=== PATIENT | female | born 1960 | race Caucasian/White ===

== ENCOUNTER 2016-08-04 10:28 | Outpatient (CLI) | payer MEDICARE, BC ==
[2016-08-04] MEDS ORDERED: Iopamidol 408 MG/ML 20 ML SDV ONE (11:59)
[2016-08-04] MEDS ORDERED: Betamethasone Acetate/Betamethasone Sod Phosphate 30 MG/5 ML MDV ONE (11:59)
[2016-08-04 12:32] VITALS: BP 151/85
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
== END 2016-08-04 12:35 | disposition home or self-care (01) ==
LOC: VM.PAIN 10:28
PROVIDERS: ATTEND Nurse Anesthetist, Certified Registered
DX: M53.3 Sacrococcygeal disorders, not elsewhere classified (principal); M79.1 Myalgia
CPT/HCPCS: 62322; J0702

== ENCOUNTER 2018-01-04 11:50 | Inpatient (IN) | payer MEDICARE, BC ==
[2018-01-04] MEDS ORDERED: Sodium Chloride 0.9% 1,000 ML IV ONE (12:00)
[2018-01-04] MEDS ORDERED: Ondansetron 4 MG/2 ML SDV IVPUSH ONE (12:00)
[2018-01-04] MEDS ORDERED: Sodium Chloride 0.9% 10 ML Syringe FLUSH PRN (12:01)
[2018-01-04 12:51] LABS: CHLORIDE,CL 105 mmol/L (98-107); SODIUM,NA 139 mmol/L (136-145)
[2018-01-04] MEDS ORDERED: Magnesium Sulfate/Water 2 GM in Premix Bag 1 BAG IV ONE (14:09)
[2018-01-04] MEDS ORDERED: Thiamine 200 MG/2 ML MDV IV ONE (14:10)
[2018-01-04] MEDS ORDERED: Thiamine 200 MG/2 ML MDV IM ONE (14:10)
--- NOTE | 2018-01-04 14:21 | PCM.HP ---
H&P History of Present Illness - General Date of Service: 01/04/18 Admit Problem/Dx: Admission Diagnosis/Problem Admission Diagnosis/Problem Alcohol dependence Source of Information: Patient History Limitations: Reports: Intoxication - History of Present Illness Initial Comments - Free Text/Narative: Mrs. Shah is a 57 yo female who presented to the ER today due to relapse of alcohol abuse and desire to regain sobriety. She states that over the past 9 days, she has resumed drinking vodka daily. Prior to this, she had relapsed with her alcohol abuse but was limiting this to "a few" beers daily. She only started drinking vodka again 9 days ago per her report. She is not willing to tell me how much she has been drinking but told the ER nurse that she has been drinking a liter of vodka daily. She states this was prompted by the fact that she asked her to move out and he listened to her. She is not unhappy that he left but also states that it is complicated. She is interested in quitting drinking again and would like assistance with this. She has been having intermittent nausea this week whenever she has spaced out her drinks. No abdominal pain, fever, or chills. No changes in her bowels. She denies any other physical symptoms. She has tried to quit on her own in the past but states that she has never gone longer than 3 days at home. She does not believe she has a history of complicated withdrawal or seizures but she cannot be sure. In September 2016, she did get admitted to the [facility] in [place] for detox and subsequent treatment. She has kept in contact with a counselor through the [facility] every month but has not done anything else for sobriety maintenance as in regular AA attendance. History is limited by the fact that the patient is currently intoxicated with a HOLLIE >300. Lower Back Pain Score (Numeric/FACES): 5 - Related Data Allergies/Adverse Reactions: Allergies Allergy/AdvReac Type Severity Reaction Status Date / Time No Known Allergies Allergy Verified 01/04/18 13:23 Home Medications: Home Meds Albuterol [Ventolin HFA] 1 - 2 puff PO Q4H PRN 08/11/13 [History] Cyclobenzaprine [Flexeril] 10 mg PO TID PRN 08/11/13 [History] FA/Lycopene/Lut/MV,Ca,Iron,Min [Centrum] 1 tab PO DAILY 08/11/13 [History] Latanoprost [Xalatan 0.005% Ophth Soln] 1 drop EYEBOTH BEDTIME 08/11/13 [History ] Timolol Maleate [Timoptic 0.5% Ophth Soln] 1 drop EYERT BID 08/11/13 [History] traZODone 50 mg PO BEDTIME 08/11/13 [History] Cephalexin 500 mg PO DAILY 08/04/16 [History] Venlafaxine [Effexor XR] 150 mg PO DAILY 08/04/16 [History] Amitriptyline [Elavil] 25 mg PO BEDTIME 01/04/18 [History] Lisinopril 30 mg PO DAILY 01/04/18 [History] Pantoprazole Sodium 40 mg PO DAILY 01/04/18 [History] Pregabalin [Lyrica] 225 mg PO BID 01/04/18 [History] Triamcinolone Acetonide [Kenalog 0.1% Crm] 1 applic TOP BID PRN 01/04/18 [ History] busPIRone [Buspar] 15 mg PO BID 01/04/18 [History] Past Medical History HEENT History: Reports: Glaucoma, Other (See Below) Other HEENT History: presbyopia. myopia. astigmatism Cardiovascular History: Reports: Hypertension Respiratory History: Reports: COPD, Other (See Below) Other Respiratory History: lung nodules Gastrointestinal History: Reports: Chronic Constipation, Colon Polyp, Hiatal Hernia, Irritable Bowel Syndrome, PUD Other Gastrointestinal History: bleeding ulcer Genitourinary History: Reports: None Musculoskeletal History: Reports: Fibromyalgia, Other (See Below) Other Musculoskeletal History: multiple rib fx fx metatarsal bone R foot with malunion. CWP sciatica left side. injury to Left shoulder. DJD of cervical spine. colles fx L radius Neurological History: Reports: Headaches, Chronic, Neuropathy, Peripheral Psychiatric History: Reports: Addiction, Anxiety, Depression Endocrine/Metabolic History: Reports: Hyperthyroidism, Osteopenia, Other (See Below) Other Endocrine/Metabolic History: thyroid nodule. hyperkalemia Hematologic History: Reports: Other (See Below) Other Hematologic History: hyperkalemia. elevated liver enzymes Oncologic (Cancer) History: Reports: Breast Dermatologic History: Reports: None - Infectious Disease History Infectious Disease History: Reports: Other (See Below) Other Infectious Disease History: MSSA - Past Surgical History HEENT Surgical History: Reports: Adenoidectomy, Tonsillectomy GI Surgical History: Reports: Other (See Below) Other GI Surgeries/Procedures: intestinal resection Female Surgical History: Reports: Section, Tubal Ligation Musculoskeletal Surgical History: Reports: Other (See Below) Other Musculoskeletal Surgeries/Procedures:: open reduction Left distal radius. bunionectomy. cervical fusion. laminectomy Oncologic Surgical History: Reports: Lumpectomy Social & Family History - Family History Psychiatric: Reports: Depression, Other (See Below) (alcohol abuse) Oncologic: Reports: Pancreatic - Tobacco Use Smoking Status *Q: Current Every Day Smoker Years of Tobacco use: 25 Packs/Tins Daily: 1 - Alcohol Use Alcohol Use History: Yes Days Per Week of Alcohol Use: 7 Number of Drinks Per Day: 33 Total Drinks Per Week: 231 - Recreational Drug Use Recreational Drug Use: No - Living Situation & Occupation Living situation: Reports: , Alone ( recently moved out) Occupation: Employed (works making and selling crafts) H&P Review of Systems - Review of Systems: Review Of Systems: See Below General: Reports: No Symptoms HEENT: Reports: No Symptoms Pulmonary: Reports: No Symptoms Cardiovascular: Reports: No Symptoms Gastrointestinal: Reports: Nausea, Vomiting. Denies: Abdominal Pain, Constipation, Diarrhea Genitourinary: Reports: No Symptoms Musculoskeletal: Reports: No Symptoms Skin: Reports: Rash (ongoing but improved from last office visit) Psychiatric: Reports: No Symptoms Neurological: Reports: No Symptoms Exam - Exam Exam: See Below - Vital Signs Vital Signs: Last Vital Signs Temp 35.9 C 01/04/18 12:00 Pulse 100 01/04/18 12:00 Resp 20 01/04/18 12:00 BP 155/86 H 01/04/18 12:00 Pulse Ox 96 01/04/18 12:00 - Exam General: Alert, Cooperative HEENT: Conjunctiva Clear, Mucosa Moist & Malo, Posterior Pharynx Clear, Pupils Equal, Pupils Reactive, TMs Clear Neck: Supple, Trachea Midline. No: Lymphadenopathy, Thyromegaly Lungs: Clear to Auscultation, Normal Respiratory Effort Cardiovascular: Regular Rate, Regular Rhythm, Normal S1, Normal S2 GI/Abdominal Exam: Normal Bowel Sounds, Soft, Non-Tender, No Organomegaly, No Distention, No Mass Extremities: Non-Tender, No Pedal Edema, Normal Capillary Refill Peripheral Pulses: 2+: Radial (L), Radial (R), Posterior Tibial (L), Posterior Tibial (R), Dorsalis Pedis (L), Dorsalis Pedis (R) Skin: Warm, Dry, Intact, Rash (scattered erythematous patches and papules on the arms and legs with overlying scale and excoriations) - Patient Data Lab Results Last 24 hrs: Laboratory Results - last 24 hr 01/04/18 01/04/18 01/04/18 Range/Units 12:15 12:15 12:15 WBC 4.0 (4.0-10.0) x10^3/uL RBC 4.09 (4.00-5.50) x10^6/uL Hgb 12.4 (12.0-16.0) g/dL Hct 36.6 (33.0-47.0) % MCV 89.5 D (78.0-93.0) fL MCH 30.3 (26.0-32.0) pg MCHC 33.9 (32.0-36.0) g/dL RDW Coeff of Nicole 13.9 (10.0-15.0) % Plt Count 193 (130-400) x10^3/uL Neut % (Auto) 25.1 L (50.0-80.0) % Lymph % (Auto) 61.3 H (25.0-50.0) % Cottle % (Auto) 8.8 (2.0-11.0) % Eos % (Auto) 4.0 (0.0-4.0) % Baso % (Auto) 0.8 (0.2-1.2) % PT 11.0 (9.6-11.4) SEC INR 1.1 L (2.0-3.5) Sodium 139 (136-145) mmol/L Potassium 4.3 (3.5-5.1) mmol/L Chloride 105 (98-107) mmol/L Carbon Dioxide 22 (21-32) mmol/L Anion Gap 16.3 (10-20) mmol/L BUN 37 H (7-18) mg/dL Creatinine 1.1 H (0.55-1.02) mg/dL Est Cr Clr Drug Dosing TNP Estimated GFR (MDRD) 51 Glucose 92 (74-106) mg/dL Calcium 8.1 L (8.5-10.1) mg/dL Corrected Calcium 8.34 L (8.5-10.1) mg/dL Phosphorus 2.3 L (2.6-4.7) mg/dL Magnesium 1.6 L (1.8-2.4) mg/dL Total Bilirubin 0.6 (0.2-1.0) mg/dL AST 43 H (15-37) U/L ALT 34 (14-59) U/L Alkaline Phosphatase 98 (46-116) U/L C-Reactive Protein < 0.2 (<=0.9) mg/dL Total Protein 7.3 (6.4-8.2) g/dL Albumin 3.7 (3.4-5.0) g/dL Globulin 3.6 Albumin/Globulin Ratio 1.03 Urine Color (YELLOW) Urine Appearance (CLEAR) Urine pH (5.0-8.0) Ur Specific Collins Urine Protein (NEGATIVE) mg/dL Urine Glucose (UA) (NEGATIVE) mg/dL Urine Ketones (NEGATIVE) mg/dL Urine Occult Blood (NEGATIVE) Urine Nitrite (NEGATIVE) Urine Bilirubin (NEGATIVE) Urine Urobilinogen (0.2) EU/dL Ur Leukocyte Esterase (NEGATIVE) Urine RBC (NOT SEEN) /HPF Urine WBC (NOT SEEN) /HPF Ur Squamous Epith Cells (NEGATIVE) /HPF Urine Bacteria (NEGATIVE) /HPF Urine Mucus (NEGATIVE) /LPF Urine Opiates Screen (NEGATIVE) Ur Buprenorphine Scrn (NEGATIVE) Ur Oxycodone Screen (NEGATIVE) Urine Methadone Screen (NEGATIVE) Ur Barbituates Screen (NEGATIVE) Ur Tricyclics Screen (NEGATIVE) Ur Amphetamines Screen (NEGATIVE) U Methamphetamines Scrn (NEGATIVE) Urine MDMA Screen (NEGATIVE) U Benzodiazepines Scrn (NEGATIVE) Urine Cocaine Screen (NEGATIVE) U Marijuana (THC) Screen (NEGATIVE) Ethyl Alcohol 312 H* (0-3) mg/dL 01/04/18 01/04/18 Range/Units 12:27 12:27 WBC (4.0-10.0) x10^3/uL RBC (4.00-5.50) x10^6/uL Hgb (12.0-16.0) g/dL Hct (33.0-47.0) % MCV (78.0-93.0) fL MCH (26.0-32.0) pg MCHC (32.0-36.0) g/dL RDW Coeff of Nicole (10.0-15.0) % Plt Count (130-400) x10^3/uL Neut % (Auto) (50.0-80.0) % Lymph % (Auto) (25.0-50.0) % Cottle % (Auto) (2.0-11.0) % Eos % (Auto) (0.0-4.0) % Baso % (Auto) (0.2-1.2) % PT (9.6-11.4) SEC INR (2.0-3.5) Sodium (136-145) mmol/L Potassium (3.5-5.1) mmol/L Chloride (98-107) mmol/L Carbon Dioxide (21-32) mmol/L Anion Gap (10-20) mmol/L BUN (7-18) mg/dL Creatinine (0.55-1.02) mg/dL Est Cr Clr Drug Dosing Estimated GFR (MDRD) Glucose (74-106) mg/dL Calcium (8.5-10.1) mg/dL Corrected Calcium (8.5-10.1) mg/dL Phosphorus (2.6-4.7) mg/dL Magnesium (1.8-2.4) mg/dL Total Bilirubin (0.2-1.0) mg/dL AST (15-37) U/L ALT (14-59) U/L Alkaline Phosphatase (46-116) U/L C-Reactive Protein (<=0.9) mg/dL Total Protein (6.4-8.2) g/dL Albumin (3.4-5.0) g/dL Globulin Albumin/Globulin Ratio Urine Color Yellow (YELLOW) Urine Appearance Slightly cloudy H (CLEAR) Urine pH 6.0 (5.0-8.0) Ur Specific Collins 1.020 Urine Protein Trace H (NEGATIVE) mg/dL Urine Glucose (UA) Negative (NEGATIVE) mg/dL Urine Ketones Negative (NEGATIVE) mg/dL Urine Occult Blood Trace-intact H (NEGATIVE) Urine Nitrite Negative (NEGATIVE) Urine Bilirubin Negative (NEGATIVE) Urine Urobilinogen 0.2 (0.2) EU/dL Ur Leukocyte Esterase Negative (NEGATIVE) Urine RBC 0-5 (NOT SEEN) /HPF Urine WBC 0-5 (NOT SEEN) /HPF Ur Squamous Epith Cells Few H (NEGATIVE) /HPF Urine Bacteria Few H (NEGATIVE) /HPF Urine Mucus Rare H (NEGATIVE) /LPF Urine Opiates Screen Negative (NEGATIVE) Ur Buprenorphine Scrn Negative (NEGATIVE) Ur Oxycodone Screen Negative (NEGATIVE) Urine Methadone Screen Negative (NEGATIVE) Ur Barbituates Screen Negative (NEGATIVE) Ur Tricyclics Screen Positive H (NEGATIVE) Ur Amphetamines Screen Negative (NEGATIVE) U Methamphetamines Scrn Negative (NEGATIVE) Urine MDMA Screen Negative (NEGATIVE) U Benzodiazepines Scrn Negative (NEGATIVE) Urine Cocaine Screen Negative (NEGATIVE) U Marijuana (THC) Screen Negative (NEGATIVE) Ethyl Alcohol (0-3) mg/dL Result Diagrams: 01/04/18 12:15 01/04/18 12:15 - Problem List (1) Alcohol intoxication SNOMED Code(s): 15284943 ICD Code: F10.929 - ALCOHOL USE, UNSPECIFIED WITH INTOXICATION, UNSPECIFIED Status: Acute Current Visit: Yes Problem Details: - Patient currently intoxicated with HOLLIE >300. - Has history of severe alcohol use disorder but no known history of complicated withdrawal. - Will need at least 48 hours of monitoring to ensure she is not developing signs of severe withdrawal. - IV fluids overnight. - CIWA score q1 hour until <8 x 4, then q4h, return to q1h if >8 and needs lorazepam. - Lorazepam with dosing per CIWA scores. - Zofran PRN nausea/vomiting. - IV thiamine today followed by daily PO thiamine. - Daily PO folate, MVT. Qualifiers: Complication of substance-induced condition: uncomplicated Qualified Code(s ): F10.920 - Alcohol use, unspecified with intoxication, uncomplicated (2) Alcohol use disorder SNOMED Code(s): 08133694, 04169215 ICD Code: F10.99 - ALCOHOL USE, UNSP WITH UNSPECIFIED ALCOHOL-INDUCED DISORDER Status: Chronic Current Visit: Yes Problem Details: - See above for acute management. - Case management consult to discuss treatment options upon medical stability. (3) Hypomagnesemia SNOMED Code(s): 066265500 ICD Code: E83.42 - HYPOMAGNESEMIA Status: Acute Current Visit: Yes Problem Details: - Will replete with IV today. - Recheck tomorrow and then replete further depending on that result. (4) Peripheral neuropathic pain SNOMED Code(s): 470324455 ICD Code: M79.2 - NEURALGIA AND NEURITIS, UNSPECIFIED Status: Chronic Current Visit: Yes Problem Details: - Continue lyrica. (5) Hypertension SNOMED Code(s): 03596711 ICD Code: I10 - ESSENTIAL (PRIMARY) HYPERTENSION Status: Chronic Current Visit: Yes Problem Details: - Anticipate BP will be above goal, especially in the initial detoxification stages. - Will continue lisinopril. - Plan to add clonidine if BP's severely elevated. Qualifiers: Hypertension type: essential hypertension Qualified Code(s): I10 - Essential (primary) hypertension (6) Depression with anxiety SNOMED Code(s): 50172261, 344144861 ICD Code: F41.8 - OTHER SPECIFIED ANXIETY DISORDERS Status: Chronic Current Visit: Yes Problem Details: - Continue venlafaxine, amitriptyline, trazodone, and buspar. (7) Insomnia SNOMED Code(s): 299315967 ICD Code: G47.00 - INSOMNIA, UNSPECIFIED Status: Chronic Current Visit: Yes Problem Details: - Multifactorial. - Continue trazodone and amitriptyline. Qualifiers: Insomnia type: unspecified Qualified Code(s): G47.00 - Insomnia, unspecified (8) Peptic ulcer disease SNOMED Code(s): 94292363 ICD Code: K27.9 - PEPTIC ULC, SITE UNSP, UNSP AC OR CHR, W/O HEMOR OR PERF Status: Chronic Current Visit: Yes Problem Details: - Continue pantoprazole. (9) Dermatitis SNOMED Code(s): 91553106 ICD Code: L30.9 - DERMATITIS, UNSPECIFIED Status: Chronic Current Visit: Yes Problem Details: - Continue triamcinolone. (10) COPD (chronic obstructive pulmonary disease) SNOMED Code(s): 04162999 ICD Code: J44.9 - CHRONIC OBSTRUCTIVE PULMONARY DISEASE, UNSPECIFIED Status : Chronic Current Visit: Yes Problem Details: - No acute symptoms. - Hold albuterol inhaler. Can do nebs if she develops symptoms. Qualifiers: COPD type: unspecified COPD Qualified Code(s): J44.9 - Chronic obstructive pulmonary disease, unspecified (11) Glaucoma SNOMED Code(s): 06537839 ICD Code: H40.9 - UNSPECIFIED GLAUCOMA Status: Chronic Current Visit: Yes Problem Details: - Continue eye drops. Qualifiers: Glaucoma type: unspecified Laterality: unspecified laterality Qualified Code(s): H40.9 - Unspecified glaucoma (12) Tobacco use disorder SNOMED Code(s): 296422664 ICD Code: F17.200 - NICOTINE DEPENDENCE, UNSPECIFIED, UNCOMPLICATED Status : Chronic Current Visit: Yes Problem Details: - Nicotine patch while hospitalized. Problem List Initiated/Reviewed/Updated: Yes Orders Last 24hrs: Active Orders 24 hr Category Date Time Status Patient Status [ADT] Routine ADT 01/04/18 13:14 Active MISC TEST Stat Lab 01/04/18 12:27 Received UA W/MICROSCOPIC [URIN] Stat Lab 01/04/18 12:27 Ordered URINE DRUG SCREEN,POC [POC] Stat Lab 01/04/18 12:27 Ordered Sodium Chloride 0.9% [Saline Flush] Med 01/04/18 12:01 Active 10 ml FLUSH ASDIRECTED PRN Peripheral IV Insertion Adult [OM.PC] Routine Oth 01/04/18 12:01 Ordered Medication Orders Sodium Chloride (Saline Flush) 10 ml FLUSH ASDIRECTED PRN PRN Reason: Keep Vein Open Assessment/Plan Comment:: 57 yo female with known severe alcohol use disorder who is admitted with acute alcohol intoxication and desire for detoxification and sobriety treatment. See details under problems above. Will do IV fluids, folic acid, MVT, and thiamine. Lorazepam PRN per CIWA scores and zofran PRN for nausea. Patient will be admitted to acute due to anticipated level of monitoring and intervention as well as plan to keep her for at least 48 hours of monitoring. Case management consult for treatment options. Lovenox for VTE prophylaxis. Patient will be made full code - will discuss this with her when she is no longer intoxicated and can make an informed decision to this regard.
[2018-01-04] MEDS: Lactated Ringers 1,000 ML IV SCH (15:10)
[2018-01-04] MEDS ORDERED: Triamcinolone Acetonide 0.1% Crm 15 GM Tube TOP PRN (15:45)
[2018-01-04] MEDS ORDERED: Ondansetron 4 MG/2 ML SDV IVPUSH PRN (15:59)
[2018-01-04] MEDS: Nicotine 21 MG/24 Hr Patch TRDERM SCH (16:17)
[2018-01-04] MEDS ORDERED: PREGABALIN 225 MG PO SCH (20:00)
[2018-01-04] MEDS: Acetaminophen 500 MG Tab PO PRN (20:10)
[2018-01-04] MEDS: Pregabalin 25 MG Cap PO SCH (20:11)
[2018-01-04] MEDS: Timolol Maleate 0.5% Ophth Soln 5 ML Bottle EYERT SCH (20:12)
[2018-01-04] MEDS: Pregabalin 50 MG Cap PO SCH ×2 (20:12→20:29)
[2018-01-04] MEDS: busPIRone 15 MG Tab PO SCH (20:12)
[2018-01-04] MEDS: Amitriptyline 25 MG Tab PO SCH (20:12)
[2018-01-04] MEDS: traZODone 50 MG Tab PO SCH (20:12)
[2018-01-04] MEDS: Latanoprost 0.005% Ophth Soln 2.5 ML Bottle EYEBOTH SCH (20:13)
[2018-01-04] MEDS: LORazepam 1 MG Tab PO PRN (22:05)
[2018-01-05] MEDS: Lactated Ringers 1,000 ML IV SCH (03:52)
[2018-01-05] MEDS: LORazepam 1 MG Tab PO PRN (03:57)
[2018-01-05] MEDS ORDERED: Calcium Carbonate 750 MG Tab.Chew PO ONE (04:01)
[2018-01-05] MEDS ORDERED: Omeprazole 20 MG Cap.CR PO ONE (04:03)
[2018-01-05] MEDS ORDERED: Metoprolol Tartrate 50 MG Tab PO ONE (06:12)
[2018-01-05] MEDS ORDERED: Omeprazole 20 MG Cap.CR PO SCH (07:00)
[2018-01-05] MEDS: Nicotine 21 MG/24 Hr Patch TRDERM SCH (07:34)
[2018-01-05] MEDS: Pregabalin 50 MG Cap PO SCH ×3 (07:34→19:33)
[2018-01-05] MEDS: Cephalexin 500 MG Cap PO SCH (07:34)
[2018-01-05] MEDS: Lisinopril 10 MG Tab PO SCH (07:35)
[2018-01-05] MEDS: Enoxaparin 40 MG/0.4 ML Syringe SUBCUT SCH (07:35)
[2018-01-05] MEDS: Multivitamins with Iron/Calcium/Folic Acid/Minerals Tab PO SCH (07:35)
[2018-01-05] MEDS: Venlafaxine 150 MG Cap.ER PO SCH (07:35)
[2018-01-05] MEDS: Folic Acid 1 MG Tab PO SCH (07:35)
[2018-01-05] MEDS: busPIRone 15 MG Tab PO SCH ×2 (07:35→19:33)
[2018-01-05] MEDS: Pregabalin 25 MG Cap PO SCH ×2 (07:35→19:32)
[2018-01-05] MEDS: Thiamine 100 MG Tab PO SCH (07:35)
[2018-01-05] MEDS: Timolol Maleate 0.5% Ophth Soln 5 ML Bottle EYERT SCH ×2 (07:36→19:34)
[2018-01-05 07:40] LABS: CHLORIDE,CL 103 mmol/L (98-107); SODIUM,NA 139 mmol/L (136-145)
[2018-01-05] MEDS ORDERED: LORazepam 1 MG Tab PO ONE (08:22)
--- NOTE | 2018-01-05 09:09 | PCM.PN ---
- General Info Date of Service: 01/05/18 Subjective Update: Patient is tired this morning as she did not get much sleep overnight. BP has been quite elevated. She did have a headache rated 8/10 but that has improved to 5/10 with tylenol. No weakness, numbness, or tingling. Also had some heartburn that is resolved with Tums. No other chest pain. No shortness of breath or leg swelling. Has had some nausea but zofran has been effective for this. No vomiting or abdominal pain. - Review of Systems General: Reports: No Symptoms HEENT: Reports: No Symptoms Pulmonary: Reports: No Symptoms Cardiovascular: Reports: No Symptoms Gastrointestinal: Reports: Nausea. Denies: Abdominal Pain, Vomiting Genitourinary: Reports: No Symptoms Musculoskeletal: Reports: No Symptoms Skin: Reports: No Symptoms - Patient Data Vitals - Most Recent: Last Vital Signs Temp 36.6 C 01/05/18 06:00 Pulse 94 01/05/18 06:22 Resp 16 01/05/18 06:00 BP 199/104 H 01/05/18 08:05 Pulse Ox 92 L 01/05/18 06:00 Weight - Most Recent: 72.756 kg I&O - Last 24 Hours: Intake & Output 01/04/18 01/05/18 01/05/18 22:59 06:59 14:59 Intake Total 352 2321 120 Output Total 400 Balance -48 2321 120 Lab Results Last 24 Hours: Laboratory Results - last 24 hr 01/04/18 01/04/18 01/04/18 Range/Units 12:15 12:15 12:15 WBC 4.0 (4.0-10.0) x10^3/uL RBC 4.09 (4.00-5.50) x10^6/uL Hgb 12.4 (12.0-16.0) g/dL Hct 36.6 (33.0-47.0) % MCV 89.5 D (78.0-93.0) fL MCH 30.3 (26.0-32.0) pg MCHC 33.9 (32.0-36.0) g/dL RDW Coeff of Nicole 13.9 (10.0-15.0) % Plt Count 193 (130-400) x10^3/uL Neut % (Auto) 25.1 L (50.0-80.0) % Lymph % (Auto) 61.3 H (25.0-50.0) % [place] % (Auto) 8.8 (2.0-11.0) % Eos % (Auto) 4.0 (0.0-4.0) % Baso % (Auto) 0.8 (0.2-1.2) % PT 11.0 (9.6-11.4) SEC INR 1.1 L (2.0-3.5) Sodium 139 (136-145) mmol/L Potassium 4.3 (3.5-5.1) mmol/L Chloride 105 (98-107) mmol/L Carbon Dioxide 22 (21-32) mmol/L Anion Gap 16.3 (10-20) mmol/L BUN 37 H (7-18) mg/dL Creatinine 1.1 H (0.55-1.02) mg/dL Est Cr Clr Drug Dosing TNP Estimated GFR (MDRD) 51 Glucose 92 (74-106) mg/dL Calcium 8.1 L (8.5-10.1) mg/dL Corrected Calcium 8.34 L (8.5-10.1) mg/dL Phosphorus 2.3 L (2.6-4.7) mg/dL Magnesium 1.6 L (1.8-2.4) mg/dL Total Bilirubin 0.6 (0.2-1.0) mg/dL AST 43 H (15-37) U/L ALT 34 (14-59) U/L Alkaline Phosphatase 98 (46-116) U/L C-Reactive Protein < 0.2 (<=0.9) mg/dL Total Protein 7.3 (6.4-8.2) g/dL Albumin 3.7 (3.4-5.0) g/dL Globulin 3.6 Albumin/Globulin Ratio 1.03 Urine Color (YELLOW) Urine Appearance (CLEAR) Urine pH (5.0-8.0) Ur Specific [place] Urine Protein (NEGATIVE) mg/dL Urine Glucose (UA) (NEGATIVE) mg/dL Urine Ketones (NEGATIVE) mg/dL Urine Occult Blood (NEGATIVE) Urine Nitrite (NEGATIVE) Urine Bilirubin (NEGATIVE) Urine Urobilinogen (0.2) EU/dL Ur Leukocyte Esterase (NEGATIVE) Urine RBC (NOT SEEN) /HPF Urine WBC (NOT SEEN) /HPF Ur Squamous Epith Cells (NEGATIVE) /HPF Urine Bacteria (NEGATIVE) /HPF Urine Mucus (NEGATIVE) /LPF Urine Opiates Screen (NEGATIVE) Ur Buprenorphine Scrn (NEGATIVE) Ur Oxycodone Screen (NEGATIVE) Urine Methadone Screen (NEGATIVE) Ur Barbituates Screen (NEGATIVE) Ur Tricyclics Screen (NEGATIVE) Ur Amphetamines Screen (NEGATIVE) U Methamphetamines Scrn (NEGATIVE) Urine MDMA Screen (NEGATIVE) U Benzodiazepines Scrn (NEGATIVE) Urine Cocaine Screen (NEGATIVE) U Marijuana (THC) Screen (NEGATIVE) Ethyl Alcohol 312 H* (0-3) mg/dL 01/04/18 01/04/18 01/05/18 Range/Units 12:27 12:27 07:06 WBC 5.1 (4.0-10.0) x10^3/uL RBC 3.99 L (4.00-5.50) x10^6/uL Hgb 12.2 (12.0-16.0) g/dL Hct 35.4 (33.0-47.0) % MCV 88.7 (78.0-93.0) fL MCH 30.6 (26.0-32.0) pg MCHC 34.5 (32.0-36.0) g/dL RDW Coeff of Nicole 13.7 (10.0-15.0) % Plt Count 167 (130-400) x10^3/uL Neut % (Auto) 48.4 L (50.0-80.0) % Lymph % (Auto) 39.3 (25.0-50.0) % [place] % (Auto) 9.3 (2.0-11.0) % Eos % (Auto) 2.4 (0.0-4.0) % Baso % (Auto) 0.6 (0.2-1.2) % PT (9.6-11.4) SEC INR (2.0-3.5) Sodium (136-145) mmol/L Potassium (3.5-5.1) mmol/L Chloride (98-107) mmol/L Carbon Dioxide (21-32) mmol/L Anion Gap (10-20) mmol/L BUN (7-18) mg/dL Creatinine (0.55-1.02) mg/dL Est Cr Clr Drug Dosing Estimated GFR (MDRD) Glucose (74-106) mg/dL Calcium (8.5-10.1) mg/dL Corrected Calcium (8.5-10.1) mg/dL Phosphorus (2.6-4.7) mg/dL Magnesium (1.8-2.4) mg/dL Total Bilirubin (0.2-1.0) mg/dL AST (15-37) U/L ALT (14-59) U/L Alkaline Phosphatase (46-116) U/L C-Reactive Protein (<=0.9) mg/dL Total Protein (6.4-8.2) g/dL Albumin (3.4-5.0) g/dL Globulin Albumin/Globulin Ratio Urine Color Yellow (YELLOW) Urine Appearance Slightly cloudy H (CLEAR) Urine pH 6.0 (5.0-8.0) Ur Specific [place] 1.020 Urine Protein Trace H (NEGATIVE) mg/dL Urine Glucose (UA) Negative (NEGATIVE) mg/dL Urine Ketones Negative (NEGATIVE) mg/dL Urine Occult Blood Trace-intact H (NEGATIVE) Urine Nitrite Negative (NEGATIVE) Urine Bilirubin Negative (NEGATIVE) Urine Urobilinogen 0.2 (0.2) EU/dL Ur Leukocyte Esterase Negative (NEGATIVE) Urine RBC 0-5 (NOT SEEN) /HPF Urine WBC 0-5 (NOT SEEN) /HPF Ur Squamous Epith Cells Few H (NEGATIVE) /HPF Urine Bacteria Few H (NEGATIVE) /HPF Urine Mucus Rare H (NEGATIVE) /LPF Urine Opiates Screen Negative (NEGATIVE) Ur Buprenorphine Scrn Negative (NEGATIVE) Ur Oxycodone Screen Negative (NEGATIVE) Urine Methadone Screen Negative (NEGATIVE) Ur Barbituates Screen Negative (NEGATIVE) Ur Tricyclics Screen Positive H (NEGATIVE) Ur Amphetamines Screen Negative (NEGATIVE) U Methamphetamines Scrn Negative (NEGATIVE) Urine MDMA Screen Negative (NEGATIVE) U Benzodiazepines Scrn Negative (NEGATIVE) Urine Cocaine Screen Negative (NEGATIVE) U Marijuana (THC) Screen Negative (NEGATIVE) Ethyl Alcohol (0-3) mg/dL 01/05/18 Range/Units 07:06 WBC (4.0-10.0) x10^3/uL RBC (4.00-5.50) x10^6/uL Hgb (12.0-16.0) g/dL Hct (33.0-47.0) % MCV (78.0-93.0) fL MCH (26.0-32.0) pg MCHC (32.0-36.0) g/dL RDW Coeff of Nicole (10.0-15.0) % Plt Count (130-400) x10^3/uL Neut % (Auto) (50.0-80.0) % Lymph % (Auto) (25.0-50.0) % [place] % (Auto) (2.0-11.0) % Eos % (Auto) (0.0-4.0) % Baso % (Auto) (0.2-1.2) % PT (9.6-11.4) SEC INR (2.0-3.5) Sodium 139 (136-145) mmol/L Potassium 4.1 (3.5-5.1) mmol/L Chloride 103 (98-107) mmol/L Carbon Dioxide 26 (21-32) mmol/L Anion Gap 14.1 (10-20) mmol/L BUN 24 H (7-18) mg/dL Creatinine 0.9 (0.55-1.02) mg/dL Est Cr Clr Drug Dosing 65.45 Estimated GFR (MDRD) > 60 Glucose 76 (74-106) mg/dL Calcium 8.5 (8.5-10.1) mg/dL Corrected Calcium 8.90 (8.5-10.1) mg/dL Phosphorus 3.0 (2.6-4.7) mg/dL Magnesium 1.7 L (1.8-2.4) mg/dL Total Bilirubin 1.0 (0.2-1.0) mg/dL AST 71 H (15-37) U/L ALT 36 (14-59) U/L Alkaline Phosphatase 97 (46-116) U/L C-Reactive Protein (<=0.9) mg/dL Total Protein 6.7 (6.4-8.2) g/dL Albumin 3.5 (3.4-5.0) g/dL Globulin 3.2 Albumin/Globulin Ratio 1.09 Urine Color (YELLOW) Urine Appearance (CLEAR) Urine pH (5.0-8.0) Ur Specific [place] Urine Protein (NEGATIVE) mg/dL Urine Glucose (UA) (NEGATIVE) mg/dL Urine Ketones (NEGATIVE) mg/dL Urine Occult Blood (NEGATIVE) Urine Nitrite (NEGATIVE) Urine Bilirubin (NEGATIVE) Urine Urobilinogen (0.2) EU/dL Ur Leukocyte Esterase (NEGATIVE) Urine RBC (NOT SEEN) /HPF Urine WBC (NOT SEEN) /HPF Ur Squamous Epith Cells (NEGATIVE) /HPF Urine Bacteria (NEGATIVE) /HPF Urine Mucus (NEGATIVE) /LPF Urine Opiates Screen (NEGATIVE) Ur Buprenorphine Scrn (NEGATIVE) Ur Oxycodone Screen (NEGATIVE) Urine Methadone Screen (NEGATIVE) Ur Barbituates Screen (NEGATIVE) Ur Tricyclics Screen (NEGATIVE) Ur Amphetamines Screen (NEGATIVE) U Methamphetamines Scrn (NEGATIVE) Urine MDMA Screen (NEGATIVE) U Benzodiazepines Scrn (NEGATIVE) Urine Cocaine Screen (NEGATIVE) U Marijuana (THC) Screen (NEGATIVE) Ethyl Alcohol (0-3) mg/dL Med Orders - Current: Current Medications Acetaminophen (Tylenol Extra Strength) 1,000 mg PO Q6H PRN PRN Reason: Pain Last Admin: 01/04/18 20:10 Dose: 1,000 mg Amitriptyline HCl (Elavil) 25 mg PO BEDTIME [facility] Last Admin: 01/04/18 20:12 Dose: 25 mg Buspirone HCl (Buspar) 15 mg PO BID [facility] Last Admin: 01/05/18 07:35 Dose: 15 mg Cephalexin (Keflex) 500 mg PO DAILY [facility] Last Admin: 01/05/18 07:34 Dose: 500 mg Enoxaparin Sodium (Lovenox) 40 mg SUBCUT DAILY [facility] Last Admin: 01/05/18 07:35 Dose: 40 mg Folic Acid (Folic Acid) 1 mg PO DAILY [facility] Stop: 01/07/18 08:01 Last Admin: 01/05/18 07:35 Dose: 1 mg Latanoprost (Xalatan 0.005% Ophth Soln) 0 ml EYEBOTH BEDTIME [facility] Last Admin: 01/04/18 20:13 Dose: 1 drop Lisinopril (Prinivil) 30 mg PO DAILY [facility] Last Admin: 01/05/18 07:35 Dose: 30 mg Lorazepam (Ativan) 0 mg PO ASDIRECTED PRN; Protocol PRN Reason: Withdrawal Symptoms Last Admin: 01/05/18 03:57 Dose: 1 mg Multivitamins/Minerals (Thera M Plus) 1 tab PO DAILY [facility] Last Admin: 01/05/18 07:35 Dose: 1 tab Nicotine (Habitrol) 21 mg TRDERM DAILY [facility] Last Admin: 01/05/18 07:34 Dose: 21 mg Omeprazole (Omeprazole) 20 mg PO ACBRK [facility] Last Admin: 01/05/18 06:10 Dose: 20 mg Ondansetron HCl (Zofran) 4 mg IVPUSH Q8H PRN PRN Reason: Nausea Last Admin: 01/04/18 21:33 Dose: 4 mg Pregabalin (Lyrica) 50 mg PO BID [facility] Last Admin: 01/05/18 07:34 Dose: 50 mg Pregabalin (Lyrica) 25 mg PO BID [facility] Last Admin: 01/05/18 07:35 Dose: 25 mg Pregabalin (Lyrica) 150 mg PO BID [facility] Last Admin: 01/05/18 07:34 Dose: 150 mg Thiamine HCl (Vitamin B-1) 100 mg PO DAILY [facility] Last Admin: 01/05/18 07:35 Dose: 100 mg Timolol Maleate (Timoptic 0.5% Ophth Soln) 0 ml EYERT BID [facility] Last Admin: 01/05/18 07:36 Dose: Not Given Trazodone HCl (Trazodone) 50 mg PO BEDTIME [facility] Last Admin: 01/04/18 20:12 Dose: 50 mg Triamcinolone Acetonide (Triamcinolone Acetonide 0.1% Crm) 0 gm TOP BID PRN PRN Reason: ITCHING Venlafaxine HCl (Effexor Xr) 150 mg PO DAILY [facility] Last Admin: 01/05/18 07:35 Dose: 150 mg Discontinued Medications Calcium Carbonate/Glycine (Tums Extra Strength) 750 mg PO ONETIME ONE Stop: 01/05/18 04:02 Last Admin: 01/05/18 04:10 Dose: 750 mg Sodium Chloride (Normal Saline) 1,000 mls @ 1,000 mls/hr IV .BOLUS ONE Stop: 01/04/18 12:59 Last Admin: 01/04/18 12:15 Dose: 1,000 mls/hr Lactated Ringer's (Ringers, Lactated) 1,000 mls @ 100 mls/hr IV ASDIRECTED [facility] Last Admin: 01/05/18 03:52 Dose: 100 mls/hr Magnesium Sulfate 2 gm/ Premix 50 mls @ 25 mls/hr IV ONETIME ONE Stop: 01/04/18 16:08 Last Admin: 01/04/18 15:12 Dose: 25 mls/hr Lorazepam (Ativan) 1 mg PO ONETIME ONE Stop: 01/05/18 08:23 Last Admin: 01/05/18 08:35 Dose: 1 mg Metoprolol Tartrate (Lopressor) 50 mg PO ONETIME ONE Stop: 01/05/18 06:13 Last Admin: 01/05/18 06:22 Dose: 50 mg Omeprazole (Omeprazole) 20 mg PO ONETIME ONE Stop: 01/05/18 04:04 Last Admin: 01/05/18 05:22 Dose: Not Given Ondansetron HCl (Zofran) 4 mg IVPUSH ONETIME ONE Stop: 01/04/18 12:01 Last Admin: 01/04/18 12:20 Dose: 4 mg Pregabalin (Lyrica) 150 mg PO BID [facility] Last Admin: 01/04/18 20:33 Dose: Not Given Sodium Chloride (Saline Flush) 10 ml FLUSH ASDIRECTED PRN PRN Reason: Keep Vein Open Thiamine HCl (Vitamin B-1) 100 mg IM ONETIME ONE Stop: 01/04/18 14:11 Last Admin: 01/04/18 15:05 Dose: Not Given Thiamine HCl (Vitamin B-1) 100 mg IV ONETIME ONE Stop: 01/04/18 14:11 Last Admin: 01/04/18 15:11 Dose: 100 mg - Exam General: Alert, Cooperative, No Acute Distress HEENT: Mucous Membr. Moist/[place] Neck: Supple, Trachea Midline, No Thyromegaly. No: Lymphadenopathy Lungs: Clear to Auscultation, Normal Respiratory Effort Cardiovascular: Regular Rate, Regular Rhythm, No Murmurs GI/Abdominal Exam: Normal Bowel Sounds, Soft, Non-Tender, No Organomegaly, No Distention, No Mass Extremities: Non-Tender, No Pedal Edema, Normal Capillary Refill Skin: Warm, Dry, Intact - Problem List & Annotations (1) Alcohol intoxication SNOMED Code(s): 72062065 Code(s): F10.929 - ALCOHOL USE, UNSPECIFIED WITH INTOXICATION, UNSPECIFIED Status: Acute Current Visit: Yes Qualifiers: Complication of substance-induced condition: uncomplicated Qualified Code(s ): F10.920 - Alcohol use, unspecified with intoxication, uncomplicated Annotation/Comment:: - Patient is in early stages of withdrawal. CIWA scores have been <8 since around 4 am. BP has been up fairly significantly though. - Has history of severe alcohol use disorder but no known history of complicated withdrawal. - Will need at least 48 hours of monitoring to ensure she is not developing signs of severe withdrawal. - Appears well hydrated and has been able to drink without any issues; therefore , will d/c IV fluids and have her push PO fluids. - CIWA score q1 hour until <8 x 4, then q4h, return to q1h if >8 and needs lorazepam. - Lorazepam with dosing per CIWA scores. Will do a 1 time dose this morning to see if this will help her blood pressure as well. - Zofran PRN nausea/vomiting. - IV thiamine given yesterday; now daily PO thiamine. - Daily PO folate, MVT. - If BP remains elevated above 180 systolic, will plan to do a dose of clonidine. (2) Alcohol use disorder SNOMED Code(s): 06195747, 64223966 Code(s): F10.99 - ALCOHOL USE, UNSP WITH UNSPECIFIED ALCOHOL-INDUCED DISORDER Status: Chronic Current Visit: Yes Annotation/Comment:: - See above for acute management. - Case management consult to discuss treatment options upon medical stability. (3) Hypomagnesemia SNOMED Code(s): 352557581 Code(s): E83.42 - HYPOMAGNESEMIA Status: Acute Current Visit: Yes Annotation/Comment:: - Slightly improved today. - Will start PO supplement today. - Recheck tomorrow. (4) Peripheral neuropathic pain SNOMED Code(s): 714933647 Code(s): M79.2 - NEURALGIA AND NEURITIS, UNSPECIFIED Status: Chronic Current Visit: Yes Annotation/Comment:: - Continue lyrica. (5) Hypertension SNOMED Code(s): 07794549 Code(s): I10 - ESSENTIAL (PRIMARY) HYPERTENSION Status: Chronic Current Visit: Yes Qualifiers: Hypertension type: essential hypertension Qualified Code(s): I10 - Essential (primary) hypertension Annotation/Comment:: - Anticipate BP will be above goal, especially in the initial detoxification stages. Is severely elevated today. - Will continue lisinopril. - Plan to add clonidine if BP's severely elevated. (6) Depression with anxiety SNOMED Code(s): 75423624, 241565853 Code(s): F41.8 - OTHER SPECIFIED ANXIETY DISORDERS Status: Chronic Current Visit: Yes Annotation/Comment:: - Continue venlafaxine, amitriptyline , trazodone, and buspar. (7) Insomnia SNOMED Code(s): 614063747 Code(s): G47.00 - INSOMNIA, UNSPECIFIED Status: Chronic Current Visit: Yes Qualifiers: Insomnia type: unspecified Qualified Code(s): G47.00 - Insomnia, unspecified Annotation/Comment:: - Multifactorial. - Continue trazodone and amitriptyline. (8) Peptic ulcer disease SNOMED Code(s): 76801005 Code(s): K27.9 - PEPTIC ULC, SITE UNSP, UNSP AC OR CHR, W/O HEMOR OR PERF Status: Chronic Current Visit: Yes Annotation/Comment:: - Continue pantoprazole. (9) Dermatitis SNOMED Code(s): 37325016 Code(s): L30.9 - DERMATITIS, UNSPECIFIED Status: Chronic Current Visit: Yes Annotation/Comment:: - Continue triamcinolone. (10) COPD (chronic obstructive pulmonary disease) SNOMED Code(s): 18680133 Code(s): J44.9 - CHRONIC OBSTRUCTIVE PULMONARY DISEASE, UNSPECIFIED Status : Chronic Current Visit: Yes Qualifiers: COPD type: unspecified COPD Qualified Code(s): J44.9 - Chronic obstructive pulmonary disease, unspecified Annotation/Comment:: - No acute symptoms. - Hold albuterol inhaler. Can do nebs if she develops symptoms. (11) Glaucoma SNOMED Code(s): 42392654 Code(s): H40.9 - UNSPECIFIED GLAUCOMA Status: Chronic Current Visit: Yes Qualifiers: Glaucoma type: unspecified Laterality: unspecified laterality Qualified Code(s): H40.9 - Unspecified glaucoma Annotation/Comment:: - Continue eye drops. (12) Tobacco use disorder SNOMED Code(s): 260625708 Code(s): F17.200 - NICOTINE DEPENDENCE, UNSPECIFIED, UNCOMPLICATED Status: Chronic Current Visit: Yes Annotation/Comment:: - Nicotine patch while hospitalized. - Problem List Review Problem List Initiated/Reviewed/Updated: Yes - My Orders Last 24 Hours: My Active Orders 01/04/18 14:07 Oxygen Therapy [RC] .PRN Up With Assistance [RC] 08,20 VTE/DVT Education [RC] .PRN Vital Signs [RC] 02,06,10,14,18,22 Consult to [employer] [CONS] Routine Resuscitation Status Routine 01/04/18 14:08 Notify Provider Vital Signs [RC] 02,06,10,14,18,22 01/04/18 14:10 CIWAA Assessment [RC] Q1H Notify Provider [RC] 08,20 LORazepam [Ativan] See Protocol PO ASDIRECTED PRN 01/04/18 15:45 Triamcinolone Acetonide [Triamcinolone Acetonide 0.1% Crm] 0 gm TOP BID PRN 01/04/18 15:59 Ondansetron [Zofran] 4 mg IVPUSH Q8H PRN 01/04/18 16:00 Nicotine [Habitrol] 21 mg TRDERM DAILY 01/04/18 20:00 Amitriptyline [Elavil] 25 mg PO BEDTIME Latanoprost [Xalatan 0.005% Ophth Soln] 0 ml EYEBOTH BEDTIME Pregabalin [Lyrica] 25 mg PO BID Pregabalin [Lyrica] 50 mg PO BID Timolol Maleate [Timoptic 0.5% Ophth Soln] 0 ml EYERT BID busPIRone [Buspar] 15 mg PO BID traZODone 50 mg PO BEDTIME 01/04/18 20:30 Pregabalin [Lyrica] 150 mg PO BID 01/04/18 Dinner Regular Diet [DIET] 01/05/18 07:00 Omeprazole 20 mg PO ACBRK 01/05/18 08:00 Cephalexin [Keflex] 500 mg PO DAILY Enoxaparin [Lovenox] 40 mg SUBCUT DAILY Folic Acid 1 mg PO DAILY Lisinopril [Prinivil] 30 mg PO DAILY Multivitamins w-Iron/Ca/FA/Min [Thera M Plus] 1 tab PO DAILY Thiamine [Vitamin B-1] 100 mg PO DAILY Venlafaxine [Effexor XR] 150 mg PO DAILY - Assessment Assessment:: 57 yo female admitted with alcohol intoxication/withdrawal. Doing well today apart from the elevated blood pressure. - Plan Plan:: See details under problems above. D/C IV fluids; do PO fluids only. Continue folic acid, MVT, and thiamine. Lorazepam PRN per CIWA scores and zofran PRN for nausea. Patient will remain on acute until at least tomorrow - likely will require a full 72 hours of monitored withdrawal. Case management consult for treatment options. Lovenox for VTE prophylaxis as long as BP comes down under 180 systolic. Patient will be made full code - will discuss this with her tomorrow when her mentation is improved and she can make an informed decision.
[2018-01-05] MEDS: Magnesium Chloride 64 MG Tab.ER PO SCH ×2 (13:20→19:33)
[2018-01-05] MEDS: Acetaminophen 500 MG Tab PO PRN (18:27)
[2018-01-05] MEDS: traZODone 50 MG Tab PO SCH (19:32)
[2018-01-05] MEDS: Amitriptyline 25 MG Tab PO SCH (19:33)
[2018-01-05] MEDS: Latanoprost 0.005% Ophth Soln 2.5 ML Bottle EYEBOTH SCH (19:34)
[2018-01-05] MEDS: hydrOXYzine HCl 25 MG Tab PO PRN (20:01)
[2018-01-06] MEDS: hydrOXYzine HCl 25 MG Tab PO PRN (06:09)
[2018-01-06] MEDS ORDERED: Omeprazole 20 MG Cap.CR PO SCH (07:00)
--- NOTE | 2018-01-06 07:14 | EDM.PDOC ---
ED HPI GENERAL MEDICAL PROBLEM - General Chief Complaint: Drug or Alcohol Abuse Stated Complaint: ER Time Seen by Provider: 01/04/18 11:55 Source of Information: Reports: Patient History Limitations: Reports: Intoxication - History of Present Illness INITIAL COMMENTS - FREE TEXT/NARRATIVE: Pt. presents to ER requesting detox and treatment. Pt. states that she drinks a liter of vodka a day. She states that she feels poorly and wishes to go through detox and eventually into treatment for alcoholism. She denies any fever or chills. No nausea, vomiting, or diarrhea. Pt. states that she doesn't use any street drugs. Pt. states that she is dealing with a recent separation from her . She states that her lack of sobriety has lead to marital discord an subsequent separation. She states that she has only been drinking heavily for the past 2 weeks. Location: Reports: Generalized Lower Back Pain Score (Numeric/FACES): 6 - Related Data Allergies Allergy/AdvReac Type Severity Reaction Status Date / Time No Known Allergies Allergy Verified 01/04/18 13:23 Home Meds: Home Meds Albuterol [Ventolin HFA] 1 - 2 puff PO Q4H PRN 08/11/13 [History] Cyclobenzaprine [Flexeril] 10 mg PO TID PRN 08/11/13 [History] FA/Lycopene/Lut/MV,Ca,Iron,Min [Centrum] 1 tab PO DAILY 08/11/13 [History] Latanoprost [Xalatan 0.005% Ophth Soln] 1 drop EYEBOTH BEDTIME 08/11/13 [History ] Timolol Maleate [Timoptic 0.5% Ophth Soln] 1 drop EYERT BID 08/11/13 [History] traZODone 50 mg PO BEDTIME 08/11/13 [History] Cephalexin 500 mg PO DAILY 08/04/16 [History] Venlafaxine [Effexor XR] 150 mg PO DAILY 08/04/16 [History] Amitriptyline [Elavil] 25 mg PO BEDTIME 01/04/18 [History] Lisinopril 30 mg PO DAILY 01/04/18 [History] Pantoprazole Sodium 40 mg PO DAILY 01/04/18 [History] Pregabalin [Lyrica] 225 mg PO BID 01/04/18 [History] Triamcinolone Acetonide [Kenalog 0.1% Crm] 1 applic TOP BID PRN 01/04/18 [ History] busPIRone [Buspar] 15 mg PO BID 01/04/18 [History] Past Medical History HEENT History: Reports: Glaucoma, Other (See Below) Other HEENT History: presbyopia. myopia. astigmatism Cardiovascular History: Reports: Hypertension Respiratory History: Reports: COPD, Other (See Below) Other Respiratory History: lung nodules Gastrointestinal History: Reports: Chronic Constipation, Colon Polyp, Hiatal Hernia, Irritable Bowel Syndrome, PUD Other Gastrointestinal History: bleeding ulcer Genitourinary History: Reports: None Musculoskeletal History: Reports: Fibromyalgia, Other (See Below) Other Musculoskeletal History: multiple rib fx fx metatarsal bone R foot with malunion. CWP sciatica left side. injury to Left shoulder. DJD of cervical spine. colles fx L radius Neurological History: Reports: Headaches, Chronic, Neuropathy, Peripheral Psychiatric History: Reports: Addiction, Anxiety, Depression Endocrine/Metabolic History: Reports: Hyperthyroidism, Osteopenia, Other (See Below) Other Endocrine/Metabolic History: thyroid nodule. hyperkalemia Hematologic History: Reports: Other (See Below) Other Hematologic History: hyperkalemia. elevated liver enzymes Oncologic (Cancer) History: Reports: Breast Dermatologic History: Reports: None - Infectious Disease History Infectious Disease History: Reports: Other (See Below) Other Infectious Disease History: MSSA - Past Surgical History HEENT Surgical History: Reports: Adenoidectomy, Tonsillectomy GI Surgical History: Reports: Other (See Below) Other GI Surgeries/Procedures: intestinal resection Female Surgical History: Reports: Section, Tubal Ligation Musculoskeletal Surgical History: Reports: Other (See Below) Other Musculoskeletal Surgeries/Procedures:: open reduction Left distal radius. bunionectomy. cervical fusion. laminectomy Oncologic Surgical History: Reports: Lumpectomy Social & Family History - Family History Family Medical History: Noncontributory Psychiatric: Reports: Depression, Other (See Below) (alcohol abuse) Oncologic: Reports: Pancreatic - Tobacco Use Smoking Status *Q: Current Every Day Smoker Years of Tobacco use: 25 Packs/Tins Daily: 1 - Alcohol Use Days Per Week of Alcohol Use: 7 Number of Drinks Per Day: 33 Total Drinks Per Week: 231 - Recreational Drug Use Recreational Drug Use: No - Living Situation & Occupation Living situation: Reports: , Alone ( recently moved out) Occupation: Employed (works making and selling crafts) ED ROS GENERAL - Review of Systems Review Of Systems: See Below Constitutional: Reports: No Symptoms HEENT: Reports: No Symptoms Respiratory: Reports: No Symptoms Cardiovascular: Reports: No Symptoms Endocrine: Reports: No Symptoms GI/Abdominal: Reports: No Symptoms : Reports: No Symptoms Musculoskeletal: Reports: No Symptoms Skin: Reports: No Symptoms Neurological: Reports: No Symptoms Psychiatric: Reports: Cravings, Hallucinations, Other (Alcoholism). Denies: Depression, Homicidal Ideation, Suicidal Ideation Hematologic/Lymphatic: Reports: No Symptoms Immunologic: Reports: No Symptoms ED EXAM, GENERAL - Physical Exam Exam: See Below Exam Limited By: No Limitations General Appearance: Alert, WD/WN, No Apparent Distress Eye Exam: Bilateral Eye: EOMI, Normal Fundi, Normal Inspection, PERRL Ears: Normal External Exam, Normal Canal, Hearing Grossly Normal, Normal TMs Ear Exam: Bilateral Ear: Auricle Normal, Canal Normal, TM normal Nose: Normal Inspection, Normal Mucosa, No Blood Throat/Mouth: Normal Inspection, Normal Lips, Normal Teeth, Normal Gums, Normal Oropharynx, Normal Voice, No Airway Compromise Head: Atraumatic, Normocephalic Neck: Normal Inspection, Supple, Non-Tender, Full Range of Motion Respiratory/Chest: No Respiratory Distress, Lungs Clear, Normal Breath Sounds, No Accessory Muscle Use, Chest Non-Tender Cardiovascular: Normal Peripheral Pulses, Regular Rate, Rhythm, No Edema, No Gallop, No JVD, No Murmur, No Rub Peripheral Pulses: 2+: Radial (L), Radial (R), Posterior Tibial (L), Posterior Tibial (R), Dorsalis Pedis (L), Dorsalis Pedis (R) GI/Abdominal: Normal Bowel Sounds, Soft, Non-Tender, No Organomegaly, No Distention, No Mass (Female) Exam: Deferred Rectal (Female) Exam: Deferred Back Exam: Normal Inspection, Full Range of Motion, NT Extremities: Non-Tender, No Pedal Edema, Normal Capillary Refill Neurological: Alert, Oriented, CN II-XII Intact, Normal Cognition, Normal Gait, Normal Reflexes, No Motor/Sensory Deficits Psychiatric: Depressed Mood Skin Exam: Warm, Dry, Intact, Normal Color, No Rash Course - Vital Signs Last Recorded V/S: Last Vital Signs Temp 36.1 C 01/06/18 05:55 Pulse 86 01/06/18 05:55 Resp 18 01/06/18 05:55 BP 138/80 01/06/18 05:55 Pulse Ox 94 L 01/06/18 05:55 - Orders/Labs/Meds Orders: Medication Orders Acetaminophen (Tylenol Extra Strength) 1,000 mg PO Q6H PRN PRN Reason: Pain Last Admin: 01/05/18 18:27 Dose: 1,000 mg Admin: 01/04/18 20:10 Dose: 1,000 mg Amitriptyline HCl (Elavil) 25 mg PO BEDTIME [facility] Last Admin: 01/05/18 19:33 Dose: 25 mg Admin: 01/04/18 20:12 Dose: 25 mg Buspirone HCl (Buspar) 15 mg PO BID [facility] Last Admin: 01/05/18 19:33 Dose: 15 mg Admin: 01/05/18 07:35 Dose: 15 mg Admin: 01/04/18 20:12 Dose: 15 mg Cephalexin (Keflex) 500 mg PO DAILY [facility] Last Admin: 01/05/18 07:34 Dose: 500 mg Enoxaparin Sodium (Lovenox) 40 mg SUBCUT DAILY [facility] Last Admin: 01/05/18 07:35 Dose: 40 mg Folic Acid (Folic Acid) 1 mg PO DAILY [facility] Stop: 01/07/18 08:01 Last Admin: 01/05/18 07:35 Dose: 1 mg Hydroxyzine HCl (Atarax) 25 mg PO Q6H PRN PRN Reason: Itching Last Admin: 01/06/18 06:09 Dose: 25 mg Admin: 01/05/18 20:01 Dose: 25 mg Latanoprost (Xalatan 0.005% Ophth Soln) 0 ml EYEBOTH BEDTIME [facility] Last Admin: 01/05/18 19:34 Dose: 1 drop Admin: 01/04/18 20:13 Dose: 1 drop Lisinopril (Prinivil) 30 mg PO DAILY [facility] Last Admin: 01/05/18 07:35 Dose: 30 mg Lorazepam (Ativan) 0 mg PO ASDIRECTED PRN; Protocol PRN Reason: Withdrawal Symptoms Last Admin: 01/05/18 03:57 Dose: 1 mg Admin: 01/04/18 22:05 Dose: 1 mg Magnesium Chloride (Mag-64) 64 mg PO BID [facility] Last Admin: 01/05/18 19:33 Dose: 64 mg Admin: 01/05/18 13:20 Dose: 64 mg Multivitamins/Minerals (Thera M Plus) 1 tab PO DAILY [facility] Last Admin: 01/05/18 07:35 Dose: 1 tab Nicotine (Habitrol) 21 mg TRDERM DAILY [facility] Last Admin: 01/05/18 07:34 Dose: 21 mg Admin: 01/04/18 16:17 Dose: 21 mg Omeprazole (Omeprazole) 20 mg PO ACBREAKFAST [facility] Last Admin: 01/06/18 06:09 Dose: 20 mg Ondansetron HCl (Zofran) 4 mg IVPUSH Q8H PRN PRN Reason: Nausea Last Admin: 01/04/18 21:33 Dose: 4 mg Pregabalin (Lyrica) 25 mg PO BID [facility] Last Admin: 01/05/18 19:32 Dose: 25 mg Admin: 01/05/18 07:35 Dose: 25 mg Admin: 01/04/18 20:11 Dose: 25 mg Pregabalin (Lyrica) 200 mg PO BID [facility] Last Admin: 01/05/18 19:33 Dose: 200 mg Thiamine HCl (Vitamin B-1) 100 mg PO DAILY [facility] Last Admin: 01/05/18 07:35 Dose: 100 mg Timolol Maleate (Timoptic 0.5% Ophth Soln) 0 ml EYERT BID [facility] Last Admin: 01/05/18 19:34 Dose: 1 drop Admin: 01/05/18 07:36 Dose: Not Given Admin: 01/04/18 20:12 Dose: 1 drop Trazodone HCl (Trazodone) 50 mg PO BEDTIME [facility] Last Admin: 01/05/18 19:32 Dose: 50 mg Admin: 01/04/18 20:12 Dose: 50 mg Triamcinolone Acetonide (Triamcinolone Acetonide 0.1% Crm) 0 gm TOP BID PRN PRN Reason: ITCHING Venlafaxine HCl (Effexor Xr) 150 mg PO DAILY [facility] Last Admin: 01/05/18 07:35 Dose: 150 mg Labs: Laboratory Tests 06/05/18 06/05/18 06/05/18 Range/Units 12:15 12:15 12:15 WBC 4.0 (4.0-10.0) x10^3/uL RBC 4.09 (4.00-5.50) x10^6/uL Hgb 12.4 (12.0-16.0) g/dL Hct 36.6 (33.0-47.0) % MCV 89.5 D (78.0-93.0) fL MCH 30.3 (26.0-32.0) pg MCHC 33.9 (32.0-36.0) g/dL RDW Coeff of Nicole 13.9 (10.0-15.0) % Plt Count 193 (130-400) x10^3/uL Neut % (Auto) 25.1 L (50.0-80.0) % Lymph % (Auto) 61.3 H (25.0-50.0) % [place] % (Auto) 8.8 (2.0-11.0) % Eos % (Auto) 4.0 (0.0-4.0) % Baso % (Auto) 0.8 (0.2-1.2) % PT 11.0 (9.6-11.4) SEC INR 1.1 L (2.0-3.5) Sodium 139 (136-145) mmol/L Potassium 4.3 (3.5-5.1) mmol/L Chloride 105 (98-107) mmol/L Carbon Dioxide 22 (21-32) mmol/L Anion Gap 16.3 (10-20) mmol/L BUN 37 H (7-18) mg/dL Creatinine 1.1 H (0.55-1.02) mg/dL Est Cr Clr Drug Dosing TNP Estimated GFR (MDRD) 51 Glucose 92 (74-106) mg/dL Calcium 8.1 L (8.5-10.1) mg/dL Corrected Calcium 8.34 L (8.5-10.1) mg/dL Phosphorus 2.3 L (2.6-4.7) mg/dL Magnesium 1.6 L (1.8-2.4) mg/dL Total Bilirubin 0.6 (0.2-1.0) mg/dL AST 43 H (15-37) U/L ALT 34 (14-59) U/L Alkaline Phosphatase 98 (46-116) U/L C-Reactive Protein < 0.2 (<=0.9) mg/dL Total Protein 7.3 (6.4-8.2) g/dL Albumin 3.7 (3.4-5.0) g/dL Globulin 3.6 Albumin/Globulin Ratio 1.03 Urine Color (YELLOW) Urine Appearance (CLEAR) Urine pH (5.0-8.0) Ur Specific [place] Urine Protein (NEGATIVE) mg/dL Urine Glucose (UA) (NEGATIVE) mg/dL Urine Ketones (NEGATIVE) mg/dL Urine Occult Blood (NEGATIVE) Urine Nitrite (NEGATIVE) Urine Bilirubin (NEGATIVE) Urine Urobilinogen (0.2) EU/dL Ur Leukocyte Esterase (NEGATIVE) Urine RBC (NOT SEEN) /HPF Urine WBC (NOT SEEN) /HPF Ur Squamous Epith Cells (NEGATIVE) /HPF Urine Bacteria (NEGATIVE) /HPF Urine Mucus (NEGATIVE) /LPF Urine Opiates Screen (NEGATIVE) Ur Buprenorphine Scrn (NEGATIVE) Ur Oxycodone Screen (NEGATIVE) Urine Methadone Screen (NEGATIVE) Ur Barbituates Screen (NEGATIVE) Ur Tricyclics Screen (NEGATIVE) Ur Amphetamines Screen (NEGATIVE) U Methamphetamines Scrn (NEGATIVE) Urine MDMA Screen (NEGATIVE) U Benzodiazepines Scrn (NEGATIVE) Urine Cocaine Screen (NEGATIVE) U Marijuana (THC) Screen (NEGATIVE) Ethyl Alcohol 312 H* (0-3) mg/dL 01/04/18 01/04/18 Range/Units 12:27 12:27 WBC (4.0-10.0) x10^3/uL RBC (4.00-5.50) x10^6/uL Hgb (12.0-16.0) g/dL Hct (33.0-47.0) % MCV (78.0-93.0) fL MCH (26.0-32.0) pg MCHC (32.0-36.0) g/dL RDW Coeff of Nicole (10.0-15.0) % Plt Count (130-400) x10^3/uL Neut % (Auto) (50.0-80.0) % Lymph % (Auto) (25.0-50.0) % [place] % (Auto) (2.0-11.0) % Eos % (Auto) (0.0-4.0) % Baso % (Auto) (0.2-1.2) % PT (9.6-11.4) SEC INR (2.0-3.5) Sodium (136-145) mmol/L Potassium (3.5-5.1) mmol/L Chloride (98-107) mmol/L Carbon Dioxide (21-32) mmol/L Anion Gap (10-20) mmol/L BUN (7-18) mg/dL Creatinine (0.55-1.02) mg/dL Est Cr Clr Drug Dosing Estimated GFR (MDRD) Glucose (74-106) mg/dL Calcium (8.5-10.1) mg/dL Corrected Calcium (8.5-10.1) mg/dL Phosphorus (2.6-4.7) mg/dL Magnesium (1.8-2.4) mg/dL Total Bilirubin (0.2-1.0) mg/dL AST (15-37) U/L ALT (14-59) U/L Alkaline Phosphatase (46-116) U/L C-Reactive Protein (<=0.9) mg/dL Total Protein (6.4-8.2) g/dL Albumin (3.4-5.0) g/dL Globulin Albumin/Globulin Ratio Urine Color Yellow (YELLOW) Urine Appearance Slightly cloudy H (CLEAR) Urine pH 6.0 (5.0-8.0) Ur Specific [place] 1.020 Urine Protein Trace H (NEGATIVE) mg/dL Urine Glucose (UA) Negative (NEGATIVE) mg/dL Urine Ketones Negative (NEGATIVE) mg/dL Urine Occult Blood Trace-intact H (NEGATIVE) Urine Nitrite Negative (NEGATIVE) Urine Bilirubin Negative (NEGATIVE) Urine Urobilinogen 0.2 (0.2) EU/dL Ur Leukocyte Esterase Negative (NEGATIVE) Urine RBC 0-5 (NOT SEEN) /HPF Urine WBC 0-5 (NOT SEEN) /HPF Ur Squamous Epith Cells Few H (NEGATIVE) /HPF Urine Bacteria Few H (NEGATIVE) /HPF Urine Mucus Rare H (NEGATIVE) /LPF Urine Opiates Screen Negative (NEGATIVE) Ur Buprenorphine Scrn Negative (NEGATIVE) Ur Oxycodone Screen Negative (NEGATIVE) Urine Methadone Screen Negative (NEGATIVE) Ur Barbituates Screen Negative (NEGATIVE) Ur Tricyclics Screen Positive H (NEGATIVE) Ur Amphetamines Screen Negative (NEGATIVE) U Methamphetamines Scrn Negative (NEGATIVE) Urine MDMA Screen Negative (NEGATIVE) U Benzodiazepines Scrn Negative (NEGATIVE) Urine Cocaine Screen Negative (NEGATIVE) U Marijuana (THC) Screen Negative (NEGATIVE) Ethyl Alcohol (0-3) mg/dL Meds: Medications Generic Name Dose Route Start Last Admin Trade Name Freq PRN Reason Stop Dose Admin Acetaminophen 1,000 mg 01/04/18 19:42 01/05/18 18:27 Tylenol Extra Strength PO 1,000 mg Q6H PRN Administration Pain Amitriptyline HCl 25 mg 01/04/18 20:00 01/05/18 19:33 Elavil PO 25 mg BEDTIME CHUCKIE Administration Buspirone HCl 15 mg 01/04/18 20:00 01/05/18 19:33 Buspar PO 15 mg BID CHUCKIE Administration Cephalexin 500 mg 01/05/18 08:00 01/05/18 07:34 Keflex PO 500 mg DAILY CHUCKIE Administration Enoxaparin Sodium 40 mg 01/05/18 08:00 01/05/18 07:35 Lovenox SUBCUT 40 mg DAILY CHUCKIE Administration Folic Acid 1 mg 01/05/18 08:00 01/05/18 07:35 Folic Acid PO 01/07/18 08:01 1 mg DAILY CHUCKIE Administration Hydroxyzine HCl 25 mg 01/05/18 19:31 01/06/18 06:09 Atarax PO 25 mg Q6H PRN Administration Itching Latanoprost 0 ml 01/04/18 20:00 01/05/18 19:34 Xalatan 0.005% Ophth Soln EYEBOTH 1 drop BEDTIME CHUCKIE Administration Lisinopril 30 mg 01/05/18 08:00 01/05/18 07:35 Prinivil PO 30 mg DAILY CHUCKIE Administration Lorazepam 0 mg 01/04/18 14:10 01/05/18 03:57 Ativan PO 1 mg ASDIRECTED PRN Administration Withdrawal Symptoms Protocol Magnesium Chloride 64 mg 01/05/18 13:00 01/05/18 19:33 Mag-64 PO 64 mg BID CHUCKIE Administration Multivitamins/Minerals 1 tab 01/05/18 08:00 01/05/18 07:35 Thera M Plus PO 1 tab DAILY CHUCKIE Administration Nicotine 21 mg 01/04/18 16:00 01/05/18 07:34 Habitrol TRDERM 21 mg DAILY CHUCKIE Administration Omeprazole 20 mg 01/06/18 07:00 01/06/18 06:09 Omeprazole PO 20 mg ACBREAKFAST CHUCKIE Administration Ondansetron HCl 4 mg 01/04/18 15:59 01/04/18 21:33 Zofran IVPUSH 4 mg Q8H PRN Administration Nausea Pregabalin 25 mg 01/04/18 20:00 01/05/18 19:32 Lyrica PO 25 mg BID CHUCKIE Administration Pregabalin 200 mg 01/05/18 20:00 01/05/18 19:33 Lyrica PO 200 mg BID CHUCKIE Administration Thiamine HCl 100 mg 01/05/18 08:00 01/05/18 07:35 Vitamin B-1 PO 100 mg DAILY CHUCKIE Administration Timolol Maleate 0 ml 01/04/18 20:00 01/05/18 19:34 Timoptic 0.5% Ophth Soln EYERT 1 drop BID CHUCKIE Administration Trazodone HCl 50 mg 01/04/18 20:00 01/05/18 19:32 Trazodone PO 50 mg BEDTIME CHUCKIE Administration Triamcinolone Acetonide 0 gm 01/04/18 15:45 Triamcinolone Acetonide 0.1% Crm TOP BID PRN ITCHING Venlafaxine HCl 150 mg 01/05/18 08:00 01/05/18 07:35 Effexor Xr PO 150 mg DAILY CHUCKIE Administration Discontinued Medications Generic Name Dose Route Start Last Admin Trade Name Freq PRN Reason Stop Dose Admin Calcium Carbonate/Glycine 750 mg 01/05/18 04:01 01/05/18 04:10 Tums Extra Strength PO 01/05/18 04:02 750 mg ONETIME ONE Administration Sodium Chloride 1,000 mls @ 1,000 mls/hr 01/04/18 12:00 01/04/18 12:15 Normal Saline IV 01/04/18 12:59 1,000 mls/hr .BOLUS ONE Administration Lactated Ringer's 1,000 mls @ 100 mls/hr 01/04/18 14:15 01/05/18 03:52 Ringers, Lactated IV 100 mls/hr ASDIRECTED CHUCKIE Administration Magnesium Sulfate 2 gm/ Premix 50 mls @ 25 mls/hr 01/04/18 14:09 01/04/18 15: 12 IV 01/04/18 16:08 25 mls/hr ONETIME ONE Administration Lorazepam 1 mg 01/05/18 08:22 01/05/18 08:35 Ativan PO 01/05/18 08:23 1 mg ONETIME ONE Administration Metoprolol Tartrate 50 mg 01/05/18 06:12 01/05/18 06:22 Lopressor PO 01/05/18 06:13 50 mg ONETIME ONE Administration Omeprazole 20 mg 01/05/18 07:00 01/05/18 06:10 Omeprazole PO 20 mg ACBRK CHUCKIE Administration Omeprazole 20 mg 01/05/18 04:03 01/05/18 05:22 Omeprazole PO 01/05/18 04:04 Not Given ONETIME ONE Ondansetron HCl 4 mg 01/04/18 12:00 01/04/18 12:20 Zofran IVPUSH 01/04/18 12:01 4 mg ONETIME ONE Administration Pregabalin 150 mg 01/04/18 20:00 01/04/18 20:33 Lyrica PO Not Given BID CHUCKIE Pregabalin 50 mg 01/04/18 20:00 01/05/18 07:34 Lyrica PO 50 mg BID CHUCKIE Administration Pregabalin 150 mg 01/04/18 20:30 01/05/18 07:34 Lyrica PO 150 mg BID CHUCKIE Administration Sodium Chloride 10 ml 01/04/18 12:01 Saline Flush FLUSH ASDIRECTED PRN Keep Vein Open Thiamine HCl 100 mg 01/04/18 14:10 01/04/18 15:05 Vitamin B-1 IM 01/04/18 14:11 Not Given ONETIME ONE Thiamine HCl 100 mg 01/04/18 14:10 01/04/18 15:11 Vitamin B-1 IV 01/04/18 14:11 100 mg ONETIME ONE Administration Departure - Departure Time of Disposition: 10:00 Disposition: Admitted As Inpatient 64 Clinical Impression: Alcohol abuse Alcohol intoxication Qualifiers: Complication of substance-induced condition: uncomplicated Qualified Code(s): F10.920 - Alcohol use, unspecified with intoxication, uncomplicated - Discharge Information
[2018-01-06] MEDS: Pregabalin 50 MG Cap PO SCH (08:12)
[2018-01-06] MEDS: Thiamine 100 MG Tab PO SCH (08:13)
[2018-01-06] MEDS: Venlafaxine 150 MG Cap.ER PO SCH (08:13)
[2018-01-06] MEDS: Pregabalin 25 MG Cap PO SCH (08:13)
[2018-01-06] MEDS: busPIRone 15 MG Tab PO SCH (08:14)
[2018-01-06] MEDS: Multivitamins with Iron/Calcium/Folic Acid/Minerals Tab PO SCH (08:14)
[2018-01-06] MEDS: Cephalexin 500 MG Cap PO SCH (08:14)
[2018-01-06] MEDS: Lisinopril 10 MG Tab PO SCH (08:15)
[2018-01-06] MEDS: Folic Acid 1 MG Tab PO SCH (08:16)
[2018-01-06] MEDS: Nicotine 21 MG/24 Hr Patch TRDERM SCH (08:16)
[2018-01-06] MEDS: Magnesium Chloride 64 MG Tab.ER PO SCH (08:18)
[2018-01-06] MEDS: Enoxaparin 40 MG/0.4 ML Syringe SUBCUT SCH (08:18)
[2018-01-06] MEDS: Timolol Maleate 0.5% Ophth Soln 5 ML Bottle EYERT SCH (08:20)
[2018-01-06] MEDS: Acetaminophen 500 MG Tab PO PRN (08:29)
--- NOTE | 2018-01-06 08:40 | PCM.PN ---
- General Info Date of Service: 01/06/18 Subjective Update: 57 yo female hospital day #3 admitted for monitored detoxification after presenting with acute alcohol intoxication. She reports she is feeling very well this morning. Wonders if she can go home but has not met with the social media director yet. She denies any ongoing headache. No nausea or vomiting. Got atarax overnight for itching with good results. No new symptoms. Remains motivated to stay off alcohol and plans to have her daughter come home with her to get rid of all the alcohol in the house. - Review of Systems General: Reports: No Symptoms HEENT: Reports: No Symptoms Pulmonary: Reports: No Symptoms Cardiovascular: Reports: No Symptoms Gastrointestinal: Reports: No Symptoms Genitourinary: Reports: No Symptoms Musculoskeletal: Reports: No Symptoms Skin: Reports: No Symptoms Neurological: Reports: No Symptoms - Patient Data Vitals - Most Recent: Last Vital Signs Temp 36.1 C 01/06/18 05:55 Pulse 86 01/06/18 05:55 Resp 18 01/06/18 05:55 BP 119/84 01/06/18 08:15 Pulse Ox 94 L 01/06/18 05:55 Weight - Most Recent: 72.756 kg I&O - Last 24 Hours: Intake & Output 01/05/18 01/06/18 01/06/18 22:59 06:59 14:59 Intake Total 920 500 Output Total 800 Balance 920 -300 Lab Results Last 24 Hours: Laboratory Results - last 24 hr 01/06/18 01/06/18 Range/Units 06:18 06:18 WBC 5.4 (4.0-10.0) x10^3/uL RBC 4.33 (4.00-5.50) x10^6/uL Hgb 13.2 (12.0-16.0) g/dL Hct 38.7 (33.0-47.0) % MCV 89.4 (78.0-93.0) fL MCH 30.5 (26.0-32.0) pg MCHC 34.1 (32.0-36.0) g/dL RDW Coeff of Nicole 13.7 (10.0-15.0) % Plt Count 165 (130-400) x10^3/uL Neut % (Auto) 37.5 L (50.0-80.0) % Lymph % (Auto) 48.5 (25.0-50.0) % [place] % (Auto) 9.1 (2.0-11.0) % Eos % (Auto) 4.7 H (0.0-4.0) % Baso % (Auto) 0.2 (0.2-1.2) % Sodium 140 (136-145) mmol/L Potassium 3.8 (3.5-5.1) mmol/L Chloride 102 (98-107) mmol/L Carbon Dioxide 28 (21-32) mmol/L Anion Gap 13.8 (10-20) mmol/L BUN 17 (7-18) mg/dL Creatinine 1.0 (0.55-1.02) mg/dL Est Cr Clr Drug Dosing 58.91 mL/min Estimated GFR (MDRD) 57 Glucose 134 H (74-106) mg/dL Calcium 9.4 (8.5-10.1) mg/dL Magnesium 1.6 L (1.8-2.4) mg/dL Med Orders - Current: Current Medications Acetaminophen (Tylenol Extra Strength) 1,000 mg PO Q6H PRN PRN Reason: Pain Last Admin: 01/05/18 18:27 Dose: 1,000 mg Amitriptyline HCl (Elavil) 25 mg PO BEDTIME [facility] Last Admin: 01/05/18 19:33 Dose: 25 mg Buspirone HCl (Buspar) 15 mg PO BID [facility] Last Admin: 01/06/18 08:14 Dose: 15 mg Cephalexin (Keflex) 500 mg PO DAILY [facility] Last Admin: 01/06/18 08:14 Dose: 500 mg Enoxaparin Sodium (Lovenox) 40 mg SUBCUT DAILY [facility] Last Admin: 01/06/18 08:18 Dose: 40 mg Folic Acid (Folic Acid) 1 mg PO DAILY [facility] Stop: 01/07/18 08:01 Last Admin: 01/06/18 08:16 Dose: 1 mg Hydroxyzine HCl (Atarax) 25 mg PO Q6H PRN PRN Reason: Itching Last Admin: 01/06/18 06:09 Dose: 25 mg Latanoprost (Xalatan 0.005% Ophth Soln) 0 ml EYEBOTH BEDTIME [facility] Last Admin: 01/05/18 19:34 Dose: 1 drop Lisinopril (Prinivil) 30 mg PO DAILY [facility] Last Admin: 01/06/18 08:15 Dose: 30 mg Lorazepam (Ativan) 0 mg PO ASDIRECTED PRN; Protocol PRN Reason: Withdrawal Symptoms Last Admin: 01/05/18 03:57 Dose: 1 mg Magnesium Chloride (Mag-64) 64 mg PO BID [facility] Last Admin: 01/06/18 08:18 Dose: 64 mg Multivitamins/Minerals (Thera M Plus) 1 tab PO DAILY [facility] Last Admin: 01/06/18 08:14 Dose: 1 tab Nicotine (Habitrol) 21 mg TRDERM DAILY [facility] Last Admin: 01/06/18 08:16 Dose: 21 mg Omeprazole (Omeprazole) 20 mg PO ACBREAKFAST [facility] Last Admin: 01/06/18 06:09 Dose: 20 mg Ondansetron HCl (Zofran) 4 mg IVPUSH Q8H PRN PRN Reason: Nausea Last Admin: 01/04/18 21:33 Dose: 4 mg Pregabalin (Lyrica) 25 mg PO BID [facility] Last Admin: 01/06/18 08:13 Dose: 25 mg Pregabalin (Lyrica) 200 mg PO BID [facility] Last Admin: 01/06/18 08:12 Dose: 200 mg Thiamine HCl (Vitamin B-1) 100 mg PO DAILY [facility] Last Admin: 01/06/18 08:13 Dose: 100 mg Timolol Maleate (Timoptic 0.5% Ophth Soln) 0 ml EYERT BID [facility] Last Admin: 01/06/18 08:20 Dose: 1 drop Trazodone HCl (Trazodone) 50 mg PO BEDTIME [facility] Last Admin: 01/05/18 19:32 Dose: 50 mg Triamcinolone Acetonide (Triamcinolone Acetonide 0.1% Crm) 0 gm TOP BID PRN PRN Reason: ITCHING Venlafaxine HCl (Effexor Xr) 150 mg PO DAILY [facility] Last Admin: 01/06/18 08:13 Dose: 150 mg Discontinued Medications Calcium Carbonate/Glycine (Tums Extra Strength) 750 mg PO ONETIME ONE Stop: 01/05/18 04:02 Last Admin: 01/05/18 04:10 Dose: 750 mg Sodium Chloride (Normal Saline) 1,000 mls @ 1,000 mls/hr IV .BOLUS ONE Stop: 01/04/18 12:59 Last Admin: 01/04/18 12:15 Dose: 1,000 mls/hr Lactated Ringer's (Ringers, Lactated) 1,000 mls @ 100 mls/hr IV ASDIRECTED [facility] Last Admin: 01/05/18 03:52 Dose: 100 mls/hr Magnesium Sulfate 2 gm/ Premix 50 mls @ 25 mls/hr IV ONETIME ONE Stop: 01/04/18 16:08 Last Admin: 01/04/18 15:12 Dose: 25 mls/hr Lorazepam (Ativan) 1 mg PO ONETIME ONE Stop: 01/05/18 08:23 Last Admin: 01/05/18 08:35 Dose: 1 mg Metoprolol Tartrate (Lopressor) 50 mg PO ONETIME ONE Stop: 01/05/18 06:13 Last Admin: 01/05/18 06:22 Dose: 50 mg Omeprazole (Omeprazole) 20 mg PO ACBRK [facility] Last Admin: 01/05/18 06:10 Dose: 20 mg Omeprazole (Omeprazole) 20 mg PO ONETIME ONE Stop: 01/05/18 04:04 Last Admin: 01/05/18 05:22 Dose: Not Given Ondansetron HCl (Zofran) 4 mg IVPUSH ONETIME ONE Stop: 01/04/18 12:01 Last Admin: 01/04/18 12:20 Dose: 4 mg Pregabalin (Lyrica) 150 mg PO BID [facility] Last Admin: 01/04/18 20:33 Dose: Not Given Pregabalin (Lyrica) 50 mg PO BID [facility] Last Admin: 01/05/18 07:34 Dose: 50 mg Pregabalin (Lyrica) 150 mg PO BID [facility] Last Admin: 01/05/18 07:34 Dose: 150 mg Sodium Chloride (Saline Flush) 10 ml FLUSH ASDIRECTED PRN PRN Reason: Keep Vein Open Thiamine HCl (Vitamin B-1) 100 mg IM ONETIME ONE Stop: 01/04/18 14:11 Last Admin: 01/04/18 15:05 Dose: Not Given Thiamine HCl (Vitamin B-1) 100 mg IV ONETIME ONE Stop: 01/04/18 14:11 Last Admin: 01/04/18 15:11 Dose: 100 mg - Exam General: Alert, Cooperative, No Acute Distress HEENT: Mucous Membr. Moist/[place] Neck: Supple, Trachea Midline, No Thyromegaly. No: Lymphadenopathy Lungs: Clear to Auscultation, Normal Respiratory Effort Cardiovascular: Regular Rate, Regular Rhythm, No Murmurs GI/Abdominal Exam: Normal Bowel Sounds, Soft, Non-Tender, No Organomegaly, No Distention, No Mass Extremities: Normal Inspection, Non-Tender, No Pedal Edema, Normal Capillary Refill Skin: Warm, Dry, Intact - Problem List & Annotations (1) Alcohol intoxication SNOMED Code(s): 32172283 Code(s): F10.929 - ALCOHOL USE, UNSPECIFIED WITH INTOXICATION, UNSPECIFIED Status: Acute Current Visit: Yes Qualifiers: Complication of substance-induced condition: uncomplicated Qualified Code(s ): F10.920 - Alcohol use, unspecified with intoxication, uncomplicated Annotation/Comment:: - Patient is doing much better this am. No lorazepam needed on a PRN basis since 01/05 just before 4 am. - Low risk for decompensation at this point but would keep her through 48 hours at least. - television maintenance worker to meet with her today to discuss treatment plan. Disposition will depend on this discussion. - Continue CIWA q4 hours with PRN lorazepam. - Tolerating PO without any issues. - Zofran PRN nausea/vomiting. - Daily PO folate, MVT, and thiamine. - BP is much better this morning. (2) Alcohol use disorder SNOMED Code(s): 90203884, 31885225 Code(s): F10.99 - ALCOHOL USE, UNSP WITH UNSPECIFIED ALCOHOL-INDUCED DISORDER Status: Chronic Current Visit: Yes Annotation/Comment:: - See above for acute management. - Case management consult to discuss treatment options. (3) Hypomagnesemia SNOMED Code(s): 727580151 Code(s): E83.42 - HYPOMAGNESEMIA Status: Acute Current Visit: Yes Annotation/Comment:: - Stable today. - Will increase PO supplement dose. - Recheck at hospital follow-up appointment. (4) Peripheral neuropathic pain SNOMED Code(s): 372222984 Code(s): M79.2 - NEURALGIA AND NEURITIS, UNSPECIFIED Status: Chronic Current Visit: Yes Annotation/Comment:: - Continue lyrica. (5) Hypertension SNOMED Code(s): 65004691 Code(s): I10 - ESSENTIAL (PRIMARY) HYPERTENSION Status: Chronic Current Visit: Yes Qualifiers: Hypertension type: essential hypertension Qualified Code(s): I10 - Essential (primary) hypertension Annotation/Comment:: - BP much better today. - Will continue lisinopril. (6) Depression with anxiety SNOMED Code(s): 87385085, 682973737 Code(s): F41.8 - OTHER SPECIFIED ANXIETY DISORDERS Status: Chronic Current Visit: Yes Annotation/Comment:: - Continue venlafaxine, amitriptyline , trazodone, and buspar. (7) Insomnia SNOMED Code(s): 984231032 Code(s): G47.00 - INSOMNIA, UNSPECIFIED Status: Chronic Current Visit: Yes Qualifiers: Insomnia type: unspecified Qualified Code(s): G47.00 - Insomnia, unspecified Annotation/Comment:: - Multifactorial. - Continue trazodone and amitriptyline. (8) Peptic ulcer disease SNOMED Code(s): 68426184 Code(s): K27.9 - PEPTIC ULC, SITE UNSP, UNSP AC OR CHR, W/O HEMOR OR PERF Status: Chronic Current Visit: Yes Annotation/Comment:: - Continue pantoprazole. (9) Dermatitis SNOMED Code(s): 12216817 Code(s): L30.9 - DERMATITIS, UNSPECIFIED Status: Chronic Current Visit: Yes Annotation/Comment:: - Continue triamcinolone and hydroxyzine. (10) COPD (chronic obstructive pulmonary disease) SNOMED Code(s): 90984877 Code(s): J44.9 - CHRONIC OBSTRUCTIVE PULMONARY DISEASE, UNSPECIFIED Status : Chronic Current Visit: Yes Qualifiers: COPD type: unspecified COPD Qualified Code(s): J44.9 - Chronic obstructive pulmonary disease, unspecified Annotation/Comment:: - No acute symptoms. - Hold albuterol inhaler. Can do nebs if she develops symptoms. (11) Glaucoma SNOMED Code(s): 01135587 Code(s): H40.9 - UNSPECIFIED GLAUCOMA Status: Chronic Current Visit: Yes Qualifiers: Glaucoma type: unspecified Laterality: unspecified laterality Qualified Code(s): H40.9 - Unspecified glaucoma Annotation/Comment:: - Continue eye drops. (12) Tobacco use disorder SNOMED Code(s): 677864975 Code(s): F17.200 - NICOTINE DEPENDENCE, UNSPECIFIED, UNCOMPLICATED Status: Chronic Current Visit: Yes Annotation/Comment:: - Nicotine patch while hospitalized. - Problem List Review Problem List Initiated/Reviewed/Updated: Yes - My Orders Last 24 Hours: My Active Orders 01/05/18 08:00 Cephalexin [Keflex] 500 mg PO DAILY Enoxaparin [Lovenox] 40 mg SUBCUT DAILY Folic Acid 1 mg PO DAILY Lisinopril [Prinivil] 30 mg PO DAILY Multivitamins w-Iron/Ca/FA/Min [Thera M Plus] 1 tab PO DAILY Thiamine [Vitamin B-1] 100 mg PO DAILY Venlafaxine [Effexor XR] 150 mg PO DAILY 01/05/18 13:00 Magnesium Chloride [Mag-64] 64 mg PO BID 01/05/18 20:00 Pregabalin [Lyrica] 200 mg PO BID 01/06/18 07:00 Omeprazole 20 mg PO ACBREAKFAST - Assessment Assessment:: 57 yo female admitted with alcohol intoxication/withdrawal. Doing much better today. - Plan Plan:: See details under problems above. Continue folic acid, MVT, and thiamine. Lorazepam PRN per CIWA scores and zofran PRN for nausea. Patient will meet with the social media director today. Will plan for dismissal either later today or tomorrow. Lovenox for VTE prophylaxis. Patient is full code.
[2018-01-06 11:33] VITALS: BP 138/70
[2018-01-06] MEDS ORDERED: Magnesium Chloride 64 MG Tab.ER PO ONE (12:00)
--- NOTE | 2018-01-06 12:42 | PCM.DCSUM1 ---
Discharge Summary - Hospital Course Brief History: Mrs. Shah is a 57 yo female who was admitted for monitored alcohol detoxification after she presented to the ER acutely intoxicated and desiring sobriety. - Discharge Data Discharge Date: 01/06/18 Discharge Disposition: Home, Self-Care 01 Condition: Good - Discharge Diagnosis/Problem(s) (1) Alcohol intoxication SNOMED Code(s): 22638505 ICD Code: F10.929 - ALCOHOL USE, UNSPECIFIED WITH INTOXICATION, UNSPECIFIED Status: Acute Current Visit: Yes Problem Details: She was given IV fluids and IV thiamine as well as PO vitamins. CIWA scoring was utilized for monitoring with lorazepam dosing as needed. She required very few doses of lorazepam and has gone for >24 hours now without any CIWA 8 or higher. Her blood pressure was high yesterday but this has come down nicely. Last drink was >48 hours from now and she is felt to be low risk for any decompensation She is feeling well today. She has been able to keep up with PO fluids since yesterday morning and is tolerating a regular diet without issues. Social work did meet with her today and the following plan was established: patient will be discharged today to the care of her daughter, who will drive her to the [facility] in [place] for initial intake assessment. Qualifiers: Complication of substance-induced condition: uncomplicated Qualified Code(s ): F10.920 - Alcohol use, unspecified with intoxication, uncomplicated (2) Alcohol use disorder SNOMED Code(s): 03381168, 45488926 ICD Code: F10.99 - ALCOHOL USE, UNSP WITH UNSPECIFIED ALCOHOL-INDUCED DISORDER Status: Chronic Current Visit: Yes Problem Details: See above. (3) Hypomagnesemia SNOMED Code(s): 646057323 ICD Code: E83.42 - HYPOMAGNESEMIA Status: Acute Current Visit: Yes Problem Details: Magnesium low on admission and stable. She did get IV repletion on day 1 and then has been on PO supplementation. Will continue this same dose and recheck upon her discharge from the [facility]. (4) Peripheral neuropathic pain SNOMED Code(s): 827591590 ICD Code: M79.2 - NEURALGIA AND NEURITIS, UNSPECIFIED Status: Chronic Current Visit: Yes Problem Details: Home medications continued. (5) Hypertension SNOMED Code(s): 29117729 ICD Code: I10 - ESSENTIAL (PRIMARY) HYPERTENSION Status: Chronic Current Visit: Yes Problem Details: BP up in the first 24 hours of hospitalization but then downtrending since then. Is much better today. She got one dose of metoprolol but otherwise her home medications were continued. Qualifiers: Hypertension type: essential hypertension Qualified Code(s): I10 - Essential (primary) hypertension (6) Depression with anxiety SNOMED Code(s): 93678061, 170634797 ICD Code: F41.8 - OTHER SPECIFIED ANXIETY DISORDERS Status: Chronic Current Visit: Yes Problem Details: Home medications continued. (7) Insomnia SNOMED Code(s): 233950358 ICD Code: G47.00 - INSOMNIA, UNSPECIFIED Status: Chronic Current Visit: Yes Problem Details: Home medications continued. Qualifiers: Insomnia type: unspecified Qualified Code(s): G47.00 - Insomnia, unspecified (8) Peptic ulcer disease SNOMED Code(s): 51745161 ICD Code: K27.9 - PEPTIC ULC, SITE UNSP, UNSP AC OR CHR, W/O HEMOR OR PERF Status: Chronic Current Visit: Yes Problem Details: Home medications continued. (9) Dermatitis SNOMED Code(s): 41488095 ICD Code: L30.9 - DERMATITIS, UNSPECIFIED Status: Chronic Current Visit: Yes Problem Details: Home medications continued. (10) COPD (chronic obstructive pulmonary disease) SNOMED Code(s): 22863927 ICD Code: J44.9 - CHRONIC OBSTRUCTIVE PULMONARY DISEASE, UNSPECIFIED Status : Chronic Current Visit: Yes Problem Details: No acute symptoms. Albuterol inhaler held and she did not require any nebulizer treatments. Qualifiers: COPD type: unspecified COPD Qualified Code(s): J44.9 - Chronic obstructive pulmonary disease, unspecified (11) Glaucoma SNOMED Code(s): 02865914 ICD Code: H40.9 - UNSPECIFIED GLAUCOMA Status: Chronic Current Visit: Yes Problem Details: Home medications continued. Qualifiers: Glaucoma type: unspecified Laterality: unspecified laterality Qualified Code(s): H40.9 - Unspecified glaucoma (12) Tobacco use disorder SNOMED Code(s): 142052935 ICD Code: F17.200 - NICOTINE DEPENDENCE, UNSPECIFIED, UNCOMPLICATED Status : Chronic Current Visit: Yes Problem Details: Nicotine patch was provided while hospitalized and will be continued upon dismissal as well. - Patient Summary/Data Operative Procedure(s) Performed: none Complications: none Consults: Consultations 01/04/18 14:07 Consult to [employer] [CONS] Routine Labs Pending at D/C: none Recommended Follow-up Testing/Procedures: none Planned Operative Procedure(s) after DC: none Hospital Course: See details above. Patient had significant symptoms and BP elevation in first 24 hours but then quickly improved. Is doing well today and low risk for decompensation after this point. Will go to [facility] for admission assessment. - Patient Instructions Diet: Usual Diet as Tolerated Activity: As Tolerated Driving: Do Not Drive Showering/Bathing: May Shower - Discharge Plan Prescriptions/Med Rec: Magnesium Chloride [Mag-64] 128 mg PO BID #120 tab.er Home Medications: Home Meds Albuterol [Ventolin HFA] 1 - 2 puff PO Q4H PRN 08/11/13 [History] Cyclobenzaprine [Flexeril] 10 mg PO TID PRN 08/11/13 [History] FA/Lycopene/Lut/MV,Ca,Iron,Min [Centrum] 1 tab PO DAILY 08/11/13 [History] Latanoprost [Xalatan 0.005% Ophth Soln] 1 drop EYEBOTH BEDTIME 08/11/13 [History ] Timolol Maleate [Timoptic 0.5% Ophth Soln] 1 drop EYERT BID 08/11/13 [History] traZODone 50 mg PO BEDTIME 08/11/13 [History] Cephalexin 500 mg PO DAILY 08/04/16 [History] Venlafaxine [Effexor XR] 150 mg PO DAILY 08/04/16 [History] Amitriptyline [Elavil] 25 mg PO BEDTIME 01/04/18 [History] Lisinopril 30 mg PO DAILY 01/04/18 [History] Pantoprazole Sodium 40 mg PO DAILY 01/04/18 [History] Pregabalin [Lyrica] 225 mg PO BID 01/04/18 [History] Triamcinolone Acetonide [Kenalog 0.1% Crm] 1 applic TOP BID PRN 01/04/18 [ History] busPIRone [Buspar] 15 mg PO BID 01/04/18 [History] Magnesium Chloride [Mag-64] 128 mg PO BID #120 tab.er 01/06/18 [Rx] Nicotine [Habitrol] 21 mg TRDERM DAILY patch 01/06/18 [Rx] Forms: ED Department Discharge Referrals: PCP,Unobtain [Primary Care Provider] - - Discharge Summary/Plan Comment DC Time >30 min.: No - General Info Date of Service: 01/06/18 Subjective Update: See today's progress note for further details. Patient met with social work and will go to [facility] today for intake appointment. Her daughter will drive her. - Patient Data Vitals - Most Recent: Last Vital Signs Temp 36.0 C 01/06/18 10:00 Pulse 82 01/06/18 10:00 Resp 20 01/06/18 10:00 BP 138/70 01/06/18 10:00 Pulse Ox 95 01/06/18 10:00 Weight - Most Recent: 72.756 kg I&O - Last 24 hours: Intake & Output 01/05/18 01/06/18 01/06/18 22:59 06:59 14:59 Intake Total 920 500 Output Total 800 Balance 920 -300 Lab Results - Last 24 hrs: Laboratory Results - last 24 hr 01/06/18 01/06/18 Range/Units 06:18 06:18 WBC 5.4 (4.0-10.0) x10^3/uL RBC 4.33 (4.00-5.50) x10^6/uL Hgb 13.2 (12.0-16.0) g/dL Hct 38.7 (33.0-47.0) % MCV 89.4 (78.0-93.0) fL MCH 30.5 (26.0-32.0) pg MCHC 34.1 (32.0-36.0) g/dL RDW Coeff of Nicole 13.7 (10.0-15.0) % Plt Count 165 (130-400) x10^3/uL Neut % (Auto) 37.5 L (50.0-80.0) % Lymph % (Auto) 48.5 (25.0-50.0) % [place] % (Auto) 9.1 (2.0-11.0) % Eos % (Auto) 4.7 H (0.0-4.0) % Baso % (Auto) 0.2 (0.2-1.2) % Sodium 140 (136-145) mmol/L Potassium 3.8 (3.5-5.1) mmol/L Chloride 102 (98-107) mmol/L Carbon Dioxide 28 (21-32) mmol/L Anion Gap 13.8 (10-20) mmol/L BUN 17 (7-18) mg/dL Creatinine 1.0 (0.55-1.02) mg/dL Est Cr Clr Drug Dosing 58.91 mL/min Estimated GFR (MDRD) 57 Glucose 134 H (74-106) mg/dL Calcium 9.4 (8.5-10.1) mg/dL Magnesium 1.6 L (1.8-2.4) mg/dL Med Orders - Current: Current Medications Acetaminophen (Tylenol Extra Strength) 1,000 mg PO Q6H PRN PRN Reason: Pain Last Admin: 01/06/18 08:29 Dose: 1,000 mg Amitriptyline HCl (Elavil) 25 mg PO BEDTIME [facility] Last Admin: 01/05/18 19:33 Dose: 25 mg Buspirone HCl (Buspar) 15 mg PO BID [facility] Last Admin: 01/06/18 08:14 Dose: 15 mg Cephalexin (Keflex) 500 mg PO DAILY [facility] Last Admin: 01/06/18 08:14 Dose: 500 mg Enoxaparin Sodium (Lovenox) 40 mg SUBCUT DAILY [facility] Last Admin: 01/06/18 08:18 Dose: 40 mg Folic Acid (Folic Acid) 1 mg PO DAILY [facility] Stop: 01/07/18 08:01 Last Admin: 01/06/18 08:16 Dose: 1 mg Hydroxyzine HCl (Atarax) 25 mg PO Q6H PRN PRN Reason: Itching Last Admin: 01/06/18 06:09 Dose: 25 mg Latanoprost (Xalatan 0.005% Ophth Soln) 0 ml EYEBOTH BEDTIME [facility] Last Admin: 01/05/18 19:34 Dose: 1 drop Lisinopril (Prinivil) 30 mg PO DAILY [facility] Last Admin: 01/06/18 08:15 Dose: 30 mg Lorazepam (Ativan) 0 mg PO ASDIRECTED PRN; Protocol PRN Reason: Withdrawal Symptoms Last Admin: 01/05/18 03:57 Dose: 1 mg Magnesium Chloride (Mag-64) 128 mg PO BID [facility] Multivitamins/Minerals (Thera M Plus) 1 tab PO DAILY [facility] Last Admin: 01/06/18 08:14 Dose: 1 tab Nicotine (Habitrol) 21 mg TRDERM DAILY [facility] Last Admin: 01/06/18 08:16 Dose: 21 mg Omeprazole (Omeprazole) 20 mg PO ACBREAKFAST [facility] Last Admin: 01/06/18 06:09 Dose: 20 mg Ondansetron HCl (Zofran) 4 mg IVPUSH Q8H PRN PRN Reason: Nausea Last Admin: 01/04/18 21:33 Dose: 4 mg Pregabalin (Lyrica) 25 mg PO BID [facility] Last Admin: 01/06/18 08:13 Dose: 25 mg Pregabalin (Lyrica) 200 mg PO BID [facility] Last Admin: 01/06/18 08:12 Dose: 200 mg Thiamine HCl (Vitamin B-1) 100 mg PO DAILY [facility] Last Admin: 01/06/18 08:13 Dose: 100 mg Timolol Maleate (Timoptic 0.5% Ophth Soln) 0 ml EYERT BID [facility] Last Admin: 01/06/18 08:20 Dose: 1 drop Trazodone HCl (Trazodone) 50 mg PO BEDTIME [facility] Last Admin: 01/05/18 19:32 Dose: 50 mg Triamcinolone Acetonide (Triamcinolone Acetonide 0.1% Crm) 0 gm TOP BID PRN PRN Reason: ITCHING Venlafaxine HCl (Effexor Xr) 150 mg PO DAILY [facility] Last Admin: 01/06/18 08:13 Dose: 150 mg Discontinued Medications Calcium Carbonate/Glycine (Tums Extra Strength) 750 mg PO ONETIME ONE Stop: 01/05/18 04:02 Last Admin: 01/05/18 04:10 Dose: 750 mg Sodium Chloride (Normal Saline) 1,000 mls @ 1,000 mls/hr IV .BOLUS ONE Stop: 01/04/18 12:59 Last Admin: 01/04/18 12:15 Dose: 1,000 mls/hr Lactated Ringer's (Ringers, Lactated) 1,000 mls @ 100 mls/hr IV ASDIRECTED [facility] Last Admin: 01/05/18 03:52 Dose: 100 mls/hr Magnesium Sulfate 2 gm/ Premix 50 mls @ 25 mls/hr IV ONETIME ONE Stop: 01/04/18 16:08 Last Admin: 01/04/18 15:12 Dose: 25 mls/hr Lorazepam (Ativan) 1 mg PO ONETIME ONE Stop: 01/05/18 08:23 Last Admin: 01/05/18 08:35 Dose: 1 mg Magnesium Chloride (Mag-64) 64 mg PO BID [facility] Last Admin: 01/06/18 08:18 Dose: 64 mg Magnesium Chloride (Mag-64) 64 mg PO ONETIME ONE Stop: 01/06/18 12:01 Last Admin: 01/06/18 11:26 Dose: 64 mg Metoprolol Tartrate (Lopressor) 50 mg PO ONETIME ONE Stop: 01/05/18 06:13 Last Admin: 01/05/18 06:22 Dose: 50 mg Omeprazole (Omeprazole) 20 mg PO ACBRK [facility] Last Admin: 01/05/18 06:10 Dose: 20 mg Omeprazole (Omeprazole) 20 mg PO ONETIME ONE Stop: 01/05/18 04:04 Last Admin: 01/05/18 05:22 Dose: Not Given Ondansetron HCl (Zofran) 4 mg IVPUSH ONETIME ONE Stop: 01/04/18 12:01 Last Admin: 01/04/18 12:20 Dose: 4 mg Pregabalin (Lyrica) 150 mg PO BID [facility] Last Admin: 01/04/18 20:33 Dose: Not Given Pregabalin (Lyrica) 50 mg PO BID [facility] Last Admin: 01/05/18 07:34 Dose: 50 mg Pregabalin (Lyrica) 150 mg PO BID [facility] Last Admin: 01/05/18 07:34 Dose: 150 mg Sodium Chloride (Saline Flush) 10 ml FLUSH ASDIRECTED PRN PRN Reason: Keep Vein Open Thiamine HCl (Vitamin B-1) 100 mg IM ONETIME ONE Stop: 01/04/18 14:11 Last Admin: 01/04/18 15:05 Dose: Not Given Thiamine HCl (Vitamin B-1) 100 mg IV ONETIME ONE Stop: 01/04/18 14:11 Last Admin: 01/04/18 15:11 Dose: 100 mg
[2018-01-06] MEDS ORDERED: Magnesium Chloride 64 MG Tab.ER PO SCH (20:00)
== END 2018-01-06 13:45 | disposition home or self-care (01) | DRG 897 ==
LOC: VM.ED 11:50 → VM.MS 13:14
PROVIDERS: ADMIT Family Medicine; ATTEND Family Medicine
DX: F10.229 Alcohol dependence with intoxication, unspecified (principal); Y90.8 Blood alcohol level of 240 mg/100 ml or more; I10 Essential (primary) hypertension; J44.9 Chronic obstructive pulmonary disease, unspecified; H40.9 Unspecified glaucoma; E83.42 Hypomagnesemia; F17.210 Nicotine dependence, cigarettes, uncomplicated; F41.9 Anxiety disorder, unspecified; F32.9 Major depressive disorder, single episode, unspecified; M79.7 Fibromyalgia; G62.9 Polyneuropathy, unspecified; L30.9 Dermatitis, unspecified; R12 Heartburn; E05.90 Thyrotoxicosis, unspecified without thyrotoxic crisis or storm; G47.00 Insomnia, unspecified; K27.9 Peptic ulcer, site unspecified, unspecified as acute or chronic, without hemorrhage or perforation; R11.0 Nausea; M85.80 Other specified disorders of bone density and structure, unspecified site; Z79.899 Other long term (current) drug therapy
CPT/HCPCS: 36415; 80048; 80053; 80305; 80337; 80369; 81001; 83735; 84100; 85025; 85610; 86140; 96361; 96374; 99285; 99285-GF; A9270-GY; G0480; J1650; J2405; J3411; J3475; J7030; J7120

== ENCOUNTER 2018-01-30 17:35 | Observation (INO) | payer MEDICARE, BC ==
[2018-01-30] MEDS ORDERED: Sodium Chloride 0.9% 1,000 ML IV SCH (17:45)
--- NOTE | 2018-01-30 18:54 | EDM.PDOCBH ---
<Ramez Wei M - Last Filed: 01/30/18 18:46> ED HPI GENERAL MEDICAL PROBLEM - General Chief Complaint: Behavioral/Psych Stated Complaint: etoh Time Seen by Provider: 01/30/18 17:40 Source of Information: Reports: Patient, EMS Notes Reviewed History Limitations: Reports: No Limitations - History of Present Illness INITIAL COMMENTS - FREE TEXT/NARRATIVE: Macy has an extensive history of alcohol abuse and was last seen here at the beginning of December for detoxing. She was referred to [facility] in [place]. Released this and upon being released, she began drinking 1 liter daily of vodka. Last drink today was about an hour before she presented here. She called the paramedics and requested to be sent here for detoxing. She has no other complaints at this time. No nausea, vomiting, blood in the urine or stool. No shortness of breath, no chest pain. Extensive medical history including cervical spine surgeries with infection of the hardware. Onset: Gradual - Related Data Allergies Allergy/AdvReac Type Severity Reaction Status Date / Time No Known Allergies Allergy Verified 01/30/18 17:53 Home Meds: Home Meds Albuterol [Ventolin HFA] 1 - 2 puff PO Q4H PRN 08/11/13 [History] Cyclobenzaprine [Flexeril] 5 mg PO TID PRN 08/11/13 [History] FA/Lycopene/Lut/MV,Ca,Iron,Min [Centrum] 1 tab PO DAILY 08/11/13 [History] Latanoprost [Xalatan 0.005% Ophth Soln] 1 drop EYEBOTH BEDTIME 08/11/13 [History ] Timolol Maleate [Timoptic 0.5% Ophth Soln] 1 drop EYERT BID 08/11/13 [History] traZODone 50 mg PO BEDTIME 08/11/13 [History] Cephalexin 500 mg PO DAILY 08/04/16 [History] Venlafaxine [Effexor XR] 150 mg PO DAILY 08/04/16 [History] Amitriptyline [Elavil] 25 mg PO BEDTIME 01/04/18 [History] Lisinopril 30 mg PO DAILY 01/04/18 [History] Pantoprazole Sodium 40 mg PO DAILY 01/04/18 [History] Pregabalin [Lyrica] 225 mg PO BID 01/04/18 [History] Triamcinolone Acetonide [Kenalog 0.1% Crm] 1 applic TOP BID PRN 01/04/18 [ History] busPIRone [Buspar] 15 mg PO BID 01/04/18 [History] Magnesium Chloride [Mag-64] 128 mg PO BID #120 tab.er 01/06/18 [Rx] Nicotine [Habitrol] 21 mg TRDERM DAILY patch 01/06/18 [Rx] Past Medical History HEENT History: Reports: Glaucoma, Other (See Below) Other HEENT History: presbyopia. myopia. astigmatism Cardiovascular History: Reports: Hypertension Respiratory History: Reports: COPD, Other (See Below) Other Respiratory History: lung nodules Gastrointestinal History: Reports: Chronic Constipation, Colon Polyp, Hiatal Hernia, Irritable Bowel Syndrome, PUD Other Gastrointestinal History: bleeding ulcer Genitourinary History: Reports: None Musculoskeletal History: Reports: Fibromyalgia, Other (See Below) Other Musculoskeletal History: multiple rib fx fx metatarsal bone R foot with malunion. CWP sciatica left side. injury to Left shoulder. DJD of cervical spine. colles fx L radius Neurological History: Reports: Headaches, Chronic, Neuropathy, Peripheral Psychiatric History: Reports: Addiction, Anxiety, Depression Endocrine/Metabolic History: Reports: Hyperthyroidism, Osteopenia, Other (See Below) Other Endocrine/Metabolic History: thyroid nodule. hyperkalemia Hematologic History: Reports: Other (See Below) Other Hematologic History: hyperkalemia. elevated liver enzymes Oncologic (Cancer) History: Reports: Breast Dermatologic History: Reports: None - Infectious Disease History Infectious Disease History: Reports: Other (See Below) Other Infectious Disease History: MSSA - Past Surgical History HEENT Surgical History: Reports: Adenoidectomy, Tonsillectomy GI Surgical History: Reports: Other (See Below) Other GI Surgeries/Procedures: intestinal resection Female Surgical History: Reports: Section, Tubal Ligation Musculoskeletal Surgical History: Reports: Other (See Below) Other Musculoskeletal Surgeries/Procedures:: open reduction Left distal radius. bunionectomy. cervical fusion. laminectomy Oncologic Surgical History: Reports: Lumpectomy Social & Family History - Family History Family Medical History: Noncontributory Psychiatric: Reports: Depression, Other (See Below) Oncologic: Reports: Pancreatic - Tobacco Use Smoking Status *Q: Current Every Day Smoker Years of Tobacco use: 20 Packs/Tins Daily: 1 - Recreational Drug Use Recreational Drug Use: No - Living Situation & Occupation Living situation: Reports: , Alone ( recently moved out) Occupation: Employed (works making and selling crafts) ED ROS GENERAL - Review of Systems Review Of Systems: See Below Constitutional: Reports: No Symptoms HEENT: Reports: No Symptoms Respiratory: Reports: No Symptoms Cardiovascular: Reports: No Symptoms Endocrine: Reports: No Symptoms GI/Abdominal: Reports: No Symptoms : Reports: No Symptoms Musculoskeletal: Reports: No Symptoms Skin: Reports: No Symptoms Neurological: Reports: No Symptoms Psychiatric: Reports: Anxiety, Depression, Other (requesting detox) Hematologic/Lymphatic: Reports: No Symptoms Immunologic: Reports: No Symptoms ED EXAM, BEHAVIORAL HEALTH - Physical Exam Exam: See Below Exam Limited By: Intoxication General Appearance: Alert, WD/WN, No Apparent Distress Eye Exam: Bilateral Eye: EOMI, Normal Inspection, PERRL Ears: Normal TMs Nose: Normal Inspection, Normal Mucosa, No Blood Throat/Mouth: Normal Inspection, Normal Lips, Normal Teeth, Normal Gums, Normal Oropharynx, Normal Voice, No Airway Compromise Head: Atraumatic, Normocephalic Neck: Normal Inspection, Supple, Non-Tender, Full Range of Motion Respiratory/Chest: No Respiratory Distress, Lungs Clear, Normal Breath Sounds, No Accessory Muscle Use, Chest Non-Tender Cardiovascular: Normal Peripheral Pulses, Regular Rate, Rhythm, No Edema, No Gallop, No JVD, No Murmur, No Rub GI/Abdominal: Normal Bowel Sounds, Soft, Non-Tender, No Organomegaly, No Distention, No Abnormal Bruit, No Mass Back Exam: Normal Inspection, Full Range of Motion, NT Extremities: Normal Inspection, Normal Range of Motion, Non-Tender, Normal Capillary Refill, No Pedal Edema Neurological: Alert, Normal Mood/Affect, CN II-XII Intact, Normal Cognition, Normal Gait, Normal Reflexes, No Motor/Sensory Deficits, Oriented x 3 Psychiatric: Alert, Normal Affect COURSE, BEHAVIORAL HEALTH COMP - Course Vital Signs: Last Vital Signs Temp 36.1 C 01/30/18 19:54 Pulse 90 01/30/18 19:54 Resp 19 01/30/18 19:54 BP 152/80 H 01/30/18 19:54 Pulse Ox 92 L 01/30/18 19:54 Orders, Labs, Meds: Active Orders 24 hr Category Date Time Status EKG Documentation Completion [RC] ROUTINE Care 01/30/18 17:44 Active MISC TEST Stat Lab 01/30/18 18:33 Received UA W/MICROSCOPIC [URIN] Stat Lab 01/30/18 18:33 Ordered URINE DRUG SCREEN,POC [POC] Routine Lab 01/30/18 18:33 Ordered Sodium Chloride 0.9% [Normal Saline] 1,000 ml Med 01/30/18 17:45 Active IV ASDIRECTED Medication Orders Acetaminophen (Tylenol) 650 mg PO Q6H PRN PRN Reason: Pain Folic Acid (Folic Acid) 1 mg PO DAILY [facility] Stop: 02/01/18 08:01 Last Admin: 01/30/18 20:12 Dose: 1 mg Sodium Chloride (Normal Saline) 1,000 mls @ 999 mls/hr IV ASDIRECTED CHUCKIE Last Admin: 01/30/18 18:02 Dose: 999 mls/hr Sodium Chloride (Normal Saline) 1,000 mls @ 125 mls/hr IV .BOLUS ONE Stop: 01/31/18 03:44 Last Admin: 01/30/18 20:11 Dose: 125 mls/hr Lorazepam (Ativan) 1 mg PO Q4H PRN; Protocol PRN Reason: Withdrawal Symptoms Multivitamins/Minerals (Thera M Plus) 1 tab PO DAILY [facility] Last Admin: 01/30/18 20:10 Dose: 1 tab Nicotine (Habitrol) 21 mg TRDERM DAILY [facility] Last Admin: 01/30/18 20:13 Dose: 21 mg Pantoprazole Sodium (Protonix) 40 mg PO ACBRK [facility] Last Admin: 01/30/18 20:10 Dose: 40 mg Thiamine HCl (Vitamin B-1) 100 mg PO DAILY [facility] Last Admin: 01/30/18 20:10 Dose: 100 mg Laboratory Tests 01/30/18 01/30/18 01/30/18 Range/Units 18:10 18:10 18:10 WBC 7.4 (4.0-10.0) x10^3/uL RBC 4.23 (4.00-5.50) x10^6/uL Hgb 12.8 (12.0-16.0) g/dL Hct 37.1 (33.0-47.0) % MCV 87.7 (78.0-93.0) fL MCH 30.3 (26.0-32.0) pg MCHC 34.5 (32.0-36.0) g/dL RDW Coeff of Nicole 13.5 (10.0-15.0) % Plt Count 277 D (130-400) x10^3/uL Neut % (Auto) 36.6 L (50.0-80.0) % Lymph % (Auto) 55.2 H (25.0-50.0) % [place] % (Auto) 6.0 (2.0-11.0) % Eos % (Auto) 1.8 (0.0-4.0) % Baso % (Auto) 0.4 (0.2-1.2) % PT (9.6-11.4) SEC INR (2.0-3.5) Sodium 126 L* D (136-145) mmol/L Potassium 3.9 (3.5-5.1) mmol/L Chloride 95 L (98-107) mmol/L Carbon Dioxide 22 (21-32) mmol/L Anion Gap 12.9 (10-20) mmol/L BUN 14 (7-18) mg/dL Creatinine 1.0 (0.55-1.02) mg/dL Est Cr Clr Drug Dosing 58.91 mL/min Estimated GFR (MDRD) 57 Glucose 94 (74-106) mg/dL Lactic Acid 2.3 H* (0.4-2.0) mmol/L Calcium 8.7 (8.5-10.1) mg/dL Corrected Calcium 8.94 (8.5-10.1) mg/dL Phosphorus (2.6-4.7) mg/dL Magnesium (1.8-2.4) mg/dL Total Bilirubin 0.2 (0.2-1.0) mg/dL AST 29 (15-37) U/L ALT 29 (14-59) U/L Alkaline Phosphatase 105 (46-116) U/L Creatine Kinase 51 (26-192) U/L Troponin I < 0.017 (<=0.056) ng/mL C-Reactive Protein < 0.2 (<=0.9) mg/dL Total Protein 7.4 (6.4-8.2) g/dL Albumin 3.7 (3.4-5.0) g/dL Globulin 3.7 Albumin/Globulin Ratio 1.00 Urine Color (YELLOW) Urine Appearance (CLEAR) Urine pH (5.0-8.0) Ur Specific [place] Urine Protein (NEGATIVE) mg/dL Urine Glucose (UA) (NEGATIVE) mg/dL Urine Ketones (NEGATIVE) mg/dL Urine Occult Blood (NEGATIVE) Urine Nitrite (NEGATIVE) Urine Bilirubin (NEGATIVE) Urine Urobilinogen (0.2) EU/dL Ur Leukocyte Esterase (NEGATIVE) Urine RBC (NOT SEEN) /HPF Urine WBC (NOT SEEN) /HPF Ur Squamous Epith Cells (NEGATIVE) /HPF Urine Bacteria (NEGATIVE) /HPF Urine Mucus (NEGATIVE) /LPF Urine Opiates Screen (NEGATIVE) Ur Buprenorphine Scrn (NEGATIVE) Ur Oxycodone Screen (NEGATIVE) Urine Methadone Screen (NEGATIVE) Ur Barbituates Screen (NEGATIVE) Ur Tricyclics Screen (NEGATIVE) Ur Amphetamines Screen (NEGATIVE) U Methamphetamines Scrn (NEGATIVE) Urine MDMA Screen (NEGATIVE) U Benzodiazepines Scrn (NEGATIVE) Urine Cocaine Screen (NEGATIVE) U Marijuana (THC) Screen (NEGATIVE) Ethyl Alcohol 318 H* (0-3) mg/dL 01/30/18 01/30/18 01/30/18 Range/Units 18:10 18:10 18:33 WBC (4.0-10.0) x10^3/uL RBC (4.00-5.50) x10^6/uL Hgb (12.0-16.0) g/dL Hct (33.0-47.0) % MCV (78.0-93.0) fL MCH (26.0-32.0) pg MCHC (32.0-36.0) g/dL RDW Coeff of Nicole (10.0-15.0) % Plt Count (130-400) x10^3/uL Neut % (Auto) (50.0-80.0) % Lymph % (Auto) (25.0-50.0) % [place] % (Auto) (2.0-11.0) % Eos % (Auto) (0.0-4.0) % Baso % (Auto) (0.2-1.2) % PT 9.3 L (9.6-11.4) SEC INR 0.9 L (2.0-3.5) Sodium (136-145) mmol/L Potassium (3.5-5.1) mmol/L Chloride (98-107) mmol/L Carbon Dioxide (21-32) mmol/L Anion Gap (10-20) mmol/L BUN (7-18) mg/dL Creatinine (0.55-1.02) mg/dL Est Cr Clr Drug Dosing mL/min Estimated GFR (MDRD) Glucose (74-106) mg/dL Lactic Acid (0.4-2.0) mmol/L Calcium (8.5-10.1) mg/dL Corrected Calcium (8.5-10.1) mg/dL Phosphorus 3.0 (2.6-4.7) mg/dL Magnesium 1.7 L (1.8-2.4) mg/dL Total Bilirubin (0.2-1.0) mg/dL AST (15-37) U/L ALT (14-59) U/L Alkaline Phosphatase (46-116) U/L Creatine Kinase (26-192) U/L Troponin I (<=0.056) ng/mL C-Reactive Protein (<=0.9) mg/dL Total Protein (6.4-8.2) g/dL Albumin (3.4-5.0) g/dL Globulin Albumin/Globulin Ratio Urine Color Dark yellow H (YELLOW) Urine Appearance Slightly cloudy H (CLEAR) Urine pH 6.0 (5.0-8.0) Ur Specific [place] 1.010 Urine Protein 30 H (NEGATIVE) mg/dL Urine Glucose (UA) Negative (NEGATIVE) mg/dL Urine Ketones Negative (NEGATIVE) mg/dL Urine Occult Blood Negative (NEGATIVE) Urine Nitrite Negative (NEGATIVE) Urine Bilirubin Negative (NEGATIVE) Urine Urobilinogen 0.2 (0.2) EU/dL Ur Leukocyte Esterase Trace H (NEGATIVE) Urine RBC 0-5 (NOT SEEN) /HPF Urine WBC 0-5 (NOT SEEN) /HPF Ur Squamous Epith Cells Moderate H (NEGATIVE) /HPF Urine Bacteria Few H (NEGATIVE) /HPF Urine Mucus Few H (NEGATIVE) /LPF Urine Opiates Screen (NEGATIVE) Ur Buprenorphine Scrn (NEGATIVE) Ur Oxycodone Screen (NEGATIVE) Urine Methadone Screen (NEGATIVE) Ur Barbituates Screen (NEGATIVE) Ur Tricyclics Screen (NEGATIVE) Ur Amphetamines Screen (NEGATIVE) U Methamphetamines Scrn (NEGATIVE) Urine MDMA Screen (NEGATIVE) U Benzodiazepines Scrn (NEGATIVE) Urine Cocaine Screen (NEGATIVE) U Marijuana (THC) Screen (NEGATIVE) Ethyl Alcohol (0-3) mg/dL 01/30/18 Range/Units 18:33 WBC (4.0-10.0) x10^3/uL RBC (4.00-5.50) x10^6/uL Hgb (12.0-16.0) g/dL Hct (33.0-47.0) % MCV (78.0-93.0) fL MCH (26.0-32.0) pg MCHC (32.0-36.0) g/dL RDW Coeff of Nicole (10.0-15.0) % Plt Count (130-400) x10^3/uL Neut % (Auto) (50.0-80.0) % Lymph % (Auto) (25.0-50.0) % [place] % (Auto) (2.0-11.0) % Eos % (Auto) (0.0-4.0) % Baso % (Auto) (0.2-1.2) % PT (9.6-11.4) SEC INR (2.0-3.5) Sodium (136-145) mmol/L Potassium (3.5-5.1) mmol/L Chloride (98-107) mmol/L Carbon Dioxide (21-32) mmol/L Anion Gap (10-20) mmol/L BUN (7-18) mg/dL Creatinine (0.55-1.02) mg/dL Est Cr Clr Drug Dosing mL/min Estimated GFR (MDRD) Glucose (74-106) mg/dL Lactic Acid (0.4-2.0) mmol/L Calcium (8.5-10.1) mg/dL Corrected Calcium (8.5-10.1) mg/dL Phosphorus (2.6-4.7) mg/dL Magnesium (1.8-2.4) mg/dL Total Bilirubin (0.2-1.0) mg/dL AST (15-37) U/L ALT (14-59) U/L Alkaline Phosphatase (46-116) U/L Creatine Kinase (26-192) U/L Troponin I (<=0.056) ng/mL C-Reactive Protein (<=0.9) mg/dL Total Protein (6.4-8.2) g/dL Albumin (3.4-5.0) g/dL Globulin Albumin/Globulin Ratio Urine Color (YELLOW) Urine Appearance (CLEAR) Urine pH (5.0-8.0) Ur Specific [place] Urine Protein (NEGATIVE) mg/dL Urine Glucose (UA) (NEGATIVE) mg/dL Urine Ketones (NEGATIVE) mg/dL Urine Occult Blood (NEGATIVE) Urine Nitrite (NEGATIVE) Urine Bilirubin (NEGATIVE) Urine Urobilinogen (0.2) EU/dL Ur Leukocyte Esterase (NEGATIVE) Urine RBC (NOT SEEN) /HPF Urine WBC (NOT SEEN) /HPF Ur Squamous Epith Cells (NEGATIVE) /HPF Urine Bacteria (NEGATIVE) /HPF Urine Mucus (NEGATIVE) /LPF Urine Opiates Screen Negative (NEGATIVE) Ur Buprenorphine Scrn Negative (NEGATIVE) Ur Oxycodone Screen Negative (NEGATIVE) Urine Methadone Screen Negative (NEGATIVE) Ur Barbituates Screen Negative (NEGATIVE) Ur Tricyclics Screen Positive H (NEGATIVE) Ur Amphetamines Screen Negative (NEGATIVE) U Methamphetamines Scrn Negative (NEGATIVE) Urine MDMA Screen Negative (NEGATIVE) U Benzodiazepines Scrn Negative (NEGATIVE) Urine Cocaine Screen Negative (NEGATIVE) U Marijuana (THC) Screen Negative (NEGATIVE) Ethyl Alcohol (0-3) mg/dL Medications Generic Name Dose Route Start Last Admin Trade Name Freq PRN Reason Stop Dose Admin Acetaminophen 650 mg 01/30/18 20:39 Tylenol PO Q6H PRN Pain Folic Acid 1 mg 01/30/18 20:00 01/30/18 20:12 Folic Acid PO 02/01/18 08:01 1 mg DAILY CHUCKIE Administration Sodium Chloride 1,000 mls @ 999 mls/hr 01/30/18 17:45 01/30/18 18:02 Normal Saline IV 999 mls/hr ASDIRECTED CHUCKIE Administration Sodium Chloride 1,000 mls @ 125 mls/hr 01/30/18 19:45 01/30/18 20:11 Normal Saline IV 01/31/18 03:44 125 mls/hr .BOLUS ONE Administration Lorazepam 1 mg 01/30/18 19:51 Ativan PO Q4H PRN Withdrawal Symptoms Protocol Multivitamins/Minerals 1 tab 01/30/18 20:00 01/30/18 20:10 Thera M Plus PO 1 tab DAILY CHUCKIE Administration Nicotine 21 mg 01/30/18 20:00 01/30/18 20:13 Habitrol TRDERM 21 mg DAILY CHUCKIE Administration Pantoprazole Sodium 40 mg 01/30/18 20:00 01/30/18 20:10 Protonix PO 40 mg ACBRK CHUCKIE Administration Thiamine HCl 100 mg 01/30/18 20:00 01/30/18 20:10 Vitamin B-1 PO 100 mg DAILY CHUCKIE Administration Departure - Departure Disposition: Refer to Observation Clinical Impression: Hyponatremia - Discharge Information <Sorin Solis - Last Filed: 01/30/18 21:44> COURSE, BEHAVIORAL HEALTH COMP - Course Re-Assessment/Re-Exam Date: 01/30/18 (Pt. was found to be hyponatremic. Decision was made to admit the pt. observation and treat her hyponatremia and monitor for alcohol withdrawl symptoms. ) Departure - Departure Time of Disposition: 19:50 - Assessment/Plan Plan: Pt. will be admitted observation. CIWAA monitoring every hour. Will start thiamine, folate and B12. Normal saline at 125ml/hr. Nicotine transdermal patch. She is a code level 1.
[2018-01-30 19:00] LABS: CHLORIDE,CL 95 mmol/L (98-107)
[2018-01-30 19:01] LABS: ANION GAP 12.9 mmol/L (10-20); SODIUM,NA 126 mmol/L (136-145)
[2018-01-30] MEDS ORDERED: Sodium Chloride 0.9% 1,000 ML IV ONE (19:45)
[2018-01-30] MEDS ORDERED: LORazepam 1 MG Tab PO PRN (19:51)
[2018-01-30] MEDS: Pantoprazole 40 MG Tab.CR PO SCH (20:10)
[2018-01-30] MEDS: Thiamine 100 MG Tab PO SCH (20:10)
[2018-01-30] MEDS: Multivitamins with Iron/Calcium/Folic Acid/Minerals Tab PO SCH (20:10)
[2018-01-30] MEDS: Folic Acid 1 MG Tab PO SCH (20:12)
[2018-01-30] MEDS: Nicotine 21 MG/24 Hr Patch TRDERM SCH (20:13)
[2018-01-30] MEDS: Acetaminophen 325 MG Tab PO PRN (22:10)
[2018-01-31] MEDS: Acetaminophen 325 MG Tab PO PRN (04:24)
[2018-01-31] MEDS: Pantoprazole 40 MG Tab.CR PO SCH (06:44)
[2018-01-31] MEDS ORDERED: Enoxaparin 40 MG/0.4 ML Syringe SUBCUT SCH (08:00)
[2018-01-31 08:01] LABS: ANION GAP 15.1 mmol/L (10-20)
[2018-01-31] MEDS: Multivitamins with Iron/Calcium/Folic Acid/Minerals Tab PO SCH (08:17)
[2018-01-31] MEDS: Folic Acid 1 MG Tab PO SCH (08:18)
[2018-01-31] MEDS: Thiamine 100 MG Tab PO SCH (08:18)
[2018-01-31] MEDS: Nicotine 21 MG/24 Hr Patch TRDERM SCH (08:23)
[2018-01-31 10:48] VITALS: BP 185/92
--- NOTE | 2018-01-31 11:28 | PCM.DCSUM1 ---
Discharge Summary - Hospital Course Free Text/Narrative:: Pt. was admitted with acute alcohol intoxication and hyponatremia. Pt. states that her family called 911 and pt. was brought to the ER. Pt. was treated for hyponatremia overnight with IV normal saline. She has shown no signs of agitation. She is requesting to go to the [facility] in [place]. After talking to the [facility], they informed me that the pt. would first need to go to the [facility] to ensure there was no issues with detox. Pt. was informed of this and refused, stating that she was reconsidering any placement. She was alert to time date and place and was medically stable, so she was subsequently discharged. Diagnosis: Stroke: No - Discharge Data Discharge Date: 01/31/18 Discharge Disposition: Home, Self-Care 01 Condition: Good - Discharge Diagnosis/Problem(s) (1) Hyponatremia SNOMED Code(s): 25614938 ICD Code: E87.1 - HYPO-OSMOLALITY AND HYPONATREMIA Status: Acute Current Visit: Yes (2) Alcohol abuse SNOMED Code(s): 15156295 ICD Code: F10.10 - ALCOHOL ABUSE, UNCOMPLICATED Status: Acute Current Visit: No (3) Alcohol intoxication SNOMED Code(s): 52939222 ICD Code: F10.929 - ALCOHOL USE, UNSPECIFIED WITH INTOXICATION, UNSPECIFIED Status: Acute Current Visit: No Problem Details: She was given IV fluids and IV thiamine as well as PO vitamins. CIWA scoring was utilized for monitoring with lorazepam dosing as needed. She required very few doses of lorazepam and has gone for >24 hours now without any CIWA 8 or higher. Her blood pressure was high yesterday but this has come down nicely. Last drink was >48 hours from now and she is felt to be low risk for any decompensation She is feeling well today. She has been able to keep up with PO fluids since yesterday morning and is tolerating a regular diet without issues. Social work did meet with her today and the following plan was established: patient will be discharged today to the care of her daughter, who will drive her to the [facility] in [place] for initial intake assessment. Qualifiers: Complication of substance-induced condition: uncomplicated Qualified Code(s ): F10.920 - Alcohol use, unspecified with intoxication, uncomplicated - Discharge Plan Home Medications: Home Meds Albuterol [Ventolin HFA] 1 - 2 puff PO Q4H PRN 08/11/13 [History] Cyclobenzaprine [Flexeril] 5 mg PO TID PRN 08/11/13 [History] FA/Lycopene/Lut/MV,Ca,Iron,Min [Centrum] 1 tab PO DAILY 08/11/13 [History] Latanoprost [Xalatan 0.005% Ophth Soln] 1 drop EYEBOTH BEDTIME 08/11/13 [History ] Timolol Maleate [Timoptic 0.5% Ophth Soln] 1 drop EYERT BID 08/11/13 [History] traZODone 50 mg PO BEDTIME 08/11/13 [History] Cephalexin 500 mg PO DAILY 08/04/16 [History] Venlafaxine [Effexor XR] 150 mg PO DAILY 08/04/16 [History] Amitriptyline [Elavil] 25 mg PO BEDTIME 01/04/18 [History] Lisinopril 30 mg PO DAILY 01/04/18 [History] Pantoprazole Sodium 40 mg PO DAILY 01/04/18 [History] Pregabalin [Lyrica] 225 mg PO BID 01/04/18 [History] Triamcinolone Acetonide [Kenalog 0.1% Crm] 1 applic TOP BID PRN 01/04/18 [ History] busPIRone [Buspar] 15 mg PO BID 01/04/18 [History] Magnesium Chloride [Mag-64] 128 mg PO BID #120 tab.er 01/06/18 [Rx] Nicotine [Habitrol] 21 mg TRDERM DAILY patch 01/06/18 [Rx] Forms: ED Department Discharge Referrals: PCP,Unknown [Primary Care Provider] - - General Info Date of Service: 01/31/18 Functional Status: Reports: Pain Controlled - Review of Systems General: Reports: No Symptoms HEENT: Reports: No Symptoms Pulmonary: Reports: No Symptoms Cardiovascular: Reports: No Symptoms Gastrointestinal: Reports: No Symptoms Genitourinary: Reports: No Symptoms Musculoskeletal: Reports: No Symptoms Skin: Reports: No Symptoms Neurological: Reports: Headache Psychiatric: Reports: No Symptoms - Patient Data Vitals - Most Recent: Last Vital Signs Temp 36.4 C 01/31/18 10:00 Pulse 99 01/31/18 10:00 Resp 18 07/02/18 10:00 BP 185/92 H 01/31/18 10:00 Pulse Ox 96 01/31/18 10:00 Weight - Most Recent: 72.303 kg I&O - Last 24 hours: Intake & Output 01/30/18 01/31/18 01/31/18 22:59 06:59 14:59 Intake Total 1000 1400 Output Total 400 1050 1550 Balance 600 350 -1550 Lab Results - Last 24 hrs: Laboratory Results - last 24 hr 01/30/18 01/30/18 01/30/18 Range/Units 18:10 18:10 18:10 WBC 7.4 (4.0-10.0) x10^3/uL RBC 4.23 (4.00-5.50) x10^6/uL Hgb 12.8 (12.0-16.0) g/dL Hct 37.1 (33.0-47.0) % MCV 87.7 (78.0-93.0) fL MCH 30.3 (26.0-32.0) pg MCHC 34.5 (32.0-36.0) g/dL RDW Coeff of Nicole 13.5 (10.0-15.0) % Plt Count 277 D (130-400) x10^3/uL Neut % (Auto) 36.6 L (50.0-80.0) % Lymph % (Auto) 55.2 H (25.0-50.0) % [place] % (Auto) 6.0 (2.0-11.0) % Eos % (Auto) 1.8 (0.0-4.0) % Baso % (Auto) 0.4 (0.2-1.2) % PT (9.6-11.4) SEC INR (2.0-3.5) Sodium 126 L* D (136-145) mmol/L Potassium 3.9 (3.5-5.1) mmol/L Chloride 95 L (98-107) mmol/L Carbon Dioxide 22 (21-32) mmol/L Anion Gap 12.9 (10-20) mmol/L BUN 14 (7-18) mg/dL Creatinine 1.0 (0.55-1.02) mg/dL Est Cr Clr Drug Dosing 58.91 mL/min Estimated GFR (MDRD) 57 Glucose 94 (74-106) mg/dL Lactic Acid 2.3 H* (0.4-2.0) mmol/L Calcium 8.7 (8.5-10.1) mg/dL Corrected Calcium 8.94 (8.5-10.1) mg/dL Phosphorus (2.6-4.7) mg/dL Magnesium (1.8-2.4) mg/dL Total Bilirubin 0.2 (0.2-1.0) mg/dL AST 29 (15-37) U/L ALT 29 (14-59) U/L Alkaline Phosphatase 105 (46-116) U/L Creatine Kinase 51 (26-192) U/L Troponin I < 0.017 (<=0.056) ng/mL C-Reactive Protein < 0.2 (<=0.9) mg/dL Total Protein 7.4 (6.4-8.2) g/dL Albumin 3.7 (3.4-5.0) g/dL Globulin 3.7 Albumin/Globulin Ratio 1.00 Urine Color (YELLOW) Urine Appearance (CLEAR) Urine pH (5.0-8.0) Ur Specific [place] Urine Protein (NEGATIVE) mg/dL Urine Glucose (UA) (NEGATIVE) mg/dL Urine Ketones (NEGATIVE) mg/dL Urine Occult Blood (NEGATIVE) Urine Nitrite (NEGATIVE) Urine Bilirubin (NEGATIVE) Urine Urobilinogen (0.2) EU/dL Ur Leukocyte Esterase (NEGATIVE) Urine RBC (NOT SEEN) /HPF Urine WBC (NOT SEEN) /HPF Ur Squamous Epith Cells (NEGATIVE) /HPF Urine Bacteria (NEGATIVE) /HPF Urine Mucus (NEGATIVE) /LPF Urine Opiates Screen (NEGATIVE) Ur Buprenorphine Scrn (NEGATIVE) Ur Oxycodone Screen (NEGATIVE) Urine Methadone Screen (NEGATIVE) Ur Barbituates Screen (NEGATIVE) Ur Tricyclics Screen (NEGATIVE) Ur Amphetamines Screen (NEGATIVE) U Methamphetamines Scrn (NEGATIVE) Urine MDMA Screen (NEGATIVE) U Benzodiazepines Scrn (NEGATIVE) Urine Cocaine Screen (NEGATIVE) U Marijuana (THC) Screen (NEGATIVE) Ethyl Alcohol 318 H* (0-3) mg/dL 01/30/18 01/30/18 01/30/18 Range/Units 18:10 18:10 18:33 WBC (4.0-10.0) x10^3/uL RBC (4.00-5.50) x10^6/uL Hgb (12.0-16.0) g/dL Hct (33.0-47.0) % MCV (78.0-93.0) fL MCH (26.0-32.0) pg MCHC (32.0-36.0) g/dL RDW Coeff of Nicole (10.0-15.0) % Plt Count (130-400) x10^3/uL Neut % (Auto) (50.0-80.0) % Lymph % (Auto) (25.0-50.0) % [place] % (Auto) (2.0-11.0) % Eos % (Auto) (0.0-4.0) % Baso % (Auto) (0.2-1.2) % PT 9.3 L (9.6-11.4) SEC INR 0.9 L (2.0-3.5) Sodium (136-145) mmol/L Potassium (3.5-5.1) mmol/L Chloride (98-107) mmol/L Carbon Dioxide (21-32) mmol/L Anion Gap (10-20) mmol/L BUN (7-18) mg/dL Creatinine (0.55-1.02) mg/dL Est Cr Clr Drug Dosing mL/min Estimated GFR (MDRD) Glucose (74-106) mg/dL Lactic Acid (0.4-2.0) mmol/L Calcium (8.5-10.1) mg/dL Corrected Calcium (8.5-10.1) mg/dL Phosphorus 3.0 (2.6-4.7) mg/dL Magnesium 1.7 L (1.8-2.4) mg/dL Total Bilirubin (0.2-1.0) mg/dL AST (15-37) U/L ALT (14-59) U/L Alkaline Phosphatase (46-116) U/L Creatine Kinase (26-192) U/L Troponin I (<=0.056) ng/mL C-Reactive Protein (<=0.9) mg/dL Total Protein (6.4-8.2) g/dL Albumin (3.4-5.0) g/dL Globulin Albumin/Globulin Ratio Urine Color Dark yellow H (YELLOW) Urine Appearance Slightly cloudy H (CLEAR) Urine pH 6.0 (5.0-8.0) Ur Specific [place] 1.010 Urine Protein 30 H (NEGATIVE) mg/dL Urine Glucose (UA) Negative (NEGATIVE) mg/dL Urine Ketones Negative (NEGATIVE) mg/dL Urine Occult Blood Negative (NEGATIVE) Urine Nitrite Negative (NEGATIVE) Urine Bilirubin Negative (NEGATIVE) Urine Urobilinogen 0.2 (0.2) EU/dL Ur Leukocyte Esterase Trace H (NEGATIVE) Urine RBC 0-5 (NOT SEEN) /HPF Urine WBC 0-5 (NOT SEEN) /HPF Ur Squamous Epith Cells Moderate H (NEGATIVE) /HPF Urine Bacteria Few H (NEGATIVE) /HPF Urine Mucus Few H (NEGATIVE) /LPF Urine Opiates Screen (NEGATIVE) Ur Buprenorphine Scrn (NEGATIVE) Ur Oxycodone Screen (NEGATIVE) Urine Methadone Screen (NEGATIVE) Ur Barbituates Screen (NEGATIVE) Ur Tricyclics Screen (NEGATIVE) Ur Amphetamines Screen (NEGATIVE) U Methamphetamines Scrn (NEGATIVE) Urine MDMA Screen (NEGATIVE) U Benzodiazepines Scrn (NEGATIVE) Urine Cocaine Screen (NEGATIVE) U Marijuana (THC) Screen (NEGATIVE) Ethyl Alcohol (0-3) mg/dL 01/30/18 01/31/18 01/31/18 Range/Units 18:33 07:05 07:05 WBC (4.0-10.0) x10^3/uL RBC (4.00-5.50) x10^6/uL Hgb (12.0-16.0) g/dL Hct (33.0-47.0) % MCV (78.0-93.0) fL MCH (26.0-32.0) pg MCHC (32.0-36.0) g/dL RDW Coeff of Nicole (10.0-15.0) % Plt Count (130-400) x10^3/uL Neut % (Auto) (50.0-80.0) % Lymph % (Auto) (25.0-50.0) % [place] % (Auto) (2.0-11.0) % Eos % (Auto) (0.0-4.0) % Baso % (Auto) (0.2-1.2) % PT (9.6-11.4) SEC INR (2.0-3.5) Sodium 139 D (136-145) mmol/L Potassium 4.1 (3.5-5.1) mmol/L Chloride 105 (98-107) mmol/L Carbon Dioxide 23 (21-32) mmol/L Anion Gap 15.1 (10-20) mmol/L BUN 14 (7-18) mg/dL Creatinine 1.0 (0.55-1.02) mg/dL Est Cr Clr Drug Dosing 58.91 mL/min Estimated GFR (MDRD) 57 Glucose 83 (74-106) mg/dL Lactic Acid 1.9 (0.4-2.0) mmol/L Calcium 9.3 (8.5-10.1) mg/dL Corrected Calcium (8.5-10.1) mg/dL Phosphorus (2.6-4.7) mg/dL Magnesium (1.8-2.4) mg/dL Total Bilirubin (0.2-1.0) mg/dL AST (15-37) U/L ALT (14-59) U/L Alkaline Phosphatase (46-116) U/L Creatine Kinase (26-192) U/L Troponin I (<=0.056) ng/mL C-Reactive Protein (<=0.9) mg/dL Total Protein (6.4-8.2) g/dL Albumin (3.4-5.0) g/dL Globulin Albumin/Globulin Ratio Urine Color (YELLOW) Urine Appearance (CLEAR) Urine pH (5.0-8.0) Ur Specific [place] Urine Protein (NEGATIVE) mg/dL Urine Glucose (UA) (NEGATIVE) mg/dL Urine Ketones (NEGATIVE) mg/dL Urine Occult Blood (NEGATIVE) Urine Nitrite (NEGATIVE) Urine Bilirubin (NEGATIVE) Urine Urobilinogen (0.2) EU/dL Ur Leukocyte Esterase (NEGATIVE) Urine RBC (NOT SEEN) /HPF Urine WBC (NOT SEEN) /HPF Ur Squamous Epith Cells (NEGATIVE) /HPF Urine Bacteria (NEGATIVE) /HPF Urine Mucus (NEGATIVE) /LPF Urine Opiates Screen Negative (NEGATIVE) Ur Buprenorphine Scrn Negative (NEGATIVE) Ur Oxycodone Screen Negative (NEGATIVE) Urine Methadone Screen Negative (NEGATIVE) Ur Barbituates Screen Negative (NEGATIVE) Ur Tricyclics Screen Positive H (NEGATIVE) Ur Amphetamines Screen Negative (NEGATIVE) U Methamphetamines Scrn Negative (NEGATIVE) Urine MDMA Screen Negative (NEGATIVE) U Benzodiazepines Scrn Negative (NEGATIVE) Urine Cocaine Screen Negative (NEGATIVE) U Marijuana (THC) Screen Negative (NEGATIVE) Ethyl Alcohol (0-3) mg/dL Med Orders - Current: Current Medications Acetaminophen (Tylenol) 650 mg PO Q6H PRN PRN Reason: Pain Last Admin: 01/31/18 04:24 Dose: 650 mg Enoxaparin Sodium (Lovenox) 40 mg SUBCUT DAILY [facility] Last Admin: 01/31/18 08:18 Dose: 40 mg Folic Acid (Folic Acid) 1 mg PO DAILY [facility] Stop: 02/01/18 08:01 Last Admin: 01/31/18 08:18 Dose: 1 mg Sodium Chloride (Normal Saline) 1,000 mls @ 999 mls/hr IV ASDIRECTED [facility] Last Admin: 01/30/18 18:02 Dose: 999 mls/hr Lorazepam (Ativan) 1 mg PO Q4H PRN; Protocol PRN Reason: Withdrawal Symptoms Last Admin: 01/31/18 08:34 Dose: 1 mg Multivitamins/Minerals (Thera M Plus) 1 tab PO DAILY [facility] Last Admin: 01/31/18 08:17 Dose: 1 tab Nicotine (Habitrol) 21 mg TRDERM DAILY [facility] Last Admin: 01/31/18 08:23 Dose: 21 mg Pantoprazole Sodium (Protonix) 40 mg PO ACBREAKFAST [facility] Thiamine HCl (Vitamin B-1) 100 mg PO DAILY [facility] Last Admin: 01/31/18 08:18 Dose: 100 mg Discontinued Medications Sodium Chloride (Normal Saline) 1,000 mls @ 125 mls/hr IV .BOLUS ONE Stop: 01/31/18 03:44 Last Admin: 01/30/18 20:11 Dose: 125 mls/hr Pantoprazole Sodium (Protonix) 40 mg PO ACBRK [facility] Last Admin: 01/31/18 06:44 Dose: 40 mg - Exam General: Reports: Alert, Oriented HEENT: Reports: Pupils Equal, Pupils Reactive, EOMI, Mucous Membr. Moist/[place] Neck: Reports: Supple Lungs: Reports: Clear to Auscultation, Normal Respiratory Effort Cardiovascular: Reports: Regular Rate, Regular Rhythm GI/Abdominal Exam: Normal Bowel Sounds, Soft, Non-Tender, No Organomegaly, No Distention, No Abnormal Bruit, No Mass, Pelvis Stable (Female) Exam: Deferred Rectal (Female) Exam: Deferred Back Exam: Reports: Normal Inspection, Full Range of Motion Extremities: Normal Inspection, Normal Range of Motion, Non-Tender, No Pedal Edema, Normal Capillary Refill Skin: Reports: Warm, Dry, Intact Wound/Incisions: Reports: Healing Well Neurological: Reports: No New Focal Deficit Psy/Mental Status: Reports: Alert, Normal Affect, Normal Mood
[2018-02-01] MEDS ORDERED: Pantoprazole 40 MG Tab.CR PO SCH (07:00)
== END 2018-01-31 11:30 | disposition home or self-care (01) ==
LOC: VM.ED 17:35 → VM.MS 19:27
PROVIDERS: ADMIT Physician Assistant; ATTEND Physician Assistant
DX: F10.120 Alcohol abuse with intoxication, uncomplicated (principal); E87.1 Hypo-osmolality and hyponatremia; I10 Essential (primary) hypertension; J44.9 Chronic obstructive pulmonary disease, unspecified; F17.200 Nicotine dependence, unspecified, uncomplicated; E05.90 Thyrotoxicosis, unspecified without thyrotoxic crisis or storm; F41.9 Anxiety disorder, unspecified; F32.9 Major depressive disorder, single episode, unspecified; Z79.899 Other long term (current) drug therapy
CPT/HCPCS: 36415; 80048; 80053; 80305; 80337; 80369; 81001; 82550; 83605; 83735; 84100; 84484; 85025; 85610; 86140; 93005; 96360; 99285; A9270; G0480; J1650; J7030

== ENCOUNTER 2018-04-21 16:25 | Emergency (ER) | payer MEDICARE, BC ==
[2018-04-21] MEDS ORDERED: Sodium Chloride 0.9% 1,000 ML IV ONE (16:40)
[2018-04-21] MEDS ORDERED: Folic Acid 50 MG/10 ML Bulk Vial IV ONE (16:42)
[2018-04-21] MEDS ORDERED: Thiamine 200 MG/2 ML MDV IV ONE (16:42)
[2018-04-21] MEDS ORDERED: Folic Acid 1 MG Tab ONE (17:07)
[2018-04-21] MEDS ORDERED: Morphine 2 MG/ML Syringe ONE (17:07)
[2018-04-21] MEDS ORDERED: GI Cocktail Oral Solution 30 ML ONE (17:08)
[2018-04-21] MEDS ORDERED: Thiamine 100 MG Tab ONE (17:08)
[2018-04-21] MEDS ORDERED: Ondansetron 4 MG/2 ML SDV ONE (17:35)
--- NOTE | 2018-04-21 17:41 | EDM.PDOC ---
ED HPI GENERAL MEDICAL PROBLEM - General Chief Complaint: Cardiovascular Problem Stated Complaint: chest pain and pressure Time Seen by Provider: 04/21/18 16:32 Source of Information: Reports: Patient History Limitations: Reports: Intoxication - History of Present Illness INITIAL COMMENTS - FREE TEXT/NARRATIVE: Patient comes in today with complaints of chest pressure. Denies radiation and does endorse worsening pain on movement. She initially denies abdominal pain but during my examination she did have abdominal tenderness on palpation. History of ulcers. She denies headache, nausea or vomiting, diarrhea. She does state that she feels like she is retaining urine when she voids, but denies blood in her urine or frequency/burning. She has been drinking today and does drink on a daily basis. She Onset: Today Duration: Heavy Location: Reports: Chest Quality: Reports: Pressure Severity: Moderate Worsens with: Reports: Movement Associated Symptoms: Reports: Chest Pain - Related Data Allergies Allergy/AdvReac Type Severity Reaction Status Date / Time No Known Allergies Allergy Verified 01/30/18 17:53 Home Meds: Home Meds Albuterol [Ventolin HFA] 1 - 2 puff PO Q4H PRN 08/11/13 [History] Cyclobenzaprine [Flexeril] 5 mg PO TID PRN 08/11/13 [History] FA/Lycopene/Lut/MV,Ca,Iron,Min [Centrum] 1 tab PO DAILY 08/11/13 [History] Latanoprost [Xalatan 0.005% Ophth Soln] 1 drop EYEBOTH BEDTIME 08/11/13 [History ] Timolol Maleate [Timoptic 0.5% Ophth Soln] 1 drop EYERT BID 08/11/13 [History] traZODone 50 mg PO BEDTIME 08/11/13 [History] Venlafaxine [Effexor XR] 150 mg PO DAILY 08/04/16 [History] cephALEXin [Cephalexin] 500 mg PO DAILY 08/04/16 [History] Amitriptyline [Elavil] 25 mg PO BEDTIME 01/04/18 [History] Lisinopril 30 mg PO DAILY 01/04/18 [History] Pantoprazole Sodium 40 mg PO DAILY 01/04/18 [History] Pregabalin [Lyrica] 225 mg PO BID 01/04/18 [History] Triamcinolone Acetonide [Kenalog 0.1% Crm] 1 applic TOP BID PRN 01/04/18 [ History] busPIRone [Buspar] 15 mg PO BID 01/04/18 [History] Magnesium Chloride [Mag-64] 128 mg PO BID #120 tab.er 01/06/18 [Rx] Nicotine [Habitrol] 21 mg TRDERM DAILY patch 01/06/18 [Rx] Past Medical History HEENT History: Reports: Glaucoma, Other (See Below) Other HEENT History: presbyopia. myopia. astigmatism Cardiovascular History: Reports: Hypertension Respiratory History: Reports: COPD, Other (See Below) Other Respiratory History: lung nodules Gastrointestinal History: Reports: Chronic Constipation, Colon Polyp, Hiatal Hernia, Irritable Bowel Syndrome, PUD Other Gastrointestinal History: bleeding ulcer Genitourinary History: Reports: None Musculoskeletal History: Reports: Fibromyalgia, Other (See Below) Other Musculoskeletal History: multiple rib fx fx metatarsal bone R foot with malunion. CWP sciatica left side. injury to Left shoulder. DJD of cervical spine. colles fx L radius Neurological History: Reports: Headaches, Chronic, Neuropathy, Peripheral Psychiatric History: Reports: Addiction, Anxiety, Depression Endocrine/Metabolic History: Reports: Hyperthyroidism, Osteopenia, Other (See Below) Other Endocrine/Metabolic History: thyroid nodule. hyperkalemia Hematologic History: Reports: Other (See Below) Other Hematologic History: hyperkalemia. elevated liver enzymes Oncologic (Cancer) History: Reports: Breast Dermatologic History: Reports: None - Infectious Disease History Infectious Disease History: Reports: Other (See Below) Other Infectious Disease History: MSSA - Past Surgical History HEENT Surgical History: Reports: Adenoidectomy, Tonsillectomy GI Surgical History: Reports: Other (See Below) Other GI Surgeries/Procedures: intestinal resection Female Surgical History: Reports: Section, Tubal Ligation Musculoskeletal Surgical History: Reports: Other (See Below) Other Musculoskeletal Surgeries/Procedures:: open reduction Left distal radius. bunionectomy. cervical fusion. laminectomy Oncologic Surgical History: Reports: Lumpectomy Social & Family History - Family History Family Medical History: Noncontributory Psychiatric: Reports: Depression, Other (See Below) Oncologic: Reports: Pancreatic - Caffeine Use Caffeine Use: Reports: Coffee - Living Situation & Occupation Living situation: Reports: , Alone ( recently moved out) Occupation: Employed (works making and selling crafts) ED ROS GENERAL - Review of Systems Review Of Systems: See Below Constitutional: Reports: No Symptoms HEENT: Reports: No Symptoms Respiratory: Reports: No Symptoms Cardiovascular: Reports: Chest Pain Endocrine: Reports: No Symptoms GI/Abdominal: Reports: No Symptoms : Reports: Urinary Retention Musculoskeletal: Reports: No Symptoms Skin: Reports: No Symptoms Neurological: Reports: No Symptoms Psychiatric: Reports: No Symptoms Hematologic/Lymphatic: Reports: No Symptoms Immunologic: Reports: No Symptoms ED EXAM, GENERAL - Physical Exam Exam: See Below Exam Limited By: Intoxication General Appearance: Alert, WD/WN, Mild Distress Eye Exam: Bilateral Eye: EOMI, Normal Inspection, PERRL Ears: Normal TMs Nose: Normal Inspection, Normal Mucosa, No Blood Throat/Mouth: Normal Inspection, Normal Lips, Normal Teeth, Normal Gums, Normal Oropharynx, Normal Voice, No Airway Compromise Head: Atraumatic, Normocephalic Neck: Normal Inspection, Supple, Non-Tender, Full Range of Motion Respiratory/Chest: No Respiratory Distress, Lungs Clear, Normal Breath Sounds, No Accessory Muscle Use, Chest Non-Tender Cardiovascular: Normal Peripheral Pulses, No Edema, No Murmur, No Rub, Tachycardia Peripheral Pulses: 2+: Radial (L), Radial (R), Posterior Tibial (L), Posterior Tibial (R), Dorsalis Pedis (L), Dorsalis Pedis (R) GI/Abdominal: Normal Bowel Sounds, Soft, No Distention, Tender Extremities: Normal Inspection, Normal Range of Motion, Non-Tender, Normal Capillary Refill, No Pedal Edema Neurological: Alert, Oriented, CN II-XII Intact, Normal Cognition, Normal Gait, Normal Reflexes, No Motor/Sensory Deficits Psychiatric: Anxious Skin Exam: Warm, Dry, Intact, Normal Color, No Rash Lymphatic: No Adenopathy Course - Orders/Labs/Meds Orders: Active Orders 24 hr Category Date Time Status EKG Documentation Completion [RC] STAT Care 04/21/18 16:38 Active Chest 1V Frontal [CR] Stat Exams 04/21/18 16:38 Taken CULTURE BLOOD [BC] Stat Lab 04/21/18 16:50 Results CULTURE BLOOD [BC] Stat Lab 04/21/18 17:03 Results DRUG SCREEN, URINE [URCHEM] Stat Lab 04/21/18 16:38 Ordered LACTIC ACID [CHEM] Stat Lab 04/21/18 16:38 Ordered UA W/MICROSCOPIC [URIN] Stat Lab 04/21/18 16:38 Ordered Blood Culture x2 Reflex Set [OM.PC] Stat Oth 04/21/18 16:38 Ordered Labs: Laboratory Tests 04/21/18 04/21/18 04/21/18 Range/Units 16:50 16:50 16:50 WBC 8.0 (4.0-10.0) x10^3/uL RBC 4.79 (4.00-5.50) x10^6/uL Hgb 14.4 D (12.0-16.0) g/dL Hct 41.5 (33.0-47.0) % MCV 86.6 (78.0-93.0) fL MCH 30.1 (26.0-32.0) pg MCHC 34.7 (32.0-36.0) g/dL RDW Coeff of Nicole 13.9 (10.0-15.0) % Plt Count 261 (130-400) x10^3/uL Neut % (Auto) 79.3 (50.0-80.0) % Lymph % (Auto) 15.8 L (25.0-50.0) % Lucas % (Auto) 4.4 (2.0-11.0) % Eos % (Auto) 0.1 (0.0-4.0) % Baso % (Auto) 0.4 (0.2-1.2) % D-Dimer, Quantitative 1.18 H (<=0.58) mg/LFEU Sodium 135 L (136-145) mmol/L Potassium 3.9 (3.5-5.1) mmol/L Chloride 97 L (98-107) mmol/L Carbon Dioxide 15 L (21-32) mmol/L Anion Gap 26.9 H (10-20) mmol/L BUN 25 H (7-18) mg/dL Creatinine 1.2 H (0.55-1.02) mg/dL Est Cr Clr Drug Dosing TNP Estimated GFR (MDRD) 46 Glucose 65 L (74-106) mg/dL Calcium 9.7 (8.5-10.1) mg/dL Corrected Calcium 9.70 (8.5-10.1) mg/dL Phosphorus 5.7 H (2.6-4.7) mg/dL Magnesium 1.6 L (1.8-2.4) mg/dL Total Bilirubin 0.3 (0.2-1.0) mg/dL AST 54 H (15-37) U/L ALT 40 (14-59) U/L Alkaline Phosphatase 142 H (46-116) U/L Creatine Kinase 78 (26-192) U/L Troponin I < 0.017 (<=0.056) ng/mL NT-Pro-B Natriuret Pep 274 H (<=125) pg/mL Total Protein 8.4 H (6.4-8.2) g/dL Albumin 4.0 (3.4-5.0) g/dL Globulin 4.4 Albumin/Globulin Ratio 0.91 Triglycerides (0-149) mg/dL Amylase 31 (25-115) U/L Lipase (73-393) U/L TSH, Ultra Sensitive 0.185 L (0.358-3.74) uIU/mL Ethyl Alcohol 236 H (0-3) mg/dL 04/21/18 Range/Units 16:50 WBC (4.0-10.0) x10^3/uL RBC (4.00-5.50) x10^6/uL Hgb (12.0-16.0) g/dL Hct (33.0-47.0) % MCV (78.0-93.0) fL MCH (26.0-32.0) pg MCHC (32.0-36.0) g/dL RDW Coeff of Nicole (10.0-15.0) % Plt Count (130-400) x10^3/uL Neut % (Auto) (50.0-80.0) % Lymph % (Auto) (25.0-50.0) % Lucas % (Auto) (2.0-11.0) % Eos % (Auto) (0.0-4.0) % Baso % (Auto) (0.2-1.2) % D-Dimer, Quantitative (<=0.58) mg/LFEU Sodium (136-145) mmol/L Potassium (3.5-5.1) mmol/L Chloride (98-107) mmol/L Carbon Dioxide (21-32) mmol/L Anion Gap (10-20) mmol/L BUN (7-18) mg/dL Creatinine (0.55-1.02) mg/dL Est Cr Clr Drug Dosing Estimated GFR (MDRD) Glucose (74-106) mg/dL Calcium (8.5-10.1) mg/dL Corrected Calcium (8.5-10.1) mg/dL Phosphorus (2.6-4.7) mg/dL Magnesium (1.8-2.4) mg/dL Total Bilirubin (0.2-1.0) mg/dL AST (15-37) U/L ALT (14-59) U/L Alkaline Phosphatase (46-116) U/L Creatine Kinase (26-192) U/L Troponin I (<=0.056) ng/mL NT-Pro-B Natriuret Pep (<=125) pg/mL Total Protein (6.4-8.2) g/dL Albumin (3.4-5.0) g/dL Globulin Albumin/Globulin Ratio Triglycerides 232 H (0-149) mg/dL Amylase (25-115) U/L Lipase 93 (73-393) U/L TSH, Ultra Sensitive (0.358-3.74) uIU/mL Ethyl Alcohol (0-3) mg/dL Meds: Medications Discontinued Medications Generic Name Dose Route Start Last Admin Trade Name Ortega PRN Reason Stop Dose Admin Al Hydroxide/Mg Hydroxide Confirm 04/21/18 17:08 Gi Cocktail Administered 04/21/18 17:09 Dose 30 ml .ROUTE .STK-MED ONE Folic Acid 1 mg 04/21/18 16:42 Folic Acid IV 04/21/18 16:43 ONETIME ONE Folic Acid Confirm 04/21/18 17:07 Folic Acid Administered 04/21/18 17:08 Dose 1 mg .ROUTE .STK-MED ONE Sodium Chloride 1,000 mls @ 999 mls/hr 04/21/18 16:40 Normal Saline IV 04/21/18 17:40 ONETIME ONE Lorazepam Confirm 04/21/18 17:45 Ativan Administered 04/21/18 17:46 Dose 2 mg .ROUTE .STK-MED ONE Morphine Sulfate Confirm 04/21/18 17:07 Morphine Administered 04/21/18 17:08 Dose 2 mg .ROUTE .STK-MED ONE Ondansetron HCl Confirm 04/21/18 17:35 Zofran Administered 04/21/18 17:36 Dose 4 mg .ROUTE .STK-MED ONE Thiamine HCl 100 mg 04/21/18 16:42 Vitamin B-1 IV 04/21/18 16:43 ONETIME ONE Thiamine HCl Confirm 04/21/18 17:08 Vitamin B-1 Administered 04/21/18 17:09 Dose 100 mg .ROUTE .STK-MED ONE Departure - Departure Time of Disposition: 19:40 Disposition: Home, Self-Care 01 Condition: Good Clinical Impression: Abdominal pain, Anxiety Instructions: Panic Attack, [id number], Alcoholic Liver Disease, Finding Treatment for Addiction, What You Need to Know About Alcohol Abuse and Dependence, Adult Forms: ED Department Discharge Additional Instructions: Please return to the emergency room if you experience any further or worsening chest pain or shortness of breath. Your CT results were negative for any acute blood clot in the lungs, gall bladder or appendix inflammation or pancreatitis. Your magnesium is low and that is why you were given oral magnesium today. You need to stop drinking alcohol. Your liver enzymes are elevated and this can indicate liver damage from group home alcohol abuse. Please call the ER if you have any additional questions or concerns. - Problem List & Annotations (1) Abdominal pain SNOMED Code(s): 85589981 Code(s): R10.9 - UNSPECIFIED ABDOMINAL PAIN Status: Acute Priority: Medium Current Visit: Yes Qualifiers: Abdominal location: upper abdomen, unspecified Qualified Code(s): R10.10 - Upper abdominal pain, unspecified (2) Anxiety SNOMED Code(s): 25126140 Code(s): F41.9 - ANXIETY DISORDER, UNSPECIFIED Status: Acute Priority: Medium Current Visit: Yes - Problem List Review Problem List Initiated/Reviewed/Updated: Yes - My Orders Last 24 Hours: My Active Orders 04/21/18 16:38 EKG Documentation Completion [RC] STAT Chest 1V Frontal [CR] Stat DRUG SCREEN, URINE [URCHEM] Stat LACTIC ACID [CHEM] Stat UA W/MICROSCOPIC [URIN] Stat Blood Culture x2 Reflex Set [OM.PC] Stat 04/21/18 16:50 CULTURE BLOOD [BC] Stat 04/21/18 17:03 CULTURE BLOOD [BC] Stat - Assessment/Plan Last 24 Hours: My Active Orders 04/21/18 16:38 EKG Documentation Completion [RC] STAT Chest 1V Frontal [CR] Stat DRUG SCREEN, URINE [URCHEM] Stat LACTIC ACID [CHEM] Stat UA W/MICROSCOPIC [URIN] Stat Blood Culture x2 Reflex Set [OM.PC] Stat 04/21/18 16:50 CULTURE BLOOD [BC] Stat 04/21/18 17:03 CULTURE BLOOD [BC] Stat Assessment:: alcohol intoxication abdominal pain anxiety attack Plan: Please return to the emergency room if you experience any further or worsening chest pain or shortness of breath. Your CT results were negative for any acute blood clot in the lungs, gall bladder or appendix inflammation or pancreatitis. Your magnesium is low and that is why you were given oral magnesium today. You need to stop drinking alcohol. Your liver enzymes are elevated and this can indicate liver damage from group home alcohol abuse. Please call the ER if you have any additional questions or concerns.
[2018-04-21] MEDS ORDERED: LORazepam 2 MG/ML SDV ONE (17:45)
[2018-04-21 17:46] LABS: CHLORIDE,CL 97 mmol/L (98-107); SODIUM,NA 135 mmol/L (136-145)
[2018-04-21 17:47] LABS: ANION GAP 26.9 mmol/L (10-20)
[2018-04-21] MEDS ORDERED: cefTRIAXone 1 GM Vial ONE (17:53)
[2018-04-21] MEDS ORDERED: cefTRIAXone 1 GM Vial IVPUSH ONE (17:55)
[2018-04-21] MEDS ORDERED: Iopamidol 612 MG/ML 100 ML Bottle IVPUSH ONE ×2 (18:23→18:45)
[2018-04-21] MEDS ORDERED: Magnesium Chloride 64 MG Tab.ER PO ONE (19:40)
== END 2018-04-21 19:50 | disposition home or self-care (01) ==
LOC: VM.ED 16:25
DX: F41.9 Anxiety disorder, unspecified (principal); R10.9 Unspecified abdominal pain; I10 Essential (primary) hypertension; J44.9 Chronic obstructive pulmonary disease, unspecified; Z79.899 Other long term (current) drug therapy
CPT/HCPCS: 36415; 71045; 71275; 74177; 80053; 80305; 80337; 80369; 81001; 82150; 82550; 83605; 83690; 83735; 83880; 84100; 84443; 84478; 84484; 85025; 85379; 87040; 93005; 96361; 96374; 96375; 99285; G0480; Q9967

== ENCOUNTER 2018-04-22 11:06 | Inpatient (IN) | payer MEDICARE, BC ==
--- NOTE | 2018-04-22 11:49 | EDM.PDOCBH ---
ED HPI GENERAL MEDICAL PROBLEM - General Chief Complaint: Drug or Alcohol Abuse Stated Complaint: DETOX Time Seen by Provider: 04/22/18 11:10 Source of Information: Reports: Patient, Family, RN, RN Notes Reviewed History Limitations: Reports: No Limitations - History of Present Illness INITIAL COMMENTS - FREE TEXT/NARRATIVE: Patient is brought to the ED at [facility] by her family for acute on chronic alcohol intoxication. The patient's states the patient has a long-standing history of alcohol abuse. She has been in treatment facilities many times in the past. He states she started drinking Vodka since last Wednesday. The family is requesting the patient be detoxed and then sent to an inpatient treatment facility. Duration: Chronic - Related Data Allergies Allergy/AdvReac Type Severity Reaction Status Date / Time No Known Allergies Allergy Verified 01/30/18 17:53 Home Meds: Home Meds Albuterol [Ventolin HFA] 1 - 2 puff PO Q4H PRN 08/11/13 [History] Cyclobenzaprine [Flexeril] 5 mg PO TID PRN 08/11/13 [History] FA/Lycopene/Lut/MV,Ca,Iron,Min [Centrum] 1 tab PO DAILY 08/11/13 [History] Latanoprost [Xalatan 0.005% Ophth Soln] 1 drop EYEBOTH BEDTIME 08/11/13 [History ] Timolol Maleate [Timoptic 0.5% Ophth Soln] 1 drop EYERT BID 08/11/13 [History] traZODone 75 mg PO BEDTIME 08/11/13 [History] Venlafaxine [Effexor XR] 150 mg PO DAILY 08/04/16 [History] cephALEXin [Cephalexin] 500 mg PO DAILY 08/04/16 [History] Amitriptyline [Elavil] 25 mg PO BEDTIME 01/04/18 [History] Lisinopril 30 mg PO DAILY 01/04/18 [History] Pantoprazole Sodium 40 mg PO DAILY 01/04/18 [History] Pregabalin [Lyrica] 225 mg PO BID 01/04/18 [History] Triamcinolone Acetonide [Kenalog 0.1% Crm] 1 applic TOP BID PRN 01/04/18 [ History] busPIRone [Buspar] 15 mg PO TID 01/04/18 [History] Magnesium Chloride [Mag-64] 128 mg PO BID #120 tab.er 01/06/18 [Rx] Nicotine [Habitrol] 21 mg TRDERM DAILY patch 01/06/18 [Rx] amLODIPine Besylate [Amlodipine Besylate] 10 mg PO DAILY 04/22/18 [History] Past Medical History HEENT History: Reports: Glaucoma, Other (See Below) Other HEENT History: presbyopia. myopia. astigmatism Cardiovascular History: Reports: Hypertension Respiratory History: Reports: COPD, Other (See Below) Other Respiratory History: lung nodules Gastrointestinal History: Reports: Chronic Constipation, Colon Polyp, Hiatal Hernia, Irritable Bowel Syndrome, PUD Other Gastrointestinal History: bleeding ulcer Genitourinary History: Reports: None Musculoskeletal History: Reports: Fibromyalgia, Other (See Below) Other Musculoskeletal History: multiple rib fx fx metatarsal bone R foot with malunion. CWP sciatica left side. injury to Left shoulder. DJD of cervical spine. colles fx L radius Neurological History: Reports: Headaches, Chronic, Neuropathy, Peripheral Psychiatric History: Reports: Addiction, Anxiety, Depression Endocrine/Metabolic History: Reports: Hyperthyroidism, Osteopenia, Other (See Below) Other Endocrine/Metabolic History: thyroid nodule. hyperkalemia Hematologic History: Reports: Other (See Below) Other Hematologic History: hyperkalemia. elevated liver enzymes Oncologic (Cancer) History: Reports: Breast Dermatologic History: Reports: None - Infectious Disease History Infectious Disease History: Reports: Other (See Below) Other Infectious Disease History: MSSA - Past Surgical History HEENT Surgical History: Reports: Adenoidectomy, Tonsillectomy GI Surgical History: Reports: Other (See Below) Other GI Surgeries/Procedures: intestinal resection Female Surgical History: Reports: Section, Tubal Ligation Musculoskeletal Surgical History: Reports: Other (See Below) Other Musculoskeletal Surgeries/Procedures:: open reduction Left distal radius. bunionectomy. cervical fusion. laminectomy Oncologic Surgical History: Reports: Lumpectomy Social & Family History - Family History Family Medical History: Noncontributory Psychiatric: Reports: Depression, Other (See Below) Oncologic: Reports: Pancreatic - Tobacco Use Smoking Status *Q: Current Status Unknown - Caffeine Use Caffeine Use: Reports: Coffee - Alcohol Use Days Per Week of Alcohol Use: 7 Number of Drinks Per Day: 10 Total Drinks Per Week: 70 Date of Last Drink: 04/21/18 - Recreational Drug Use Recreational Drug Use: No - Living Situation & Occupation Living situation: Reports: , Alone ( recently moved out) Occupation: Employed (works making and selling crafts) ED ROS GENERAL - Review of Systems Review Of Systems: See Below Constitutional: Denies: Fever, Chills Respiratory: Reports: Cough. Denies: Shortness of Breath Cardiovascular: Denies: Chest Pain, Palpitations GI/Abdominal: Reports: Nausea. Denies: Abdominal Pain, Vomiting Skin: Reports: No Symptoms Neurological: Reports: No Symptoms (obtained from family) ED EXAM, BEHAVIORAL HEALTH - Physical Exam Exam: See Below Exam Limited By: Intoxication General Appearance: Alert Eye Exam: Bilateral Eye: Normal Inspection, PERRL Respiratory/Chest: No Respiratory Distress, Lungs Clear, Decreased Breath Sounds Cardiovascular: Normal Peripheral Pulses, Tachycardia GI/Abdominal: Normal Bowel Sounds, Soft, Non-Tender Neurological: Alert, Disoriented to Time Psychiatric: Poor Eye Contact Skin Exam: Warm, Dry, Intact, Normal color COURSE, BEHAVIORAL HEALTH COMP - Course Vital Signs: Last Vital Signs Temp 36.6 C 04/22/18 11:15 Pulse 112 H 04/22/18 11:15 Resp 18 04/22/18 11:15 BP 147/75 H 04/22/18 11:15 Pulse Ox 97 04/22/18 11:15 Orders, Labs, Meds: Active Orders 24 hr Category Date Time Status Admission Status [Patient Status] [ADT] Routine ADT 04/22/18 13:51 Ordered MISC TEST Stat Lab 04/22/18 11:19 Received Laboratory Tests 04/22/18 04/22/18 04/22/18 Range/Units 11:19 11:19 11:35 WBC 6.8 (4.0-10.0) x10^3/uL RBC 4.94 (4.00-5.50) x10^6/uL Hgb 14.8 (12.0-16.0) g/dL Hct 42.7 (33.0-47.0) % MCV 86.4 (78.0-93.0) fL MCH 30.0 (26.0-32.0) pg MCHC 34.7 (32.0-36.0) g/dL RDW Coeff of Nicole 13.8 (10.0-15.0) % Plt Count 265 (130-400) x10^3/uL Neut % (Auto) 72.6 (50.0-80.0) % Lymph % (Auto) 23.9 L (25.0-50.0) % [place] % (Auto) 3.1 (2.0-11.0) % Eos % (Auto) 0.1 (0.0-4.0) % Baso % (Auto) 0.3 (0.2-1.2) % Sodium (136-145) mmol/L Potassium (3.5-5.1) mmol/L Chloride (98-107) mmol/L Carbon Dioxide (21-32) mmol/L Anion Gap (10-20) mmol/L BUN (7-18) mg/dL Creatinine (0.55-1.02) mg/dL Est Cr Clr Drug Dosing Estimated GFR (MDRD) Glucose (74-106) mg/dL Calcium (8.5-10.1) mg/dL Corrected Calcium (8.5-10.1) mg/dL Phosphorus (2.6-4.7) mg/dL Magnesium (1.8-2.4) mg/dL Total Bilirubin (0.2-1.0) mg/dL AST (15-37) U/L ALT (14-59) U/L Alkaline Phosphatase (46-116) U/L Total Protein (6.4-8.2) g/dL Albumin (3.4-5.0) g/dL Globulin Albumin/Globulin Ratio Urine Color Yellow (YELLOW) Urine Appearance Slightly cloudy H (CLEAR) Urine pH 5.5 (5.0-8.0) Ur Specific [place] 1.020 Urine Protein >=300 H (NEGATIVE) mg/dL Urine Glucose (UA) Negative (NEGATIVE) mg/dL Urine Ketones 40 H (NEGATIVE) mg/dL Urine Occult Blood Moderate H (NEGATIVE) Urine Nitrite Negative (NEGATIVE) Urine Bilirubin Negative (NEGATIVE) Urine Urobilinogen 0.2 (0.2) EU/dL Ur Leukocyte Esterase Negative (NEGATIVE) Urine RBC 5-10 H (NOT SEEN) /HPF Urine WBC 0-5 (NOT SEEN) /HPF Ur Squamous Epith Cells Moderate H (NEGATIVE) /HPF Urine Bacteria Few H (NEGATIVE) /HPF Urine Mucus Rare H (NEGATIVE) /LPF Urine Opiates Screen Negative (NEGATIVE) Ur Buprenorphine Scrn Negative (NEGATIVE) Ur Oxycodone Screen Negative (NEGATIVE) Urine Methadone Screen Negative (NEGATIVE) Ur Barbiturates Screen Negative (NEGATIVE) Ur Tricyclics Screen Positive H (NEGATIVE) Ur Amphetamine Screen Negative (NEGATIVE) U Methamphetamines Scrn Negative (NEGATIVE) Urine MDMA Screen Negative (NEGATIVE) U Benzodiazepines Scrn Negative (NEGATIVE) U Cocaine Metab Screen Negative (NEGATIVE) U Marijuana (THC) Screen Negative (NEGATIVE) Ethyl Alcohol (0-3) mg/dL 04/22/18 Range/Units 11:35 WBC (4.0-10.0) x10^3/uL RBC (4.00-5.50) x10^6/uL Hgb (12.0-16.0) g/dL Hct (33.0-47.0) % MCV (78.0-93.0) fL MCH (26.0-32.0) pg MCHC (32.0-36.0) g/dL RDW Coeff of Nicole (10.0-15.0) % Plt Count (130-400) x10^3/uL Neut % (Auto) (50.0-80.0) % Lymph % (Auto) (25.0-50.0) % [place] % (Auto) (2.0-11.0) % Eos % (Auto) (0.0-4.0) % Baso % (Auto) (0.2-1.2) % Sodium 136 (136-145) mmol/L Potassium 3.9 (3.5-5.1) mmol/L Chloride 97 L (98-107) mmol/L Carbon Dioxide 16 L (21-32) mmol/L Anion Gap 26.9 H (10-20) mmol/L BUN 23 H (7-18) mg/dL Creatinine 1.1 H (0.55-1.02) mg/dL Est Cr Clr Drug Dosing TNP Estimated GFR (MDRD) 51 Glucose 62 L (74-106) mg/dL Calcium 10.1 (8.5-10.1) mg/dL Corrected Calcium 10.02 (8.5-10.1) mg/dL Phosphorus 3.7 (2.6-4.7) mg/dL Magnesium 1.7 L (1.8-2.4) mg/dL Total Bilirubin 0.4 (0.2-1.0) mg/dL AST 54 H (15-37) U/L ALT 42 (14-59) U/L Alkaline Phosphatase 149 H (46-116) U/L Total Protein 8.9 H (6.4-8.2) g/dL Albumin 4.1 (3.4-5.0) g/dL Globulin 4.8 Albumin/Globulin Ratio 0.85 Urine Color (YELLOW) Urine Appearance (CLEAR) Urine pH (5.0-8.0) Ur Specific [place] Urine Protein (NEGATIVE) mg/dL Urine Glucose (UA) (NEGATIVE) mg/dL Urine Ketones (NEGATIVE) mg/dL Urine Occult Blood (NEGATIVE) Urine Nitrite (NEGATIVE) Urine Bilirubin (NEGATIVE) Urine Urobilinogen (0.2) EU/dL Ur Leukocyte Esterase (NEGATIVE) Urine RBC (NOT SEEN) /HPF Urine WBC (NOT SEEN) /HPF Ur Squamous Epith Cells (NEGATIVE) /HPF Urine Bacteria (NEGATIVE) /HPF Urine Mucus (NEGATIVE) /LPF Urine Opiates Screen (NEGATIVE) Ur Buprenorphine Scrn (NEGATIVE) Ur Oxycodone Screen (NEGATIVE) Urine Methadone Screen (NEGATIVE) Ur Barbiturates Screen (NEGATIVE) Ur Tricyclics Screen (NEGATIVE) Ur Amphetamine Screen (NEGATIVE) U Methamphetamines Scrn (NEGATIVE) Urine MDMA Screen (NEGATIVE) U Benzodiazepines Scrn (NEGATIVE) U Cocaine Metab Screen (NEGATIVE) U Marijuana (THC) Screen (NEGATIVE) Ethyl Alcohol 202 H (0-3) mg/dL Medical Clearance: 04/22/18 13:49 No Discharge vs Psych Eval/Treatment:: 04/22/18 13:49 Patient will be admitted for detox over , then CRU Wednesday; family and patient agree Departure - Departure Time of Disposition: 13:53 Disposition: Admitted As Inpatient 64 Condition: Fair Clinical Impression: Alcohol intoxication Qualifiers: Complication of substance-induced condition: uncomplicated Qualified Code(s): F10.920 - Alcohol use, unspecified with intoxication, uncomplicated - Discharge Information *PRESCRIPTION DRUG MONITORING PROGRAM REVIEWED*: Not Applicable *COPY OF PRESCRIPTION DRUG MONITORING REPORT IN PATIENT NEYDA: Not Applicable ED Communication - ED Communication Date/Time Date: 04/22/18 Time Called: 13:07 - Discussed Case With (1) Discussed Case With (1): Admitting Provider Person/s Notified (1): Dileep Cronin - Conversation Summary Admitting Provider Agreed to Patient's Admission: Yes Patient Aware of Amendments fo Care Plan: Yes - Problem List Review Problem List Initiated/Reviewed/Updated: Yes - My Orders Last 24 Hours: My Active Orders 04/22/18 11:19 MISC TEST Stat 04/22/18 13:51 Admission Status [Patient Status] [ADT] Routine - Assessment/Plan Last 24 Hours: My Active Orders 04/22/18 11:19 MISC TEST Stat 04/22/18 13:51 Admission Status [Patient Status] [ADT] Routine Assessment:: Acute alcohol intoxication Plan: Case discussed with Dr. Cronin. Patient will be admitted acute for detox. Patient will be transferred to CRU unit Wednesday in [place] for further CD treatment. Plan of care thoroughly discussed with patient and family. All are in agreement.
[2018-04-22 12:01] LABS: CHLORIDE,CL 97 mmol/L (98-107); SODIUM,NA 136 mmol/L (136-145)
[2018-04-22 12:02] LABS: ANION GAP 26.9 mmol/L (10-20)
[2018-04-22] MEDS ORDERED: cloNIDine 0.1 MG Tab PO PRN (14:18)
[2018-04-22] MEDS ORDERED: Haloperidol Lactate 5 MG/ML SDV IVPUSH PRN (14:18)
[2018-04-22] MEDS ORDERED: Ondansetron 4 MG/2 ML SDV IVPUSH PRN (14:18)
[2018-04-22] MEDS ORDERED: Triamcinolone Acetonide 0.1% Crm 15 GM Tube TOP PRN (14:26)
[2018-04-22] MEDS ORDERED: Take Home: Albuterol 6.7 GM Inhaler, 1 Inhaler Pack INH PRN (14:26)
[2018-04-22] MEDS ORDERED: Sodium Chloride 0.9% 1,000 ML IV SCH (14:30)
[2018-04-22] MEDS ORDERED: Pantoprazole 40 MG Vial IV SCH (14:30)
[2018-04-22] MEDS ORDERED: Albuterol 0.083% 2.5 MG/3 ML Neb Soln NEB PRN (14:40)
[2018-04-22] MEDS: LORazepam 2 MG/ML SDV IV PRN ×2 (14:52→19:29)
[2018-04-22] MEDS: Pantoprazole 40 MG Vial IV SCH (14:52)
[2018-04-22] MEDS: Nicotine 21 MG/24 Hr Patch TRDERM SCH (14:52)
[2018-04-22] MEDS: Multivitamins with Iron/Calcium/Folic Acid/Minerals Tab PO SCH (14:53)
[2018-04-22] MEDS: Thiamine 100 MG Tab PO SCH (14:53)
[2018-04-22] MEDS: Folic Acid 1 MG Tab PO SCH (14:53)
[2018-04-22] MEDS: Sodium Chloride 0.9% 1,000 ML IV SCH ×2 (15:57→23:13)
[2018-04-22] MEDS: Latanoprost 0.005% Ophth Soln 2.5 ML Bottle EYEBOTH SCH (19:29)
[2018-04-22] MEDS: Timolol Maleate 0.5% Ophth Soln 5 ML Bottle EYERT SCH (19:29)
[2018-04-22] MEDS: Amitriptyline 25 MG Tab PO SCH (19:39)
[2018-04-22] MEDS: traZODone 50 MG Tab PO SCH (19:39)
--- NOTE | 2018-04-22 22:33 | PCM.HP ---
H&P History of Present Illness - General Date of Service: 04/22/18 Admit Problem/Dx: Admission Diagnosis/Problem Admission Diagnosis/Problem Alcohol intoxication - History of Present Illness Initial Comments - Free Text/Narative: HPI: She is intoxicated again, drinking every day and family requests hospitalization for detox, keeping her on hold and they have arranged for admission on 04/25 to the [facility] again. She had a similar admission in 01/17 for chronic intoxication and went through detox and then [facility] then also. Her alcohol Hx goes back to about , admitted to this to her oncologist in , when she was noted to have elevated liver enzymes, that she had been drinking heavily for 5 years, this was just when she was finishing Rx for breast cancer. She appears not to have been admitted for intoxication or Rx until about , but has had many since that time, probably has some cognitive dysfunction secondary to alcohol abuse also. Her level this time is 202 mg per DL, even though she is behaving fairly normally, indicating a fair amount of tolerance due to chronic abuse. Medical History: -Hx of hypercalcemia -Hx hyperthyroidism and thyroid nodule, no longer on thyroid replacement -Hx hypertension -Hx peptic ulcer disease -Hx COPD secondary to her smoking -Hx chronic anxiety disorder -Hx glaucoma Surgical History: -Tonsillectomy -Cervical laminectomy 10/13 -Partial intestinal resection 06/13 -R lumpectomy for breast cancer 12/13 -Colonoscopy 12/15 -Bunionectomy 11/12 -Hammer toe surgery/ Family History: -Father of pancreatic cancer -Mother of alcohol abuse -Has a sister and 4 brothers living Social History: Family requests keeping her on hold until her [facility] admission 04/25, see HPI. She lives at home with her and helps her son doing home repair, she says. Systems Review: -Constitutional: Says she was OK between 01/17 and now -Eyes: Is on drops for glaucoma -ENT: Teeth and hearing are OK -Cardiac: Says she has had some heart trouble recently but I dont see anything about it in her chart -Pulmonary: COPD, still smoking 1 ppd -GI: Her ALT was normal in 02/16, no complaints of problems now, is up-to-date on colonoscopy -Endocrine: Has Hx of hyperthyroidism and thyroid nodule, last TSH was 12/16, still mildly low -Heme: Denies any problems -Derm: She has a hematoma now from a failed IV start this afternoon but otherwise OK -: Denies problems, no longer Oncology F/U for her breast cancer -Musculoskeletal: Has Hx of sacroiliac injections for sciatica in 04/15, HX of fibromyalgia, see Surgical History for neck problems -Neuro: Does have DX of peripheral neuropathy, says one of her toes is still numb -Psych: For anxiety and depression she is on BuSpar, trazodone, Effexor, Elavil -Allergies: No seasonal allergies Physical Exam: -Gen.: She is sleepy, having received one dose of Ativan for mild agitation, now quite calm, wakes up and answers questions with slow, mildly slurred speech -Eyes: Pupils equal -ENT: TMs appear normal, hearing seems normal, teeth in good condition -Neck: No thyroid enlargement or nodules felt -Pulmonary: Lung sounds clear and of fairly normal intensity -Cardiac: Tachycardia of 120, heart sounds normal and regular -Breasts: Not examined -Abdomen: Soft, no distention or tenderness, bowel sounds present -Pelvic and rectal: Not done -Extremities: No ankle edema, hips and knees extend fully, good posterior tibial pulse bilateral, joints appear normal -Neuro: Obtunded and mildly slurred speech but does answer questions appropriately; facial muscles symmetric, moves all extremities normally -Psych: Affect normal Impression: -Acute alcohol intoxication, needs observation during withdrawal; so far has only needed 1 dose of Ativan and is not agitated or tremulousness but does have mild tachycardia -Chronic alcohol abuse disorder, recurrent in spite of treatment and rehab many times -Cognitive dysfunction secondary to chronic alcohol abuse -Hx hyperthyroidism and thyroid nodule -Hx R breast carcinoma Plan: -Slow IV infusion -Ativan p.r.n. agitation and Haldol -On hold here until T/F to Rx at [facility] on 04/25/18 - Related Data Allergies/Adverse Reactions: Allergies Allergy/AdvReac Type Severity Reaction Status Date / Time No Known Allergies Allergy Verified 01/30/18 17:53 Home Medications: Home Meds Albuterol [Ventolin HFA] 1 - 2 puff PO Q4H PRN 08/11/13 [History] FA/Lycopene/Lut/MV,Ca,Iron,Min [Centrum] 1 tab PO DAILY 08/11/13 [History] Latanoprost [Xalatan 0.005% Ophth Soln] 1 drop EYEBOTH BEDTIME 08/11/13 [History ] Timolol Maleate [Timoptic 0.5% Ophth Soln] 1 drop EYERT BID 08/11/13 [History] traZODone 75 mg PO BEDTIME 08/11/13 [History] Venlafaxine [Effexor XR] 150 mg PO DAILY 08/04/16 [History] cephALEXin [Cephalexin] 500 mg PO DAILY 08/04/16 [History] Amitriptyline [Elavil] 25 mg PO BEDTIME 01/04/18 [History] Lisinopril 30 mg PO DAILY 01/04/18 [History] Pantoprazole Sodium 40 mg PO DAILY 01/04/18 [History] Pregabalin [Lyrica] 225 mg PO BID 01/04/18 [History] Triamcinolone Acetonide [Kenalog 0.1% Crm] 1 applic TOP BID PRN 01/04/18 [ History] busPIRone [Buspar] 15 mg PO TID 01/04/18 [History] Acetaminophen [Tylenol Extra Strength] 1,000 mg PO BID 04/22/18 [History] amLODIPine Besylate [Amlodipine Besylate] 10 mg PO DAILY 04/22/18 [History] Past Medical History HEENT History: Reports: Glaucoma, Other (See Below) Other HEENT History: presbyopia. myopia. astigmatism Cardiovascular History: Reports: Hypertension Respiratory History: Reports: COPD, Other (See Below) Other Respiratory History: lung nodules Gastrointestinal History: Reports: Chronic Constipation, Colon Polyp, Hiatal Hernia, Irritable Bowel Syndrome, PUD Other Gastrointestinal History: bleeding ulcer Genitourinary History: Reports: None Musculoskeletal History: Reports: Fibromyalgia, Other (See Below) Other Musculoskeletal History: multiple rib fx fx metatarsal bone R foot with malunion. CWP sciatica left side. injury to Left shoulder. DJD of cervical spine. colles fx L radius Neurological History: Reports: Headaches, Chronic, Neuropathy, Peripheral Psychiatric History: Reports: Addiction, Anxiety, Depression Endocrine/Metabolic History: Reports: Hyperthyroidism, Osteopenia, Other (See Below) Other Endocrine/Metabolic History: thyroid nodule. hyperkalemia Hematologic History: Reports: Other (See Below) Other Hematologic History: hyperkalemia. elevated liver enzymes Oncologic (Cancer) History: Reports: Breast Dermatologic History: Reports: None - Infectious Disease History Infectious Disease History: Reports: Other (See Below) Other Infectious Disease History: MSSA - Past Surgical History HEENT Surgical History: Reports: Adenoidectomy, Tonsillectomy GI Surgical History: Reports: Other (See Below) Other GI Surgeries/Procedures: intestinal resection Female Surgical History: Reports: Section, Tubal Ligation Musculoskeletal Surgical History: Reports: Other (See Below) Other Musculoskeletal Surgeries/Procedures:: open reduction Left distal radius. bunionectomy. cervical fusion. laminectomy Oncologic Surgical History: Reports: Lumpectomy Social & Family History - Family History Family Medical History: Noncontributory Psychiatric: Reports: Depression, Other (See Below) Oncologic: Reports: Pancreatic - Tobacco Use Smoking Status *Q: Current Every Day Smoker Years of Tobacco use: 20 Packs/Tins Daily: 1 - Caffeine Use Caffeine Use: Reports: Coffee - Alcohol Use Days Per Week of Alcohol Use: 7 Number of Drinks Per Day: 3 Total Drinks Per Week: 21 Date of Last Drink: 04/21/18 - Recreational Drug Use Recreational Drug Use: No - Living Situation & Occupation Living situation: Reports: , Alone ( recently moved out) Occupation: Employed (works making and selling crafts) H&P Review of Systems - Review of Systems: Review Of Systems: See Below Exam - Exam Exam: See Below - Vital Signs Vital Signs: Last Vital Signs Temp 36.3 C 04/22/18 17:04 Pulse 85 04/22/18 17:04 Resp 16 04/22/18 17:04 BP 139/69 04/22/18 17:04 Pulse Ox 95 04/22/18 17:04 Weight: 68.039 kg - Patient Data Lab Results Last 24 hrs: Laboratory Results - last 24 hr 04/22/18 04/22/18 04/22/18 Range/Units 11:19 11:19 11:35 WBC 6.8 (4.0-10.0) x10^3/uL RBC 4.94 (4.00-5.50) x10^6/uL Hgb 14.8 (12.0-16.0) g/dL Hct 42.7 (33.0-47.0) % MCV 86.4 (78.0-93.0) fL MCH 30.0 (26.0-32.0) pg MCHC 34.7 (32.0-36.0) g/dL RDW Coeff of Nicole 13.8 (10.0-15.0) % Plt Count 265 (130-400) x10^3/uL Neut % (Auto) 72.6 (50.0-80.0) % Lymph % (Auto) 23.9 L (25.0-50.0) % [place] % (Auto) 3.1 (2.0-11.0) % Eos % (Auto) 0.1 (0.0-4.0) % Baso % (Auto) 0.3 (0.2-1.2) % Sodium (136-145) mmol/L Potassium (3.5-5.1) mmol/L Chloride (98-107) mmol/L Carbon Dioxide (21-32) mmol/L Anion Gap (10-20) mmol/L BUN (7-18) mg/dL Creatinine (0.55-1.02) mg/dL Est Cr Clr Drug Dosing Estimated GFR (MDRD) Glucose (74-106) mg/dL Calcium (8.5-10.1) mg/dL Corrected Calcium (8.5-10.1) mg/dL Phosphorus (2.6-4.7) mg/dL Magnesium (1.8-2.4) mg/dL Total Bilirubin (0.2-1.0) mg/dL AST (15-37) U/L ALT (14-59) U/L Alkaline Phosphatase (46-116) U/L Total Protein (6.4-8.2) g/dL Albumin (3.4-5.0) g/dL Globulin Albumin/Globulin Ratio Urine Color Yellow (YELLOW) Urine Appearance Slightly cloudy H (CLEAR) Urine pH 5.5 (5.0-8.0) Ur Specific [place] 1.020 Urine Protein >=300 H (NEGATIVE) mg/dL Urine Glucose (UA) Negative (NEGATIVE) mg/dL Urine Ketones 40 H (NEGATIVE) mg/dL Urine Occult Blood Moderate H (NEGATIVE) Urine Nitrite Negative (NEGATIVE) Urine Bilirubin Negative (NEGATIVE) Urine Urobilinogen 0.2 (0.2) EU/dL Ur Leukocyte Esterase Negative (NEGATIVE) Urine RBC 5-10 H (NOT SEEN) /HPF Urine WBC 0-5 (NOT SEEN) /HPF Ur Squamous Epith Cells Moderate H (NEGATIVE) /HPF Urine Bacteria Few H (NEGATIVE) /HPF Urine Mucus Rare H (NEGATIVE) /LPF Urine Opiates Screen Negative (NEGATIVE) Ur Buprenorphine Scrn Negative (NEGATIVE) Ur Oxycodone Screen Negative (NEGATIVE) Urine Methadone Screen Negative (NEGATIVE) Ur Barbiturates Screen Negative (NEGATIVE) Ur Tricyclics Screen Positive H (NEGATIVE) Ur Amphetamine Screen Negative (NEGATIVE) U Methamphetamines Scrn Negative (NEGATIVE) Urine MDMA Screen Negative (NEGATIVE) U Benzodiazepines Scrn Negative (NEGATIVE) U Cocaine Metab Screen Negative (NEGATIVE) U Marijuana (THC) Screen Negative (NEGATIVE) Ethyl Alcohol (0-3) mg/dL 04/22/18 Range/Units 11:35 WBC (4.0-10.0) x10^3/uL RBC (4.00-5.50) x10^6/uL Hgb (12.0-16.0) g/dL Hct (33.0-47.0) % MCV (78.0-93.0) fL MCH (26.0-32.0) pg MCHC (32.0-36.0) g/dL RDW Coeff of Nicole (10.0-15.0) % Plt Count (130-400) x10^3/uL Neut % (Auto) (50.0-80.0) % Lymph % (Auto) (25.0-50.0) % [place] % (Auto) (2.0-11.0) % Eos % (Auto) (0.0-4.0) % Baso % (Auto) (0.2-1.2) % Sodium 136 (136-145) mmol/L Potassium 3.9 (3.5-5.1) mmol/L Chloride 97 L (98-107) mmol/L Carbon Dioxide 16 L (21-32) mmol/L Anion Gap 26.9 H (10-20) mmol/L BUN 23 H (7-18) mg/dL Creatinine 1.1 H (0.55-1.02) mg/dL Est Cr Clr Drug Dosing TNP Estimated GFR (MDRD) 51 Glucose 62 L (74-106) mg/dL Calcium 10.1 (8.5-10.1) mg/dL Corrected Calcium 10.02 (8.5-10.1) mg/dL Phosphorus 3.7 (2.6-4.7) mg/dL Magnesium 1.7 L (1.8-2.4) mg/dL Total Bilirubin 0.4 (0.2-1.0) mg/dL AST 54 H (15-37) U/L ALT 42 (14-59) U/L Alkaline Phosphatase 149 H (46-116) U/L Total Protein 8.9 H (6.4-8.2) g/dL Albumin 4.1 (3.4-5.0) g/dL Globulin 4.8 Albumin/Globulin Ratio 0.85 Urine Color (YELLOW) Urine Appearance (CLEAR) Urine pH (5.0-8.0) Ur Specific [place] Urine Protein (NEGATIVE) mg/dL Urine Glucose (UA) (NEGATIVE) mg/dL Urine Ketones (NEGATIVE) mg/dL Urine Occult Blood (NEGATIVE) Urine Nitrite (NEGATIVE) Urine Bilirubin (NEGATIVE) Urine Urobilinogen (0.2) EU/dL Ur Leukocyte Esterase (NEGATIVE) Urine RBC (NOT SEEN) /HPF Urine WBC (NOT SEEN) /HPF Ur Squamous Epith Cells (NEGATIVE) /HPF Urine Bacteria (NEGATIVE) /HPF Urine Mucus (NEGATIVE) /LPF Urine Opiates Screen (NEGATIVE) Ur Buprenorphine Scrn (NEGATIVE) Ur Oxycodone Screen (NEGATIVE) Urine Methadone Screen (NEGATIVE) Ur Barbiturates Screen (NEGATIVE) Ur Tricyclics Screen (NEGATIVE) Ur Amphetamine Screen (NEGATIVE) U Methamphetamines Scrn (NEGATIVE) Urine MDMA Screen (NEGATIVE) U Benzodiazepines Scrn (NEGATIVE) U Cocaine Metab Screen (NEGATIVE) U Marijuana (THC) Screen (NEGATIVE) Ethyl Alcohol 202 H (0-3) mg/dL Result Diagrams: 04/22/18 11:35 04/22/18 11:35 Problem List Initiated/Reviewed/Updated: Yes Orders Last 24hrs: Active Orders 24 hr Category Date Time Status Patient Status [ADT] Routine ADT 04/22/18 14:23 Active Patient Status [ADT] Routine ADT 04/22/18 20:36 Ordered CIWAA Assessment [RC] Q1H Care 04/22/18 16:32 Active Height and Weight [RC] .PRN Care 04/22/18 14:23 Active Intake and Output [RC] 06,18 Care 04/22/18 14:24 Active May Shower [RC] ASDIRECTED Care 04/22/18 14:23 Active Notify Provider [RC] PRN Care 04/22/18 14:18 Active Oxygen Therapy [RC] .PRN Care 04/22/18 14:23 Active Oxygen Therapy [RC] PRN Care 04/22/18 20:36 Ordered RT Aerosol Therapy [RC] .PRN Care 04/22/18 14:40 Active Up ad Araceli [RC] ASDIRECTED Care 04/22/18 14:23 Active VTE/DVT Education [RC] .PRN Care 04/22/18 14:23 Active VTE/DVT Education [RC] PER UNIT ROUTINE Care 04/22/18 20:36 Ordered Vital Signs [RC] 06,10,14,18,22,02 Care 04/22/18 14:23 Active Vital Signs [RC] Q4H Care 04/22/18 20:36 Ordered Consult to Case Management/Frame Cleaner [CONS] Cons 04/22/18 14:23 Active Routine Regular Diet [DIET] Diet 04/22/18 Breakfast Active MISC TEST Stat Lab 04/22/18 11:19 Received Acetaminophen [Tylenol] Med 04/22/18 14:23 Active 650 mg PO Q4H PRN Albuterol [Proventil Neb Soln] Med 04/22/18 14:40 Active 2.5 mg NEB Q4H PRN Amitriptyline [Elavil] Med 04/22/18 20:00 Active 25 mg PO BEDTIME Folic Acid Med 04/22/18 14:30 Active 1 mg PO DAILY Haloperidol Lactate [Haldol] Med 04/22/18 14:18 Active 5 mg IVPUSH Q4H PRN LORazepam [Ativan] Med 04/22/18 14:18 Active See Protocol IV ASDIRECTED PRN Latanoprost [Xalatan 0.005% Ophth Soln] Med 04/22/18 20:00 Active 0 ml EYEBOTH BEDTIME Lisinopril [Prinivil] Med 04/23/18 08:00 Active 30 mg PO DAILY Multivitamins w-Iron/Ca/FA/Min [Thera M Plus] Med 04/22/18 14:30 Active 1 tab PO DAILY Nicotine [Habitrol] Med 04/22/18 14:30 Active 21 mg TRDERM DAILY@1200 Ondansetron [Zofran] Med 04/22/18 14:18 Active 4 mg IVPUSH Q4H PRN Pantoprazole [ProTONIX IV] Med 04/22/18 14:45 Active 40 mg IV DAILY@0700 Sodium Chloride 0.9% [Normal Saline] 1,000 ml Med 04/22/18 14:30 Active IV .BOLUS Sodium Chloride 0.9% [Normal Saline] 1,000 ml Med 04/22/18 14:30 Active IV ASDIRECTED Sodium Chloride 0.9% [Saline Flush] Med 04/22/18 14:18 Active 10 ml FLUSH ASDIRECTED PRN Thiamine [Vitamin B-1] Med 04/22/18 14:30 Active 100 mg PO DAILY Timolol Maleate [Timoptic 0.5% Ophth Soln] Med 04/22/18 20:00 Active 0 ml EYERT BID Triamcinolone Acetonide [Triamcinolone Acetonide 0.1% Med 04/22/18 14:26 Active Crm] 0 gm TOP BID PRN Venlafaxine [Effexor XR] Med 04/23/18 08:00 Active 150 mg PO DAILY amLODIPine [Norvasc] Med 04/23/18 08:00 Active 10 mg PO DAILY cloNIDine [Catapres] Med 04/22/18 14:18 Active 0.1 mg PO Q4H PRN traZODone Med 04/22/18 20:00 Active 75 mg PO BEDTIME Antiembolic Hose [OM.PC] Per Unit Routine Oth 04/22/18 14:24 Ordered Peripheral IV Insertion Adult [OM.PC] Stat Oth 04/22/18 14:18 Ordered Seizure Precautions [OM.PC] Routine Oth 04/22/18 14:18 Ordered Resuscitation Status Routine Resus Stat 04/22/18 14:23 Ordered Medication Orders Acetaminophen (Tylenol) 650 mg PO Q4H PRN PRN Reason: Pain (Mild 1-3)/fever Albuterol (Proventil Neb Soln) 2.5 mg NEB Q4H PRN PRN Reason: Wheezing Last Admin: 04/22/18 15:35 Dose: 2.5 mg Amitriptyline HCl (Elavil) 25 mg PO BEDTIME CHUCKIE Last Admin: 04/22/18 19:39 Dose: 25 mg Amlodipine Besylate (Norvasc) 10 mg PO DAILY CHUCKIE Clonidine HCl (Catapres) 0.1 mg PO Q4H PRN PRN Reason: Agitation Folic Acid (Folic Acid) 1 mg PO DAILY [facility] Stop: 04/24/18 08:01 Last Admin: 04/22/18 14:53 Dose: 1 mg Haloperidol Lactate (Haldol) 5 mg IVPUSH Q4H PRN PRN Reason: Agitation Last Admin: 04/22/18 19:29 Dose: 5 mg Sodium Chloride (Normal Saline) 1,000 mls @ 999 mls/hr IV .BOLUS [facility] Last Admin: 04/22/18 14:55 Dose: 999 mls/hr Sodium Chloride (Normal Saline) 1,000 mls @ 150 mls/hr IV ASDIRECTED [facility] Last Admin: 04/22/18 15:57 Dose: 150 mls/hr Latanoprost (Xalatan 0.005% Ophth Soln) 0 ml EYEBOTH BEDTIME [facility] Last Admin: 04/22/18 19:29 Dose: 1 drop Lisinopril (Prinivil) 30 mg PO DAILY [facility] Lorazepam (Ativan) 0 mg IV ASDIRECTED PRN; Protocol PRN Reason: Withdrawal Symptoms Last Admin: 04/22/18 19:29 Dose: 2 mg Admin: 04/22/18 14:52 Dose: 2 mg Multivitamins/Minerals (Thera M Plus) 1 tab PO DAILY [facility] Last Admin: 04/22/18 14:53 Dose: 1 tab Nicotine (Habitrol) 21 mg TRDERM DAILY@1200 [facility] Last Admin: 04/22/18 14:52 Dose: 21 mg Ondansetron HCl (Zofran) 4 mg IVPUSH Q4H PRN PRN Reason: Nausea Pantoprazole Sodium (Protonix Iv) 40 mg IV DAILY@0700 [facility] Last Admin: 04/22/18 14:52 Dose: 40 mg Sodium Chloride (Saline Flush) 10 ml FLUSH ASDIRECTED PRN PRN Reason: Keep Vein Open Thiamine HCl (Vitamin B-1) 100 mg PO DAILY [facility] Last Admin: 04/22/18 14:53 Dose: 100 mg Timolol Maleate (Timoptic 0.5% Ophth Soln) 0 ml EYERT BID [facility] Last Admin: 04/22/18 19:29 Dose: 1 drop Trazodone HCl (Trazodone) 75 mg PO BEDTIME [facility] Last Admin: 04/22/18 19:39 Dose: 75 mg Triamcinolone Acetonide (Triamcinolone Acetonide 0.1% Crm) 0 gm TOP BID PRN PRN Reason: Itching Venlafaxine HCl (Effexor Xr) 150 mg PO DAILY [facility]UCKIE
[2018-04-23] MEDS: Sodium Chloride 0.9% 1,000 ML IV SCH ×2 (04:23→18:19)
[2018-04-23] MEDS: Acetaminophen 325 MG Tab PO PRN ×4 (04:26→18:28)
[2018-04-23] MEDS: Pantoprazole 40 MG Vial IV SCH (06:26)
[2018-04-23] MEDS: Sodium Chloride 0.9% 10 ML Syringe FLUSH PRN (06:26)
[2018-04-23] MEDS: Multivitamins with Iron/Calcium/Folic Acid/Minerals Tab PO SCH (07:59)
[2018-04-23] MEDS: Venlafaxine 150 MG Cap.ER PO SCH (07:59)
[2018-04-23] MEDS: amLODIPine 10 MG Tab PO SCH (07:59)
[2018-04-23] MEDS: Lisinopril 10 MG Tab PO SCH (07:59)
[2018-04-23] MEDS: Thiamine 100 MG Tab PO SCH (07:59)
[2018-04-23] MEDS: Folic Acid 1 MG Tab PO SCH (08:00)
--- NOTE | 2018-04-23 10:22 | PCM.PN ---
- General Info Date of Service: 04/23/18 Admission Dx/Problem (Free Text): History: Note that she was able to walk and talk fairly well yesterday on admit with a alcohol level of 202, got one dose of Ativan at 1930 and did quite well. Today her CIWAA is only 3, with headache being her only problem. She has received a dose of Tylenol and says it is not really a problem now. She was up to the bathroom already and back in bed, seems content to relax in bed. Exam: -Lying flat without dyspnea, no respiratory distress -No tremor or agitation, cooperative with exam -Heart regular, 90s/min now compared with 120 yesterday when I examined her Impression: Chronic alcohol abuse, exacerbation and getting detoxification with sedation as needed, doing well Plan: As planned on admission, anticipate D/C to [facility] on 04/25 - Patient Data Vitals - Most Recent: Last Vital Signs Temp 36.5 C 04/23/18 05:43 Pulse 102 H 04/23/18 05:43 Resp 18 04/23/18 05:43 BP 167/85 H 04/23/18 05:43 Pulse Ox 94 L 04/23/18 05:43 Weight - Most Recent: 68.039 kg I&O - Last 24 Hours: Intake & Output 04/22/18 04/23/18 04/23/18 22:59 06:59 14:59 Intake Total 1989 1140 Output Total 600 1900 600 Balance 1390 -760 -600 Lab Results Last 24 Hours: Laboratory Results - last 24 hr 04/22/18 04/22/18 04/22/18 Range/Units 11:19 11:19 11:35 WBC 6.8 (4.0-10.0) x10^3/uL RBC 4.94 (4.00-5.50) x10^6/uL Hgb 14.8 (12.0-16.0) g/dL Hct 42.7 (33.0-47.0) % MCV 86.4 (78.0-93.0) fL MCH 30.0 (26.0-32.0) pg MCHC 34.7 (32.0-36.0) g/dL RDW Coeff of Nicole 13.8 (10.0-15.0) % Plt Count 265 (130-400) x10^3/uL Neut % (Auto) 72.6 (50.0-80.0) % Lymph % (Auto) 23.9 L (25.0-50.0) % [place] % (Auto) 3.1 (2.0-11.0) % Eos % (Auto) 0.1 (0.0-4.0) % Baso % (Auto) 0.3 (0.2-1.2) % Sodium (136-145) mmol/L Potassium (3.5-5.1) mmol/L Chloride (98-107) mmol/L Carbon Dioxide (21-32) mmol/L Anion Gap (10-20) mmol/L BUN (7-18) mg/dL Creatinine (0.55-1.02) mg/dL Est Cr Clr Drug Dosing Estimated GFR (MDRD) Glucose (74-106) mg/dL Calcium (8.5-10.1) mg/dL Corrected Calcium (8.5-10.1) mg/dL Phosphorus (2.6-4.7) mg/dL Magnesium (1.8-2.4) mg/dL Total Bilirubin (0.2-1.0) mg/dL AST (15-37) U/L ALT (14-59) U/L Alkaline Phosphatase (46-116) U/L Total Protein (6.4-8.2) g/dL Albumin (3.4-5.0) g/dL Globulin Albumin/Globulin Ratio Urine Color Yellow (YELLOW) Urine Appearance Slightly cloudy H (CLEAR) Urine pH 5.5 (5.0-8.0) Ur Specific [place] 1.020 Urine Protein >=300 H (NEGATIVE) mg/dL Urine Glucose (UA) Negative (NEGATIVE) mg/dL Urine Ketones 40 H (NEGATIVE) mg/dL Urine Occult Blood Moderate H (NEGATIVE) Urine Nitrite Negative (NEGATIVE) Urine Bilirubin Negative (NEGATIVE) Urine Urobilinogen 0.2 (0.2) EU/dL Ur Leukocyte Esterase Negative (NEGATIVE) Urine RBC 5-10 H (NOT SEEN) /HPF Urine WBC 0-5 (NOT SEEN) /HPF Ur Squamous Epith Cells Moderate H (NEGATIVE) /HPF Urine Bacteria Few H (NEGATIVE) /HPF Urine Mucus Rare H (NEGATIVE) /LPF Urine Opiates Screen Negative (NEGATIVE) Ur Buprenorphine Scrn Negative (NEGATIVE) Ur Oxycodone Screen Negative (NEGATIVE) Urine Methadone Screen Negative (NEGATIVE) Ur Barbiturates Screen Negative (NEGATIVE) Ur Tricyclics Screen Positive H (NEGATIVE) Ur Amphetamine Screen Negative (NEGATIVE) U Methamphetamines Scrn Negative (NEGATIVE) Urine MDMA Screen Negative (NEGATIVE) U Benzodiazepines Scrn Negative (NEGATIVE) U Cocaine Metab Screen Negative (NEGATIVE) U Marijuana (THC) Screen Negative (NEGATIVE) Ethyl Alcohol (0-3) mg/dL 04/22/18 Range/Units 11:35 WBC (4.0-10.0) x10^3/uL RBC (4.00-5.50) x10^6/uL Hgb (12.0-16.0) g/dL Hct (33.0-47.0) % MCV (78.0-93.0) fL MCH (26.0-32.0) pg MCHC (32.0-36.0) g/dL RDW Coeff of Nicole (10.0-15.0) % Plt Count (130-400) x10^3/uL Neut % (Auto) (50.0-80.0) % Lymph % (Auto) (25.0-50.0) % [place] % (Auto) (2.0-11.0) % Eos % (Auto) (0.0-4.0) % Baso % (Auto) (0.2-1.2) % Sodium 136 (136-145) mmol/L Potassium 3.9 (3.5-5.1) mmol/L Chloride 97 L (98-107) mmol/L Carbon Dioxide 16 L (21-32) mmol/L Anion Gap 26.9 H (10-20) mmol/L BUN 23 H (7-18) mg/dL Creatinine 1.1 H (0.55-1.02) mg/dL Est Cr Clr Drug Dosing TNP Estimated GFR (MDRD) 51 Glucose 62 L (74-106) mg/dL Calcium 10.1 (8.5-10.1) mg/dL Corrected Calcium 10.02 (8.5-10.1) mg/dL Phosphorus 3.7 (2.6-4.7) mg/dL Magnesium 1.7 L (1.8-2.4) mg/dL Total Bilirubin 0.4 (0.2-1.0) mg/dL AST 54 H (15-37) U/L ALT 42 (14-59) U/L Alkaline Phosphatase 149 H (46-116) U/L Total Protein 8.9 H (6.4-8.2) g/dL Albumin 4.1 (3.4-5.0) g/dL Globulin 4.8 Albumin/Globulin Ratio 0.85 Urine Color (YELLOW) Urine Appearance (CLEAR) Urine pH (5.0-8.0) Ur Specific [place] Urine Protein (NEGATIVE) mg/dL Urine Glucose (UA) (NEGATIVE) mg/dL Urine Ketones (NEGATIVE) mg/dL Urine Occult Blood (NEGATIVE) Urine Nitrite (NEGATIVE) Urine Bilirubin (NEGATIVE) Urine Urobilinogen (0.2) EU/dL Ur Leukocyte Esterase (NEGATIVE) Urine RBC (NOT SEEN) /HPF Urine WBC (NOT SEEN) /HPF Ur Squamous Epith Cells (NEGATIVE) /HPF Urine Bacteria (NEGATIVE) /HPF Urine Mucus (NEGATIVE) /LPF Urine Opiates Screen (NEGATIVE) Ur Buprenorphine Scrn (NEGATIVE) Ur Oxycodone Screen (NEGATIVE) Urine Methadone Screen (NEGATIVE) Ur Barbiturates Screen (NEGATIVE) Ur Tricyclics Screen (NEGATIVE) Ur Amphetamine Screen (NEGATIVE) U Methamphetamines Scrn (NEGATIVE) Urine MDMA Screen (NEGATIVE) U Benzodiazepines Scrn (NEGATIVE) U Cocaine Metab Screen (NEGATIVE) U Marijuana (THC) Screen (NEGATIVE) Ethyl Alcohol 202 H (0-3) mg/dL Med Orders - Current: Current Medications Acetaminophen (Tylenol) 650 mg PO Q4H PRN PRN Reason: Pain (Mild 1-3)/fever Last Admin: 04/23/18 08:26 Dose: 650 mg Albuterol (Proventil Neb Soln) 2.5 mg NEB Q4H PRN PRN Reason: Wheezing Last Admin: 04/22/18 15:35 Dose: 2.5 mg Amitriptyline HCl (Elavil) 25 mg PO BEDTIME [facility] Last Admin: 04/22/18 19:39 Dose: 25 mg Amlodipine Besylate (Norvasc) 10 mg PO DAILY [facility] Last Admin: 04/23/18 07:59 Dose: 10 mg Clonidine HCl (Catapres) 0.1 mg PO Q4H PRN PRN Reason: Agitation Folic Acid (Folic Acid) 1 mg PO DAILY [facility] Stop: 04/24/18 08:01 Last Admin: 04/23/18 08:00 Dose: 1 mg Haloperidol Lactate (Haldol) 5 mg IVPUSH Q4H PRN PRN Reason: Agitation Last Admin: 04/22/18 19:29 Dose: 5 mg Sodium Chloride (Normal Saline) 1,000 mls @ 999 mls/hr IV .BOLUS [facility] Last Admin: 04/22/18 14:55 Dose: 999 mls/hr Sodium Chloride (Normal Saline) 1,000 mls @ 150 mls/hr IV ASDIRECTED [facility] Last Admin: 04/23/18 04:23 Dose: 150 mls/hr Latanoprost (Xalatan 0.005% Ophth Soln) 0 ml EYEBOTH BEDTIME [facility] Last Admin: 04/22/18 19:29 Dose: 1 drop Lisinopril (Prinivil) 30 mg PO DAILY [facility] Last Admin: 04/23/18 07:59 Dose: 30 mg Lorazepam (Ativan) 0 mg IV ASDIRECTED PRN; Protocol PRN Reason: Withdrawal Symptoms Last Admin: 04/22/18 19:29 Dose: 2 mg Multivitamins/Minerals (Thera M Plus) 1 tab PO DAILY [facility] Last Admin: 04/23/18 07:59 Dose: 1 tab Nicotine (Habitrol) 21 mg TRDERM DAILY@1200 [facility] Last Admin: 04/22/18 14:52 Dose: 21 mg Ondansetron HCl (Zofran) 4 mg IVPUSH Q4H PRN PRN Reason: Nausea Pantoprazole Sodium (Protonix Iv) 40 mg IV DAILY@0700 [facility] Last Admin: 04/23/18 06:26 Dose: 40 mg Sodium Chloride (Saline Flush) 10 ml FLUSH ASDIRECTED PRN PRN Reason: Keep Vein Open Last Admin: 04/23/18 06:26 Dose: 10 ml Thiamine HCl (Vitamin B-1) 100 mg PO DAILY [facility] Last Admin: 04/23/18 07:59 Dose: 100 mg Timolol Maleate (Timoptic 0.5% Ophth Soln) 0 ml EYERT BID [facility] Last Admin: 04/22/18 19:29 Dose: 1 drop Trazodone HCl (Trazodone) 75 mg PO BEDTIME [facility] Last Admin: 04/22/18 19:39 Dose: 75 mg Triamcinolone Acetonide (Triamcinolone Acetonide 0.1% Crm) 0 gm TOP BID PRN PRN Reason: Itching Venlafaxine HCl (Effexor Xr) 150 mg PO DAILY [facility] Last Admin: 04/23/18 07:59 Dose: 150 mg Discontinued Medications Pantoprazole Sodium (Protonix Iv) 40 mg IV DAILY@1200 [facility] Last Admin: 04/22/18 14:55 Dose: Not Given - Problem List Review Problem List Initiated/Reviewed/Updated: Yes - My Orders Last 24 Hours: My Active Orders 04/22/18 20:36 Patient Status [ADT] Routine Oxygen Therapy [RC] PRN VTE/DVT Education [RC] PER UNIT ROUTINE Vital Signs [RC] 06,10,14,18,22,02
[2018-04-23] MEDS: Timolol Maleate 0.5% Ophth Soln 5 ML Bottle EYERT SCH ×2 (10:52→19:39)
[2018-04-23] MEDS: Nicotine 21 MG/24 Hr Patch TRDERM SCH (12:33)
[2018-04-23] MEDS: traZODone 50 MG Tab PO SCH (19:38)
[2018-04-23] MEDS: Amitriptyline 25 MG Tab PO SCH (19:38)
[2018-04-23] MEDS: Latanoprost 0.005% Ophth Soln 2.5 ML Bottle EYEBOTH SCH (19:39)
[2018-04-24] MEDS: Sodium Chloride 0.9% 1,000 ML IV SCH (00:16)
[2018-04-24] MEDS: Pantoprazole 40 MG Vial IV SCH (06:17)
[2018-04-24] MEDS: Sodium Chloride 0.9% 10 ML Syringe FLUSH PRN (06:18)
[2018-04-24] MEDS: Acetaminophen 325 MG Tab PO PRN ×3 (06:38→20:07)
[2018-04-24] MEDS: Multivitamins with Iron/Calcium/Folic Acid/Minerals Tab PO SCH (08:17)
[2018-04-24] MEDS: Thiamine 100 MG Tab PO SCH (08:17)
[2018-04-24] MEDS: Venlafaxine 150 MG Cap.ER PO SCH (08:17)
[2018-04-24] MEDS: Folic Acid 1 MG Tab PO SCH (08:18)
[2018-04-24] MEDS: amLODIPine 10 MG Tab PO SCH (08:18)
[2018-04-24] MEDS: Timolol Maleate 0.5% Ophth Soln 5 ML Bottle EYERT SCH ×2 (08:18→20:06)
[2018-04-24] MEDS: Lisinopril 10 MG Tab PO SCH (08:18)
[2018-04-24] MEDS ORDERED: Sodium Chloride 0.9% 10 ML Syringe FLUSH PRN (09:04)
--- NOTE | 2018-04-24 09:21 | PCM.PN ---
- General Info Date of Service: 04/24/18 Admission Dx/Problem (Free Text): History: She has done very well, has not required any Ativan after the first dose. Lab has not been repeated because it was normal on admit. Blood pressure has been mildly elevated, will need to be watched over the next days to weeks. She says after her stay in [facility] in 01/17 she remained dry for 3 months, starting to drink again just in the few days before this admission. Before the admission to [facility] in 01/17 she had from her , doesnt know if he will come back, but says she doesnt blame him because it is from her behavior. Says she gets the most help staying dry from the AA meetings, she [place] very [place] their meeting place. Has a couple brothers that have been dry for decades she says. She is willing to go to [facility] but has concerns about the finances, and she is also scheduled for a ventral hernia repair in early May. Exam: -No respiratory distress -Affect remains rather dull as always but she does answer questions appropriately -Heart regular, rate 110, she has just come back from the shower -No tremor Impression: -Recent exacerbation of chronic alcohol abuse, after 3 months of sobriety -Mildly elevated BP, mild headache yesterday but no other symptoms of withdrawal -Should be able to continue with her scheduled hernia repair Plan: -Will be ready for D/C to the [facility] tomorrow -Watch BP - Patient Data Vitals - Most Recent: Last Vital Signs Temp 36.4 C 04/24/18 05:43 Pulse 95 04/24/18 05:43 Resp 18 04/24/18 05:43 BP 154/83 H 04/24/18 05:43 Pulse Ox 95 04/24/18 05:43 Weight - Most Recent: 68.039 kg I&O - Last 24 Hours: Intake & Output 04/23/18 04/24/18 04/24/18 22:59 06:59 14:59 Intake Total 2188 1989 Output Total 1700 1400 Balance 488 590 Med Orders - Current: Current Medications Acetaminophen (Tylenol) 650 mg PO Q4H PRN PRN Reason: Pain (Mild 1-3)/fever Last Admin: 04/24/18 06:38 Dose: 650 mg Albuterol (Proventil Neb Soln) 2.5 mg NEB Q4H PRN PRN Reason: Wheezing Last Admin: 04/22/18 15:35 Dose: 2.5 mg Amitriptyline HCl (Elavil) 25 mg PO BEDTIME [facility] Last Admin: 04/23/18 19:38 Dose: 25 mg Amlodipine Besylate (Norvasc) 10 mg PO DAILY [facility] Last Admin: 04/24/18 08:18 Dose: 10 mg Clonidine HCl (Catapres) 0.1 mg PO Q4H PRN PRN Reason: Agitation Haloperidol Lactate (Haldol) 5 mg IVPUSH Q4H PRN PRN Reason: Agitation Last Admin: 04/22/18 19:29 Dose: 5 mg Sodium Chloride (Normal Saline) 1,000 mls @ 999 mls/hr IV .BOLUS [facility] Last Admin: 04/22/18 14:55 Dose: 999 mls/hr Sodium Chloride (Normal Saline) 1,000 mls @ 150 mls/hr IV ASDIRECTED [facility] Last Admin: 04/24/18 00:16 Dose: 150 mls/hr Latanoprost (Xalatan 0.005% Ophth Soln) 0 ml EYEBOTH BEDTIME [facility] Last Admin: 04/23/18 19:39 Dose: 1 drop Lisinopril (Prinivil) 30 mg PO DAILY [facility] Last Admin: 04/24/18 08:18 Dose: 30 mg Lorazepam (Ativan) 0 mg IV ASDIRECTED PRN; Protocol PRN Reason: Withdrawal Symptoms Last Admin: 04/22/18 19:29 Dose: 2 mg Multivitamins/Minerals (Thera M Plus) 1 tab PO DAILY [facility] Last Admin: 04/24/18 08:17 Dose: 1 tab Nicotine (Habitrol) 21 mg TRDERM DAILY@1200 [facility] Last Admin: 04/23/18 12:33 Dose: 21 mg Ondansetron HCl (Zofran) 4 mg IVPUSH Q4H PRN PRN Reason: Nausea Pantoprazole Sodium (Protonix Iv) 40 mg IV DAILY@0700 [facility] Last Admin: 04/24/18 06:17 Dose: 40 mg Sodium Chloride (Saline Flush) 10 ml FLUSH ASDIRECTED PRN PRN Reason: Keep Vein Open Thiamine HCl (Vitamin B-1) 100 mg PO DAILY [facility] Last Admin: 04/24/18 08:17 Dose: 100 mg Timolol Maleate (Timoptic 0.5% Ophth Soln) 0 ml EYERT BID [facility] Last Admin: 04/24/18 08:18 Dose: 1 drop Trazodone HCl (Trazodone) 75 mg PO BEDTIME [facility] Last Admin: 04/23/18 19:38 Dose: 75 mg Triamcinolone Acetonide (Triamcinolone Acetonide 0.1% Crm) 0 gm TOP BID PRN PRN Reason: Itching Venlafaxine HCl (Effexor Xr) 150 mg PO DAILY [facility] Last Admin: 04/24/18 08:17 Dose: 150 mg Discontinued Medications Folic Acid (Folic Acid) 1 mg PO DAILY [facility] Stop: 04/24/18 08:01 Last Admin: 04/24/18 08:18 Dose: 1 mg Pantoprazole Sodium (Protonix Iv) 40 mg IV DAILY@1200 [facility] Last Admin: 04/22/18 14:55 Dose: Not Given Sodium Chloride (Saline Flush) 10 ml FLUSH ASDIRECTED PRN PRN Reason: Keep Vein Open Last Admin: 04/24/18 06:18 Dose: 10 ml - Problem List Review Problem List Initiated/Reviewed/Updated: Yes - My Orders Last 24 Hours: My Active Orders 04/23/18 16:51 CIWAA Assessment [RC] 06,10,14,18,22,02 04/24/18 09:04 Sodium Chloride 0.9% [Saline Flush] 10 ml FLUSH ASDIRECTED PRN Saline Lock Insert [OM.PC] Routine
[2018-04-24] MEDS: Nicotine 21 MG/24 Hr Patch TRDERM SCH (11:25)
[2018-04-24] MEDS: Latanoprost 0.005% Ophth Soln 2.5 ML Bottle EYEBOTH SCH (20:05)
[2018-04-24] MEDS: Amitriptyline 25 MG Tab PO SCH (20:07)
[2018-04-24] MEDS: traZODone 50 MG Tab PO SCH (20:07)
[2018-04-25] MEDS: Pantoprazole 40 MG Vial IV SCH (06:24)
[2018-04-25] MEDS: Multivitamins with Iron/Calcium/Folic Acid/Minerals Tab PO SCH (08:34)
[2018-04-25] MEDS: Timolol Maleate 0.5% Ophth Soln 5 ML Bottle EYERT SCH (08:34)
[2018-04-25] MEDS: amLODIPine 10 MG Tab PO SCH (08:34)
[2018-04-25] MEDS: Venlafaxine 150 MG Cap.ER PO SCH (08:34)
[2018-04-25] MEDS: Thiamine 100 MG Tab PO SCH (08:34)
[2018-04-25] MEDS: Lisinopril 10 MG Tab PO SCH (08:34)
--- NOTE | 2018-04-25 09:09 | PCM.DCSUM1 ---
Discharge Summary - Hospital Course Brief History: Mrs. Shah is a 57 yo female who was admitted for monitored alcohol detoxification after a relapse of alcohol abuse starting a few weeks prior. - Discharge Data Discharge Date: 04/25/18 Discharge Disposition: DC/Tfer to [facility]pt Rehab Fac [facility] Condition: Good - Discharge Diagnosis/Problem(s) (1) Alcohol intoxication SNOMED Code(s): 92854009 ICD Code: F10.929 - ALCOHOL USE, UNSPECIFIED WITH INTOXICATION, UNSPECIFIED Status: Acute Current Visit: Yes Qualifiers: Complication of substance-induced condition: uncomplicated Qualified Code(s ): F10.920 - Alcohol use, unspecified with intoxication, uncomplicated (2) Alcohol abuse SNOMED Code(s): 06880677 ICD Code: F10.10 - ALCOHOL ABUSE, UNCOMPLICATED Status: Chronic Current Visit: No (3) Depression with anxiety SNOMED Code(s): 86552653, 313547069 ICD Code: F41.8 - OTHER SPECIFIED ANXIETY DISORDERS Status: Chronic Current Visit: No (4) Hypertension SNOMED Code(s): 20656627 ICD Code: I10 - ESSENTIAL (PRIMARY) HYPERTENSION Status: Chronic Current Visit: No Qualifiers: Hypertension type: essential hypertension Qualified Code(s): I10 - Essential (primary) hypertension - Patient Summary/Data Operative Procedure(s) Performed: none Complications: none Consults: Consultations 04/22/18 14:23 Consult to Case Management/Heavy Mobile Equipment Repairer [CONS] Routine Labs Pending at D/C: none Recommended Follow-up Testing/Procedures: none Planned Operative Procedure(s) after DC: none Hospital Course: Patient was admitted to acute status and given IV fluids. She was monitored closely and only required 1 dose of lorazepam immediately after admission. She had some nausea and irritability but otherwise her detoxification has been uncomplicated. She has had some borderline higher blood pressures that have not required any additional treatment. Her home medications have been continued. She was placed on a hold from the ER but at this point is agreeable to seek treatment. If she remains agreeable, a family member could certainly transport her to the [facility]. Otherwise, will reassess. Social work to help coordinate disposition today. - Patient Instructions Diet: Usual Diet as Tolerated Activity: As Tolerated - Discharge Plan *PRESCRIPTION DRUG MONITORING PROGRAM REVIEWED*: Not Applicable *COPY OF PRESCRIPTION DRUG MONITORING REPORT IN PATIENT NEYDA: Not Applicable Home Medications: Home Meds Albuterol [Ventolin HFA] 1 - 2 puff PO Q4H PRN 08/11/13 [History] FA/Lycopene/Lut/MV,Ca,Iron,Min [Centrum] 1 tab PO DAILY 08/11/13 [History] Latanoprost [Xalatan 0.005% Ophth Soln] 1 drop EYEBOTH BEDTIME 08/11/13 [History ] Timolol Maleate [Timoptic 0.5% Ophth Soln] 1 drop EYERT BID 08/11/13 [History] traZODone 75 mg PO BEDTIME 08/11/13 [History] Venlafaxine [Effexor XR] 150 mg PO DAILY 08/04/16 [History] cephALEXin [Cephalexin] 500 mg PO DAILY 08/04/16 [History] Amitriptyline [Elavil] 25 mg PO BEDTIME 01/04/18 [History] Lisinopril 30 mg PO DAILY 01/04/18 [History] Pantoprazole Sodium 40 mg PO DAILY 01/04/18 [History] Pregabalin [Lyrica] 225 mg PO BID 01/04/18 [History] busPIRone [Buspar] 15 mg PO TID 01/04/18 [History] Acetaminophen [Tylenol Extra Strength] 1,000 mg PO BID 04/22/18 [History] amLODIPine Besylate [Amlodipine Besylate] 10 mg PO DAILY 04/22/18 [History] Nicotine [Habitrol] 21 mg TRDERM DAILY@1200 patch 04/25/18 [Rx] - Discharge Summary/Plan Comment DC Time >30 min.: No - General Info Date of Service: 04/25/18 Subjective Update: Patient is feeling well this morning apart from not having slept well since admission. She is frustrated about the plan to go to [facility], mainly related to upcoming surgery in May and for cost reasons. She has had some mild nausea when she lays down but otherwise denies any physical symptoms. - Review of Systems General: Reports: No Symptoms HEENT: Reports: No Symptoms Pulmonary: Reports: No Symptoms Cardiovascular: Reports: No Symptoms Gastrointestinal: Reports: No Symptoms Genitourinary: Reports: No Symptoms Musculoskeletal: Reports: No Symptoms Skin: Reports: No Symptoms Neurological: Reports: No Symptoms - Patient Data Vitals - Most Recent: Last Vital Signs Temp 36.7 C 04/25/18 06:00 Pulse 97 04/25/18 06:00 Resp 18 04/25/18 06:00 BP 154/86 H 04/25/18 06:00 Pulse Ox 96 04/25/18 06:00 Weight - Most Recent: 68.039 kg I&O - Last 24 hours: Intake & Output 04/24/18 04/25/18 04/25/18 22:59 06:59 14:59 Intake Total 1650 1000 0 Output Total 600 Balance 1050 1000 0 Med Orders - Current: Current Medications Acetaminophen (Tylenol) 650 mg PO Q4H PRN PRN Reason: Pain (Mild 1-3)/fever Last Admin: 04/24/18 20:07 Dose: 650 mg Albuterol (Proventil Neb Soln) 2.5 mg NEB Q4H PRN PRN Reason: Wheezing Last Admin: 04/22/18 15:35 Dose: 2.5 mg Amitriptyline HCl (Elavil) 25 mg PO BEDTIME [facility] Last Admin: 04/24/18 20:07 Dose: 25 mg Amlodipine Besylate (Norvasc) 10 mg PO DAILY [facility] Last Admin: 04/25/18 08:34 Dose: 10 mg Clonidine HCl (Catapres) 0.1 mg PO Q4H PRN PRN Reason: Agitation Haloperidol Lactate (Haldol) 5 mg IVPUSH Q4H PRN PRN Reason: Agitation Last Admin: 04/22/18 19:29 Dose: 5 mg Sodium Chloride (Normal Saline) 1,000 mls @ 999 mls/hr IV .BOLUS [facility] Last Admin: 04/22/18 14:55 Dose: 999 mls/hr Sodium Chloride (Normal Saline) 1,000 mls @ 150 mls/hr IV ASDIRECTED [facility] Last Admin: 04/24/18 00:16 Dose: 150 mls/hr Latanoprost (Xalatan 0.005% Ophth Soln) 0 ml EYEBOTH BEDTIME [facility] Last Admin: 04/24/18 20:05 Dose: 1 drop Lisinopril (Prinivil) 30 mg PO DAILY [facility] Last Admin: 04/25/18 08:34 Dose: 30 mg Lorazepam (Ativan) 0 mg IV ASDIRECTED PRN; Protocol PRN Reason: Withdrawal Symptoms Last Admin: 04/22/18 19:29 Dose: 2 mg Multivitamins/Minerals (Thera M Plus) 1 tab PO DAILY [facility] Last Admin: 04/25/18 08:34 Dose: 1 tab Nicotine (Habitrol) 21 mg TRDERM DAILY@1200 [facility] Last Admin: 04/24/18 11:25 Dose: 21 mg Ondansetron HCl (Zofran) 4 mg IVPUSH Q4H PRN PRN Reason: Nausea Pantoprazole Sodium (Protonix Iv) 40 mg IV DAILY@0700 [facility] Last Admin: 04/25/18 06:24 Dose: Not Given Sodium Chloride (Saline Flush) 10 ml FLUSH ASDIRECTED PRN PRN Reason: Keep Vein Open Thiamine HCl (Vitamin B-1) 100 mg PO DAILY [facility] Last Admin: 04/25/18 08:34 Dose: 100 mg Timolol Maleate (Timoptic 0.5% Ophth Soln) 0 ml EYERT BID [facility] Last Admin: 04/25/18 08:34 Dose: 1 drop Trazodone HCl (Trazodone) 75 mg PO BEDTIME [facility] Last Admin: 04/24/18 20:07 Dose: 75 mg Triamcinolone Acetonide (Triamcinolone Acetonide 0.1% Crm) 0 gm TOP BID PRN PRN Reason: Itching Venlafaxine HCl (Effexor Xr) 150 mg PO DAILY [facility] Last Admin: 04/25/18 08:34 Dose: 150 mg Discontinued Medications Folic Acid (Folic Acid) 1 mg PO DAILY [facility] Stop: 04/24/18 08:01 Last Admin: 04/24/18 08:18 Dose: 1 mg Pantoprazole Sodium (Protonix Iv) 40 mg IV DAILY@1200 [facility] Last Admin: 04/22/18 14:55 Dose: Not Given Sodium Chloride (Saline Flush) 10 ml FLUSH ASDIRECTED PRN PRN Reason: Keep Vein Open Last Admin: 04/24/18 06:18 Dose: 10 ml - Exam General: Reports: Alert, Cooperative, No Acute Distress HEENT: Reports: Mucous Membr. Moist/[place]ck: Reports: Supple, Trachea Midline, No Thyromegaly. Denies: Lymphadenopathy Lungs: Reports: Clear to Auscultation, Normal Respiratory Effort Cardiovascular: Reports: Regular Rate, Regular Rhythm, No Murmurs GI/Abdominal Exam: Normal Bowel Sounds, Soft, Non-Tender, No Organomegaly, No Distention, No Mass Extremities: Non-Tender, No Pedal Edema, Normal Capillary Refill Skin: Reports: Warm, Dry, Intact
[2018-04-25 10:46] VITALS: BP 129/88
[2018-04-25] MEDS: Nicotine 21 MG/24 Hr Patch TRDERM SCH (11:49)
== END 2018-04-25 12:00 | DRG 897 ==
LOC: VM.ED 11:06 → VM.MS 13:51
PROVIDERS: ADMIT Family Medicine; ATTEND Family Medicine
DX: F10.129 Alcohol abuse with intoxication, unspecified (principal); Y90.7 Blood alcohol level of 200-239 mg/100 ml; I10 Essential (primary) hypertension; K27.9 Peptic ulcer, site unspecified, unspecified as acute or chronic, without hemorrhage or perforation; K59.09 Other constipation; J44.9 Chronic obstructive pulmonary disease, unspecified; K44.9 Diaphragmatic hernia without obstruction or gangrene; F17.210 Nicotine dependence, cigarettes, uncomplicated; H40.9 Unspecified glaucoma; E87.5 Hyperkalemia; F41.9 Anxiety disorder, unspecified; M79.7 Fibromyalgia; F32.9 Major depressive disorder, single episode, unspecified; G62.9 Polyneuropathy, unspecified; K43.9 Ventral hernia without obstruction or gangrene; Z79.899 Other long term (current) drug therapy; Z81.1 Family history of alcohol abuse and dependence; Z85.3 Personal history of malignant neoplasm of breast
CPT/HCPCS: 36415; 80053; 80305-QW; 80337; 80369; 81001; 83735; 84100; 85025; 94640; 99284; A9270-GY; C9113; G0480; J1630; J2060; J7030; J7050; J7613-GY

== ENCOUNTER 2018-09-17 10:24 | Emergency (ER) | payer MEDICARE, BC ==
[2018-09-17 10:35] VITALS: BP 132/72
--- NOTE | 2018-09-17 10:38 | EDM.PDOC ---
ED HPI GENERAL MEDICAL PROBLEM - General Chief Complaint: Eye Problems Stated Complaint: OBJECT IN EYE Time Seen by Provider: 09/17/18 10:25 Source of Information: Reports: Patient, RN, RN Notes Reviewed History Limitations: Reports: No Limitations - History of Present Illness INITIAL COMMENTS - FREE TEXT/NARRATIVE: Patient presents the emergency room at [facility] complaining of a possible foreign body in the left eye. The patient states she awoke this morning with the sensation of something in her eye. The patient denies any injury or trauma. The patient states she has not been around anything that may have flown in her eye. The patient states that the sensation is in the upper left eye around the 12 o'clock position. The patient denies any visual field disturbances. No vision changes. The patient denies any blurry vision. No previous eye problems. The patient does not wear glasses or contacts. Otherwise no other concerns. Onset: Today, Sudden Onset Date: 09/17/18 Left Eye Pain Score (Numeric/FACES): 8 - Related Data Allergies Allergy/AdvReac Type Severity Reaction Status Date / Time No Known Allergies Allergy Verified 09/17/18 10:34 Home Meds: Home Meds Albuterol [Ventolin HFA] 1 - 2 puff PO Q4H PRN 08/11/13 [History] Latanoprost [Xalatan 0.005% Ophth Soln] 1 drop EYEBOTH BEDTIME 08/11/13 [History ] Timolol Maleate [Timoptic 0.5% Ophth Soln] 1 drop EYERT BID 08/11/13 [History] traZODone 75 mg PO BEDTIME 08/11/13 [History] Venlafaxine [Effexor XR] 150 mg PO DAILY 08/04/16 [History] cephALEXin [Cephalexin] 500 mg PO DAILY 08/04/16 [History] Amitriptyline [Elavil] 25 mg PO BEDTIME 01/04/18 [History] Lisinopril 30 mg PO DAILY 01/04/18 [History] Pantoprazole Sodium 40 mg PO DAILY 01/04/18 [History] Pregabalin [Lyrica] 225 mg PO BID 01/04/18 [History] busPIRone [Buspar] 15 mg PO TID 01/04/18 [History] Acetaminophen [Tylenol Extra Strength] 1,000 mg PO BID 04/22/18 [History] amLODIPine Besylate [Amlodipine Besylate] 10 mg PO DAILY 04/22/18 [History] Tobramycin/Dexamethasone [Tobradex Eye Drops] 3 drop OP TID 7 Days #1 bottle [Rx] Past Medical History HEENT History: Reports: Glaucoma, Other (See Below) Other HEENT History: presbyopia. myopia. astigmatism Cardiovascular History: Reports: Hypertension Respiratory History: Reports: COPD, Other (See Below) Other Respiratory History: lung nodules Gastrointestinal History: Reports: Chronic Constipation, Colon Polyp, Hiatal Hernia, Irritable Bowel Syndrome, PUD Other Gastrointestinal History: bleeding ulcer Genitourinary History: Reports: None Musculoskeletal History: Reports: Fibromyalgia, Other (See Below) Other Musculoskeletal History: multiple rib fx fx metatarsal bone R foot with malunion. CWP sciatica left side. injury to Left shoulder. DJD of cervical spine. colles fx L radius Neurological History: Reports: Headaches, Chronic, Neuropathy, Peripheral Psychiatric History: Reports: Addiction, Anxiety, Depression Endocrine/Metabolic History: Reports: Hyperthyroidism, Osteopenia, Other (See Below) Other Endocrine/Metabolic History: thyroid nodule. hyperkalemia Hematologic History: Reports: Other (See Below) Other Hematologic History: hyperkalemia. elevated liver enzymes Oncologic (Cancer) History: Reports: Breast Dermatologic History: Reports: None - Infectious Disease History Infectious Disease History: Reports: Other (See Below) Other Infectious Disease History: MSSA - Past Surgical History HEENT Surgical History: Reports: Adenoidectomy, Tonsillectomy GI Surgical History: Reports: Other (See Below) Other GI Surgeries/Procedures: intestinal resection Female Surgical History: Reports: Section, Tubal Ligation Musculoskeletal Surgical History: Reports: Other (See Below) Other Musculoskeletal Surgeries/Procedures:: open reduction Left distal radius. bunionectomy. cervical fusion. laminectomy Oncologic Surgical History: Reports: Lumpectomy Social & Family History - Family History Family Medical History: Noncontributory Psychiatric: Reports: Depression, Other (See Below) Oncologic: Reports: Pancreatic - Caffeine Use Caffeine Use: Reports: Coffee - Living Situation & Occupation Living situation: Reports: , Alone ( recently moved out) Occupation: Employed (works making and selling crafts) ED ROS GENERAL - Review of Systems Review Of Systems: See Below Constitutional: Denies: Fever, Chills HEENT: Reports: Eye Pain Respiratory: Denies: Shortness of Breath, Cough Cardiovascular: Denies: Chest Pain, Palpitations Skin: Reports: No Symptoms Neurological: Reports: No Symptoms ED EXAM GENERAL W FULL EYE - Physical Exam Exam: See Below Exam Limited By: No Limitations General Appearance: Alert, No Apparent Distress Eye Exam: Left Eye: Corneal Abrasion, Bilateral Eye: EOMI, Normal Inspection, PERRL Eyelids: Right: Normal Appearance, Left: Erythema Conjunctiva & Sclera: Bilateral: Normal Appearance Cornea Exam: Right: Normal Appearance, Left: Corneal Abrasion Extraocular Movements: Bilateral: Intact Pupils: Normal Accommodation Pupillary Size: Bilateral: 4 mm Pupillary Reaction: Bilateral: Brisk Respiratory/Chest: No Respiratory Distress, Lungs Clear, Normal Breath Sounds Cardiovascular: Normal Peripheral Pulses, Regular Rate, Rhythm Neurological: Alert, Oriented Skin Exam: Warm, Dry, Intact, Normal Color ED EYE w/ Add Procedure - Eye Procedure Alcaine Drops Administered: Yes Progress: Tetracaine and fluorscein eye drops instilled. No foreign body, corneal abrasion noted. Patient tolerated well, no complications. Course - Vital Signs Last Recorded V/S: Last Vital Signs Temp 37.1 C 09/17/18 10:32 Pulse 90 09/17/18 10:32 Resp 16 09/17/18 10:32 BP 132/72 09/17/18 10:32 Pulse Ox 95 09/17/18 10:32 - Orders/Labs/Meds Meds: Medications Discontinued Medications Generic Name Dose Route Start Last Admin Trade Name Freq PRN Reason Stop Dose Admin Fluorescein Sodium 1 mg 09/17/18 10:53 Ful-Sol EYELF 09/17/18 10:54 ONETIME ONE Tetracaine HCl 1 ml 09/17/18 10:48 Tetracaine 0.5% Steri-Unit Shameka EYELF 09/17/18 10:49 ONETIME ONE Departure - Departure Time of Disposition: 11:05 Disposition: Home, Self-Care 01 Condition: Good Clinical Impression: Corneal abrasion Qualifiers: Encounter type: initial encounter Laterality: left Qualified Code(s): S05.02XA - Injury of conjunctiva and corneal abrasion without foreign body, left eye, initial encounter - Discharge Information *PRESCRIPTION DRUG MONITORING PROGRAM REVIEWED*: Not Applicable *COPY OF PRESCRIPTION DRUG MONITORING REPORT IN PATIENT NEYDA: Not Applicable Prescriptions: Tobramycin/Dexamethasone [Tobradex Eye Drops] 3 drop OP TID 7 Days #1 bottle Instructions: Corneal Abrasion Forms: ED Department Discharge Additional Instructions: 1. Stay well hydrated and rest 2. 3 drops 3 times a day for 7 days 3. Avoid touching or irritating the left eye 4. See an eye professional as your symptoms warrant - Problem List Review Problem List Initiated/Reviewed/Updated: Yes - Assessment/Plan Assessment:: Corneal Abrasion Plan: Through eye assessment discussed with patient. No foreign body found, however the patient has a corneal abrasion around the 4-6 o'clock position. Will start patient on Tobradex eye drops. Patient to f/u with eye professional or PCP as symptoms warrant.
[2018-09-17] MEDS ORDERED: Tetracaine HCl/PF 0.5% 4 ML Bottle EYELF ONE (10:48)
[2018-09-17] MEDS ORDERED: Fluorescein 1 MG Ophth Strip EYELF ONE (10:53)
== END 2018-09-17 11:15 | disposition home or self-care (01) ==
LOC: VM.ED 10:24
DX: S05.02XA Injury of conjunctiva and corneal abrasion without foreign body, left eye, initial encounter (principal); I10 Essential (primary) hypertension; J44.9 Chronic obstructive pulmonary disease, unspecified; F41.9 Anxiety disorder, unspecified; F32.9 Major depressive disorder, single episode, unspecified; F17.210 Nicotine dependence, cigarettes, uncomplicated; E03.9 Hypothyroidism, unspecified; E05.90 Thyrotoxicosis, unspecified without thyrotoxic crisis or storm; Z79.899 Other long term (current) drug therapy; X58.XXXA Exposure to other specified factors, initial encounter
CPT/HCPCS: 99283

== ENCOUNTER 2020-07-05 16:12 | Emergency (ER) | payer MEDICARE, BC ==
[2020-07-05] MEDS ORDERED: Sodium Chloride 0.9% 10 ML Syringe FLUSH PRN (16:29)
[2020-07-05 16:51] LABS: BARBITURATE SCREEN,URINE NEGATIVE (NEGATIVE); BENZODIAZEPINES SCREEN,URINE NEGATIVE (NEGATIVE); EDDP,URINE SCREEN NEGATIVE (NEGATIVE); METHAMPHETAMINE SCREEN, URINE NEGATIVE (NEGATIVE); TCA SCREEN,URINE POSITIVE (NEGATIVE)
[2020-07-05 16:52] LABS: THC SCREEN,URINE 50 NG/ML NEGATIVE (NEGATIVE)
--- NOTE | 2020-07-05 16:54 | EDM.PDOC ---
ED HPI GENERAL MEDICAL PROBLEM - General Stated Complaint: ER Time Seen by Provider: 07/05/20 16:25 Source of Information: Reports: Patient History Limitations: Reports: No Limitations - History of Present Illness INITIAL COMMENTS - FREE TEXT/NARRATIVE: Patient comes emergency department today from home with the police department and ambulance with concerns of falls and alcoholism. This patient is well-known to this facility as well as the nursing staff for chronic alcoholism. According to the patient she has been binge drinking over the past week or so. Every day. About 6 beers with 2-3 shots of vodka. In the past 2 to 3 days she has had 2-3 syncopal episodes that her family is witnessed. The patient relates that she has been drinking and that is why she falls. She has no weakness dizziness lightheadedness for these episodes when she passes out and falls. She is unsure if she lost her consciousness. She denies any head neck or back pain. She denies any visual acuity changes. She denies any paresthesias of upper or lower extremities. She has not any interested in any alcohol treatment at this time. She denies any nausea vomiting. No diarrhea. No fever no chills. No cough or congestion. No shortness of breath or chest pain. No Covid exposure no Covid symptoms. - Related Data Allergies Allergy/AdvReac Type Severity Reaction Status Date / Time No Known Allergies Allergy Verified 09/17/18 10:34 Home Meds: Home Meds Albuterol [Ventolin HFA] 1 - 2 puff PO Q4H PRN 08/11/13 [History] Latanoprost [Xalatan 0.005% Ophth Soln] 1 drop EYEBOTH BEDTIME 08/11/13 [History] timoloL maleate [Timoptic 0.5% Ophth Soln] 1 drop EYERT BID 08/11/13 [History] traZODone 75 mg PO BEDTIME 08/11/13 [History] Venlafaxine [Effexor XR] 150 mg PO DAILY 08/04/16 [History] Amitriptyline [Elavil] 25 mg PO BEDTIME 01/04/18 [History] Lisinopril 30 mg PO DAILY 01/04/18 [History] Pantoprazole Sodium 40 mg PO DAILY 01/04/18 [History] Pregabalin [Lyrica] 225 mg PO BID 01/04/18 [History] busPIRone [Buspar] 15 mg PO TID 01/04/18 [History] Acetaminophen [Tylenol Extra Strength] 1,000 mg PO BID 04/22/18 [History] amLODIPine Besylate [Amlodipine Besylate] 10 mg PO DAILY 04/22/18 [History] Tobramycin/Dexamethasone [Tobradex Eye Drops] 3 drop OP TID 7 Days #1 bottle 09/17/18 [Rx] Past Medical History HEENT History: Reports: Glaucoma, Other (See Below) Other HEENT History: presbyopia. myopia. astigmatism Cardiovascular History: Reports: Hypertension Respiratory History: Reports: COPD, Other (See Below) Other Respiratory History: lung nodules Gastrointestinal History: Reports: Chronic Constipation, Colon Polyp, Hiatal Hernia, Irritable Bowel Syndrome, PUD Other Gastrointestinal History: bleeding ulcer Genitourinary History: Reports: None Musculoskeletal History: Reports: Fibromyalgia, Other (See Below) Other Musculoskeletal History: multiple rib fx fx metatarsal bone R foot with malunion. CWP sciatica left side. injury to Left shoulder. DJD of cervical spine. colles fx L radius Neurological History: Reports: Headaches, Chronic, Neuropathy, Peripheral Psychiatric History: Reports: Addiction, Anxiety, Depression Endocrine/Metabolic History: Reports: Hyperthyroidism, Osteopenia, Other (See Below) Other Endocrine/Metabolic History: thyroid nodule. hyperkalemia Hematologic History: Reports: Other (See Below) Other Hematologic History: hyperkalemia. elevated liver enzymes Oncologic (Cancer) History: Reports: Breast Dermatologic History: Reports: None - Infectious Disease History Infectious Disease History: Reports: Other (See Below) Other Infectious Disease History: MSSA - Past Surgical History HEENT Surgical History: Reports: Adenoidectomy, Tonsillectomy GI Surgical History: Reports: Other (See Below) Other GI Surgeries/Procedures: intestinal resection Female Surgical History: Reports: Section, Tubal Ligation Musculoskeletal Surgical History: Reports: Other (See Below) Other Musculoskeletal Surgeries/Procedures:: open reduction Left distal radius. bunionectomy. cervical fusion. laminectomy Oncologic Surgical History: Reports: Lumpectomy Social & Family History - Family History Family Medical History: No Pertinent Family History Psychiatric: Reports: Depression, Other (See Below) Oncologic: Reports: Pancreatic - Caffeine Use Caffeine Use: Reports: Coffee - Living Situation & Occupation Living situation: Reports: , Alone ( recently moved out) Occupation: Employed (works making and selling crafts) ED ROS GENERAL - Review of Systems Review Of Systems: Comprehensive ROS is negative, except as noted in HPI. - Physical Exam Exam: See Below Text/Narrative:: This is a very pleasant somewhat pale and ill-appearing female. Exam Limited By: No Limitations General Appearance: Alert, WD/WN, No Apparent Distress Eye Exam: Bilateral Eye: EOMI, PERRL Ears: Normal External Exam, Normal TMs Nose: Normal Inspection, Normal Mucosa Throat/Mouth: Normal Inspection, Normal Teeth, Normal Gums, Normal Oropharynx, Normal Voice, No Airway Compromise. No: Normal Lips (There is an abrasion on the left lower lip.) Head Exam: Atraumatic, Normocephalic Neck: Normal Inspection, Supple, Non-Tender, Full Range of Motion. No: Tender Lateral, Tender Midline Respiratory/Chest: No Respiratory Distress, Lungs Clear, Normal Breath Sounds, No Accessory Muscle Use, Chest Non-Tender Cardiovascular: Normal Peripheral Pulses, Regular Rate, Rhythm GI/Abdominal: Normal Bowel Sounds, Soft, Non-Tender, Hepatomegaly, Other (I also wonder if she does not have a fluid wave consistent with ascites to her abdomen). No: Mass, Splenomegaly (Female) Exam: Deferred Rectal (Female) Exam: Deferred Neuro Exam (Abbreviated): Alert, Oriented, Normal Cognition, Normal Gait, No Motor/Sensory Deficits Back Exam: Normal Inspection, Full Range of Motion Extremities: Normal Inspection, Normal Range of Motion, No Pedal Edema, Normal Capillary Refill Psychiatric: Normal Affect, Normal Mood Skin Exam: Warm, Dry, Intact, No Rash, Pallor #1 Interpretation EKG Date: 07/05/20 Time: 17:28 Rhythm: NSR Rate (Beats/Min): 88 [place]: Normal P-Wave: Present QRS: Normal ST-T: Normal QT: Normal Course - Vital Signs Last Recorded V/S: Last Vital Signs Temp 97.2 F 07/05/20 16:20 Pulse 101 H 07/05/20 16:20 Resp 16 07/05/20 16:20 BP 139/84 07/05/20 16:20 Pulse Ox 99 07/05/20 16:20 - Orders/Labs/Meds Orders: Active Orders 24 hr Category Date Time Status CULTURE URINE [RM] Stat Lab 07/05/20 16:30 Received Peripheral IV Insertion Adult [OM.PC] Stat Oth 07/05/20 16:29 Ordered Labs: Laboratory Tests 07/05/20 07/05/20 07/05/20 Range/Units 16:30 16:30 16:40 WBC 6.8 (4.0-10.0) x10^3/uL RBC 4.14 (4.00-5.50) x10^6/uL Hgb 12.3 D (12.0-16.0) g/dL Hct 35.0 (33.0-47.0) % MCV 84.5 (78.0-93.0) fL MCH 29.7 (26.0-32.0) pg MCHC 35.1 (32.0-36.0) g/dL RDW Coeff of Nicole 13.2 (10.0-15.0) % Plt Count 204 (130-400) x10^3/uL Neut % (Auto) 41.5 L (50.0-80.0) % Lymph % (Auto) 46.6 (25.0-50.0) % Mora % (Auto) 7.3 (2.0-11.0) % Eos % (Auto) 3.7 (0.0-4.0) % Baso % (Auto) 0.9 (0.2-1.2) % Sodium (136-145) mmol/L Potassium (3.5-5.1) mmol/L Chloride (98-107) mmol/L Carbon Dioxide (21-32) mmol/L Anion Gap (10-20) mmol/L BUN (7-18) mg/dL Creatinine (0.55-1.02) mg/dL Est Cr Clr Drug Dosing Estimated GFR (MDRD) Glucose (74-106) mg/dL Lactic Acid (0.4-2.0) mmol/L Calcium (8.5-10.1) mg/dL Corrected Calcium (8.5-10.1) mg/dL Magnesium (1.8-2.4) mg/dL Total Bilirubin (0.2-1.0) mg/dL AST (15-37) U/L ALT (14-59) U/L Alkaline Phosphatase (46-116) U/L Troponin I (<=0.056) ng/mL Total Protein (6.4-8.2) g/dL Albumin (3.4-5.0) g/dL Globulin Albumin/Globulin Ratio Lipase (73-393) U/L Urine Color Yellow (YELLOW) Urine Appearance Clear (CLEAR) Urine pH 6.0 (5.0-8.0) Ur Specific [place] 1.010 Urine Protein 30 H (NEGATIVE) mg/dL Urine Glucose (UA) Negative (NEGATIVE) mg/dL Urine Ketones Negative (NEGATIVE) mg/dL Urine Occult Blood Trace-intact H (NEGATIVE) Urine Nitrite Negative (NEGATIVE) Urine Bilirubin Negative (NEGATIVE) Urine Urobilinogen 0.2 (0.2) EU/dL Ur Leukocyte Esterase Small H (NEGATIVE) Urine RBC 0-5 (NOT SEEN) /HPF Urine WBC 5-10 H (NOT SEEN) /HPF Ur Squamous Epith Cells Few H (NEGATIVE) /HPF Urine Bacteria Few H (NEGATIVE) /HPF Urine Opiates Screen Negative (NEGATIVE) Ur Buprenorphine Scrn Negative (NEGATIVE) Ur Oxycodone Screen Negative (NEGATIVE) Ur EDDP (Meth Metab) Negative (NEGATIVE) Urine Methadone Screen Negative (NEGATIVE) Ur Barbiturates Screen Negative (NEGATIVE) Ur Tricyclics Screen Positive H (NEGATIVE) Ur Phencyclidine Scrn Negative (NEGATIVE) Ur Amphetamine Screen Negative (NEGATIVE) U Methamphetamines Scrn Negative (NEGATIVE) Urine MDMA Screen Negative (NEGATIVE) U Benzodiazepines Scrn Negative (NEGATIVE) U Cocaine Metab Screen Negative (NEGATIVE) U Marijuana (THC) Screen Negative (NEGATIVE) Ethyl Alcohol (0-3) mg/dL 07/05/20 07/05/20 Range/Units 16:40 16:40 WBC (4.0-10.0) x10^3/uL RBC (4.00-5.50) x10^6/uL Hgb (12.0-16.0) g/dL Hct (33.0-47.0) % MCV (78.0-93.0) fL MCH (26.0-32.0) pg MCHC (32.0-36.0) g/dL RDW Coeff of Nicole (10.0-15.0) % Plt Count (130-400) x10^3/uL Neut % (Auto) (50.0-80.0) % Lymph % (Auto) (25.0-50.0) % Mora % (Auto) (2.0-11.0) % Eos % (Auto) (0.0-4.0) % Baso % (Auto) (0.2-1.2) % Sodium 133 L (136-145) mmol/L Potassium 4.4 (3.5-5.1) mmol/L Chloride 98 (98-107) mmol/L Carbon Dioxide 24 (21-32) mmol/L Anion Gap 15.4 (10-20) mmol/L BUN 24 H (7-18) mg/dL Creatinine 1.1 H (0.55-1.02) mg/dL Est Cr Clr Drug Dosing TNP Estimated GFR (MDRD) 50 Glucose 101 (74-106) mg/dL Lactic Acid 1.0 (0.4-2.0) mmol/L Calcium 8.4 L D (8.5-10.1) mg/dL Corrected Calcium 8.80 (8.5-10.1) mg/dL Magnesium 1.7 L (1.8-2.4) mg/dL Total Bilirubin 0.3 (0.2-1.0) mg/dL AST 27 (15-37) U/L ALT 20 (14-59) U/L Alkaline Phosphatase 165 H (46-116) U/L Troponin I < 0.017 (<=0.056) ng/mL Total Protein 6.9 (6.4-8.2) g/dL Albumin 3.5 (3.4-5.0) g/dL Globulin 3.4 Albumin/Globulin Ratio 1.03 Lipase 114 (73-393) U/L Urine Color (YELLOW) Urine Appearance (CLEAR) Urine pH (5.0-8.0) Ur Specific [place] Urine Protein (NEGATIVE) mg/dL Urine Glucose (UA) (NEGATIVE) mg/dL Urine Ketones (NEGATIVE) mg/dL Urine Occult Blood (NEGATIVE) Urine Nitrite (NEGATIVE) Urine Bilirubin (NEGATIVE) Urine Urobilinogen (0.2) EU/dL Ur Leukocyte Esterase (NEGATIVE) Urine RBC (NOT SEEN) /HPF Urine WBC (NOT SEEN) /HPF Ur Squamous Epith Cells (NEGATIVE) /HPF Urine Bacteria (NEGATIVE) /HPF Urine Opiates Screen (NEGATIVE) Ur Buprenorphine Scrn (NEGATIVE) Ur Oxycodone Screen (NEGATIVE) Ur EDDP (Meth Metab) (NEGATIVE) Urine Methadone Screen (NEGATIVE) Ur Barbiturates Screen (NEGATIVE) Ur Tricyclics Screen (NEGATIVE) Ur Phencyclidine Scrn (NEGATIVE) Ur Amphetamine Screen (NEGATIVE) U Methamphetamines Scrn (NEGATIVE) Urine MDMA Screen (NEGATIVE) U Benzodiazepines Scrn (NEGATIVE) U Cocaine Metab Screen (NEGATIVE) U Marijuana (THC) Screen (NEGATIVE) Ethyl Alcohol 186 H (0-3) mg/dL Meds: Medications Discontinued Medications Generic Name Dose Route Start Last Admin Trade Name [place] PRN Reason Stop Dose Admin Multivitamins/Minerals 1 tab/ 0 tab 07/05/20 17:36 07/05/20 17:45 Thiamine HCl 100 mg/ Folic PO 07/05/20 17:37 1 each Acid 1 mg/ Magnesium Oxide 400 ONETIME ONE Administration mg Lactated Ringer's 1,000 mls @ 999 mls/hr 07/05/20 17:36 07/05/20 17:41 Ringers, Lactated IV 07/05/20 18:36 999 mls/hr ONETIME ONE Administration Sodium Chloride 10 ml 07/05/20 16:29 Saline Flush FLUSH ASDIRECTED PRN Keep Vein Open - Radiology Interpretation Free Text/Narrative:: CT of the head per radiology no acute intracranial findings. - Re-Assessments/Exams Free Text/Narrative Re-Assessment/Exam: 07/05/20 The patient really does not want to be here and she was made to come here by her family because they have concerns about her drinking. The patient is uninterested in alcohol treatment or assistance. There is no confusion hallucination or delusion or any signs of withdrawal at this time. The patient was given IV of LR 1 L wide open. Oral banana pack. Her laboratory evaluation is rather unremarkable. She has a mild elevation of her creatinine 1.1. Her alcohol is in the mid 100s which she does admit to drinking alcohol today. She is not homicidal she is not suicidal. There is no confusion. Her CT of her head is unremarkable and normal. She is uninterested in alcohol treatment or assistance or detox today. She feels much better after the hydration of fluids. She really needs to make sure that she is drinking plenty of fluids and get some assistance for alcohol abuse if she is ever interested in it. She states that she is more of a binge drinker and she drinks maybe a couple of days a week but she is been pretty heavy the last week. She is on interested in any help with detox. She does not want any assistance with her alcoholism. She would like to go home I do not feel any concerns at this time or any causes for her syncope and she feels that her falls were just because of her intoxication we will discharge her home at this time. She is comfortable with this plan and her questions are answered. Departure - Departure Time of Disposition: 18:21 Disposition: Home, Self-Care 01 Clinical Impression: Alcohol use disorder Acute alcohol intoxication Qualifiers: Complication of substance-induced condition: uncomplicated Qualified Code(s): F10.920 - Alcohol use, unspecified with intoxication, uncomplicated - Discharge Information Instructions: Binge-Drinking Information, Adult Referrals: Dinah Cuellar MD [Primary Care Provider] - Forms: ED Department Discharge Additional Instructions: Make sure and eat regular small meals. Drink plenty of fluids especially gatorade and or powerade regularly with your alcohol usage. OTC daily Multivitamin folic acid and thiamine to help replenish your body of vital nutrients that are lost with drinking. See human service leigh when you are ready for assistance with your alcohol usage. [phone] Return to the ED if new or worsening symptoms. Follow up with PCP in the next week if any concerns. Sepsis Event Note (ED) - Focused Exam Vital Signs: Vital Signs Temp Pulse Resp BP Pulse Ox 07/05/20 16:20 97.2 F 101 H 16 139/84 99 - My Orders Last 24 Hours: My Active Orders 07/05/20 16:29 Peripheral IV Insertion Adult [OM.PC] Stat 07/05/20 16:30 CULTURE URINE [RM] Stat - Assessment/Plan Last 24 Hours: My Active Orders 07/05/20 16:29 Peripheral IV Insertion Adult [OM.PC] Stat 07/05/20 16:30 CULTURE URINE [RM] Stat
[2020-07-05 17:20] LABS: CHLORIDE,CL 98 mmol/L (98-107); SODIUM,NA 133 mmol/L (136-145)
[2020-07-05 17:21] LABS: ANION GAP 15.4 mmol/L (10-20)
--- NOTE | 2020-07-05 17:27 | CT ---
[id number] CT/CT Head WO IV EXAM: CT Head WO IV CLINICAL DATA: MULTIPLE FALLS, SYNCOPE. COMPARISON STUDY: None FINDINGS: No intracranial hemorrhage, extra-axial fluid collection, mass, or acute ischemia. No hydrocephalus. Calvarium intact. Paranasal sinuses and mastoid air cells are clear. IMPRESSION: No acute intracranial findings. Sahil Carey MD 07/05/20 [id number] Thank you for allowing us to participate in the care of your patient.
[2020-07-05] MEDS ORDERED: Multivitamins w-Iron/Ca/FA/Min 1 TAB, Thiamine 100 MG, Folic Acid 1 MG, Magnesium Oxide... PO ONE ×3 (17:36)
[2020-07-05] MEDS ORDERED: Lactated Ringers 1,000 ML IV ONE (17:36)
[2020-07-05 19:14] VITALS: BP 139/84; PULSE 101
== END 2020-07-05 18:35 | disposition home or self-care (01) ==
LOC: VM.ED 16:12
DX: F10.120 Alcohol abuse with intoxication, uncomplicated (principal); Y90.6 Blood alcohol level of 120-199 mg/100 ml; J44.9 Chronic obstructive pulmonary disease, unspecified; I10 Essential (primary) hypertension; G62.9 Polyneuropathy, unspecified; F41.9 Anxiety disorder, unspecified; F32.9 Major depressive disorder, single episode, unspecified; Z79.899 Other long term (current) drug therapy
CPT/HCPCS: 36415; 70450; 80053; 80305; 80307; 81001; 83605; 83690; 83735; 84484; 85025; 87086; 87088; 87186; 93005; 99284; A9270; J7120; 93010

== ENCOUNTER 2021-04-29 16:05 | Emergency (ER) | payer MEDICARE, BC ==
--- NOTE | 2021-04-29 16:33 | EDM.PDOC ---
ED HPI GENERAL MEDICAL PROBLEM - General Chief Complaint: Laceration Stated Complaint: LACERATION Time Seen by Provider: 04/29/21 16:10 Source of Information: Reports: Patient History Limitations: Reports: No Limitations - History of Present Illness INITIAL COMMENTS - FREE TEXT/NARRATIVE: Patient comes in the emergency department with complaint of a laceration to her hand. Patient states that she was trying to open a green hickey can and ended up slipping while trying to use a spoon and ended up cutting Her finger open on the edge of the lid. Patient states she was able to control the bleeding prior to arrival with manual pressure. Patient states that she denies any concerns with CMS or range of motion. She states that she is able to move all extremities without difficulty. Patient has not had any other injuries to that finger. Patient states she has good feeling and has no numbness or tingling. Onset: Sudden Location: Reports: Upper Extremity, Left Quality: Reports: Throbbing Severity: Moderate Improves with: Reports: Rest Worsens with: Reports: Movement Context: Reports: Other Associated Symptoms: Reports: No Other Symptoms - Related Data Allergies Allergy/AdvReac Type Severity Reaction Status Date / Time No Known Allergies Allergy Verified 09/17/18 10:34 Home Meds: Home Meds Albuterol [Ventolin HFA] 1 - 2 puff PO Q4H PRN 08/11/13 [History] Latanoprost [Xalatan 0.005% Ophth Soln] 1 drop EYEBOTH BEDTIME 08/11/13 [History] timoloL maleate [Timoptic 0.5% Ophth Soln] 1 drop EYERT BID 08/11/13 [History] traZODone 100 mg PO BEDTIME 08/11/13 [History] Venlafaxine [Effexor XR] 150 mg PO DAILY 08/04/16 [History] Amitriptyline [Elavil] 25 mg PO BID 01/04/18 [History] Pantoprazole Sodium 40 mg PO DAILY 01/04/18 [History] busPIRone [Buspar] 20 mg PO TID 01/04/18 [History] Acetaminophen [Tylenol Extra Strength] 1,000 mg PO BID 04/22/18 [History] Ibuprofen [Motrin] 800 mg PO Q4H PRN 11/25/20 [History] Venlafaxine HCl [Venlafaxine ER] 37.5 mg PO DAILY 11/25/20 [History] amLODIPine [Norvasc] 5 mg PO DAILY 11/25/20 [History] lisinopriL [Lisinopril] 1 tab PO BID 11/25/20 [History] Past Medical History HEENT History: Reports: Glaucoma, Other (See Below) Other HEENT History: presbyopia. myopia. astigmatism. perferated viscus Cardiovascular History: Reports: Hypertension, [place] Respiratory History: Reports: COPD, Other (See Below) Other Respiratory History: lung nodules. HX pertussis 2004 Gastrointestinal History: Reports: Chronic Constipation, Colon Polyp, Hiatal Hernia, Irritable Bowel Syndrome, Pancreatitis, PUD Other Gastrointestinal History: bleeding ulcer. Chronic alcoholic gastritis. HX acute pancreatitis Genitourinary History: Reports: None, Other (See Below) Other Genitourinary History: Urine hesitancy BUFFET MANAGER History: Reports: Other (See Below) Other BUFFET MANAGER History: Early onset menopause Musculoskeletal History: Reports: Fibromyalgia, Neck Pain, Chronic, Osteoporosis, Other (See Below) Other Musculoskeletal History: multiple rib fx fx metatarsal bone R foot with malunion. CWP sciatica left side. injury to Left shoulder. DJD of cervical spine. colles fx L radius Neurological History: Reports: Headaches, Chronic, Neuropathy, Peripheral Psychiatric History: Reports: Addiction, Anxiety, Depression Other Psychiatric History: ETOH withdrawal syndrome with complications Endocrine/Metabolic History: Reports: Hyperthyroidism, Osteopenia, Vitamin D De ficiency, Other (See Below) Other Endocrine/Metabolic History: thyroid nodule. hyperkalemia. hypercalcemia Hematologic History: Reports: Other (See Below) Other Hematologic History: hyperkalemia. elevated liver enzymes Oncologic (Cancer) History: Reports: Breast Dermatologic History: Reports: Other (See Below) Other Dermatologic History: Surgical wound infection: hardware neck infection. MSSA - Infectious Disease History Infectious Disease History: Reports: Other (See Below) Other Infectious Disease History: MSSA - Past Surgical History HEENT Surgical History: Reports: Adenoidectomy, Tonsillectomy GI Surgical History: Reports: Colonoscopy, Hernia, Abdominal, Hernia Repair/Other, Polypectomy, Other (See Below) Other GI Surgeries/Procedures: intestinal resection. perforated colon with colonoscopy Female Surgical History: Reports: Section, Mastectomy, Tubal Ligation Neurological Surgical History: Reports: C-Spine Musculoskeletal Surgical History: Reports: Carpal Tunnel, Other (See Below) Other Musculoskeletal Surgeries/Procedures:: open reduction Left distal radius. bunionectomy. cervical fusion. laminectomy. Left shoulder pain Oncologic Surgical History: Reports: Lumpectomy Other Oncologic Surgeries/Procedures: Radiation for breast CA Social & Family History - Family History Family Medical History: No Pertinent Family History Psychiatric: Reports: Depression, Other (See Below) Oncologic: Reports: Pancreatic - Caffeine Use Caffeine Use: Reports: Coffee - Living Situation & Occupation Living situation: Reports: , Alone ( recently moved out) Occupation: Employed (works making and selling crafts) ED ROS GENERAL - Review of Systems Review Of Systems: Comprehensive ROS is negative, except as noted in HPI. Constitutional: Reports: No Symptoms HEENT: Reports: No Symptoms Respiratory: Reports: No Symptoms Cardiovascular: Reports: No Symptoms Endocrine: Reports: No Symptoms GI/Abdominal: Reports: No Symptoms : Reports: No Symptoms Musculoskeletal: Reports: No Symptoms Skin: Reports: No Symptoms Neurological: Reports: No Symptoms Psychiatric: Reports: No Symptoms Hematologic/Lymphatic: Reports: No Symptoms Immunologic: Reports: No Symptoms ED EXAM, GENERAL - Physical Exam Exam: See Below Exam Limited By: No Limitations General Appearance: Alert, WD/WN, No Apparent Distress Eye Exam: Bilateral Eye: PERRL Head: Atraumatic, Normocephalic Neck: Normal Inspection, Supple, Non-Tender, Full Range of Motion Respiratory/Chest: No Respiratory Distress, Lungs Clear, Normal Breath Sounds, No Accessory Muscle Use, Chest Non-Tender Cardiovascular: Normal Peripheral Pulses, Regular Rate, Rhythm, No Edema, No Rub Extremities: Normal Inspection, Normal Range of Motion, Non-Tender, Normal Capillary Refill Neurological: Alert, Oriented, CN II-XII Intact, Normal Cognition, Normal Gait Psychiatric: Normal Affect, Normal Mood Skin Exam: Warm, Dry, Intact, Normal Color ED GENERAL MEDICAL PROCEDURES - Laceration/Wound Repair Left Digit - 2nd (Index) Lac/wound length in cm: 1.5 Appearance: Linear Distal NVT: Neuro & Vascular Intact Anesthetic Type: Local Local Anesthesia - Lidocaine (Xylocaine): 1% Plain Local Anesthetic Volume: 5cc Skin Prep: Chlorhexidine (Hibiciens) Exploration/Debridement/Repair: Wound Explored, Explored to Base Closed with: Sutures Suture Size: 4-0 # of Sutures: 7 Course - Orders/Labs/Meds Orders: Active Orders 24 hr Category Date Time Status Vaccine to be Administered/Admin Charge [RC] ASDIRECTED Care 04/29/21 16:36 Active Meds: Medications Discontinued Medications Generic Name Dose Route Start Last Admin Trade Name Ortega PRN Reason Stop Dose Admin Diphtheria/Tetanus/Acell Pertussis 0.5 ml 04/29/21 16:36 Diphtheria,Pertussis(Acell),Tetanus Vaccine 0.5 Ml Syringe IM 04/29/21 16:37 .ONCE ONE Lidocaine HCl 5 ml 04/29/21 16:13 Lidocaine 1% 5 Ml Sdv INJECT 04/29/21 16:14 ONETIME ONE Departure - Departure Time of Disposition: 16:50 Disposition: Home, Self-Care 01 Condition: Good Clinical Impression: Laceration - Discharge Information *PRESCRIPTION DRUG MONITORING PROGRAM REVIEWED*: Not Applicable *COPY OF PRESCRIPTION DRUG MONITORING REPORT IN PATIENT NEYDA: Not Applicable Instructions: Laceration Care, Adult Referrals: Dinah Cuellar MD [Primary Care Provider] - Forms: ED Department Discharge Additional Instructions: 1. Rest 2. Keep the area clean and dry 3. Can use tylenol and ibuprofen as needed for pain and discomfort 4. Diet as tolerated 5. Activity as tolerated 6. Elevated the injured area above the level of the heart to decrease swelling and discomfort if applicable 7. Can use ice 3-4 times a day at 20-minute intervals to help with any swelling and discomfort 8. Follow-up with your primary care provider symptoms continue or to progress 9. Discharge information has been provided regarding your injury and wound care has been provided 10. Avoid an public pools or hot tubes until wound is healed. 11. Follow up in the Clinic in 10 days for removal of sutures - My Orders Last 24 Hours: My Active Orders 04/29/21 16:36 Vaccine to be Administered/Admin Charge [RC] ASDIRECTED - Assessment/Plan Last 24 Hours: My Active Orders 04/29/21 16:36 Vaccine to be Administered/Admin Charge [RC] ASDIRECTED Assessment:: laceration Plan: 1. Wound cleansing completed 2. Laceration repair completed 3. Tdap vaccine history completed 4. Education regarding wound care, dressing changes, OTC medications, activity, diet, follow up care and when to seek care if warranted provided 5. Patient is to return to the clinic in 10 days to have sutures site evaluated and removed 6. Patient was encouraged to call or return if any questions or concerns arise.
[2021-04-29] MEDS ORDERED: Diphtheria,Pertussis(Acell),Tetanus Vaccine 0.5 ML Syringe IM ONE (16:36)
[2021-04-29 18:25] VITALS: BP 146/83; PULSE 104
== END 2021-04-29 16:53 | disposition home or self-care (01) ==
LOC: VM.ED 16:05
DX: S61.211A Laceration without foreign body of left index finger without damage to nail, initial encounter (principal); I10 Essential (primary) hypertension; I25.2 Old myocardial infarction; J44.9 Chronic obstructive pulmonary disease, unspecified; Z23 Encounter for immunization; Z79.899 Other long term (current) drug therapy; W26.8XXA Contact with other sharp object(s), not elsewhere classified, initial encounter
CPT/HCPCS: 12001; 90471; 99282; 99283

== ENCOUNTER 2021-05-13 12:56 | Observation (INO) | payer MEDICARE, BC ==
[2021-05-13] MEDS ORDERED: Sodium Chloride 0.9% 10 ML Syringe FLUSH PRN (14:11)
--- NOTE | 2021-05-13 14:48 | EDM.PDOC ---
ED HPI GENERAL MEDICAL PROBLEM - General Chief Complaint: Drug or Alcohol Abuse Time Seen by Provider: 05/13/21 14:00 Source of Information: Reports: Patient History Limitations: Reports: No Limitations - History of Present Illness INITIAL COMMENTS - FREE TEXT/NARRATIVE: Pt. presents to ER with social media assistant from [facility], requesting detox. Pt. has a longstanding history of ETOH abuse. She states that she has had a headache for a couple of days and consumed a bottle of vodka due to the pain. She states that that headache is gone. She denies falling or striking her head. No complaints of neck pain. Pt. only complaint is of general weakness, fatigue, and discomfort to her L forearm. Pt. sustained some skin tears to her R forearm. She is unable to relate specifically what caused this injury. Pt. denies any chest pain, shortness of breath, nausea, vomiting, bloody or tarry stools, hematemesis. She is accompanied to the ER by social media assistant from [facility]. She states that they have made contact with the [facility] regarding placement, but she needs to undergo detox first. Onset: Today Onset Date: 05/13/21 Location: Reports: Generalized - Related Data Allergies Allergy/AdvReac Type Severity Reaction Status Date / Time No Known Allergies Allergy Verified 05/13/21 15:03 Home Meds: Home Meds Albuterol [Ventolin HFA] 1 - 2 puff PO Q4H PRN 08/11/13 [History] Latanoprost [Xalatan 0.005% Ophth Soln] 1 drop EYEBOTH BEDTIME 08/11/13 [History] timoloL maleate [Timoptic 0.5% Ophth Soln] 1 drop EYERT BID 08/11/13 [History] traZODone 100 mg PO BEDTIME 08/11/13 [History] Venlafaxine [Effexor XR] 150 mg PO DAILY 08/04/16 [History] Amitriptyline [Elavil] 25 mg PO BID 01/04/18 [History] Pantoprazole Sodium 40 mg PO DAILY 01/04/18 [History] Acetaminophen [Tylenol Extra Strength] 1,000 mg PO BID 04/22/18 [History] Ibuprofen [Motrin] 800 mg PO Q4H PRN 11/25/20 [History] Venlafaxine HCl [Venlafaxine ER] 37.5 mg PO DAILY 11/25/20 [History] amLODIPine [Norvasc] 5 mg PO DAILY 11/25/20 [History] lisinopriL [Lisinopril] 20 mg PO BID 11/25/20 [History] Cyclobenzaprine [Flexeril] 20 mg PO BEDTIME 05/13/21 [History] Diphenhyd/Lidocaine/MagAl/Damaris [First-Mouthwash BLM Susp] 15 ml PO Q6H PRN 05/13/21 [History] Pregabalin [Lyrica] 225 mg PO BID 05/13/21 [History] busPIRone [Buspar] 20 mg PO TID 05/13/21 [History] Past Medical History HEENT History: Reports: Glaucoma, Other (See Below) Other HEENT History: presbyopia. myopia. astigmatism. perferated viscus Cardiovascular History: Reports: Hypertension, [place] Respiratory History: Reports: COPD, Other (See Below) Other Respiratory History: lung nodules. HX pertussis 2004 Gastrointestinal History: Reports: Chronic Constipation, Colon Polyp, Hiatal Hernia, Irritable Bowel Syndrome, Pancreatitis, PUD Other Gastrointestinal History: bleeding ulcer. Chronic alcoholic gastritis. HX acute pancreatitis Genitourinary History: Reports: None, Other (See Below) Other Genitourinary History: Urine hesitancy TEST TECH History: Reports: Other (See Below) Other TEST TECH History: Early onset menopause Musculoskeletal History: Reports: Fibromyalgia, Neck Pain, Chronic, Osteopo rosis, Other (See Below) Other Musculoskeletal History: multiple rib fx fx metatarsal bone R foot with malunion. CWP s ciatica left side. injury to Left shoulder. DJD of cervical spine. colles fx L radius Neurological History: Reports: Headaches, Chronic, Neuropathy, Peripheral Psychiatric History: Reports: Addiction, Anxiety, Depression Other Psychiatric History: ETOH withdrawal syndrome with complications Endocrine/Metabolic History: Reports: Hyperthyroidism, Osteopenia, Vitamin D Deficiency, Other (See Below) Other Endocrine/Metabolic History: thyroid nodule. hyperkalemia. hypercalcemia Hematologic History: Reports: Other (See Below) Other Hematologic History: hyperkalemia. elevated liver enzymes Oncologic (Cancer) History: Reports: Breast Dermatologic History: Reports: Other (See Below) Other Dermatologic History: Surgical wound infection: hardware neck infection. MSSA - Infectious Disease History Infectious Disease History: Reports: Other (See Below) Other Infectious Disease History: MSSA - Past Surgical History HEENT Surgical History: Reports: Adenoidectomy, Tonsillectomy GI Surgical History: Reports: Colonoscopy, Hernia, Abdominal, Hernia Repair/Other, Polypectomy, Other (See Below) Other GI Surgeries/Procedures: intestinal resection. perforated colon with colonoscopy Female Surgical History: Reports: Section, Mastectomy, Tubal Ligation Neurological Surgical History: Reports: C-Spine Musculoskeletal Surgical History: Reports: Carpal Tunnel, Other (See Below) Other Musculoskeletal Surgeries/Procedures:: open reduction Left distal radius. bunionectomy. cervical fusion. laminectomy. Left shoulder pain Oncologic Surgical History: Reports: Lumpectomy Other Oncologic Surgeries/Procedures: Radiation for breast CA Social & Family History - Family History Family Medical History: No Pertinent Family History Psychiatric: Reports: Depression, Other (See Below) Oncologic: Reports: Pancreatic - Caffeine Use Caffeine Use: Reports: Coffee - Living Situation & Occupation Living situation: Reports: , Alone ( recently moved out) Occupation: Employed (works making and selling crafts) ED ROS GENERAL - Review of Systems Review Of Systems: See Below Constitutional: Reports: Fatigue. Denies: Fever, Chills HEENT: Reports: No Symptoms Respiratory: Reports: No Symptoms Cardiovascular: Reports: No Symptoms Endocrine: Reports: No Symptoms GI/Abdominal: Reports: No Symptoms : Reports: No Symptoms Musculoskeletal: Reports: No Symptoms Skin: Reports: No Symptoms Neurological: Reports: No Symptoms Psychiatric: Reports: No Symptoms Hematologic/Lymphatic: Reports: No Symptoms Immunologic: Reports: No Symptoms ED EXAM, GENERAL - Physical Exam Exam: See Below Exam Limited By: No Limitations General Appearance: Alert, WD/WN, No Apparent Distress Eye Exam: Bilateral Eye: EOMI, PERRL Throat/Mouth: Normal Inspection, Normal Lips, Normal Teeth, Normal Gums, Normal Oropharynx, Normal Voice, No Airway Compromise Head: Atraumatic, Normocephalic Neck: Normal Inspection, Supple, Non-Tender, Full Range of Motion Respiratory/Chest: No Respiratory Distress, Lungs Clear, Normal Breath Sounds, No Accessory Muscle Use, Chest Non-Tender Cardiovascular: Normal Peripheral Pulses, Regular Rate, Rhythm, No Edema, No JVD, No Murmur Course - Vital Signs Last Recorded V/S: Last Vital Signs Temp 36.5 C 05/13/21 16:48 Pulse 78 10/12/21 16:48 Resp 16 05/13/21 16:48 BP 107/67 05/13/21 16:48 Pulse Ox 96 05/13/21 16:48 - Orders/Labs/Meds Orders: Active Orders 24 hr Category Date Time Status DRUG SCREEN, URINE [URCHEM] Stat Lab 05/13/21 14:12 Ordered UA RFX TIM AND CULT IF INDIC [URIN] Stat Lab 05/13/21 14:12 Ordered Sodium Chloride 0.9% [Saline Flush] Med 05/13/21 14:11 Active 10 ml FLUSH ASDIRECTED PRN Peripheral IV Insertion Adult [OM.PC] Routine Oth 05/13/21 14:12 Ordered Medication Orders Clonidine HCl (Clonidine 0.1 Mg Tab) 0.1 mg PO Q4H PRN PRN Reason: Agitation Folic Acid (Folic Acid 1 Mg Tab) 1 mg PO DAILY CHUCKIE Stop: 05/15/21 08:01 Sodium Chloride (Normal Saline) 1,000 mls @ 150 mls/hr IV ASDIRECTED CHUCKIE Last Admin: 05/13/21 16:02 Dose: 150 mls/hr Documented by: ANN-MARIE Lorazepam (Lorazepam 1 Mg Tab) 0 mg PO ASDIRECTED PRN; Protocol PRN Reason: Withdrawal Symptoms Multivitamins/Minerals (Multivitamins With Iron/Calcium/Folic Acid/Minerals Tab) 1 tab PO DAILY [facility] Nicotine (Nicotine 14 Mg/24 Hr Patch) 14 mg TRDERM DAILY [facility] Pantoprazole Sodium (Pantoprazole 40 Mg Tab.Cr) 40 mg PO DAILY [facility] Sodium Chloride (Sodium Chloride 0.9% 10 Ml Syringe) 10 ml FLUSH ASDIRECTED PRN PRN Reason: Keep Vein Open Thiamine HCl (Thiamine 100 Mg Tab) 100 mg PO DAILY [facility] Labs: Laboratory Tests 05/13/21 05/13/21 05/13/21 Range/Units 14:20 14:38 14:38 WBC 5.0 (4.0-10.0) x10^3/uL RBC 3.48 L (4.00-5.50) x10^6/uL Hgb 10.2 L (12.0-16.0) g/dL Hct 31.8 L (33.0-47.0) % MCV 91.4 (78.0-93.0) fL MCH 29.3 (26.0-32.0) pg MCHC 32.1 (32.0-36.0) g/dL RDW Coeff of Nicole 16.5 H (10.0-15.0) % Plt Count 257 (130-400) x10^3/uL Immature Gran % (Auto) 0.40 (0.00-0.43) % Neut % (Auto) 44.5 L (50.0-80.0) % Lymph % (Auto) 41.6 (25.0-50.0) % Gentry % (Auto) 11.1 H (2.0-11.0) % Eos % (Auto) 1.6 (0.0-4.0) % Baso % (Auto) 0.8 (0.2-1.2) % Neut # (Auto) 2.2 (1.8-7.7) x10^3/uL Lymph # (Auto) 2.1 (1.0-4.8) x10^3/uL Gentry # (Auto) 0.6 (0.0-0.8) x10^3/uL Eos # (Auto) 0.1 (0.0-0.5) x10^3/uL Baso # (Auto) 0.0 (0.0-0.2) x10^3/uL Immature Gran # (Auto) 0.02 (0.00-0.07) x10^3/uL PT 10.4 (9.9-12.5) SEC INR 0.9 L (2.0-3.5) APTT (25.6-32.8) SEC Sodium (136-145) mmol/L Potassium (3.5-5.1) mmol/L Chloride (98-107) mmol/L Carbon Dioxide (21-32) mmol/L Anion Gap (5-15) mmol/L BUN (7-18) mg/dL Creatinine (0.55-1.02) mg/dL Est Cr Clr Drug Dosing mL/min Estimated GFR (MDRD) Glucose (70-99) mg/dL Calcium (8.5-10.1) mg/dL Corrected Calcium (8.5-10.1) mg/dL Phosphorus (2.6-4.7) mg/dL Magnesium (1.8-2.4) mg/dL Total Bilirubin (0.2-1.0) mg/dL AST (15-37) U/L ALT (14-59) U/L Alkaline Phosphatase (46-116) U/L Ammonia (19-54) ug/dL C-Reactive Protein (<=0.9) mg/dL Total Protein (6.4-8.2) g/dL Albumin (3.4-5.0) g/dL Globulin Albumin/Globulin Ratio TSH, Ultra Sensitive (0.358-3.74) uIU/mL Acetaminophen (10-30) ug/ml Ethyl Alcohol (0-3) mg/dL SARS-CoV-2 RNA (WALTER) Negative (NEGATIVE) 05/13/21 05/13/21 05/13/21 Range/Units 14:38 14:38 14:38 WBC (4.0-10.0) x10^3/uL RBC (4.00-5.50) x10^6/uL Hgb (12.0-16.0) g/dL Hct (33.0-47.0) % MCV (78.0-93.0) fL MCH (26.0-32.0) pg MCHC (32.0-36.0) g/dL RDW Coeff of Nicole (10.0-15.0) % Plt Count (130-400) x10^3/uL Immature Gran % (Auto) (0.00-0.43) % Neut % (Auto) (50.0-80.0) % Lymph % (Auto) (25.0-50.0) % Gentry % (Auto) (2.0-11.0) % Eos % (Auto) (0.0-4.0) % Baso % (Auto) (0.2-1.2) % Neut # (Auto) (1.8-7.7) x10^3/uL Lymph # (Auto) (1.0-4.8) x10^3/uL Gentry # (Auto) (0.0-0.8) x10^3/uL Eos # (Auto) (0.0-0.5) x10^3/uL Baso # (Auto) (0.0-0.2) x10^3/uL Immature Gran # (Auto) (0.00-0.07) x10^3/uL PT (9.9-12.5) SEC INR (2.0-3.5) APTT 24.3 L (25.6-32.8) SEC Sodium 140 (136-145) mmol/L Potassium 5.4 H (3.5-5.1) mmol/L Chloride 107 (98-107) mmol/L Carbon Dioxide 20 L (21-32) mmol/L Anion Gap 18.4 H (5-15) mmol/L BUN 22 H (7-18) mg/dL Creatinine 1.9 H (0.55-1.02) mg/dL Est Cr Clr Drug Dosing 28.74 mL/min Estimated GFR (MDRD) 27 Glucose 88 (70-99) mg/dL Calcium 9.1 (8.5-10.1) mg/dL Corrected Calcium 9.3 (8.5-10.1) mg/dL Phosphorus 4.2 (2.6-4.7) mg/dL Magnesium 1.4 L (1.8-2.4) mg/dL Total Bilirubin 0.2 (0.2-1.0) mg/dL AST 30 (15-37) U/L ALT 25 (14-59) U/L Alkaline Phosphatase 108 (46-116) U/L Ammonia 31 (19-54) ug/dL C-Reactive Protein < 0.2 (<=0.9) mg/dL Total Protein 7.0 (6.4-8.2) g/dL Albumin 3.8 (3.4-5.0) g/dL Globulin 3.2 Albumin/Globulin Ratio 1.19 TSH, Ultra Sensitive 0.087 L (0.358-3.74) uIU/mL Acetaminophen 46 H (10-30) ug/ml Ethyl Alcohol 23 H (0-3) mg/dL SARS-CoV-2 RNA (WALTER) (NEGATIVE) Meds: Medications Generic Name Dose Route Start Last Admin Trade Name Freq PRN Reason Stop Dose Admin Clonidine HCl 0.1 mg 05/13/21 16:58 Clonidine 0.1 Mg Tab PO Q4H PRN Agitation Folic Acid 1 mg 05/13/21 17:00 Folic Acid 1 Mg Tab PO 05/15/21 08:01 DAILY CHUCKIE Sodium Chloride 1,000 mls @ 150 mls/hr 05/13/21 16:00 05/13/21 16:02 Normal Saline IV 150 mls/hr ASDIRECTED CHUCKIE Administration Lorazepam 0 mg 05/13/21 16:58 Lorazepam 1 Mg Tab PO ASDIRECTED PRN Withdrawal Symptoms Protocol Multivitamins/Minerals 1 tab 05/13/21 17:00 Multivitamins With Iron/Calcium/Folic Acid/Minerals Tab PO DAILY CHUCKIE Nicotine 14 mg 05/13/21 17:15 Nicotine 14 Mg/24 Hr Patch TRDERM DAILY CHUCKIE Pantoprazole Sodium 40 mg 05/13/21 17:00 Pantoprazole 40 Mg Tab.Cr PO DAILY CHUCKIE Sodium Chloride 10 ml 05/13/21 14:11 Sodium Chloride 0.9% 10 Ml Syringe FLUSH ASDIRECTED PRN Keep Vein Open Thiamine HCl 100 mg 05/13/21 17:00 Thiamine 100 Mg Tab PO DAILY CHUCKIE Discontinued Medications Generic Name Dose Route Start Last Admin Trade Name Freq PRN Reason Stop Dose Admin Magnesium Oxide 400 mg 05/13/21 16:58 Magnesium Oxide 400 Mg Tab PO 05/13/21 16:59 ONETIME ONE Departure - Departure Time of Disposition: 16:15 Disposition: Refer to Observation Clinical Impression: Alcohol withdrawal syndrome - Discharge Information Sepsis Event Note (ED) - Focused Exam Vital Signs: Vital Signs Temp Pulse Resp BP Pulse Ox 05/13/21 14:43 36.8 C 94 16 92/49 L 95 - Problem List Review Problem List Initiated/Reviewed/Updated: Yes - My Orders Last 24 Hours: My Active Orders 05/13/21 14:11 Sodium Chloride 0.9% [Saline Flush] 10 ml FLUSH ASDIRECTED PRN 05/13/21 14:12 DRUG SCREEN, URINE [URCHEM] Stat UA RFX TIM AND CULT IF INDIC [URIN] Stat Peripheral IV Insertion Adult [OM.PC] Routine - Assessment/Plan Last 24 Hours: My Active Orders 05/13/21 14:11 Sodium Chloride 0.9% [Saline Flush] 10 ml FLUSH ASDIRECTED PRN 05/13/21 14:12 DRUG SCREEN, URINE [URCHEM] Stat UA RFX TIM AND CULT IF INDIC [URIN] Stat Peripheral IV Insertion Adult [OM.PC] Routine Plan: Pt. will be admitted observation. She is a code 1. Will institute CIWAA/detox orders. Lorazepam as needed for agitation. Continue home medications. Start B12, folate, thiamine and magnesium supplementation. Pt. is moderately dehydrated. Will start pt. on NS at 125ml/hr. Anticipate transfer to [facility] once there is no evidence of active agitation from detox.
[2021-05-13 15:13] LABS: ACETAMINOPHEN 46 ug/ml (10-30); CHLORIDE,CL 107 mmol/L (98-107); SODIUM,NA 140 mmol/L (136-145)
[2021-05-13 15:16] LABS: ANION GAP 18.4 mmol/L (5-15)
[2021-05-13] MEDS: Sodium Chloride 0.9% 1,000 ML IV SCH ×2 (16:02→19:01)
[2021-05-13] MEDS ORDERED: LORazepam 1 MG Tab PO PRN (16:58)
[2021-05-13] MEDS ORDERED: Magnesium Oxide 400 MG Tab PO ONE (16:58)
[2021-05-13] MEDS ORDERED: cloNIDine 0.1 MG Tab PO PRN (16:58)
[2021-05-13] MEDS: Folic Acid 1 MG Tab PO SCH (17:23)
[2021-05-13] MEDS: Nicotine 14 MG/24 Hr Patch TRDERM SCH (17:23)
[2021-05-13] MEDS: Pantoprazole 40 MG Tab.CR PO SCH (17:23)
[2021-05-13] MEDS: Multivitamins with Iron/Calcium/Folic Acid/Minerals Tab PO SCH (17:23)
[2021-05-13] MEDS: Thiamine 100 MG Tab PO SCH (17:23)
[2021-05-13] MEDS: Lisinopril 20 MG Tab PO SCH (20:21)
[2021-05-13] MEDS: busPIRone 5 MG Tab PO SCH (20:21)
[2021-05-13] MEDS: traZODone 50 MG Tab PO SCH (20:26)
[2021-05-13] MEDS: Amitriptyline 25 MG Tab PO SCH (20:26)
[2021-05-13] MEDS: Acetaminophen 500 MG Tab PO SCH (20:27)
[2021-05-13 20:53] LABS: BARBITURATE SCREEN,URINE NEGATIVE (NEGATIVE); BENZODIAZEPINES SCREEN,URINE NEGATIVE (NEGATIVE); METHAMPHETAMINE SCREEN, URINE NEGATIVE (NEGATIVE); THC SCREEN,URINE 50 NG/ML NEGATIVE (NEGATIVE)
[2021-05-13 20:54] LABS: BUPRENORPHINE SCREEN,URINE NEGATIVE (NEGATIVE)
[2021-05-14] MEDS: Sodium Chloride 0.9% 1,000 ML IV SCH ×2 (03:30→11:54)
[2021-05-14] MEDS: Pregabalin 50 MG Cap PO SCH ×2 (08:34→19:47)
[2021-05-14] MEDS: Acetaminophen 500 MG Tab PO SCH ×2 (08:36→19:52)
[2021-05-14] MEDS: Venlafaxine 37.5 MG Cap.ER PO SCH (08:36)
[2021-05-14] MEDS: Amitriptyline 25 MG Tab PO SCH ×2 (08:37→19:48)
[2021-05-14] MEDS: Thiamine 100 MG Tab PO SCH (08:37)
[2021-05-14] MEDS: Folic Acid 1 MG Tab PO SCH (08:37)
[2021-05-14] MEDS: Venlafaxine 150 MG Cap.ER PO SCH (08:37)
[2021-05-14] MEDS: amLODIPine 5 MG Tab PO SCH (08:37)
[2021-05-14] MEDS: Multivitamins with Iron/Calcium/Folic Acid/Minerals Tab PO SCH (08:37)
[2021-05-14] MEDS: Pregabalin 25 MG Cap PO SCH ×2 (08:37→19:47)
[2021-05-14] MEDS: Lisinopril 20 MG Tab PO SCH ×2 (08:38→19:47)
[2021-05-14] MEDS: busPIRone 5 MG Tab PO SCH ×3 (08:38→19:48)
[2021-05-14] MEDS: Pantoprazole 40 MG Tab.CR PO SCH (08:38)
[2021-05-14] MEDS: Timolol Maleate 0.5% Ophth Soln 5 ML Bottle EYERT SCH ×2 (08:43→19:50)
[2021-05-14] MEDS ORDERED: cefTRIAXone 2 GM Vial IVPUSH ONE (10:37)
[2021-05-14] MEDS: Nicotine 14 MG/24 Hr Patch TRDERM SCH (11:28)
--- NOTE | 2021-05-14 14:12 | PCM.PN ---
- General Info Date of Service: 05/14/21 Admission Dx/Problem (Free Text): Pt. is feeling better today. She was hydrated overnight. She was also found to have a UTI and was given rocephin 2 gm IV for this. She has been up ambulating. CIWAA score have been quite low, typically in the 3-4 range. Pt. is interested in inpatient alcohol treatment. She states that her drinking is having a negative affect on he life. She states that that last time she was in treatment was in approx. 2018. She states that she had problems with staff and was "kicked out" of the program. Pt. states that she is more of a binge drinker. She states that she doesn't get "the shakes" when she doesn't drink, but she states that it does help with anxiety, and she uses alcohol to modify her mood. Functional Status: Reports: Pain Controlled - Review of Systems General: Reports: No Symptoms HEENT: Reports: No Symptoms Pulmonary: Reports: No Symptoms Cardiovascular: Reports: No Symptoms Gastrointestinal: Reports: No Symptoms Genitourinary: Reports: No Symptoms Musculoskeletal: Reports: No Symptoms Skin: Reports: No Symptoms Neurological: Reports: No Symptoms Psychiatric: Reports: No Symptoms - Patient Data Vitals - Most Recent: Last Vital Signs Temp 37.1 C 05/14/21 09:54 Pulse 90 05/14/21 09:54 Resp 16 05/14/21 09:54 BP 128/58 L 05/14/21 09:54 Pulse Ox 95 05/14/21 09:54 Weight - Most Recent: 64.183 kg I&O - Last 24 Hours: Intake & Output 05/13/21 05/14/21 05/14/21 22:59 06:59 14:59 Intake Total 603 2020 120 Output Total 800 Balance 603 1220 120 Lab Results Last 24 Hours: Laboratory Results - last 24 hr 05/13/21 05/13/21 05/13/21 Range/Units 14:20 14:38 14:38 WBC 5.0 (4.0-10.0) x10^3/uL RBC 3.48 L (4.00-5.50) x10^6/uL Hgb 10.2 L (12.0-16.0) g/dL Hct 31.8 L (33.0-47.0) % MCV 91.4 (78.0-93.0) fL MCH 29.3 (26.0-32.0) pg MCHC 32.1 (32.0-36.0) g/dL RDW Coeff of Nicole 16.5 H (10.0-15.0) % Plt Count 257 (130-400) x10^3/uL Immature Gran % (Auto) 0.40 (0.00-0.43) % Neut % (Auto) 44.5 L (50.0-80.0) % Lymph % (Auto) 41.6 (25.0-50.0) % [place] % (Auto) 11.1 H (2.0-11.0) % Eos % (Auto) 1.6 (0.0-4.0) % Baso % (Auto) 0.8 (0.2-1.2) % Neut # (Auto) 2.2 (1.8-7.7) x10^3/uL Lymph # (Auto) 2.1 (1.0-4.8) x10^3/uL [place] # (Auto) 0.6 (0.0-0.8) x10^3/uL Eos # (Auto) 0.1 (0.0-0.5) x10^3/uL Baso # (Auto) 0.0 (0.0-0.2) x10^3/uL Immature Gran # (Auto) 0.02 (0.00-0.07) x10^3/uL PT 10.4 (9.9-12.5) SEC INR 0.9 L (2.0-3.5) APTT (25.6-32.8) SEC Sodium (136-145) mmol/L Potassium (3.5-5.1) mmol/L Chloride (98-107) mmol/L Carbon Dioxide (21-32) mmol/L Anion Gap (5-15) mmol/L BUN (7-18) mg/dL Creatinine (0.55-1.02) mg/dL Est Cr Clr Drug Dosing mL/min Estimated GFR (MDRD) Glucose (70-99) mg/dL Calcium (8.5-10.1) mg/dL Corrected Calcium (8.5-10.1) mg/dL Phosphorus (2.6-4.7) mg/dL Magnesium (1.8-2.4) mg/dL Total Bilirubin (0.2-1.0) mg/dL AST (15-37) U/L ALT (14-59) U/L Alkaline Phosphatase (46-116) U/L Ammonia (19-54) ug/dL C-Reactive Protein (<=0.9) mg/dL Total Protein (6.4-8.2) g/dL Albumin (3.4-5.0) g/dL Globulin Albumin/Globulin Ratio TSH, Ultra Sensitive (0.358-3.74) uIU/mL Urine Color (YELLOW) Urine Appearance (CLEAR) Urine pH (5.0-8.0) Ur Specific [place] Urine Protein (NEGATIVE) mg/dL Urine Glucose (UA) (NEGATIVE) mg/dL Urine Ketones (NEGATIVE) mg/dL Urine Occult Blood (NEGATIVE) Urine Nitrite (NEGATIVE) Urine Bilirubin (NEGATIVE) Urine Urobilinogen (0.2) EU/dL Ur Leukocyte Esterase (NEGATIVE) U Hyaline Cast (Auto) Urine RBC (NOT SEEN) /HPF Urine WBC (NOT SEEN) /HPF Ur Squamous Epith Cells (NOT SEEN) /HPF Urine Bacteria (NOT SEEN) /HPF Granular Casts (Auto) Urine Mucus (NOT SEEN) /LPF Urine Opiates Screen (NEGATIVE) Ur Buprenorphine Scrn (NEGATIVE) Ur Oxycodone Screen (NEGATIVE) Urine Methadone Screen (NEGATIVE) Acetaminophen (10-30) ug/ml Ur Barbiturates Screen (NEGATIVE) Ur Phencyclidine Scrn (NEGATIVE) Ur Amphetamine Screen (NEGATIVE) U Methamphetamines Scrn (NEGATIVE) Urine MDMA Screen (NEGATIVE) U Benzodiazepines Scrn (NEGATIVE) U Cocaine Metab Screen (NEGATIVE) U Marijuana (THC) Screen (NEGATIVE) Ethyl Alcohol (0-3) mg/dL SARS-CoV-2 RNA (WALTER) Negative (NEGATIVE) 05/13/21 05/13/21 05/13/21 Range/Units 14:38 14:38 14:38 WBC (4.0-10.0) x10^3/uL RBC (4.00-5.50) x10^6/uL Hgb (12.0-16.0) g/dL Hct (33.0-47.0) % MCV (78.0-93.0) fL MCH (26.0-32.0) pg MCHC (32.0-36.0) g/dL RDW Coeff of Nicole (10.0-15.0) % Plt Count (130-400) x10^3/uL Immature Gran % (Auto) (0.00-0.43) % Neut % (Auto) (50.0-80.0) % Lymph % (Auto) (25.0-50.0) % [place] % (Auto) (2.0-11.0) % Eos % (Auto) (0.0-4.0) % Baso % (Auto) (0.2-1.2) % Neut # (Auto) (1.8-7.7) x10^3/uL Lymph # (Auto) (1.0-4.8) x10^3/uL [place] # (Auto) (0.0-0.8) x10^3/uL Eos # (Auto) (0.0-0.5) x10^3/uL Baso # (Auto) (0.0-0.2) x10^3/uL Immature Gran # (Auto) (0.00-0.07) x10^3/uL PT (9.9-12.5) SEC INR (2.0-3.5) APTT 24.3 L (25.6-32.8) SEC Sodium 140 (136-145) mmol/L Potassium 5.4 H (3.5-5.1) mmol/L Chloride 107 (98-107) mmol/L Carbon Dioxide 20 L (21-32) mmol/L Anion Gap 18.4 H (5-15) mmol/L BUN 22 H (7-18) mg/dL Creatinine 1.9 H (0.55-1.02) mg/dL Est Cr Clr Drug Dosing 28.74 mL/min Estimated GFR (MDRD) 27 Glucose 88 (70-99) mg/dL Calcium 9.1 (8.5-10.1) mg/dL Corrected Calcium 9.3 (8.5-10.1) mg/dL Phosphorus 4.2 (2.6-4.7) mg/dL Magnesium 1.4 L (1.8-2.4) mg/dL Total Bilirubin 0.2 (0.2-1.0) mg/dL AST 30 (15-37) U/L ALT 25 (14-59) U/L Alkaline Phosphatase 108 (46-116) U/L Ammonia 31 (19-54) ug/dL C-Reactive Protein < 0.2 (<=0.9) mg/dL Total Protein 7.0 (6.4-8.2) g/dL Albumin 3.8 (3.4-5.0) g/dL Globulin 3.2 Albumin/Globulin Ratio 1.19 TSH, Ultra Sensitive 0.087 L (0.358-3.74) uIU/mL Urine Color (YELLOW) Urine Appearance (CLEAR) Urine pH (5.0-8.0) Ur Specific [place] Urine Protein (NEGATIVE) mg/dL Urine Glucose (UA) (NEGATIVE) mg/dL Urine Ketones (NEGATIVE) mg/dL Urine Occult Blood (NEGATIVE) Urine Nitrite (NEGATIVE) Urine Bilirubin (NEGATIVE) Urine Urobilinogen (0.2) EU/dL Ur Leukocyte Esterase (NEGATIVE) U Hyaline Cast (Auto) Urine RBC (NOT SEEN) /HPF Urine WBC (NOT SEEN) /HPF Ur Squamous Epith Cells (NOT SEEN) /HPF Urine Bacteria (NOT SEEN) /HPF Granular Casts (Auto) Urine Mucus (NOT SEEN) /LPF Urine Opiates Screen (NEGATIVE) Ur Buprenorphine Scrn (NEGATIVE) Ur Oxycodone Screen (NEGATIVE) Urine Methadone Screen (NEGATIVE) Acetaminophen 46 H (10-30) ug/ml Ur Barbiturates Screen (NEGATIVE) Ur Phencyclidine Scrn (NEGATIVE) Ur Amphetamine Screen (NEGATIVE) U Methamphetamines Scrn (NEGATIVE) Urine MDMA Screen (NEGATIVE) U Benzodiazepines Scrn (NEGATIVE) U Cocaine Metab Screen (NEGATIVE) U Marijuana (THC) Screen (NEGATIVE) Ethyl Alcohol 23 H (0-3) mg/dL SARS-CoV-2 RNA (WALTER) (NEGATIVE) 05/13/21 05/13/21 Range/Units 20:30 20:30 WBC (4.0-10.0) x10^3/uL RBC (4.00-5.50) x10^6/uL Hgb (12.0-16.0) g/dL Hct (33.0-47.0) % MCV (78.0-93.0) fL MCH (26.0-32.0) pg MCHC (32.0-36.0) g/dL RDW Coeff of Nicole (10.0-15.0) % Plt Count (130-400) x10^3/uL Immature Gran % (Auto) (0.00-0.43) % Neut % (Auto) (50.0-80.0) % Lymph % (Auto) (25.0-50.0) % [place] % (Auto) (2.0-11.0) % Eos % (Auto) (0.0-4.0) % Baso % (Auto) (0.2-1.2) % Neut # (Auto) (1.8-7.7) x10^3/uL Lymph # (Auto) (1.0-4.8) x10^3/uL [place] # (Auto) (0.0-0.8) x10^3/uL Eos # (Auto) (0.0-0.5) x10^3/uL Baso # (Auto) (0.0-0.2) x10^3/uL Immature Gran # (Auto) (0.00-0.07) x10^3/uL PT (9.9-12.5) SEC INR (2.0-3.5) APTT (25.6-32.8) SEC Sodium (136-145) mmol/L Potassium (3.5-5.1) mmol/L Chloride (98-107) mmol/L Carbon Dioxide (21-32) mmol/L Anion Gap (5-15) mmol/L BUN (7-18) mg/dL Creatinine (0.55-1.02) mg/dL Est Cr Clr Drug Dosing mL/min Estimated GFR (MDRD) Glucose (70-99) mg/dL Calcium (8.5-10.1) mg/dL Corrected Calcium (8.5-10.1) mg/dL Phosphorus (2.6-4.7) mg/dL Magnesium (1.8-2.4) mg/dL Total Bilirubin (0.2-1.0) mg/dL AST (15-37) U/L ALT (14-59) U/L Alkaline Phosphatase (46-116) U/L Ammonia (19-54) ug/dL C-Reactive Protein (<=0.9) mg/dL Total Protein (6.4-8.2) g/dL Albumin (3.4-5.0) g/dL Globulin Albumin/Globulin Ratio TSH, Ultra Sensitive (0.358-3.74) uIU/mL Urine Color Yellow (YELLOW) Urine Appearance Slightly cloudy H (CLEAR) Urine pH 5.5 (5.0-8.0) Ur Specific [place] 1.020 Urine Protein 30 H (NEGATIVE) mg/dL Urine Glucose (UA) Negative (NEGATIVE) mg/dL Urine Ketones Negative (NEGATIVE) mg/dL Urine Occult Blood Negative (NEGATIVE) Urine Nitrite Positive H (NEGATIVE) Urine Bilirubin Negative (NEGATIVE) Urine Urobilinogen 0.2 (0.2) EU/dL Ur Leukocyte Esterase Small H (NEGATIVE) U Hyaline Cast (Auto) Rare Urine RBC Not seen (NOT SEEN) /HPF Urine WBC 5-10 H (NOT SEEN) /HPF Ur Squamous Epith Cells Many H (NOT SEEN) /HPF Urine Bacteria Many H (NOT SEEN) /HPF Granular Casts (Auto) Rare Urine Mucus Few H (NOT SEEN) /LPF Urine Opiates Screen Negative (NEGATIVE) Ur Buprenorphine Scrn Negative (NEGATIVE) Ur Oxycodone Screen Negative (NEGATIVE) Urine Methadone Screen Negative (NEGATIVE) Acetaminophen (10-30) ug/ml Ur Barbiturates Screen Negative (NEGATIVE) Ur Phencyclidine Scrn Negative (NEGATIVE) Ur Amphetamine Screen Negative (NEGATIVE) U Methamphetamines Scrn Negative (NEGATIVE) Urine MDMA Screen Negative (NEGATIVE) U Benzodiazepines Scrn Negative (NEGATIVE) U Cocaine Metab Screen Negative (NEGATIVE) U Marijuana (THC) Screen Negative (NEGATIVE) Ethyl Alcohol (0-3) mg/dL SARS-CoV-2 RNA ([facility]TER) (NEGATIVE) Med Orders - Current: Current Medications Acetaminophen (Acetaminophen 500 Mg Tab) 1,000 mg PO BID [facility] Last Admin: 05/14/21 08:36 Dose: 1,000 mg Documented by: Amitriptyline HCl (Amitriptyline 25 Mg Tab) 25 mg PO BID [facility] Last Admin: 05/14/21 08:37 Dose: 25 mg Documented by: Amlodipine Besylate (Amlodipine 5 Mg Tab) 5 mg PO DAILY [facility] Last Admin: 05/14/21 08:37 Dose: 5 mg Documented by: Buspirone HCl (Buspirone 5 Mg Tab) 20 mg PO TID [facility] Last Admin: 05/14/21 11:45 Dose: 20 mg Documented by: Clonidine HCl (Clonidine 0.1 Mg Tab) 0.1 mg PO Q4H PRN PRN Reason: Agitation Folic Acid (Folic Acid 1 Mg Tab) 1 mg PO DAILY [facility] Stop: 05/15/21 08:01 Last Admin: 05/14/21 08:37 Dose: 1 mg Documented by: Sodium Chloride (Normal Saline) 1,000 mls @ 150 mls/hr IV ASDIRECTED [facility] Last Admin: 05/14/21 11:54 Dose: 150 mls/hr Documented by: Latanoprost (Latanoprost 0.005% Ophth Soln 2.5 Ml Bottle) 0 ml EYEBOTH BEDTIME [facility] Lisinopril (Lisinopril 20 Mg Tab) 20 mg PO BID [facility] Last Admin: 05/14/21 08:38 Dose: 20 mg Documented by: Lorazepam (Lorazepam 1 Mg Tab) 0 mg PO ASDIRECTED PRN; Protocol PRN Reason: Withdrawal Symptoms Multivitamins/Minerals (Multivitamins With Iron/Calcium/Folic Acid/Minerals Tab) 1 tab PO DAILY [facility] Last Admin: 05/14/21 08:37 Dose: 1 tab Documented by: Nicotine (Nicotine 14 Mg/24 Hr Patch) 14 mg TRDERM DAILY [facility] Last Admin: 05/14/21 11:28 Dose: Not Given Documented by: Pantoprazole Sodium (Pantoprazole 40 Mg Tab.Cr) 40 mg PO DAILY [facility] Last Admin: 05/14/21 08:38 Dose: 40 mg Documented by: Pregabalin (Pregabalin 50 Mg Cap) 200 mg PO BID [facility] Last Admin: 05/14/21 08:34 Dose: 200 mg Documented by: Pregabalin (Pregabalin 25 Mg Cap) 25 mg PO BID [facility] Last Admin: 05/14/21 08:37 Dose: 25 mg Documented by: Sodium Chloride (Sodium Chloride 0.9% 10 Ml Syringe) 10 ml FLUSH ASDIRECTED PRN PRN Reason: Keep Vein Open Thiamine HCl (Thiamine 100 Mg Tab) 100 mg PO DAILY [facility] Last Admin: 05/14/21 08:37 Dose: 100 mg Documented by: Timolol Maleate (Timolol Maleate 0.5% Ophth Soln 5 Ml Bottle) 0 ml EYERT BID [facility] Last Admin: 05/14/21 08:43 Dose: 1 drop Documented by: Trazodone HCl (Trazodone 50 Mg Tab) 100 mg PO BEDTIME [facility] Last Admin: 05/13/21 20:26 Dose: 100 mg Documented by: Venlafaxine HCl (Venlafaxine 150 Mg Cap.Er) 150 mg PO DAILY [facility] Last Admin: 05/14/21 08:37 Dose: 150 mg Documented by: Venlafaxine HCl (Venlafaxine 37.5 Mg Cap.Er) 37.5 mg PO DAILY [facility] Last Admin: 05/14/21 08:36 Dose: 37.5 mg Documented by: Discontinued Medications Ceftriaxone Sodium (Ceftriaxone 2 Gm Vial) 2 gm IVPUSH STAT ONE Stop: 05/14/21 10:38 Last Admin: 05/14/21 11:44 Dose: 2 gm Documented by: Magnesium Oxide (Magnesium Oxide 400 Mg Tab) 400 mg PO ONETIME ONE Stop: 05/13/21 16:59 Last Admin: 05/13/21 17:23 Dose: 400 mg Documented by: - Exam General: Alert, Oriented Lungs: Clear to Auscultation, Normal Respiratory Effort Cardiovascular: Regular Rate, Regular Rhythm GI/Abdominal Exam: Normal Bowel Sounds, Soft, Non-Tender, No Organomegaly, No Distention, No Mass (Female) Exam: Deferred Back Exam: Normal Inspection Extremities: Normal Inspection, Normal Range of Motion, Non-Tender, No Pedal Edema, Normal Capillary Refill Skin: Warm, Dry, Intact Neurological: No New Focal Deficit Psy/Mental Status: Alert, Normal Affect, Normal Mood - Patient Data Lab Results Last 24 hrs: Laboratory Results - last 24 hr 05/13/21 05/13/21 05/13/21 Range/Units 14:20 14:38 14:38 WBC 5.0 (4.0-10.0) x10^3/uL RBC 3.48 L (4.00-5.50) x10^6/uL Hgb 10.2 L (12.0-16.0) g/dL Hct 31.8 L (33.0-47.0) % MCV 91.4 (78.0-93.0) fL MCH 29.3 (26.0-32.0) pg MCHC 32.1 (32.0-36.0) g/dL RDW Coeff of Nicole 16.5 H (10.0-15.0) % Plt Count 257 (130-400) x10^3/uL Immature Gran % (Auto) 0.40 (0.00-0.43) % Neut % (Auto) 44.5 L (50.0-80.0) % Lymph % (Auto) 41.6 (25.0-50.0) % [place] % (Auto) 11.1 H (2.0-11.0) % Eos % (Auto) 1.6 (0.0-4.0) % Baso % (Auto) 0.8 (0.2-1.2) % Neut # (Auto) 2.2 (1.8-7.7) x10^3/uL Lymph # (Auto) 2.1 (1.0-4.8) x10^3/uL [place] # (Auto) 0.6 (0.0-0.8) x10^3/uL Eos # (Auto) 0.1 (0.0-0.5) x10^3/uL Baso # (Auto) 0.0 (0.0-0.2) x10^3/uL Immature Gran # (Auto) 0.02 (0.00-0.07) x10^3/uL PT 10.4 (9.9-12.5) SEC INR 0.9 L (2.0-3.5) APTT (25.6-32.8) SEC Sodium (136-145) mmol/L Potassium (3.5-5.1) mmol/L Chloride (98-107) mmol/L Carbon Dioxide (21-32) mmol/L Anion Gap (5-15) mmol/L BUN (7-18) mg/dL Creatinine (0.55-1.02) mg/dL Est Cr Clr Drug Dosing mL/min Estimated GFR (MDRD) Glucose (70-99) mg/dL Calcium (8.5-10.1) mg/dL Corrected Calcium (8.5-10.1) mg/dL Phosphorus (2.6-4.7) mg/dL Magnesium (1.8-2.4) mg/dL Total Bilirubin (0.2-1.0) mg/dL AST (15-37) U/L ALT (14-59) U/L Alkaline Phosphatase (46-116) U/L Ammonia (19-54) ug/dL C-Reactive Protein (<=0.9) mg/dL Total Protein (6.4-8.2) g/dL Albumin (3.4-5.0) g/dL Globulin Albumin/Globulin Ratio TSH, Ultra Sensitive (0.358-3.74) uIU/mL Urine Color (YELLOW) Urine Appearance (CLEAR) Urine pH (5.0-8.0) Ur Specific [place] Urine Protein (NEGATIVE) mg/dL Urine Glucose (UA) (NEGATIVE) mg/dL Urine Ketones (NEGATIVE) mg/dL Urine Occult Blood (NEGATIVE) Urine Nitrite (NEGATIVE) Urine Bilirubin (NEGATIVE) Urine Urobilinogen (0.2) EU/dL Ur Leukocyte Esterase (NEGATIVE) U Hyaline Cast (Auto) Urine RBC (NOT SEEN) /HPF Urine WBC (NOT SEEN) /HPF Ur Squamous Epith Cells (NOT SEEN) /HPF Urine Bacteria (NOT SEEN) /HPF Granular Casts (Auto) Urine Mucus (NOT SEEN) /LPF Urine Opiates Screen (NEGATIVE) Ur Buprenorphine Scrn (NEGATIVE) Ur Oxycodone Screen (NEGATIVE) Urine Methadone Screen (NEGATIVE) Acetaminophen (10-30) ug/ml Ur Barbiturates Screen (NEGATIVE) Ur Phencyclidine Scrn (NEGATIVE) Ur Amphetamine Screen (NEGATIVE) U Methamphetamines Scrn (NEGATIVE) Urine MDMA Screen (NEGATIVE) U Benzodiazepines Scrn (NEGATIVE) U Cocaine Metab Screen (NEGATIVE) U Marijuana (THC) Screen (NEGATIVE) Ethyl Alcohol (0-3) mg/dL SARS-CoV-2 RNA ([facility]) Negative (NEGATIVE) 05/13/21 05/13/21 05/13/21 Range/Units 14:38 14:38 14:38 WBC (4.0-10.0) x10^3/uL RBC (4.00-5.50) x10^6/uL Hgb (12.0-16.0) g/dL Hct (33.0-47.0) % MCV (78.0-93.0) fL MCH (26.0-32.0) pg MCHC (32.0-36.0) g/dL RDW Coeff of Nicole (10.0-15.0) % Plt Count (130-400) x10^3/uL Immature Gran % (Auto) (0.00-0.43) % Neut % (Auto) (50.0-80.0) % Lymph % (Auto) (25.0-50.0) % [place] % (Auto) (2.0-11.0) % Eos % (Auto) (0.0-4.0) % Baso % (Auto) (0.2-1.2) % Neut # (Auto) (1.8-7.7) x10^3/uL Lymph # (Auto) (1.0-4.8) x10^3/uL [place] # (Auto) (0.0-0.8) x10^3/uL Eos # (Auto) (0.0-0.5) x10^3/uL Baso # (Auto) (0.0-0.2) x10^3/uL Immature Gran # (Auto) (0.00-0.07) x10^3/uL PT (9.9-12.5) SEC INR (2.0-3.5) APTT 24.3 L (25.6-32.8) SEC Sodium 140 (136-145) mmol/L Potassium 5.4 H (3.5-5.1) mmol/L Chloride 107 (98-107) mmol/L Carbon Dioxide 20 L (21-32) mmol/L Anion Gap 18.4 H (5-15) mmol/L BUN 22 H (7-18) mg/dL Creatinine 1.9 H (0.55-1.02) mg/dL Est Cr Clr Drug Dosing 28.74 mL/min Estimated GFR (MDRD) 27 Glucose 88 (70-99) mg/dL Calcium 9.1 (8.5-10.1) mg/dL Corrected Calcium 9.3 (8.5-10.1) mg/dL Phosphorus 4.2 (2.6-4.7) mg/dL Magnesium 1.4 L (1.8-2.4) mg/dL Total Bilirubin 0.2 (0.2-1.0) mg/dL AST 30 (15-37) U/L ALT 25 (14-59) U/L Alkaline Phosphatase 108 (46-116) U/L Ammonia 31 (19-54) ug/dL C-Reactive Protein < 0.2 (<=0.9) mg/dL Total Protein 7.0 (6.4-8.2) g/dL Albumin 3.8 (3.4-5.0) g/dL Globulin 3.2 Albumin/Globulin Ratio 1.19 TSH, Ultra Sensitive 0.087 L (0.358-3.74) uIU/mL Urine Color (YELLOW) Urine Appearance (CLEAR) Urine pH (5.0-8.0) Ur Specific [place] Urine Protein (NEGATIVE) mg/dL Urine Glucose (UA) (NEGATIVE) mg/dL Urine Ketones (NEGATIVE) mg/dL Urine Occult Blood (NEGATIVE) Urine Nitrite (NEGATIVE) Urine Bilirubin (NEGATIVE) Urine Urobilinogen (0.2) EU/dL Ur Leukocyte Esterase (NEGATIVE) U Hyaline Cast (Auto) Urine RBC (NOT SEEN) /HPF Urine WBC (NOT SEEN) /HPF Ur Squamous Epith Cells (NOT SEEN) /HPF Urine Bacteria (NOT SEEN) /HPF Granular Casts (Auto) Urine Mucus (NOT SEEN) /LPF Urine Opiates Screen (NEGATIVE) Ur Buprenorphine Scrn (NEGATIVE) Ur Oxycodone Screen (NEGATIVE) Urine Methadone Screen (NEGATIVE) Acetaminophen 46 H (10-30) ug/ml Ur Barbiturates Screen (NEGATIVE) Ur Phencyclidine Scrn (NEGATIVE) Ur Amphetamine Screen (NEGATIVE) U Methamphetamines Scrn (NEGATIVE) Urine MDMA Screen (NEGATIVE) U Benzodiazepines Scrn (NEGATIVE) U Cocaine Metab Screen (NEGATIVE) U Marijuana (THC) Screen (NEGATIVE) Ethyl Alcohol 23 H (0-3) mg/dL SARS-CoV-2 RNA ([facility]TER) (NEGATIVE) 05/13/21 05/13/21 Range/Units 20:30 20:30 WBC (4.0-10.0) x10^3/uL RBC (4.00-5.50) x10^6/uL Hgb (12.0-16.0) g/dL Hct (33.0-47.0) % MCV (78.0-93.0) fL MCH (26.0-32.0) pg MCHC (32.0-36.0) g/dL RDW Coeff of Nicole (10.0-15.0) % Plt Count (130-400) x10^3/uL Immature Gran % (Auto) (0.00-0.43) % Neut % (Auto) (50.0-80.0) % Lymph % (Auto) (25.0-50.0) % [place] % (Auto) (2.0-11.0) % Eos % (Auto) (0.0-4.0) % Baso % (Auto) (0.2-1.2) % Neut # (Auto) (1.8-7.7) x10^3/uL Lymph # (Auto) (1.0-4.8) x10^3/uL [place] # (Auto) (0.0-0.8) x10^3/uL Eos # (Auto) (0.0-0.5) x10^3/uL Baso # (Auto) (0.0-0.2) x10^3/uL Immature Gran # (Auto) (0.00-0.07) x10^3/uL PT (9.9-12.5) SEC INR (2.0-3.5) APTT (25.6-32.8) SEC Sodium (136-145) mmol/L Potassium (3.5-5.1) mmol/L Chloride (98-107) mmol/L Carbon Dioxide (21-32) mmol/L Anion Gap (5-15) mmol/L BUN (7-18) mg/dL Creatinine (0.55-1.02) mg/dL Est Cr Clr Drug Dosing mL/min Estimated GFR (MDRD) Glucose (70-99) mg/dL Calcium (8.5-10.1) mg/dL Corrected Calcium (8.5-10.1) mg/dL Phosphorus (2.6-4.7) mg/dL Magnesium (1.8-2.4) mg/dL Total Bilirubin (0.2-1.0) mg/dL AST (15-37) U/L ALT (14-59) U/L Alkaline Phosphatase (46-116) U/L Ammonia (19-54) ug/dL C-Reactive Protein (<=0.9) mg/dL Total Protein (6.4-8.2) g/dL Albumin (3.4-5.0) g/dL Globulin Albumin/Globulin Ratio TSH, Ultra Sensitive (0.358-3.74) uIU/mL Urine Color Yellow (YELLOW) Urine Appearance Slightly cloudy H (CLEAR) Urine pH 5.5 (5.0-8.0) Ur Specific [place] 1.020 Urine Protein 30 H (NEGATIVE) mg/dL Urine Glucose (UA) Negative (NEGATIVE) mg/dL Urine Ketones Negative (NEGATIVE) mg/dL Urine Occult Blood Negative (NEGATIVE) Urine Nitrite Positive H (NEGATIVE) Urine Bilirubin Negative (NEGATIVE) Urine Urobilinogen 0.2 (0.2) EU/dL Ur Leukocyte Esterase Small H (NEGATIVE) U Hyaline Cast (Auto) Rare Urine RBC Not seen (NOT SEEN) /HPF Urine WBC 5-10 H (NOT SEEN) /HPF Ur Squamous Epith Cells Many H (NOT SEEN) /HPF Urine Bacteria Many H (NOT SEEN) /HPF Granular Casts (Auto) Rare Urine Mucus Few H (NOT SEEN) /LPF Urine Opiates Screen Negative (NEGATIVE) Ur Buprenorphine Scrn Negative (NEGATIVE) Ur Oxycodone Screen Negative (NEGATIVE) Urine Methadone Screen Negative (NEGATIVE) Acetaminophen (10-30) ug/ml Ur Barbiturates Screen Negative (NEGATIVE) Ur Phencyclidine Scrn Negative (NEGATIVE) Ur Amphetamine Screen Negative (NEGATIVE) U Methamphetamines Scrn Negative (NEGATIVE) Urine MDMA Screen Negative (NEGATIVE) U Benzodiazepines Scrn Negative (NEGATIVE) U Cocaine Metab Screen Negative (NEGATIVE) U Marijuana (THC) Screen Negative (NEGATIVE) Ethyl Alcohol (0-3) mg/dL SARS-CoV-2 RNA (WALTER) (NEGATIVE) Result Diagrams: 05/13/21 14:38 05/13/21 14:38 Sepsis Event Note - Evaluation Sepsis Screening Result: No Definite Risk - Focused Exam Vital Signs: Vital Signs Temp Pulse Resp BP BP Pulse Ox 05/14/21 09:54 37.1 C 90 16 128/58 L 95 05/14/21 08:38 126/72 05/14/21 08:37 126/72 05/14/21 06:15 37.2 C 98 16 119/54 L 93 L - Problem List Review Problem List Initiated/Reviewed/Updated: Yes - My Orders Last 24 Hours: My Active Orders 05/13/21 14:11 Sodium Chloride 0.9% [Saline Flush] 10 ml FLUSH ASDIRECTED PRN 05/13/21 14:12 Peripheral IV Insertion Adult [OM.PC] Routine 05/13/21 15:42 Patient Status [ADT] Routine 05/13/21 16:00 Sodium Chloride 0.9% [Normal Saline] 1,000 ml IV ASDIRECTED 05/13/21 16:55 Code Status [Resuscitation Status] Routine 05/13/21 16:56 Intake and Output [RC] ,18 Up With Assistance [RC] , VTE/DVT Education [RC] PER UNIT ROUTINE Vital Signs [RC] 06,,,18,,02 05/13/21 16:58 LORazepam [Ativan] See Protocol PO ASDIRECTED PRN cloNIDine [Catapres] 0.1 mg PO Q4H PRN 05/13/21 17:00 CIWAA Assessment [RC] Q1H Notify Provider [RC] ,,,,, Folic Acid 1 mg PO DAILY Multivitamins w-Iron/Ca/FA/Min [Thera M Plus] 1 tab PO DAILY Pantoprazole [ProTONIX] 40 mg PO DAILY Thiamine [Vitamin B-1] 100 mg PO DAILY 05/13/21 17:15 Nicotine [Habitrol] 14 mg TRDERM DAILY 05/13/21 Dinner Regular Diet [DIET] 05/13/21 20:00 Acetaminophen [Tylenol Extra Strength] 1,000 mg PO BID Amitriptyline [Elavil] 25 mg PO BID busPIRone [Buspar] 20 mg PO TID lisinopriL [Prinivil] 20 mg PO BID traZODone 100 mg PO BEDTIME 05/13/21 20:30 CULTURE URINE [RM] Stat 05/14/21 08:00 Pregabalin [Lyrica] 200 mg PO BID Pregabalin [Lyrica] 25 mg PO BID Venlafaxine [Effexor XR] 150 mg PO DAILY Venlafaxine [Effexor XR] 37.5 mg PO DAILY amLODIPine [Norvasc] 5 mg PO DAILY timoloL maleate [Timoptic 0.5% Ophth Soln] 0 ml EYERT BID 05/14/21 10:37 Dietary Supplements [RC] BIDMEALS 05/14/21 20:00 Latanoprost [Xalatan 0.005% Ophth Soln] 0 ml EYEBOTH BEDTIME - Plan Plan:: Pt. director of casework (Trisha and Alisha) are working on placement for inpatient treatment at this time. Pt. will be kept in the hospital until tomorrow (she is currently in observation). Will DC fluids, and will start pt. on oral bactrim DS twice daily for UTI. Anticipate discharge tomorrow, pending acceptance to inpatient alcohol treatment facility.
[2021-05-14] MEDS: traZODone 50 MG Tab PO SCH (19:49)
[2021-05-14] MEDS ORDERED: Latanoprost 0.005% Ophth Soln 2.5 ML Bottle EYEBOTH SCH (20:00)
[2021-05-15] MEDS: Lisinopril 20 MG Tab PO SCH (07:50)
[2021-05-15] MEDS: Pregabalin 25 MG Cap PO SCH (07:50)
[2021-05-15] MEDS: Folic Acid 1 MG Tab PO SCH (07:51)
[2021-05-15] MEDS: Venlafaxine 150 MG Cap.ER PO SCH (07:51)
[2021-05-15] MEDS: amLODIPine 5 MG Tab PO SCH (07:51)
[2021-05-15] MEDS: Amitriptyline 25 MG Tab PO SCH (07:51)
[2021-05-15] MEDS: Thiamine 100 MG Tab PO SCH (07:52)
[2021-05-15] MEDS: Pregabalin 50 MG Cap PO SCH (07:52)
[2021-05-15] MEDS: busPIRone 5 MG Tab PO SCH (07:52)
[2021-05-15] MEDS: Pantoprazole 40 MG Tab.CR PO SCH (07:52)
[2021-05-15] MEDS: Venlafaxine 37.5 MG Cap.ER PO SCH (07:52)
[2021-05-15] MEDS: Multivitamins with Iron/Calcium/Folic Acid/Minerals Tab PO SCH (07:52)
[2021-05-15] MEDS: Nicotine 14 MG/24 Hr Patch TRDERM SCH (07:54)
[2021-05-15] MEDS: Timolol Maleate 0.5% Ophth Soln 5 ML Bottle EYERT SCH (07:54)
[2021-05-15] MEDS ORDERED: cefTRIAXone 1 GM Vial IVPUSH SCH (08:00)
[2021-05-15] MEDS: Acetaminophen 500 MG Tab PO SCH (08:01)
[2021-05-15 10:43] VITALS: BP 140/62; PULSE 80
== END 2021-05-15 11:12 | disposition home or self-care (01) ==
LOC: VM.ED 12:56 → VM.MS 15:42
PROVIDERS: ADMIT Physician Assistant; ATTEND Physician Assistant
DX: R53.1 Weakness (principal); R51.9 Headache, unspecified; F10.10 Alcohol abuse, uncomplicated; I10 Essential (primary) hypertension; I25.2 Old myocardial infarction; J44.9 Chronic obstructive pulmonary disease, unspecified; M81.0 Age-related osteoporosis without current pathological fracture; E55.9 Vitamin D deficiency, unspecified; G62.9 Polyneuropathy, unspecified; N39.0 Urinary tract infection, site not specified; Z20.822 Contact with and (suspected) exposure to COVID-19; Z79.899 Other long term (current) drug therapy; Z98.890 Other specified postprocedural states
CPT/HCPCS: 36415; 80053; 80143; 80305-QW; 80307; 81001; 82140; 83735; 84100; 84443; 85025; 85610; 85730; 86140; 87086; 87088; 87186; 96374; 96376; 99285; A9270-GY; G0378; J0696; J7030; U0002

== ENCOUNTER 2021-10-23 10:00 | Emergency (ER) | payer MEDICARE, BC ==
[2021-10-23] MEDS ORDERED: Sodium Chloride 0.9% 10 ML Syringe FLUSH PRN (10:19)
[2021-10-23] MEDS ORDERED: Ondansetron 4 MG/2 ML SDV IVPUSH ONE (10:21)
[2021-10-23] MEDS ORDERED: Lactated Ringers 1,000 ML IV ONE (10:21)
[2021-10-23 11:16] LABS: CHLORIDE,CL 95 mmol/L (98-107); SODIUM,NA 135 mmol/L (136-145)
[2021-10-23 11:20] LABS: ANION GAP 17.7 mmol/L (5-15)
[2021-10-23] MEDS ORDERED: Aspirin 81 MG Tab.Chew PO ONE (11:32)
[2021-10-23 11:38] LABS: CORONAVIRUS COVID-19 NAA NEGATIVE (NEGATIVE); RESPIRATORY SYNCYTIAL VIR NAA NEGATIVE (NEGATIVE)
[2021-10-23] MEDS ORDERED: Potassium Chloride Riders 20 MEQ in Premix Bag 1 BAG IV ONE (11:38)
[2021-10-23] MEDS ORDERED: Nitroglycerin 0.4 MG Tab.SL SL ONE (13:14)
[2021-10-23] MEDS ORDERED: Enoxaparin 60 MG/0.6 ML Syringe SUBCUT ONE (13:21)
[2021-10-23] MEDS ORDERED: Nitroglycerin 2% Oint 1 GM UD Packet TOP ONE (13:24)
[2021-10-23 13:53] VITALS: BP 154/87; PULSE 112
[2021-10-23 13:55] LABS: BARBITURATE SCREEN,URINE NEGATIVE (NEGATIVE); BENZODIAZEPINES SCREEN,URINE NEGATIVE (NEGATIVE); BUPRENORPHINE SCREEN,URINE NEGATIVE (NEGATIVE); METHAMPHETAMINE SCREEN, URINE NEGATIVE (NEGATIVE); THC SCREEN,URINE 50 NG/ML NEGATIVE (NEGATIVE)
== END 2021-10-23 14:38 | disposition short-term general hospital (02) ==
LOC: VM.ED 10:00 → UNDOADMIN 12:38 → VM.MS 12:38 → VM.ED 14:38
DX: I21.4 Non-ST elevation (NSTEMI) myocardial infarction (principal); I10 Essential (primary) hypertension; I25.2 Old myocardial infarction; Z72.0 Tobacco use; Z20.822 Contact with and (suspected) exposure to COVID-19
CPT/HCPCS: 0241U; 36415; 71045; 73630; 80053; 80305; 80307; 83605; 83735; 84100; 84484; 85025; 85610; 85730; 86140; 87040; 93005; 96365; 96366; 96375; 99285; A9270; J1650; J2405; J3480; J3490; J7120; 93010; 99284

== ENCOUNTER 2022-01-29 16:53 | Emergency (ER) | payer OTHER, MEDICARE, BC, MEDICAID ==
[2022-01-29 17:33] LABS: CHLORIDE,CL 100 mmol/L (98-107); SODIUM,NA 135 mmol/L (136-145)
[2022-01-29 17:34] LABS: ANION GAP 15.7 mmol/L (5-15); ESTIMATED GFR 46 mL/min (>=60)
[2022-01-29 18:50] LABS: BARBITURATE SCREEN,URINE NEGATIVE (NEGATIVE); BENZODIAZEPINES SCREEN,URINE NEGATIVE (NEGATIVE); BUPRENORPHINE SCREEN,URINE NEGATIVE (NEGATIVE); METHAMPHETAMINE SCREEN, URINE NEGATIVE (NEGATIVE); THC SCREEN,URINE 50 NG/ML NEGATIVE (NEGATIVE)
[2022-01-29] MEDS ORDERED: HYDROmorphone 0.5 MG/0.5 ML Syringe IVPUSH ONE (19:05)
== END 2022-01-29 19:40 | disposition short-term general hospital (02) ==
LOC: VM.ED 16:53
DX: S06.5X0A Traumatic subdural hemorrhage without loss of consciousness, initial encounter (principal); S00.81XA Abrasion of other part of head, initial encounter; I25.2 Old myocardial infarction; I10 Essential (primary) hypertension; E03.9 Hypothyroidism, unspecified; V89.2XXA Person injured in unspecified motor-vehicle accident, traffic, initial encounter; Y92.410 Unspecified street and highway as the place of occurrence of the external cause
CPT/HCPCS: 36415; 70450; 71045; 72125; 72170; 80053; 80305-QW; 80307; 81001; 85025; 85610; 86140; 87086; 93005; 93010; 96374; 99284; 99284-25; J1170

== ENCOUNTER 2022-02-25 12:30 | Observation (INO) | payer OTHER, MEDICARE, BC, MEDICAID ==
[2022-02-25] MEDS ORDERED: Sodium Chloride 0.9% 10 ML Syringe FLUSH PRN (12:51)
[2022-02-25] MEDS ORDERED: levETIRAcetam in NaCl (iso-os) 1,000 MG in Premix Bag 1 BAG IV ONE ×2 (12:54)
[2022-02-25 13:40] LABS: CHLORIDE,CL 93 mmol/L (98-107)
[2022-02-25 13:41] LABS: ESTIMATED GFR 29 mL/min (>=60); SODIUM,NA 129 mmol/L (136-145)
[2022-02-25] MEDS ORDERED: Sodium Chloride 0.9% 1,000 ML IV SCH (13:45)
[2022-02-25] MEDS ORDERED: NS with KCl 40mEq 1,000 ML IV SCH (13:45)
[2022-02-25] MEDS ORDERED: Magnesium Hydroxide 400 MG/5 ML Susp 30 ML Cup PO PRN (15:37)
[2022-02-25] MEDS ORDERED: Albuterol HFA 18 Gm Inhaler INH PRN (16:48)
[2022-02-25 17:04] LABS: BARBITURATE SCREEN,URINE NEGATIVE (NEGATIVE); BENZODIAZEPINES SCREEN,URINE NEGATIVE (NEGATIVE); BUPRENORPHINE SCREEN,URINE NEGATIVE (NEGATIVE); METHAMPHETAMINE SCREEN, URINE NEGATIVE (NEGATIVE); THC SCREEN,URINE 50 NG/ML NEGATIVE (NEGATIVE)
[2022-02-25] MEDS: Sodium Chloride 0.9% 1,000 ML IV SCH (18:56)
[2022-02-25] MEDS: Polyethylene Glycol 3350 Powder 17 GM Packet PO SCH (18:58)
[2022-02-25] MEDS: Amitriptyline 25 MG Tab PO SCH (20:35)
[2022-02-25] MEDS: busPIRone 15 MG Tab PO SCH (20:36)
[2022-02-25] MEDS: busPIRone 5 MG Tab PO SCH (20:36)
[2022-02-25] MEDS: Lisinopril 20 MG Tab PO SCH (20:39)
[2022-02-25] MEDS: levETIRAcetam Soln 500 MG/5 ML Cup PO SCH (20:39)
[2022-02-25] MEDS: Acetaminophen 500 MG Tab PO SCH (20:39)
[2022-02-25] MEDS ORDERED: Cyclobenzaprine 10 MG Tab PO SCH (21:00)
[2022-02-25] MEDS ORDERED: traZODone 50 MG Tab PO SCH (21:00)
[2022-02-26] MEDS: Sodium Chloride 0.9% 1,000 ML IV SCH (02:35)
[2022-02-26] MEDS ORDERED: Pantoprazole 40 MG Tab.CR PO SCH (07:00)
[2022-02-26 07:43] LABS: ANION GAP 14.2 mmol/L (5-15)
[2022-02-26] MEDS: Acetaminophen 500 MG Tab PO SCH (08:40)
[2022-02-26] MEDS: busPIRone 5 MG Tab PO SCH ×2 (08:45→12:39)
[2022-02-26] MEDS: busPIRone 15 MG Tab PO SCH ×2 (08:45→12:39)
[2022-02-26] MEDS: levETIRAcetam Soln 500 MG/5 ML Cup PO SCH (08:45)
[2022-02-26] MEDS: Lisinopril 20 MG Tab PO SCH (08:46)
[2022-02-26] MEDS: Amitriptyline 25 MG Tab PO SCH (08:46)
[2022-02-26] MEDS: Polyethylene Glycol 3350 Powder 17 GM Packet PO SCH (08:47)
[2022-02-26] MEDS ORDERED: Venlafaxine 150 MG Cap.ER PO SCH (09:00)
[2022-02-26] MEDS ORDERED: Naltrexone 50 MG Tab PO SCH (09:00)
[2022-02-26] MEDS ORDERED: Venlafaxine 37.5 MG Cap.ER PO SCH (09:00)
[2022-02-26] MEDS ORDERED: amLODIPine 5 MG Tab PO SCH (09:00)
[2022-02-26] MEDS ORDERED: Pregabalin 50 MG Cap PO SCH (12:30)
[2022-02-26] MEDS ORDERED: Bisacodyl 10 MG Supp RECTAL ONE (14:30)
[2022-02-26 14:39] VITALS: BP 94/53; PULSE 92
[2022-02-26] MEDS ORDERED: levETIRAcetam 500 MG Tab PO SCH (21:00)
[2022-02-27] MEDS ORDERED: Pantoprazole 40 MG Tab.CR PO SCH (07:00)
== END 2022-02-26 16:00 | disposition home or self-care (01) ==
LOC: VM.ED 12:30 → SUPCPDRO 12:30 → VM.MS 15:02 → UNDODISOB 02-26 16:00
PROVIDERS: ADMIT Family Medicine; ATTEND Family Medicine
DX: R56.9 Unspecified convulsions (principal); E87.1 Hypo-osmolality and hyponatremia; I10 Essential (primary) hypertension; I25.2 Old myocardial infarction; J44.9 Chronic obstructive pulmonary disease, unspecified; M81.0 Age-related osteoporosis without current pathological fracture; F41.9 Anxiety disorder, unspecified; F17.210 Nicotine dependence, cigarettes, uncomplicated; F32.A Depression, unspecified; E55.9 Vitamin D deficiency, unspecified; Z98.890 Other specified postprocedural states; Z79.899 Other long term (current) drug therapy
CPT/HCPCS: 36415; 51798; 70450; 80053; 80305-QW; 80307; 81001; 82533; 83735; 83930; 84443; 84484; 85025; 85610; 85730; 93005; 93010; 96361; 96374; 97165-GO; 99284; 99285-25; A9270-GY; J1953; J3480; J7030

== ENCOUNTER 2022-04-02 11:41 | Emergency (ER) | payer MEDICARE, BC, MEDICAID ==
[2022-04-02 12:11] VITALS: PULSE 110
[2022-04-02] MEDS ORDERED: Sodium Chloride 0.9% 10 ML Syringe FLUSH PRN (12:19)
[2022-04-02] MEDS ORDERED: Labetalol 20 MG/4 ML Syringe IVPUSH ONE (12:21)
[2022-04-02] MEDS ORDERED: Sodium Chloride 0.9% 1,000 ML IV SCH (12:30)
[2022-04-02 13:13] LABS: CHLORIDE,CL 93 mmol/L (98-107); SODIUM,NA 131 mmol/L (136-145)
[2022-04-02 13:15] LABS: ANION GAP 20.9 mmol/L (5-15); ESTIMATED GFR 56 mL/min (>=60)
[2022-04-02 15:22] LABS: BARBITURATE SCREEN,URINE NEGATIVE (NEGATIVE); BENZODIAZEPINES SCREEN,URINE NEGATIVE (NEGATIVE); BUPRENORPHINE SCREEN,URINE NEGATIVE (NEGATIVE); METHAMPHETAMINE SCREEN, URINE NEGATIVE (NEGATIVE); THC SCREEN,URINE 50 NG/ML NEGATIVE (NEGATIVE)
[2022-04-02 19:56] VITALS: BP 170/89
== END 2022-04-02 15:27 | disposition home or self-care (01) ==
LOC: VM.ED 11:41
DX: S09.90XA Unspecified injury of head, initial encounter (principal); J44.9 Chronic obstructive pulmonary disease, unspecified; I10 Essential (primary) hypertension; Z79.899 Other long term (current) drug therapy; Z20.822 Contact with and (suspected) exposure to COVID-19
CPT/HCPCS: 36415; 70450; 72125; 80053; 80305-QW; 80307; 81001; 83735; 85025; 87086; 87088; 87186; 96361; 96374; 99284; 99284-25; J3490; J7030; U0002

== ENCOUNTER 2022-06-24 12:15 | Emergency (ER) | payer MEDICARE, BC, MEDICAID ==
[2022-06-24 12:28] VITALS: PULSE 102
[2022-06-24] MEDS ORDERED: cloNIDine 0.1 MG Tab PO ONE (12:37)
[2022-06-24 13:18] LABS: ANION GAP 14.4 mmol/L (5-15); CHLORIDE,CL 104 mmol/L (98-107); ESTIMATED GFR 97 mL/min (>=60); SODIUM,NA 141 mmol/L (136-145)
[2022-06-24 14:19] VITALS: BP 165/98
== END 2022-06-24 13:57 | disposition home or self-care (01) ==
LOC: VM.ED 12:15
DX: I10 Essential (primary) hypertension (principal); J44.9 Chronic obstructive pulmonary disease, unspecified; Z79.899 Other long term (current) drug therapy; Z72.0 Tobacco use
CPT/HCPCS: 36415; 80053; 83735; 83880; 84100; 84484; 85025; 93005; 99283; A9270

== ENCOUNTER 2023-07-12 15:32 | Emergency (ER) | payer MEDICARE, MEDICAID ==
[2023-07-12 15:48] VITALS: BP 189/93; PULSE 69
[2023-07-12 15:59] LABS: APPEARANCE,URINE SLIGHTLY CLOUDY (CLEAR); BILIRUBIN,URINE NEGATIVE (NEGATIVE); COLOR,URINE YELLOW (YELLOW); GLUCOSE,URINE NEGATIVE (NEGATIVE); KETONES,URINE NEGATIVE (NEGATIVE); LEUKOCYTE ESTERASE,URINE MODERATE (NEGATIVE); NITRITE,URINE POSITIVE (NEGATIVE); OCCULT BLOOD,URINE TRACE-LYSED (NEGATIVE); PH,URINE 6.5 (5.0-8.0); PROTEIN,URINE 30 mg/dL (NEGATIVE); UROBILINOGEN,URINE 0.2 EU/dL (0.2)
[2023-07-12 16:06] LABS: SQUAMOUS EPITHELIAL CELLS,UR FEW /HPF (NOT SEEN)
[2023-07-12 16:07] LABS: BACTERIA,URINE MODERATE /HPF (NOT SEEN); MUCUS,URINE OCCASIONAL /LPF (NOT SEEN); WBC,URINE 40-50 /HPF (NOT SEEN)
== END 2023-07-12 16:26 | disposition home or self-care (01) ==
LOC: VM.ED 15:32
DX: N39.0 Urinary tract infection, site not specified (principal); I10 Essential (primary) hypertension; I25.2 Old myocardial infarction; J44.9 Chronic obstructive pulmonary disease, unspecified; E83.51 Hypocalcemia; E03.9 Hypothyroidism, unspecified; E87.5 Hyperkalemia; F17.210 Nicotine dependence, cigarettes, uncomplicated
CPT/HCPCS: 81001; 87086; 87088; 87186; 99283; 99284

== ENCOUNTER 2024-02-24 08:34 | Inpatient (IN) | payer MEDICARE, MEDICAID ==
[2024-02-24 09:15] LABS: BASOPHILS PERCENT AUTO 0.2 % (0.2-1.2); EOSINOPHILS PERCENT AUTO 0.1 % (0.0-4.0); HEMATOCRIT 39.1 % (33.0-47.0); IMMATURE GRAN ABSOLUTE AUTO 0.03 x10^3/uL (0.00-0.07); LYMPHOCYTES ABSOLUTE AUTO 0.8 x10^3/uL (1.0-4.8); LYMPHOCYTES PERCENT AUTO 6.8 % (25.0-50.0); MEAN CORPUSCULAR HEMOGLOBIN 33.8 pg (26.0-32.0); MEAN CORPUSCULAR HGB CONC 33.2 g/dL (32.0-36.0); MEAN CORPUSCULAR VOLUME 101.6 fL (78.0-93.0); MONOCYTES ABSOLUTE AUTO 1.1 x10^3/uL (0.0-0.8); MONOCYTES PERCENT AUTO 9.8 % (2.0-11.0); NEUTROPHILS ABSOLUTE AUTO 9.1 x10^3/uL (1.8-7.7); NEUTROPHILS PERCENT AUTO 82.8 % (50.0-80.0); PLATELET COUNT,PLT 132 x10^3/uL (130-400); RED BLOOD CELL COUNT 3.85 x10^6/uL (4.00-5.50)
[2024-02-24] MEDS ORDERED: Naloxone 0.4 MG/ML SDV IVPUSH PRN (09:25)
[2024-02-24 09:32] LABS: A/G RATIO 0.87; ALANINE AMINOTRANSFERASE,ALT 32 U/L (14-59); ALBUMIN 3.3 g/dL (3.4-5.0); ALKALINE PHOSPHATASE 113 U/L (46-116); ANION GAP 17.3 mmol/L (5-15); ASPARTATE AMNIOTRANSFERASE,AST 66 U/L (15-37); BLOOD UREA NITROGEN,BUN 14 mg/dL (7-18); CALCIUM 9.6 mg/dL (8.5-10.1); CARBON DIOXIDE,CO2 27 mmol/L (21-32); CHLORIDE,CL 99 mmol/L (98-107); CREATININE 0.8 mg/dL (0.55-1.02); ESTIMATED GFR 82 mL/min (>=60); ETHANOL BLOOD MEDICAL < 3 mg/dL (0-3); GLUCOSE RANDOM 115 mg/dL (70-99); POTASSIUM,K 3.3 mmol/L (3.5-5.1); PROTEIN TOTAL,TP 7.1 g/dL (6.4-8.2); SODIUM,NA 140 mmol/L (136-145)
[2024-02-24 09:35] LABS: LACTIC ACID 1.1 mmol/L (0.4-2.0)
[2024-02-24] MEDS: Sodium Chloride 0.9% 1,000 ML IV ONE (09:39)
[2024-02-24] MEDS: Ondansetron 4 MG/2 ML SDV IVPUSH ONE (09:44)
[2024-02-24] MEDS: fentaNYL 50 MCG/ML SDV IVPUSH ONE (09:44)
[2024-02-24 09:52] LABS: APPEARANCE,URINE CLOUDY (CLEAR); BILIRUBIN,URINE SMALL (NEGATIVE); COLOR,URINE DARK YELLOW (YELLOW); GLUCOSE,URINE NEGATIVE (NEGATIVE); KETONES,URINE 15 mg/dL (NEGATIVE); LEUKOCYTE ESTERASE,URINE TRACE (NEGATIVE); NITRITE,URINE POSITIVE (NEGATIVE); OCCULT BLOOD,URINE TRACE-INTACT (NEGATIVE); PROTEIN,URINE 100 mg/dL (NEGATIVE)
[2024-02-24 09:58] LABS: BACTERIA,URINE MANY /HPF (NOT SEEN); MUCUS,URINE FEW /LPF (NOT SEEN); SQUAMOUS EPITHELIAL CELLS,UR OCCASIONAL /HPF (NOT SEEN)
[2024-02-24] MEDS: cefTRIAXone 1 GM Vial IVPUSH ONE (10:10)
[2024-02-24] MEDS: Sodium Chloride 0.9% 10 ML Syringe FLUSH PRN (10:11)
[2024-02-24] MEDS ORDERED: Ondansetron 4 MG Tab.DIS PO PRN (11:33)
[2024-02-24] MEDS: Sodium Chloride 0.9% 1,000 ML IV SCH (13:17)
[2024-02-24] MEDS: Potassium Chloride Riders 20 MEQ in Premix Bag 1 BAG IV SCH (14:08)
[2024-02-24] MEDS: oxyCODONE 5 MG Tab PO PRN (14:20)
[2024-02-24] MEDS: Brimonidine 0.2% Ophth Soln 5 ML Bottle EYEBOTH SCH (20:40)
[2024-02-24] MEDS: Latanoprost 0.005% Ophth Soln 2.5 ML Bottle EYEBOTH SCH (20:40)
[2024-02-24] MEDS: Pregabalin 50 MG Cap PO SCH (20:42)
[2024-02-24] MEDS: traZODone 50 MG Tab PO SCH (20:42)
[2024-02-24] MEDS: Cyclobenzaprine 10 MG Tab PO SCH (20:43)
[2024-02-24] MEDS: Pregabalin 25 MG Cap PO SCH (20:43)
[2024-02-24] MEDS: Amitriptyline 25 MG Tab PO SCH (20:43)
[2024-02-24] MEDS: levETIRAcetam 500 MG Tab PO SCH (20:43)
[2024-02-24] MEDS: busPIRone 5 MG Tab PO SCH (20:43)
[2024-02-24] MEDS: Docusate Sodium 100 MG Cap PO SCH (20:47)
[2024-02-24] MEDS ORDERED: PREGABALIN 225 MG PO SCH (21:00)
[2024-02-25] MEDS: Ipratropium 0.02% 0.5 MG/2.5 ML Neb Soln NEB SCH (06:27)
[2024-02-25 06:45] LABS: BASOPHILS PERCENT AUTO 0.2 % (0.2-1.2); EOSINOPHILS ABSOLUTE AUTO 0.1 x10^3/uL (0.0-0.5); EOSINOPHILS PERCENT AUTO 0.9 % (0.0-4.0); HEMATOCRIT 34.4 % (33.0-47.0); HEMOGLOBIN 11.5 g/dL (12.0-16.0); IMMATURE GRAN ABSOLUTE AUTO 0.03 x10^3/uL (0.00-0.07); LYMPHOCYTES ABSOLUTE AUTO 1.2 x10^3/uL (1.0-4.8); LYMPHOCYTES PERCENT AUTO 14.6 % (25.0-50.0); MEAN CORPUSCULAR HGB CONC 33.4 g/dL (32.0-36.0); MEAN CORPUSCULAR VOLUME 101.8 fL (78.0-93.0); MONOCYTES ABSOLUTE AUTO 0.7 x10^3/uL (0.0-0.8); MONOCYTES PERCENT AUTO 8.4 % (2.0-11.0); NEUTROPHILS ABSOLUTE AUTO 6.2 x10^3/uL (1.8-7.7); NEUTROPHILS PERCENT AUTO 75.5 % (50.0-80.0); PLATELET COUNT,PLT 125 x10^3/uL (130-400); RED BLOOD CELL COUNT 3.38 x10^6/uL (4.00-5.50); WHITE BLOOD CELL COUNT,WBC 8.1 x10^3/uL (4.0-10.0)
[2024-02-25 07:08] LABS: A/G RATIO 0.65; ALBUMIN 2.2 g/dL (3.4-5.0); CALCIUM 7.7 mg/dL (8.5-10.1); CREATININE 0.6 mg/dL (0.55-1.02); EST CRCL DRUG DOSING (CG) 94.3 mL/min; POTASSIUM,K 3.4 mmol/L (3.5-5.1); PROTEIN TOTAL,TP 5.6 g/dL (6.4-8.2)
[2024-02-25 07:09] LABS: ANION GAP 16.4 mmol/L (5-15)
[2024-02-25] MEDS: Polyethylene Glycol 3350 Powder 17 GM Packet PO SCH (10:00)
[2024-02-25] MEDS: Venlafaxine 150 MG Cap.ER PO SCH (10:00)
[2024-02-25] MEDS: Metoprolol Succinate 50 MG Tab.ER PO SCH (10:00)
[2024-02-25] MEDS: Venlafaxine 37.5 MG Cap.ER PO SCH (10:00)
[2024-02-25] MEDS: Naltrexone 50 MG Tab PO SCH (10:00)
[2024-02-25] MEDS: Pantoprazole 40 MG Tab.CR PO SCH (10:00)
[2024-02-25] MEDS: cefTRIAXone 1 GM Vial IVPUSH SCH (10:00)
[2024-02-25] MEDS ORDERED: Flumazenil 0.1 MG/ML 5 ML MDV IVPUSH PRN (12:30)
[2024-02-25] MEDS ORDERED: LORazepam 1 MG Tab PO PRN (12:56)
[2024-02-25] MEDS: BUSPIRONE PO SCH (13:30)
[2024-02-25] MEDS: Potassium Chloride 10 MEQ Tab.ER PO SCH (19:00)
[2024-02-25] MEDS: Sodium Chloride 0.9% 1,000 ML IV SCH (20:05)
[2024-02-26 07:58] LABS: BASOPHILS PERCENT AUTO 0.4 % (0.2-1.2); EOSINOPHILS ABSOLUTE AUTO 0.1 x10^3/uL (0.0-0.5); EOSINOPHILS PERCENT AUTO 1.8 % (0.0-4.0); HEMOGLOBIN 11.9 g/dL (12.0-16.0); IMMATURE GRAN ABSOLUTE AUTO 0.02 x10^3/uL (0.00-0.07); LYMPHOCYTES ABSOLUTE AUTO 1.3 x10^3/uL (1.0-4.8); LYMPHOCYTES PERCENT AUTO 16.2 % (25.0-50.0); MEAN CORPUSCULAR HEMOGLOBIN 33.5 pg (26.0-32.0); MEAN CORPUSCULAR HGB CONC 32.2 g/dL (32.0-36.0); MEAN CORPUSCULAR VOLUME 104.2 fL (78.0-93.0); MONOCYTES ABSOLUTE AUTO 0.7 x10^3/uL (0.0-0.8); MONOCYTES PERCENT AUTO 9.6 % (2.0-11.0); NEUTROPHILS ABSOLUTE AUTO 5.6 x10^3/uL (1.8-7.7); NEUTROPHILS PERCENT AUTO 71.7 % (50.0-80.0); PLATELET COUNT,PLT 145 x10^3/uL (130-400); RED BLOOD CELL COUNT 3.55 x10^6/uL (4.00-5.50); WHITE BLOOD CELL COUNT,WBC 7.7 x10^3/uL (4.0-10.0)
[2024-02-26 08:16] LABS: A/G RATIO 0.55; ALBUMIN 2.2 g/dL (3.4-5.0); BILIRUBIN TOTAL 0.9 mg/dL (0.2-1.0); CALCIUM 7.6 mg/dL (8.5-10.1); CREATININE 0.7 mg/dL (0.55-1.02); EST CRCL DRUG DOSING (CG) 80.83 mL/min; POTASSIUM,K 3.8 mmol/L (3.5-5.1); PROTEIN TOTAL,TP 6.2 g/dL (6.4-8.2)
[2024-02-26 08:20] LABS: ANION GAP 15.8 mmol/L (5-15)
[2024-02-26] MEDS: Polyethylene Glycol 3350 Powder 17 GM Packet PO SCH (21:01)
[2024-02-27 07:58] LABS: BASOPHILS PERCENT AUTO 0.1 % (0.2-1.2); EOSINOPHILS ABSOLUTE AUTO 0.1 x10^3/uL (0.0-0.5); EOSINOPHILS PERCENT AUTO 1.2 % (0.0-4.0); HEMATOCRIT 38.6 % (33.0-47.0); HEMOGLOBIN 12.2 g/dL (12.0-16.0); IMMATURE GRAN ABSOLUTE AUTO 0.04 x10^3/uL (0.00-0.07); LYMPHOCYTES ABSOLUTE AUTO 1.1 x10^3/uL (1.0-4.8); MEAN CORPUSCULAR HEMOGLOBIN 33.3 pg (26.0-32.0); MEAN CORPUSCULAR HGB CONC 31.6 g/dL (32.0-36.0); MEAN CORPUSCULAR VOLUME 105.5 fL (78.0-93.0); MONOCYTES ABSOLUTE AUTO 1.2 x10^3/uL (0.0-0.8); MONOCYTES PERCENT AUTO 12.8 % (2.0-11.0); NEUTROPHILS ABSOLUTE AUTO 6.6 x10^3/uL (1.8-7.7); NEUTROPHILS PERCENT AUTO 73.5 % (50.0-80.0); PLATELET COUNT,PLT 154 x10^3/uL (130-400); RED BLOOD CELL COUNT 3.66 x10^6/uL (4.00-5.50)
[2024-02-27] MEDS: Potassium Chloride 10 MEQ Tab.ER PO SCH (08:07)
[2024-02-27 08:16] LABS: A/G RATIO 0.58; ALBUMIN 2.5 g/dL (3.4-5.0); CALCIUM 8.5 mg/dL (8.5-10.1); CREATININE 0.8 mg/dL (0.55-1.02); EST CRCL DRUG DOSING (CG) 70.72 mL/min; POTASSIUM,K 4.5 mmol/L (3.5-5.1); PROTEIN TOTAL,TP 6.8 g/dL (6.4-8.2)
[2024-02-27 08:19] LABS: ANION GAP 15.5 mmol/L (5-15)
[2024-02-27] MEDS: Lactulose Soln 10 GM/15 ML 15 ML UD Cup PO ONE (14:00)
[2024-02-27] MEDS: Levofloxacin/Dextrose 5%-Water 750 MG in Premix Bag 1 BAG IV SCH (17:30)
[2024-02-27] MEDS: Albuterol/Ipratropium 3.0-0.5 MG/3 ML Neb Soln NEB SCH (17:30)
[2024-02-27] MEDS: Losartan 25 MG Tab PO SCH (19:50)
[2024-02-28] MEDS: oxyCODONE 5 MG Tab PO PRN (01:30)
[2024-02-28 06:55] LABS: BASOPHILS PERCENT AUTO 0.1 % (0.2-1.2); EOSINOPHILS PERCENT AUTO 0.1 % (0.0-4.0); HEMATOCRIT 33.7 % (33.0-47.0); HEMOGLOBIN 11.2 g/dL (12.0-16.0); LYMPHOCYTES ABSOLUTE AUTO 1.1 x10^3/uL (1.0-4.8); LYMPHOCYTES PERCENT AUTO 10.9 % (25.0-50.0); MEAN CORPUSCULAR HEMOGLOBIN 33.6 pg (26.0-32.0); MEAN CORPUSCULAR HGB CONC 33.2 g/dL (32.0-36.0); MEAN CORPUSCULAR VOLUME 101.2 fL (78.0-93.0); MONOCYTES ABSOLUTE AUTO 1.8 x10^3/uL (0.0-0.8); NEUTROPHILS ABSOLUTE AUTO 6.7 x10^3/uL (1.8-7.7); PLATELET COUNT,PLT 177 x10^3/uL (130-400); RED BLOOD CELL COUNT 3.33 x10^6/uL (4.00-5.50); WHITE BLOOD CELL COUNT,WBC 9.8 x10^3/uL (4.0-10.0)
[2024-02-28 06:58] LABS: A/G RATIO 0.53; ALBUMIN 2.3 g/dL (3.4-5.0); BILIRUBIN TOTAL 1.1 mg/dL (0.2-1.0); CALCIUM 9.2 mg/dL (8.5-10.1); CREATININE 0.8 mg/dL (0.55-1.02); EST CRCL DRUG DOSING (CG) 70.72 mL/min; POTASSIUM,K 3.9 mmol/L (3.5-5.1); PROTEIN TOTAL,TP 6.6 g/dL (6.4-8.2)
[2024-02-28 06:59] LABS: ANION GAP 15.9 mmol/L (5-15)
[2024-02-28 07:04] LABS: MONOCYTES PERCENT AUTO 18.9 % (2.0-11.0)
[2024-02-28] MEDS: Enoxaparin 40 MG/0.4 ML Syringe SUBCUT SCH (12:00)
[2024-02-28] MEDS: Levofloxacin/Dextrose 5%-Water 150 ML IV SCH (17:30)
[2024-02-28] MEDS: diphenhydrAMINE 50 MG/ML SDV IVPUSH ONE (18:43)
[2024-02-29] MEDS: Levofloxacin 500 MG Tab PO SCH (13:21)
[2024-02-29] MEDS: Acetaminophen 325 MG Tab PO PRN (18:32)
[2024-03-01 07:31] LABS: HEMATOCRIT 34.4 % (33.0-47.0); HEMOGLOBIN 11.3 g/dL (12.0-16.0); MEAN CORPUSCULAR HEMOGLOBIN 32.9 pg (26.0-32.0); MEAN CORPUSCULAR HGB CONC 32.8 g/dL (32.0-36.0); MEAN CORPUSCULAR VOLUME 100.3 fL (78.0-93.0); RED BLOOD CELL COUNT 3.43 x10^6/uL (4.00-5.50); WHITE BLOOD CELL COUNT,WBC 8.9 x10^3/uL (4.0-10.0)
[2024-03-01] MEDS: Albuterol 0.083% 2.5 MG/3 ML Neb Soln INH PRN (21:30)
[2024-03-02 07:16] LABS: HEMATOCRIT 32.1 % (33.0-47.0); HEMOGLOBIN 10.3 g/dL (12.0-16.0); MEAN CORPUSCULAR HEMOGLOBIN 32.1 pg (26.0-32.0); MEAN CORPUSCULAR HGB CONC 32.1 g/dL (32.0-36.0); RED BLOOD CELL COUNT 3.21 x10^6/uL (4.00-5.50); WHITE BLOOD CELL COUNT,WBC 7.7 x10^3/uL (4.0-10.0)
[2024-03-03 07:24] LABS: HEMATOCRIT 31.6 % (33.0-47.0); HEMOGLOBIN 10.2 g/dL (12.0-16.0); MEAN CORPUSCULAR HEMOGLOBIN 32.7 pg (26.0-32.0); MEAN CORPUSCULAR HGB CONC 32.3 g/dL (32.0-36.0); MEAN CORPUSCULAR VOLUME 101.3 fL (78.0-93.0); RED BLOOD CELL COUNT 3.12 x10^6/uL (4.00-5.50); WHITE BLOOD CELL COUNT,WBC 8.4 x10^3/uL (4.0-10.0)
[2024-03-03 09:13] VITALS: BP 142/69
[2024-03-03 11:28] VITALS: PULSE 97
== END 2024-03-03 11:29 | disposition swing bed (61) | DRG 871 ==
LOC: VM.ED 08:34 → VM.MS 10:40 → EEVIPCON 10:40
PROVIDERS: ADMIT Family Medicine; ATTEND Nurse Practitioner Family
DX: A41.59 Other Gram-negative sepsis (principal); J18.9 Pneumonia, unspecified organism; N39.0 Urinary tract infection, site not specified; Z16.24 Resistance to multiple antibiotics; S82.65XA Nondisplaced fracture of lateral malleolus of left fibula, initial encounter for closed fracture; J44.9 Chronic obstructive pulmonary disease, unspecified; I10 Essential (primary) hypertension; W19.XXXA Unspecified fall, initial encounter; K59.09 Other constipation; M79.7 Fibromyalgia; M81.0 Age-related osteoporosis without current pathological fracture; M54.2 Cervicalgia; G89.29 Other chronic pain; F32.A Depression, unspecified; E86.0 Dehydration; F10.10 Alcohol abuse, uncomplicated; G62.0 Drug-induced polyneuropathy; F41.1 Generalized anxiety disorder; G40.909 Epilepsy, unspecified, not intractable, without status epilepticus; F17.210 Nicotine dependence, cigarettes, uncomplicated; E87.6 Hypokalemia; Y95 Nosocomial condition; L29.9 Pruritus, unspecified; T36.8X5A Adverse effect of other systemic antibiotics, initial encounter; Z79.899 Other long term (current) drug therapy; Z79.51 Long term (current) use of inhaled steroids; I25.2 Old myocardial infarction; Z86.010 Personal history of colon polyps; Z87.19 Personal history of other diseases of the digestive system; Z87.11 Personal history of peptic ulcer disease; Z85.3 Personal history of malignant neoplasm of breast; Z90.89 Acquired absence of other organs; Z98.890 Other specified postprocedural states; Z98.51 Tubal ligation status; Z90.10 Acquired absence of unspecified breast and nipple; X58.XXXA Exposure to other specified factors, initial encounter
CPT/HCPCS: 36415; 73610; 80053; 80307; 81001; 83605; 84145; 85025; 87040 ×2; 87086; 87088; 87186; 96361; 96374; 96375; 99284 ×2; J0696; J2405; J3010; J7030; 71046; 83735; 85027; 94640; 94667; 94668; 94760; 97110-GP; 97116-GP; 97129-GO; 97130-GO; 97161-GP; 97165-GO; 97535-GO; A9270-GY; J1200; J1650; J1956; J3480; J3490; J7613-GY; J7620-GY

== ENCOUNTER 2024-03-03 10:41 | Inpatient (IN) | payer MEDICARE, MEDICAID ==
[2024-03-03] MEDS ORDERED: Flumazenil 0.1 MG/ML 5 ML MDV IVPUSH PRN (12:06)
[2024-03-03] MEDS ORDERED: Albuterol 0.083% 2.5 MG/3 ML Neb Soln INH PRN (12:06)
[2024-03-03] MEDS: Albuterol/Ipratropium 3.0-0.5 MG/3 ML Neb Soln NEB SCH (13:47)
[2024-03-03] MEDS: Enoxaparin 40 MG/0.4 ML Syringe SUBCUT SCH (13:47)
[2024-03-03] MEDS: BUSPIRONE PO SCH (13:47)
[2024-03-03] MEDS: Tiotropium Bromide 4 GM Inhalation Spray (2.5mcg/1 dose; 10 doses) INH SCH (13:57)
[2024-03-03] MEDS: Budesonide 0.5 MG/2 ML Neb Susp INH SCH (14:33)
[2024-03-03] MEDS: oxyCODONE 5 MG Tab PO PRN (14:40)
[2024-03-03] MEDS: Ondansetron 4 MG Tab.DIS PO PRN (20:28)
[2024-03-03] MEDS: Amitriptyline 25 MG Tab PO SCH (20:29)
[2024-03-03] MEDS: Cyclobenzaprine 10 MG Tab PO SCH (20:29)
[2024-03-03] MEDS: Latanoprost 0.005% Ophth Soln 2.5 ML Bottle EYEBOTH SCH (20:30)
[2024-03-03] MEDS: Polyethylene Glycol 3350 Powder 17 GM Packet PO SCH (20:30)
[2024-03-03] MEDS: Docusate Sodium 100 MG Cap PO SCH (20:30)
[2024-03-03] MEDS: traZODone 50 MG Tab PO SCH (20:30)
[2024-03-03] MEDS: levETIRAcetam 500 MG Tab PO SCH (20:31)
[2024-03-03] MEDS: Brimonidine 0.2% Ophth Soln 5 ML Bottle EYEBOTH SCH (20:31)
[2024-03-03] MEDS ORDERED: Pregabalin 25 MG Cap PO SCH (21:00)
[2024-03-03] MEDS ORDERED: Pregabalin 50 MG Cap PO SCH (21:00)
[2024-03-04 08:05] LABS: HEMATOCRIT 35.9 % (33.0-47.0); HEMOGLOBIN 11.6 g/dL (12.0-16.0); MEAN CORPUSCULAR HEMOGLOBIN 32.8 pg (26.0-32.0); MEAN CORPUSCULAR HGB CONC 32.3 g/dL (32.0-36.0); MEAN CORPUSCULAR VOLUME 101.4 fL (78.0-93.0); RED BLOOD CELL COUNT 3.54 x10^6/uL (4.00-5.50); WHITE BLOOD CELL COUNT,WBC 8.5 x10^3/uL (4.0-10.0)
[2024-03-04] MEDS: Venlafaxine 150 MG Cap.ER PO SCH (08:13)
[2024-03-04] MEDS: Pantoprazole 40 MG Tab.CR PO SCH (08:13)
[2024-03-04] MEDS: Naltrexone 50 MG Tab PO SCH (08:14)
[2024-03-04] MEDS: Metoprolol Succinate 50 MG Tab.ER PO SCH (08:15)
[2024-03-04] MEDS: Venlafaxine 37.5 MG Cap.ER PO SCH (08:16)
[2024-03-04] MEDS: Losartan 25 MG Tab PO SCH (08:16)
[2024-03-05] MEDS: Bacitracin Oint 28.35 GM Tube TOP SCH (14:12)
[2024-03-07 08:01] LABS: HEMATOCRIT 34.9 % (33.0-47.0); HEMOGLOBIN 11.1 g/dL (12.0-16.0); MEAN CORPUSCULAR HGB CONC 31.8 g/dL (32.0-36.0); MEAN CORPUSCULAR VOLUME 103.9 fL (78.0-93.0); RED BLOOD CELL COUNT 3.36 x10^6/uL (4.00-5.50); WHITE BLOOD CELL COUNT,WBC 8.9 x10^3/uL (4.0-10.0)
[2024-03-07] MEDS: Iopamidol 612 MG/ML 100 ML Bottle IVPUSH ONE (16:04)
[2024-03-07 16:16] LABS: A/G RATIO 0.59; ALBUMIN 2.4 g/dL (3.4-5.0); BILIRUBIN TOTAL 0.3 mg/dL (0.2-1.0); CALCIUM 11.5 mg/dL (8.5-10.1); CREATININE 0.9 mg/dL (0.55-1.02); EST CRCL DRUG DOSING (CG) 62.86 mL/min; POTASSIUM,K 4.6 mmol/L (3.5-5.1); PROTEIN TOTAL,TP 6.5 g/dL (6.4-8.2)
[2024-03-07 16:17] LABS: ANION GAP 11.6 mmol/L (5-15)
[2024-03-08] MEDS: VENLAFAXINE PO SCH (08:28)
[2024-03-08] MEDS: Losartan 25 MG Tab PO SCH (08:29)
[2024-03-10 07:21] LABS: HEMATOCRIT 35.7 % (33.0-47.0); HEMOGLOBIN 11.4 g/dL (12.0-16.0); MEAN CORPUSCULAR HEMOGLOBIN 32.5 pg (26.0-32.0); MEAN CORPUSCULAR HGB CONC 31.9 g/dL (32.0-36.0); MEAN CORPUSCULAR VOLUME 101.7 fL (78.0-93.0); RED BLOOD CELL COUNT 3.51 x10^6/uL (4.00-5.50); WHITE BLOOD CELL COUNT,WBC 6.9 x10^3/uL (4.0-10.0)
[2024-03-12 13:25] LABS: BASOPHILS PERCENT AUTO 0.5 % (0.2-1.2); EOSINOPHILS ABSOLUTE AUTO 0.2 x10^3/uL (0.0-0.5); EOSINOPHILS PERCENT AUTO 3.5 % (0.0-4.0); HEMATOCRIT 36.7 % (33.0-47.0); HEMOGLOBIN 11.6 g/dL (12.0-16.0); IMMATURE GRAN ABSOLUTE AUTO 0.09 x10^3/uL (0.00-0.07); LYMPHOCYTES ABSOLUTE AUTO 1.4 x10^3/uL (1.0-4.8); MEAN CORPUSCULAR HEMOGLOBIN 32.5 pg (26.0-32.0); MEAN CORPUSCULAR HGB CONC 31.6 g/dL (32.0-36.0); MEAN CORPUSCULAR VOLUME 102.8 fL (78.0-93.0); MONOCYTES ABSOLUTE AUTO 0.7 x10^3/uL (0.0-0.8); MONOCYTES PERCENT AUTO 11.6 % (2.0-11.0); NEUTROPHILS ABSOLUTE AUTO 3.9 x10^3/uL (1.8-7.7); PLATELET COUNT,PLT 244 x10^3/uL (130-400); RED BLOOD CELL COUNT 3.57 x10^6/uL (4.00-5.50); WHITE BLOOD CELL COUNT,WBC 6.3 x10^3/uL (4.0-10.0)
[2024-03-12 13:50] LABS: A/G RATIO 0.71; ALBUMIN 2.9 g/dL (3.4-5.0); BILIRUBIN TOTAL 0.4 mg/dL (0.2-1.0); CALCIUM 11.3 mg/dL (8.5-10.1); CREATININE 1.2 mg/dL (0.55-1.02); EST CRCL DRUG DOSING (CG) 47.15 mL/min; POTASSIUM,K 4.7 mmol/L (3.5-5.1)
[2024-03-12 13:52] LABS: ANION GAP 7.7 mmol/L (5-15)
[2024-03-12] MEDS: Thiamine 100 MG Tab PO SCH (17:32)
[2024-03-12] MEDS: Multivitamin Tab PO SCH (17:32)
[2024-03-12] MEDS: Folic Acid 1 MG Tab PO SCH (17:32)
[2024-03-13 07:22] LABS: HEMATOCRIT 36.4 % (33.0-47.0); HEMOGLOBIN 11.9 g/dL (12.0-16.0); MEAN CORPUSCULAR HEMOGLOBIN 32.8 pg (26.0-32.0); MEAN CORPUSCULAR HGB CONC 32.7 g/dL (32.0-36.0); MEAN CORPUSCULAR VOLUME 100.3 fL (78.0-93.0); RED BLOOD CELL COUNT 3.63 x10^6/uL (4.00-5.50); WHITE BLOOD CELL COUNT,WBC 5.2 x10^3/uL (4.0-10.0)
[2024-03-13] MEDS: Sodium Chloride 0.9% 1,000 ML IV ONE (10:54)
[2024-03-13] MEDS: PREGABALIN PO SCH (20:09)
[2024-03-13] MEDS ORDERED: Pregabalin 25 MG Cap PO SCH (21:00)
[2024-03-14 07:05] LABS: A/G RATIO 0.72; ALBUMIN 2.8 g/dL (3.4-5.0); BILIRUBIN TOTAL 0.3 mg/dL (0.2-1.0); CALCIUM 10.8 mg/dL (8.5-10.1); CREATININE 0.8 mg/dL (0.55-1.02); EST CRCL DRUG DOSING (CG) 70.72 mL/min; POTASSIUM,K 5.2 mmol/L (3.5-5.1); PROTEIN TOTAL,TP 6.7 g/dL (6.4-8.2)
[2024-03-14 07:07] LABS: ANION GAP 7.2 mmol/L (5-15)
[2024-03-15 12:01] LABS: A/G RATIO 0.78; ALBUMIN 3.2 g/dL (3.4-5.0); BILIRUBIN TOTAL 0.4 mg/dL (0.2-1.0); CALCIUM 10.8 mg/dL (8.5-10.1); CREATININE 0.8 mg/dL (0.55-1.02); EST CRCL DRUG DOSING (CG) 70.72 mL/min; PROTEIN TOTAL,TP 7.3 g/dL (6.4-8.2)
[2024-03-15] MEDS: Sodium Chloride 0.9% 1,000 ML IV ONE (13:13)
[2024-03-15 17:08] LABS: INTACT PTH 19 pg/mL (15-65)
[2024-03-15] MEDS: Pregabalin 50 MG Cap PO SCH (21:03)
[2024-03-15] MEDS: busPIRone 15 MG Tab PO SCH (21:04)
[2024-03-15] MEDS: traZODone 50 MG Tab PO SCH (21:05)
[2024-03-16 06:52] LABS: HEMOGLOBIN 11.1 g/dL (12.0-16.0); MEAN CORPUSCULAR HEMOGLOBIN 32.2 pg (26.0-32.0); MEAN CORPUSCULAR HGB CONC 32.6 g/dL (32.0-36.0); MEAN CORPUSCULAR VOLUME 98.6 fL (78.0-93.0); RED BLOOD CELL COUNT 3.45 x10^6/uL (4.00-5.50); WHITE BLOOD CELL COUNT,WBC 5.4 x10^3/uL (4.0-10.0)
[2024-03-16 07:06] LABS: A/G RATIO 0.79; BILIRUBIN TOTAL 0.5 mg/dL (0.2-1.0); CALCIUM 10.2 mg/dL (8.5-10.1); CREATININE 0.7 mg/dL (0.55-1.02); EST CRCL DRUG DOSING (CG) 80.83 mL/min; POTASSIUM,K 4.9 mmol/L (3.5-5.1); PROTEIN TOTAL,TP 6.8 g/dL (6.4-8.2)
[2024-03-16 07:07] LABS: ANION GAP 11.9 mmol/L (5-15)
[2024-03-16] MEDS: Acetaminophen 325 MG Tab PO PRN (08:22)
[2024-03-16 10:35] VITALS: BP 94/58; PULSE 78
== END 2024-03-16 10:08 | DRG 559 ==
LOC: VM.MS 11:53
PROVIDERS: ADMIT Nurse Practitioner Family; ATTEND Nurse Practitioner Family
DX: S82.65XD Nondisplaced fracture of lateral malleolus of left fibula, subsequent encounter for closed fracture with routine healing (principal); A41.59 Other Gram-negative sepsis; J18.9 Pneumonia, unspecified organism; N39.0 Urinary tract infection, site not specified; J44.0 Chronic obstructive pulmonary disease with (acute) lower respiratory infection; E86.0 Dehydration; G62.0 Drug-induced polyneuropathy; Y95 Nosocomial condition; F10.20 Alcohol dependence, uncomplicated; F32.A Depression, unspecified; F41.1 Generalized anxiety disorder; I10 Essential (primary) hypertension; G40.909 Epilepsy, unspecified, not intractable, without status epilepticus; I25.2 Old myocardial infarction; K59.09 Other constipation; F17.210 Nicotine dependence, cigarettes, uncomplicated; Z98.51 Tubal ligation status; Z86.010 Personal history of colon polyps; Z79.899 Other long term (current) drug therapy; Z90.10 Acquired absence of unspecified breast and nipple; Z90.89 Acquired absence of other organs; Z98.890 Other specified postprocedural states; Z87.11 Personal history of peptic ulcer disease; W01.0XXD Fall on same level from slipping, tripping and stumbling without subsequent striking against object, subsequent encounter
CPT/HCPCS: 36415; 71046; 71260; 80053; 82140; 82306; 83880; 83970; 85025; 85027; 94640; 94668; 94760; 95851-GO; 97110-GP; 97116-GP; 97530-GP; 97535-GO; A9270-GY; J1650; J3490; J7030; J7620-GY; Q9967

== ENCOUNTER 2025-04-03 15:17 | Inpatient (IN) | payer MEDICARE, MEDICAID ==
[2025-04-03 15:50] LABS: BASOPHILS ABSOLUTE AUTO 0.0 x10^3/uL (0.0-0.2); BASOPHILS PERCENT AUTO 0.2 % (0.2-1.2); EOSINOPHILS ABSOLUTE AUTO 0.0 x10^3/uL (0.0-0.5); EOSINOPHILS PERCENT AUTO 0.0 % (0.0-4.0); IMMATURE GRAN ABSOLUTE AUTO 0.09 x10^3/uL (0.00-0.07); IMMATURE GRAN PERCENT AUTO 0.80 % (0.00-0.43); LYMPHOCYTES ABSOLUTE AUTO 0.8 x10^3/uL (1.0-4.8); LYMPHOCYTES PERCENT AUTO 7.6 % (25.0-50.0); MONOCYTES ABSOLUTE AUTO 1.0 x10^3/uL (0.0-0.8); MONOCYTES PERCENT AUTO 9.6 % (2.0-11.0); NEUTROPHILS ABSOLUTE AUTO 8.9 x10^3/uL (1.8-7.7); NEUTROPHILS PERCENT AUTO 81.8 % (50.0-80.0); PLATELET COUNT,PLT 116 x10^3/uL (130-400); RED BLOOD CELL COUNT 3.63 x10^6/uL (4.00-5.50); WHITE BLOOD CELL COUNT,WBC 10.9 x10^3/uL (4.0-10.0)
[2025-04-03 16:13] LABS: A/G RATIO 0.86; ALANINE AMINOTRANSFERASE,ALT 27 U/L (14-59); ASPARTATE AMNIOTRANSFERASE,AST 58 U/L (15-37); BILIRUBIN TOTAL 1.4 mg/dL (0.2-1.0); BLOOD UREA NITROGEN,BUN 9 mg/dL (7-18); CARBON DIOXIDE,CO2 28 mmol/L (21-32); CHLORIDE,CL 104 mmol/L (98-107); CREATININE 0.8 mg/dL (0.55-1.02); EST CRCL DRUG DOSING (CG) 67.27 mL/min; ESTIMATED GFR 81 mL/min (>=60); ETHANOL BLOOD MEDICAL < 3 mg/dL (0-3); GLUCOSE RANDOM 128 mg/dL (70-99); POTASSIUM,K 4.0 mmol/L (3.5-5.1); PROTEIN TOTAL,TP 6.7 g/dL (6.4-8.2); SODIUM,NA 141 mmol/L (136-145)
[2025-04-03 16:19] LABS: APPEARANCE,URINE CLOUDY (CLEAR); GLUCOSE,URINE NEGATIVE (NEGATIVE); OCCULT BLOOD,URINE NEGATIVE (NEGATIVE)
[2025-04-03 16:26] LABS: SQUAMOUS EPITHELIAL CELLS,UR FEW /HPF (NOT SEEN)
[2025-04-03] MEDS ORDERED: Ondansetron 4 MG Tab.DIS PO PRN (17:39)
[2025-04-03] MEDS ORDERED: Ondansetron 4 MG/2 ML SDV IV PRN (17:39)
[2025-04-03] MEDS ORDERED: Naloxone 0.4 MG/ML SDV IVPUSH PRN (17:48)
[2025-04-03] MEDS ORDERED: Albuterol HFA 18 Gm Inhaler INH PRN (18:16)
[2025-04-03] MEDS: Ipratropium 0.02% 0.5 MG/2.5 ML Neb Soln INH SCH (20:58)
[2025-04-04] MEDS: Acetaminophen/HYDROcodone 325-5 MG Tab PO PRN (02:33)
[2025-04-04 07:12] LABS: BASOPHILS ABSOLUTE AUTO 0.0 x10^3/uL (0.0-0.2); BASOPHILS PERCENT AUTO 0.3 % (0.2-1.2); EOSINOPHILS ABSOLUTE AUTO 0.0 x10^3/uL (0.0-0.5); EOSINOPHILS PERCENT AUTO 0.1 % (0.0-4.0); IMMATURE GRAN ABSOLUTE AUTO 0.05 x10^3/uL (0.00-0.07); IMMATURE GRAN PERCENT AUTO 0.50 % (0.00-0.43); LYMPHOCYTES ABSOLUTE AUTO 1.7 x10^3/uL (1.0-4.8); LYMPHOCYTES PERCENT AUTO 16.6 % (25.0-50.0); MONOCYTES ABSOLUTE AUTO 1.3 x10^3/uL (0.0-0.8); MONOCYTES PERCENT AUTO 12.4 % (2.0-11.0); NEUTROPHILS ABSOLUTE AUTO 7.1 x10^3/uL (1.8-7.7); NEUTROPHILS PERCENT AUTO 70.1 % (50.0-80.0); PLATELET COUNT,PLT 138 x10^3/uL (130-400); RED BLOOD CELL COUNT 3.25 x10^6/uL (4.00-5.50); WHITE BLOOD CELL COUNT,WBC 10.2 x10^3/uL (4.0-10.0)
[2025-04-04 07:23] LABS: BLOOD UREA NITROGEN,BUN 10.0 mg/dL (7-18); CARBON DIOXIDE,CO2 27.0 mmol/L (21-32); CHLORIDE,CL 105.0 mmol/L (98-107); CREATININE 0.6 mg/dL (0.55-1.02); EST CRCL DRUG DOSING (CG) 89.69 mL/min; GLUCOSE RANDOM 102.0 mg/dL (70-99); POTASSIUM,K 3.8 mmol/L (3.5-5.1); SODIUM,NA 141.0 mmol/L (136-145)
[2025-04-04 07:26] LABS: ESTIMATED GFR 99.0 mL/min (>=60)
[2025-04-04] MEDS: Cyanocobalamin (Vitamin B12) 250 MCG Tab PO SCH (09:23)
[2025-04-04] MEDS: Venlafaxine 37.5 MG Cap.ER PO SCH (09:24)
[2025-04-05 06:50] LABS: BASOPHILS ABSOLUTE AUTO 0.0 x10^3/uL (0.0-0.2); BASOPHILS PERCENT AUTO 0.3 % (0.2-1.2); EOSINOPHILS ABSOLUTE AUTO 0.0 x10^3/uL (0.0-0.5); EOSINOPHILS PERCENT AUTO 0.4 % (0.0-4.0); IMMATURE GRAN ABSOLUTE AUTO 0.04 x10^3/uL (0.00-0.07); IMMATURE GRAN PERCENT AUTO 0.40 % (0.00-0.43); LYMPHOCYTES ABSOLUTE AUTO 2.1 x10^3/uL (1.0-4.8); LYMPHOCYTES PERCENT AUTO 21.9 % (25.0-50.0); MONOCYTES ABSOLUTE AUTO 1.0 x10^3/uL (0.0-0.8); MONOCYTES PERCENT AUTO 11.1 % (2.0-11.0); NEUTROPHILS ABSOLUTE AUTO 6.2 x10^3/uL (1.8-7.7); NEUTROPHILS PERCENT AUTO 65.9 % (50.0-80.0); PLATELET COUNT,PLT 120 x10^3/uL (130-400); RED BLOOD CELL COUNT 3.70 x10^6/uL (4.00-5.50); WHITE BLOOD CELL COUNT,WBC 9.4 x10^3/uL (4.0-10.0)
[2025-04-05 07:08] LABS: A/G RATIO 0.64; ALANINE AMINOTRANSFERASE,ALT 32.0 U/L (14-59); ASPARTATE AMNIOTRANSFERASE,AST 94.0 U/L (15-37); BILIRUBIN TOTAL 1.0 mg/dL (0.2-1.0); BLOOD UREA NITROGEN,BUN 11.0 mg/dL (7-18); CARBON DIOXIDE,CO2 30.0 mmol/L (21-32); CHLORIDE,CL 104.0 mmol/L (98-107); CREATININE 0.8 mg/dL (0.55-1.02); EST CRCL DRUG DOSING (CG) 67.27 mL/min; ESTIMATED GFR 81.0 mL/min (>=60); GLUCOSE RANDOM 108.0 mg/dL (70-99); POTASSIUM,K 3.9 mmol/L (3.5-5.1); PROTEIN TOTAL,TP 6.4 g/dL (6.4-8.2); SODIUM,NA 143.0 mmol/L (136-145)
[2025-04-06 07:00] LABS: BASOPHILS ABSOLUTE AUTO 0.0 x10^3/uL (0.0-0.2); BASOPHILS PERCENT AUTO 0.4 % (0.2-1.2); EOSINOPHILS ABSOLUTE AUTO 0.1 x10^3/uL (0.0-0.5); EOSINOPHILS PERCENT AUTO 1.0 % (0.0-4.0); IMMATURE GRAN ABSOLUTE AUTO 0.04 x10^3/uL (0.00-0.07); IMMATURE GRAN PERCENT AUTO 0.50 % (0.00-0.43); LYMPHOCYTES ABSOLUTE AUTO 1.6 x10^3/uL (1.0-4.8); LYMPHOCYTES PERCENT AUTO 20.0 % (25.0-50.0); MONOCYTES ABSOLUTE AUTO 1.0 x10^3/uL (0.0-0.8); MONOCYTES PERCENT AUTO 12.7 % (2.0-11.0); NEUTROPHILS ABSOLUTE AUTO 5.3 x10^3/uL (1.8-7.7); NEUTROPHILS PERCENT AUTO 65.4 % (50.0-80.0); PLATELET COUNT,PLT 143 x10^3/uL (130-400); RED BLOOD CELL COUNT 3.41 x10^6/uL (4.00-5.50); WHITE BLOOD CELL COUNT,WBC 8.2 x10^3/uL (4.0-10.0)
[2025-04-06 07:22] LABS: A/G RATIO 0.58; ALANINE AMINOTRANSFERASE,ALT 31.0 U/L (14-59); ASPARTATE AMNIOTRANSFERASE,AST 81.0 U/L (15-37); BILIRUBIN TOTAL 0.8 mg/dL (0.2-1.0); BLOOD UREA NITROGEN,BUN 11.0 mg/dL (7-18); CARBON DIOXIDE,CO2 30.0 mmol/L (21-32); CHLORIDE,CL 105.0 mmol/L (98-107); CREATININE 0.8 mg/dL (0.55-1.02); EST CRCL DRUG DOSING (CG) 67.27 mL/min; GLUCOSE RANDOM 103.0 mg/dL (70-99); POTASSIUM,K 3.3 mmol/L (3.5-5.1); PROTEIN TOTAL,TP 6.0 g/dL (6.4-8.2); SODIUM,NA 144.0 mmol/L (136-145)
[2025-04-06 07:34] LABS: ESTIMATED GFR 81.0 mL/min (>=60)
[2025-04-06] MEDS: Calcium Carbonate/Vitamin D3 1250 MG-5 MCG Tab PO SCH (20:23)
[2025-04-07 08:10] LABS: BASOPHILS ABSOLUTE AUTO 0.0 x10^3/uL (0.0-0.2); BASOPHILS PERCENT AUTO 0.5 % (0.2-1.2); EOSINOPHILS ABSOLUTE AUTO 0.2 x10^3/uL (0.0-0.5); EOSINOPHILS PERCENT AUTO 2.0 % (0.0-4.0); IMMATURE GRAN ABSOLUTE AUTO 0.03 x10^3/uL (0.00-0.07); IMMATURE GRAN PERCENT AUTO 0.40 % (0.00-0.43); LYMPHOCYTES ABSOLUTE AUTO 2.2 x10^3/uL (1.0-4.8); LYMPHOCYTES PERCENT AUTO 25.8 % (25.0-50.0); MONOCYTES ABSOLUTE AUTO 1.1 x10^3/uL (0.0-0.8); MONOCYTES PERCENT AUTO 13.1 % (2.0-11.0); NEUTROPHILS ABSOLUTE AUTO 4.9 x10^3/uL (1.8-7.7); NEUTROPHILS PERCENT AUTO 58.2 % (50.0-80.0); PLATELET COUNT,PLT 175 x10^3/uL (130-400); RED BLOOD CELL COUNT 3.70 x10^6/uL (4.00-5.50); WHITE BLOOD CELL COUNT,WBC 8.4 x10^3/uL (4.0-10.0)
[2025-04-07 08:30] LABS: A/G RATIO 0.54; ALANINE AMINOTRANSFERASE,ALT 36.0 U/L (14-59); ASPARTATE AMNIOTRANSFERASE,AST 96.0 U/L (15-37); BILIRUBIN TOTAL 0.8 mg/dL (0.2-1.0); BLOOD UREA NITROGEN,BUN 12.0 mg/dL (7-18); CARBON DIOXIDE,CO2 27.0 mmol/L (21-32); CHLORIDE,CL 104.0 mmol/L (98-107); CREATININE 0.9 mg/dL (0.55-1.02); EST CRCL DRUG DOSING (CG) 59.79 mL/min; GLUCOSE RANDOM 98.0 mg/dL (70-99); POTASSIUM,K 3.6 mmol/L (3.5-5.1); PROTEIN TOTAL,TP 7.1 g/dL (6.4-8.2); SODIUM,NA 141.0 mmol/L (136-145)
[2025-04-07 08:31] LABS: ESTIMATED GFR 71.0 mL/min (>=60)
[2025-04-07] MEDS: Cholecalciferol (Vitamin D3) 25 MCG Tab PO SCH (08:35)
[2025-04-10 07:01] LABS: BASOPHILS ABSOLUTE AUTO 0.0 x10^3/uL (0.0-0.2); BASOPHILS PERCENT AUTO 0.7 % (0.2-1.2); EOSINOPHILS ABSOLUTE AUTO 0.2 x10^3/uL (0.0-0.5); EOSINOPHILS PERCENT AUTO 3.5 % (0.0-4.0); IMMATURE GRAN ABSOLUTE AUTO 0.04 x10^3/uL (0.00-0.07); IMMATURE GRAN PERCENT AUTO 0.70 % (0.00-0.43); LYMPHOCYTES ABSOLUTE AUTO 1.9 x10^3/uL (1.0-4.8); LYMPHOCYTES PERCENT AUTO 33.2 % (25.0-50.0); MONOCYTES ABSOLUTE AUTO 0.7 x10^3/uL (0.0-0.8); MONOCYTES PERCENT AUTO 12.9 % (2.0-11.0); NEUTROPHILS ABSOLUTE AUTO 2.8 x10^3/uL (1.8-7.7); NEUTROPHILS PERCENT AUTO 49.0 % (50.0-80.0); PLATELET COUNT,PLT 279 x10^3/uL (130-400); RED BLOOD CELL COUNT 3.21 x10^6/uL (4.00-5.50); WHITE BLOOD CELL COUNT,WBC 5.7 x10^3/uL (4.0-10.0)
[2025-04-10 07:25] LABS: A/G RATIO 0.61; ALANINE AMINOTRANSFERASE,ALT 29.0 U/L (14-59); ASPARTATE AMNIOTRANSFERASE,AST 62.0 U/L (15-37); BILIRUBIN TOTAL 0.5 mg/dL (0.2-1.0); BLOOD UREA NITROGEN,BUN 13.0 mg/dL (7-18); CARBON DIOXIDE,CO2 31.0 mmol/L (21-32); CHLORIDE,CL 105.0 mmol/L (98-107); CREATININE 0.8 mg/dL (0.55-1.02); EST CRCL DRUG DOSING (CG) 67.27 mL/min; GLUCOSE RANDOM 95.0 mg/dL (70-99); POTASSIUM,K 4.3 mmol/L (3.5-5.1); PROTEIN TOTAL,TP 6.1 g/dL (6.4-8.2); SODIUM,NA 142.0 mmol/L (136-145)
[2025-04-10 07:30] LABS: ESTIMATED GFR 81.0 mL/min (>=60)
[2025-04-10 17:18] VITALS: BP 168/72; PULSE 70
[2025-04-11] MEDS ORDERED: Tiotropium Bromide 4 GM Inhalation Spray (2.5mcg/1 dose; 10 doses) INH SCH (09:00)
== END 2025-04-10 19:57 | disposition swing bed (61) | DRG 690 ==
LOC: VM.ED 15:17 → VM.MS 16:42 → OBSVTOIN 04-04 11:30
PROVIDERS: ADMIT Internal Medicine; ATTEND Nurse Practitioner Family
DX: N39.0 Urinary tract infection, site not specified (principal); R56.1 Post traumatic seizures; N17.9 Acute kidney failure, unspecified; S82.831A Other fracture of upper and lower end of right fibula, initial encounter for closed fracture; Z66 Do not resuscitate; H40.9 Unspecified glaucoma; I10 Essential (primary) hypertension; I25.2 Old myocardial infarction; J44.9 Chronic obstructive pulmonary disease, unspecified; K59.09 Other constipation; M79.7 Fibromyalgia; M54.2 Cervicalgia; M81.0 Age-related osteoporosis without current pathological fracture; F41.9 Anxiety disorder, unspecified; F32.A Depression, unspecified; F10.10 Alcohol abuse, uncomplicated; G62.9 Polyneuropathy, unspecified; F17.200 Nicotine dependence, unspecified, uncomplicated; R41.82 Altered mental status, unspecified; R29.6 Repeated falls; E05.90 Thyrotoxicosis, unspecified without thyrotoxic crisis or storm; M85.80 Other specified disorders of bone density and structure, unspecified site; E55.9 Vitamin D deficiency, unspecified; D64.9 Anemia, unspecified; Z85.3 Personal history of malignant neoplasm of breast; Z88.8 Allergy status to other drugs, medicaments and biological substances; Z90.49 Acquired absence of other specified parts of digestive tract; Z79.899 Other long term (current) drug therapy; Z98.51 Tubal ligation status; Z98.890 Other specified postprocedural states; Z98.891 History of uterine scar from previous surgery
CPT/HCPCS: 36415; 70450; 71045; 73560-RT; 73610-RT; 73700-RT; 80048; 80053; 80307; 81001; 82140; 85025; 87040; 94640; 94760; 96372; 96374; 96375; 96376; 97110-GP; 97116-GP; 97162-GP; 97165-GO; 97535-GO; 99232-GT; 99284; 99285; A9270-GY; G0378; J0696; J1171; J1650; J7644

== ENCOUNTER 2025-04-10 18:47 | Inpatient (IN) | payer MEDICARE, MEDICAID ==
[2025-04-10] MEDS ORDERED: Albuterol HFA 18 Gm Inhaler INH PRN (20:04)
[2025-04-10] MEDS ORDERED: Ondansetron 4 MG Tab.DIS PO PRN (20:04)
[2025-04-10] MEDS ORDERED: Naloxone 0.4 MG/ML SDV IVPUSH PRN (20:04)
[2025-04-10] MEDS: Calcium Carbonate/Vitamin D3 1250 MG-5 MCG Tab PO SCH (21:20)
[2025-04-11 06:57] LABS: PLATELET COUNT,PLT 335.0 x10^3/uL (130-400); RED BLOOD CELL COUNT 3.32 x10^6/uL (4.00-5.50); WHITE BLOOD CELL COUNT,WBC 5.9 x10^3/uL (4.0-10.0)
[2025-04-11] MEDS: Cholecalciferol (Vitamin D3) 25 MCG Tab PO SCH (08:31)
[2025-04-11] MEDS: Cyanocobalamin (Vitamin B12) 250 MCG Tab PO SCH (08:31)
[2025-04-11] MEDS: Venlafaxine 37.5 MG Cap.ER PO SCH (08:32)
[2025-04-11] MEDS: Tiotropium Bromide 4 GM Inhalation Spray (2.5mcg/1 dose; 10 doses) INH SCH (08:33)
[2025-04-14 08:04] LABS: PLATELET COUNT,PLT 337.0 x10^3/uL (130-400); RED BLOOD CELL COUNT 3.33 x10^6/uL (4.00-5.50); WHITE BLOOD CELL COUNT,WBC 5.7 x10^3/uL (4.0-10.0)
[2025-04-17 06:35] LABS: PLATELET COUNT,PLT 297.0 x10^3/uL (130-400); RED BLOOD CELL COUNT 3.28 x10^6/uL (4.00-5.50); WHITE BLOOD CELL COUNT,WBC 6.5 x10^3/uL (4.0-10.0)
[2025-04-19] MEDS: Acetaminophen/HYDROcodone 325-5 MG Tab PO PRN (06:39)
[2025-04-20 06:48] LABS: PLATELET COUNT,PLT 236.0 x10^3/uL (130-400); RED BLOOD CELL COUNT 3.28 x10^6/uL (4.00-5.50); WHITE BLOOD CELL COUNT,WBC 5.3 x10^3/uL (4.0-10.0)
[2025-04-20 12:02] VITALS: BP 134/76; PULSE 69
== END 2025-04-20 11:45 | disposition home health service (06) | DRG 561 ==
LOC: VM.MS 20:05
PROVIDERS: ADMIT Nurse Practitioner Family; ATTEND Nurse Practitioner Family
DX: S82.451D Displaced comminuted fracture of shaft of right fibula, subsequent encounter for closed fracture with routine healing (principal); Z66 Do not resuscitate
CPT/HCPCS: 36415; 85027; 94640; 97110-GP; 97116-GP; 97164-GP; 97530-GO; 97535-GO; A9270-GY; J1650